=== PATIENT | female | born 1965 | race Caucasian/White ===

== ENCOUNTER 2024-06-29 14:49 | Outpatient (AMB) | payer BC, SELFPAY ==
--- NOTE | 2024-06-29 14:51 | HO.NEPHOV ---
Vital Signs 06/29/24 14:52 Height 5 ft 4 in Weight 230 lb BMI 39.5 BP 122/68 Blood Pressure Location Rt brachial Position Sitting Pulse 100 Pulse Source Pulse Oximeter Pulse Oximetry (%) 99 Oxygen Delivery Method Room Air Intake Visit Reasons: Abn results of kidney function studies/ Conf Door To Door Lead Generation Required: No Accompanied by: Self / Same As Patient Allergies morphine Allergy (Unknown, Verified 06/29/24 14:57) Unknown pantoprazole [From Protonix] Allergy (Unknown, Verified 06/29/24 14:57) Unknown Quinolones Allergy (Unknown, Verified 06/29/24 14:57) Unknown acifex Allergy (Unknown, Uncoded 06/29/24 14:57) Unknown sulfa drugs Allergy (Unknown, Uncoded 06/29/24 14:57) Unknown Medication List - Last Reconciled 06/29/24 by Gerardo Gonzalez MD albuterol sulfate 90 mcg/actuation inhalation cholecalciferol (vitamin D3) 250 mcg PO QWEEK famotidine 20 mg PO DAILY fexofenadine (Isabella Allergy) 180 mg PO BID hydroxychloroquine (Plaquenil) 200 mg PO BID ipratropium bromide intranasal mecobalamin (vitamin B12) 1,000 mcg PO DAILY mometasone 50 mcg/actuation intranasal DAILY HPI Comments Details: Mary is a pleasant 58-year-old woman with connective tissue disease. She has seronegative rheumatoid arthritis. She is on Plaquenil. Does not take any NSAIDs. She has had multiple episodes of eczema has and has undergone skin biopsies. She takes tacrolimus p.r.n.. She has been referred for evaluation of CKD. January 2024 serum creatinine was 1.26. May 2024 serum creatinine was 1.19. He has had no renal issues in the past. No gross hematuria. No polyuria polydipsia. No petechiae. She has generalized joint pains. She is not on any systemic steroids. She has undergone extensive serological workup in and C ANCA p-ANCA MPO PR3 were negative. No monoclonal proteins were seen. No history of smoking or alcohol abuse. She takes medical marijuana. 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 No children no family history of any currently tissue disease. [facility] Family History Father Hypertension Hypercholesterolemia Kidney disease Mother Hypertension Hypercholesterolemia Brother Kidney disease Hypercholesterolemia Hypertension Sister Hypercholesterolemia Review of Systems Const Denies fever(s) and Denies weight loss Card Denies chest pain Resp Denies cough and Denies hemoptysis GI Denies abdominal pain, Denies diarrhea and Denies nausea Musc Denies back pain Skin/Breast Reports rash (On and off. No petechiae) Neuro Denies focal weakness Physical Exam Vital Signs: Last Vital Signs Pulse 100 06/29/24 14:52 BP 122/68 06/29/24 14:52 Pulse Ox 99 06/29/24 14:52 Oxygen Delivery Method Room Air 06/29/24 14:52 BMI result Body Mass Index 39.5 Comfortable obese Neck supple no JVD. Lungs entry equal no rales. Heart S1-S2 heard no gallop or rub. Abdomen soft nontender. Neuro alert awake oriented. No asterixis. Extremities trace edema. Results Reviewed Results Reviewed: In 01/26/2024 serum creatinine 1.26 EGFR 40 mL/minute. Serum electrolytes were normal Nephrology Results: No Data to Display Assessment & Plan Assessment & Plan (1) CKD (chronic kidney disease): Code(s): N18.9 - Chronic kidney disease, unspecified Category: Medical Plan 58-year-old man with obesity and currently tissue disease with CKD. She did have acute kidney injury back in January. Serum creatinine is improved. Recent creatinine was 1.19. In the past the workup did not reveal any evidence of glomerular nephritis. Serological workup was negative. She had no significant proteinuria in the urine protein creatinine ratio was 0.053. I have initiated a basic workup including a 24 urine collection to calculate creatinine clearance and to quantify the urinary protein excretion. Repeat urinalysis along with microscopy. Renal ultrasonogram to assess echogenicity and to rule out any obstruction. I have encouraged her to stay on low-sodium diet Increase p.o. fluid intake She will benefit from weight loss. Further workup will be based on the outcome of these above investigations. Orders: Orders Creatinine Clearance Urine 24U Today N18.9 - Chronic kidney disease, unspecified Comprehensive Met. Panel Today N18.9 - Chronic kidney disease, unspecified Protein, 24 Hr Urine Group Today N18.9 - Chronic kidney disease, unspecified UA and rflx microscopic Today N18.9 - Chronic kidney disease, unspecified US renal BI Today I10 - Essential (primary) hypertension, N18.9 - Chronic kidney disease, unspecified Coding Level of Care Code New Pt Level 4 (36480) Diagnoses CKD (chronic kidney disease) N18.9
[2024-06-29 14:52] VITALS: BP 122/68; PULSE 100; O2SAT 99; BMI 39.5
--- OUTSIDE RECORDS SUMMARY | 2024-06-29 17:21 | XMS_ITS | Encounter Summary ---
Author Organization [facility] Address [address] [place] [address] Care Team Providers Care It Administrator Name Role Phone Julien Mckeon APRN Unavailable [phone] Shari Maier MD Unavailable [phone] Wm Cantu MD Unavailable [phone] Elina Sanchez JANITOR HELPER Primary Care Provider Lexus Chen MD Unavailable [phone] Encounter Details Date Type Department Care Team (Late st Contact Info) Description 09/01/2023 Scanned Document [facility] Department of Internal Medicine [address] [phone] Elina Sanchez, MARGOT [address] [place] [address] Social History Tobacco Use Types Packs/Day Years Used Date Smoking Tobacco: Never Smokeless Tobacco: Never Alcohol Use Standard Drinks/Week Comments Yes 1 (1 standard drink = 0.6 oz pur e alcohol) PHQ-2 Answer Date Recorded PHQ-2 Total Score 2 05/12/2023 Sex and Gender Information Value Date Recorded Sex Assigned at Female 05/06/2023 1:41 PM EST Gender Identity Female 01/07/2022 3:23 PM EDT Sexual Orientation Heterosexual (straight) 01/07 3:23 PM EDT documented as of this encounter Plan of Treatment Upcoming Encounters Date Type Department Care Team (Late st Contact Info) Description 10/25/2024 9:30 AM EDT Office Visit [facility] Department of Internal Medicine [address] [place] [phone] Elina Sanchez APRN [address] [place] [address] documented as of this encounter Visit Diagnoses Not on filedocumented in this encounter Care Teams It Administrator Relationship Specialty Start Date End Date Elina Sanchez APRN [address] [place], [place] [address] PCP - General Internal Medicine 07/06/23 Julien Mckeon APRN [address] [place] [address] Nurse Practitioner Neurology 05/12/23 Shari Maier MD [address] [place] [address] Consulting Provider Dermatology 05/12/23 Wm Cantu MD 9 [facility] [address]nd [place] [address] Obstetrics and Gynecology 05/12/23 Lexus Chen MD [address] [place] [address] Rheumatology 05/24/24 documented as of this encounter
--- OUTSIDE RECORDS SUMMARY | 2024-06-29 17:21 | XMS_ITS | Encounter Summary ---
Author Organization [facility] Address [address] [place] [address] Care Team Providers Care Truss Assembler Name Role Phone Julien Mckeon APRN Unavailable [phone] Shari Miaer MD Unavailable [phone] Wm Cantu MD Unavailable [phone] Elina Sanchez SURGERY SCHEDULER Primary Care Provider Lexus Chen MD Unavailable [phone] Encounter Details Date Type Department Care Team (Late st Contact Info) Description 06/29/2024 Scanned Document [facility] Department of Internal Medicine [address] [phone] Elina Sanchez, MARGOT [address] [place] [address] Social History Tobacco Use Types Packs/Day Years Used Date Smoking Tobacco: Never Smokeless Tobacco: Never Alcohol Use Standard Drinks/Week Comments Yes 1 (1 standard drink = 0.6 oz pur e alcohol) Occasonal/Social PHQ-2 Answer Date Recorded PHQ-2 Total Score 1 05/24/2024 Sex and Gender Information Value Date Recorded Sex Assigned at Female 05/06/2023 1:41 PM EST Gender Identity Female 01/07/2022 3:23 PM EDT Sexual Orientation Heterosexual (straight) 01/07 3:23 PM EDT documented as of this encounter Plan of Treatment Upcoming Encounters Date Type Department Care Team (Late st Contact Info) Description 10/25/2024 9:30 AM EDT Office Visit [facility] Department of Internal Medicine [address] [place] [phone] Elina Sanchez APRN [address] [place] [address] documented as of this encounter Visit Diagnoses Not on filedocumented in this encounter Care Teams Truss Assembler Relationship Specialty Start Date End Date Elina Sanchez, MARGOT [address] [place] [address] PCP - General Internal Medicine 07/06/23 Julien Mckeon APRN [address] [place] [address] Nurse Practitioner Neurology 05/12/23 Shari Maier MD [address] [place] [address] Consulting Provider Dermatology 05/12/23 Wm Cantu MD [address] [place] [address] 2[address] [place] [address] Obstetrics and Gynecology 05/12/23 Lexus Chen MD [address] [place] [address] Rheumatology 05/24/24 documented as of this encounter
--- OUTSIDE RECORDS SUMMARY | 2024-06-29 17:21 | XMS_ITS | Clinical Summary ---
Author Organization [facility] Address [address] [place] [address] Care Team Providers Care Quarter Seamer Name Role Phone Vik Brar MD Primary Care Provider Unavail able Allergies Active Allergy Reactions Criticality Noted Date Comments Rabeprazole 2017 Amoxicillin-Pot Clavulanate 2017 Skin harden Fluticasone 2017 Morphine Other (See Comments) 2017 Rash, low BP Pantoprazole 2017 Quinolones 2017 Sulfa Antibiotics 2017 Tetracyclines & Related 2017 Medications Medication Sig Dispensed Refills Start Date End Date Status FLORANEX GRANULES (LACTOBACILLUS) PACK packet Take 1 packet by mouth daily. 0 Active cholecalciferol (VITAMIN D3) 1000 units tablet Take 1,000 Units by mouth daily. 0 Active desoximetasone (TOPICORT) 0.25 % ointment Apply topically 2 (two) times a day. 0 Active Clobetasol Prop Emollient Base 0.05 % emollient cream Apply topically 2 (two) times a day. 0 Active metroNIDAZOLE (METROGEL) 1 % gel Apply topically daily. 0 Active Fexofenadine HCl (ED ALLERGY PO) Take 180 mg by mouth 2 (two) times a day. 0 Active estradiol (ESTRACE) 2 MG tablet Take 2 mg by mouth daily. 0 08/07/2016 Active famotidine (PEPCID) 20 MG tablet Take 20 mg by mouth 2 (two) times a day. 0 Active hydroxychloroquine (PLAQUENIL) 200 MG tablet Take 200 mg by mouth 2 (two) times a day. 0 Active Active Problems Problem Noted Date Diagnosed Date Atypical endometrial cells on Pap smear 12/06/19 21 Family History Medical History Relation Name Comments Hyperlipidemia Father Hypertension Father Cancer Mother Oropharangeal Diabetes Mother Heart disease Mother Relation Name Status Comments Father Mother Social History Tobacco Use Types Packs/Day Years Used Date Smoking Tobacco: Never Smokeless Tobacco: Never Alcohol Use Standard Drinks/Week Comments Yes 0 (1 standard drink = 0.6 oz pur e alcohol) rarely Sex and Gender Information Value Date Recorded Sex Assigned at Female 11/30/2020 9:55 AM EDT Gender Identity Not on file Sexual Orientation Not on file Job Start Date Occupation Industry Not on file Not on file Not on file Last Filed Vital Signs Vital Sign Reading Time Taken Comments Blood Pressure 136/69 12/07/2020 10:24 AM EDT Pulse 61 12/07/2020 10:24 AM EDT Temperature 36 ??C (96.8 ??F) 12/07/2020 9:24 AM EDT Respiratory Rate 18 12/07/2020 10:24 AM EDT Oxygen Saturation 100% 12/07/2020 10:24 AM EDT Inhaled Oxygen Concentration - - Weight 101.6 kg (224 lb) 12/07/2020 7:43 AM EDT Height 162.6 cm (5' 4 ) 12/07/2020 7:43 AM EDT Body Mass Index 38.45 12/07/2020 7:43 AM EDT Plan of Treatment Health Maintenance Due Date Last Done Comments Hepatitis B Vaccines (1 of 3 - 3-dose series) 1966 Hepatitis C Screening 1966 COVID-19 Vaccine (#1) 02/19/1967 Depression Screening 1978 BMI Counseling 1984 Preventative Health Evaluation 1984 Cervical Cancer Screening (P ap Smear) 08/20/1987 Colon Cancer Screening (Colonoscopy) 08/20/2011 Breast Cancer Screening (Mammogram) 2016 Shingrix-Zoster Vaccine (1 of 2) 2016 DTap / Tdap / Td (2 - Td or Tdap) 03/21/2019 009 Influenza Vaccine (#1) 2024 Pneumococcal Vaccine Aged Out No long er eligible based on patient's age to complete this topic RSV Ped < 20 months Aged Out No longe r eligible based on patient's age to complete this topic Advance Directives For more information, please contact: [phone] Documents on File Type Date Recorded Patient Sustainable Products Marketing Manager Expl anation Advance Directive and Living Will 03/10/2016 No advanced Directiv es Latest Code Status on File Code Status Date Activated Date Inactivated Comments Full Code 12/07/2020 7:46 AM 12/07/2020 4:49 PM This co de status was ascertained in the following way: discussion with patient . Care Teams Quarter Seamer Relationship Specialty Start Date End Date Vik Brar MD PCP - General Internal Medicine 03/08/16
--- OUTSIDE RECORDS SUMMARY | 2024-06-29 17:21 | XMS_ITS | Encounter Summary ---
Author Organization [facility] Address [address] [place] [address] Care Team Providers Care Fiberglass Insulation Installer Name Role Phone Vik Brar MD Primary Care Provider [phone] Julien Mckeon HEALTH ACTUARY Unavailable [phone] Shari Maier MD Unavailable [phone] Wm Cantu MD Unavailable [phone] Elina Sanchez HEALTH ACTUARY Unavailable [phone] Elina Sanchez HEALTH ACTUARY Primary Care Provider [phone] Lexus Chen MD Unavailable [phone] Reason for Visit * Reason Onset Date Comments Medication Refill 11/19/2021 Encounter Details Date Type Department Care Team (Late st Contact Info) Description 11/19/2021 Refill [facility] [address] [facility] [address] [place] [address] Nneka Sultana ProviderMD [address] [place] [address] Gastroesophageal reflux disease Social History Tobacco Use Types Packs/Day Years Used Date Smoking Tobacco: Never Smokeless Tobacco: Never Alcohol Use Standard Drinks/Week Comments Yes 1 (1 standard drink = 0.6 oz pur e alcohol) Sex and Gender Information Value Date Recorded Sex Assigned at Female 05/06/2023 1:41 PM EST Gender Identity Female 01/07/2022 3:23 PM EDT Sexual Orientation Heterosexual (straight) 01/07 3:23 PM EDT documented as of this encounter Plan of Treatment Upcoming Encounters Date Type Department Care Team (Late st Contact Info) Description 10/25/2024 9:30 AM EDT Office Visit [facility] Department of Internal Medicine [address] [place] [address] Elina Sanchez, MARGOT [address] [place], [place] [id number] documented as of this encounter Visit Diagnoses Diagnosis Gastroesophageal reflux disease Esophageal reflux documented in this encounter Care Teams Fiberglass Insulation Installer Relationship Specialty Start Date End Date Vik Brar MD PCP - General Internal Medicine 08/11/16 07/04/23 Elina Sanchez, HEALTH ACTUARY [address] [place], [place] [id number] PCP - General Internal Medicine 07/06/23 Julien Mckeon APRN [address] [place] [address] Nurse Practitioner Neurology 05/12/23 Shari Maier MD [address] [place] [address] Consulting Provider Dermatology 05/12/23 Wm Cantu MD 9 [facility] 2nd [place] [address] Obstetrics and Gynecology 05/12/23 Elina Sanchez, HEALTH ACTUARY [address] [place] [address] Nurse Practitioner Internal Medicine 07/05/23 07/05/23 Lexus Chen MD [address] [place] [address] Rheumatology 05/24/24 documented as of this encounter
--- OUTSIDE RECORDS SUMMARY | 2024-06-29 17:21 | XMS_ITS | Encounter Summary ---
Author Organization [facility] Address [address] [place] [address] Care Team Providers Care Brickmason Apprentice Name Role Phone Vik Brar MD Primary Care Provider Julien Mckeon BLOCK CAPTAIN Unavailable [phone] Shari Maier MD Unavailable [phone] Wm Cantu MD Unavailable Elina Sanchez BLOCK CAPTAIN Unavailable Elina Sanchez BLOCK CAPTAIN Primary Care Provider Lexus Chen MD Unavailable [phone] Encounter Details Date Type Department Care Team (Late st Contact Info) Description 05/26/2023 Scanned Document [facility] Department of Internal Medicine [place] [address] [facility] [address] [place] [phone] Vik Brar MD [address] [place] [address] Social History Tobacco Use Types Packs/Day Years [...] Description 10/25/2024 9:30 AM EDT Office Visit [facility] Department of Internal Medicine [address] [place] [address] Elina Sanchez, BLOCK CAPTAIN [address] [place] [address] documented as of this encounter Visit Diagnoses Not on filedocumented in this encounter Care Teams Brickmason Apprentice Relationship Specialty Start Date End Date Vik Brar MD PCP - General Internal Medicine 08/11/16 07/04/23 Elina Sanchez, BLOCK CAPTAIN [address] [place] [address] PCP - General Internal Medicine 07/06/23 Julien Mckeon BLOCK CAPTAIN [address] [place] [address] Nurse Practitioner Neurology 05/12/23 Shari Maier MD [address] [place] [address] Consulting Provider Dermatology 05/12/23 Wm Cantu MD 9 [facility] [address] [place] [address] Obstetrics and Gynecology 05/12/23 Elina Sanchez, BLOCK CAPTAIN [address] [place] [address] Nurse Practitioner Internal Medicine 07/05/23 07/05/23 Lexus Chen MD [address] [place] [address] Rheumatology 05/24/24 documented as of this encounter
--- OUTSIDE RECORDS SUMMARY | 2024-06-29 17:21 | XMS_ITS | Encounter Summary ---
Author Organization [facility] Address [address] [place] [address] Care Team Providers Care Bus Mechanic Name Role Phone Julien Mckeon APRN Unavailable [phone] Shari Maier MD Unavailable [phone] Wm Cantu MD Unavailable [phone] Elina Sanchez OCEAN FREIGHT MANAGER Primary Care Provider Lexus Chen MD Unavailable [phone] Encounter Details Date Type Department Care Team (Late st Contact Info) Description 01/25/2024 Scanned Document [facility] Department of Internal Medicine [address] [phone] Elina Sanchez, MARGOT [address] [place] [address] Social History Tobacco Use Types Packs/Day [...] Visit [facility] Department of Internal Medicine [address] [place] [phone] Elina Sanchez APRN [address] [place] [address] documented as of this encounter Visit Diagnoses Not on filedocumented in this encounter Care Teams Bus Mechanic Relationship Specialty Start Date End Date Elina Sanchez APRN [address] [place], [place] [phone] PCP - General Internal Medicine 07/06/23 Julien Mckeon APRN [address] [place] [address] Nurse Practitioner Neurology 05/12/23 Shari Maier MD [address] [place] [address] Consulting Provider Dermatology 05/12/23 Wm Cantu MD [address] [facility] 2nd [place] [address] Obstetrics and Gynecology 05/12/23 Lexus Chen MD [address] [place] [address] Rheumatology 05/24/24 documented as of this encounter
--- OUTSIDE RECORDS SUMMARY | 2024-06-29 17:21 | XMS_ITS | Encounter Summary ---
Author Organization [facility] Address [address] [place] [address] Care Team Providers Care Dock Builder Name Role Phone Julien Mckeon APRN Unavailable [phone] Shari Maier MD Unavailable [phone] Wm Cantu MD Unavailable Elina Sanchez APRN Primary Care Provider Lexus Chen MD Unavailable [phone] Encounter Details Date Type Department Care Team (Late st Contact Info) Description 06/14/2024 Orders Only [facility] Department of Internal Medicine [place] [address] [facility] [address] [place] [phone] Provider, Chloé, [address] [place], [place] [phone] Social History Tobacco Use Types Packs/Day Years [...] Description 10/25/2024 9:30 AM EDT Office Visit [facility] Department of Internal Medicine [address] [place] [phone] Elina Sanchez, MARGOT [address] [place] [address] documented as of this encounter Procedures Procedure Name Priority Date/Time Associated Diagnosis Comments DEXA BONE DENSITY AXIAL SKELETON, 1 OR MORE SITES Routine 06/14/2024 12:38 PM EST documented in this encounter Results * DEXA Bone Density axial skeleton, 1 or more sites (06/14/2024 12:38 PM EST) Anatomical Region Laterality Modality Digital Radiogra phy External Provider MD COY DXA ORDERABLES documented in this encounter Visit Diagnoses Not on filedocumented in this encounter Care Teams Dock Builder Relationship Specialty Start Date End Date Elina Sanchez, FILM TECHNICIAN [address] [place] [address] PCP - General Internal Medicine 07/06/23 Julien Mckeon APRN [address] [place] [address] Nurse Practitioner Neurology 05/12/23 Shari Maier MD [address] [place] [address] Consulting Provider Dermatology 05/12/23 Wm Cantu MD [address] [facility] 2nd [place] [address] Obstetrics and Gynecology 05/12/23 Lexus Chen MD [address] [place] [address] Rheumatology 05/24/24 documented as of this encounter
--- OUTSIDE RECORDS SUMMARY | 2024-06-29 17:21 | XMS_ITS | Continuity of Care Document ---
Author Organization [facility] Address [address] [place] [phone] Care Team Providers Care Bilingual Customer Service Specialist Name Role Phone ELINA SANCHEZ Primary Care Provider Assessment Encounter Date Assessment Date Assessment LastModified by Organization Details LastModified Time 06/28/2024 06/28/2024 Class II Obesity : --Reviewed basic physiology of weight regulation --Low GI diet, protein breakfast, food order --Exercise as tolerated ? CV and resistance training --Utilize [employer] --RD referral --Support groups --Track weight weekly online --Shift calories to earlier in the day The patient presents for follow up today. It has been 14 weeks since their last visit for weight loss management. Since that time they have stopped taking Topiramate due to side effects: difficulty getting out of bed, fatigue, etc. Sensitive to medications, notes ready to try an alternative. 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 Told she now has Stage 3 CKD and will be seeing nephrology for the first time tomorrow. They were unsure if this is related to her autoimmune issues. Change in weight since last appointment: Highest/Baseline wt: 238 Wt @ LISA: 215 Current wt: 221 Wt change: +6.0lbs / 2.79 % --Reviewed medications associated with weight gain, counseled on alternatives to be discussed with prescribing provider --AOM selection ? discussed dosing and common side effects of available options: Contrave, GLP-1s. Pt discontinued Topiramate due to side effects. Very sensitive to medications in general and PCP even prescribed an epi pen for her just in case. We discussed options: would not be a candidate for Phentermine with HTN. Previously failed Topiramate. Just diagnosed with Stage 3 CKD and seeing nephrology tomorrow. Would avoid Metformin. Consider Contrave. Reviewed prescribing policy for GLP-1 as well. Pt wanted to review options and then discuss with her ratoprinter as well. PCP and refinery operator polymerization plant supported use of GLP-1. Pt to message me with an update after she sees the ratoprinter for next steps. Also discussed bariatric surgery as an option. Pt aware she has the option for a consult if she wanted to explore her options as well. Notes she had labs done recently. Will attempt to obtain for update/review. Pt to continue working on increased water, protein, exercise. Will keep RD consult as well. Agrees to connect with any concerns prior to our 3 month follow up. Pt is comfortable with this plan. Total time spent on the date of the encounter = 70 minutes, which includes visit preparation time, time reviewing and independently interpreting results, mbot-cm-[id number] time with the patient, counseling/educat ing patient/family members/caregiver s, ordering medications/tests /procedures, care coordination, documenting clinical information in the electronic medical record, following up on referrals/results and communicating with related healthcare professionals as needed. Follow up: Lab Order Set: UTD Appt w/ AUTOMOTIVE CONSULTANT: 3 months Appt w/ RD: pending [email or web address] Not available 06/28/2024 12:59:39 Plan of Treatment Reminders Order Date Submit Date Provider Last Modified By Organization Details Last Modified Time Details Appointments RD FOLLOW -UP (RDF)- 65 025 05:00PM SUDHIR AMBROSIO RD Not available Not available Not available Lab None record ed. Referral None record ed. Procedures None record ed. Surgeries None record ed. Imaging None record ed. Medication Orders None record ed. Patient TargetsNo targets recorded. Patient Instructions Encounter Date Encounter Id Patient Instructions Last Modified By Organization Details Last Modified Time 06/28/2024 [id number] Maxime Hernandez , It was great seeing you today. Here are some reminders from our visit - --> Remember to eat small portions, eat slowly, stop eating before you feel full -->Consider starting each day with a high protein breakfast, drinking 64oz of water throughout your day, and eating the protein and veggies first in your meals and saving carbs/starches for last --> We recommend gradually increasing your activity as tolerated to 150mins/wk and focusing on strength based activity 2 days/wk. -->Please check your weight once weekly -->Please use [facility] Patient Portal for any questions that arise between visits -->For follow up scheduling please call [phone] PATRICIO Unger [email or web address] Not available 06/28/2024 11:49:25 Reason for Referral None Reported. Problems Name Problem SNOMED Code Status Onset Date Resolution Date Notes Provider Name and Address Organization Details Recorded Time Obesity 754402296 Active 2023 Brenda joseph, [facility] [employer] [facility]. - [facility] 4 11:31:07 Hyperlipidemia 98465613 Active 2023 EARLINE RIZVIOR, [address], [place], [address], [facility] [employer] - [facility] 4 12:54:36 Anxiety 90797964 Active 2023 EARLINE PATTERSON, [address], [place], [address], [facility] [employer] - [facility] 4 12:54:39 Migraine 70415169 Active 2023 EARLINE PATTERSON, [address], [place], [address], [facility] [employer] - [facility] 4 12:54:42 Gastroesophage al reflux disease without esophagitis 289416002 Active 2023 EARLINE PATTERSON, [address], [place], [address], [facility] [employer] [facility]. - [facility] 4 12:55:00 Essential hypertension 79556785 Active 2023 EARLINE PATTERSON, [address], [place], [address], [facility] [employer] - [facility] 4 12:55:02 Snoring 67034347 Active 2023 EARLINE PATTERSON, [address], [place], [address], [facility] [employer] - [facility] 4 12:57:37 Rheumatoid arthritis 30685409 Active 2023 EARLINE YESENIA, [employer] [address], [place], [address], [facility] [employer]. - [facility] 4 13:02:51 Obese class III 565348563 Active 2023 WAQAS BARNETT, RDN [address], [place], [address], [facility] [employer]. - [facility] 4 10:57:34 Chronic kidney disease stage 3A 669586364 Active 2024 EARLINE YESENIA, [employer] [address], [place], [address], [facility] [employer] [facility]. - [facility] 5 12:50:15 Problem Notes None recorded. Medical Equipment None Reported. Allergies Allergen ID Allergen Name Allergen Category Reaction Reaction Severity Criticality Documentation Date Start Date Code Code System Note Provider Name and Address Organization Details Recorded Time 3554 morphine medicatio n Not available Not available Not available 08/31/2023 7052 RxNorm [facility]. - [facility] 4 10:36:34 3555 Substance with sulfonami de structure and antibacte rial mechanism of action (substanc e) medicatio n Not available Not available Not available 08/31/2023 736[address] 8003 SNOMED [facility]. - [facility] 4 10:36:46 Medications Name Sig Start Date Stop Date Status Note LastModified by Organization Details LastModified Time desoximetas one 0.05 % topical cream APPLY SPARINGLY TO AFFECTED AREA TWICE A DAY NEEDED active Not Available Not Available No t Available prednisone 5 mg tablet TAKE 2 TABS ONCE DAILY FOR 1-2 WEEKS, THEN 1 TAB ONCE DAILY FOR 2 WEEKS 08/31 completed Not Available Not Available Not Available clobetasol 0.05 % topical cream APPLY SPARINGLY ONCE OR TWICE A DAY NEEDED active Not Available Not Available No t Available topiramate 25 mg tablet TAKE 1 TABLET DAILY 06/28 completed Not Available Not Available Not Available famotidine 20 mg tablet TAKE 1 TABLET BY MOUTH NIGHTLY NEEDED FOR HEARTBURN . active Not Available Not Available No t Available mometasone 50 mcg/actuati on nasal spray SPRAY 2 SPRAYS BY NASAL ROUTE DAILY active Not Available Not Available No t Available hydroxychlo roquine 200 mg tablet TAKE 1 TABLET BY MOUTH TWICE A DAY FOR 90 DAYS active Not Available Not Available No t Available epinephrine 0.3 mg/0.3 mL injection, auto-inject or INJECT 0.3 ML (0.3 MG TOTAL) INTO THE THIGH ONCE NEEDED FOR ALLERGIC REACTION. active Not Available Not Available No t Available albuterol sulfate HFA 90 mcg/actuati on aerosol inhaler 2 PUFFS NEEDED INHALATIO N EVERY 6-8 HRS 30 DAYS active Not Available Not Available No t Available ipratropium bromide 21 mcg (0.03 %) nasal spray 2 SPRAYS BY NASAL ROUTE EVERY 12 (TWELVE) HOURS. 2 SPRAYS PER NOSTRIL EVERY 12 HOURS. active Not Available Not Available No t Available erythromyci n with ethanol 2 % topical solution APPLY TO FACIAL RASH UNDER NOSE TWICE A DAY FOR 6 WEEKS 02/21 completed Not Available Not Available Not Available metronidazo le 1 % topical gel APPLY TO ROSACEA ONCE DAILY. active Not Available Not Available No t Available sodium,pota ssium,mag sulfates 17.5 gram-3.13 gram-1.6 gram oral soln FOLLOW DIRECTION S PROVIDED BY PHYSICIAN 'S OFFICE. 02/21 completed Not Available Not Available Not Available Vitals Date Recorded Body height Body mass index (BMI) Body weight Provider Name and Address Organization Details Last Updated DateTime 06/28/2024 162.56 cm 37.9 kg/m2 641128.91 g EARLINE RIZVIOR, AC[employer] PL[employer] OPERATOR[address], [place], [address], [facility]. - [facility] 06/28/2024 12:31:25 Date Recorded Body weight Body height Body mass index (BMI) Provider Name and Address Organization Details Last Updated DateTime 06/28/2024 141386.5850 7 g 162.56 cm 37.9 kg/m2 Not Available [employer] 06/28/2024 12:33:23 Social History None recorded. Functional Status None recorded. Mental Status None recorded. Family History Nothing Reported. Medical History No medical history recorded. Gynecological HistoryNo gynecological history recorded. Obstetrics History GPAL:G 0 P 0 0 0 0 Past Encounters Encounter ID Performer Location Encounter Start Date Encounter Closed Date Diagnosis/Indication Diagnosis SNOMED-CT Code Diagnosis ICD10 Code Diagnosis Note [id number] EARLINE RIZVIORMARGOT [address] [phone] 06/28/2024 12:28:33 06/28/2024 13:00:25 Obesity 033195091 E66.9 --as above Hyperlipidemia 12393667 E78.5 --Monitor lipids with weight loss and dietary/li festyle modificati on Anxiety 06299781 F41.9 --pt continues to work with her therapist as she is still grieving the loss of her (plus multiple other losses in a short time frame)--llamas sn't tolerated meds well in the past Migraine 50645035 G43.90 9 --stopped Topiramate due to side effects--R eview medication s associated with weight gain, counseled on alternativ es to be discussed with mari ortiz provider. Gastroesop hageal reflux disease without esophagitis 435753799 K21.9 --Reviewed common food triggers, keeping a symptom journal, elevation of the head of the bed, stop eating a few hours before bedtime--M onitor symptoms with weight losssonogr am and referral to GI/Hepatol ogy--Reduc e/disconti nue alcohol intake Snoring 70781587 R06.83 Snoring- @STOP-BANG score 4/7--Revie wed physiology of HUGO and health risks associated with untreated sleep apnea--Dis cuss with PCP regarding: Refer to sleep medicine specialist Rheumatoid arthritis 698 [address] M06.9 --follows with her rheumatolo gist regularly in [place]--co ntinue current regimen Chronic ki dney disease stage 3A 448353396 N18.31 --was told she has Stage 3 CKD.--seeandrae man nephrology tomorrow for consult--w ill hold on starting new meds until she is seen by them. Health Concerns Section Related Observation LastModified by Organization Detai ls LastModified Time None Recorded Concern Status LastModified by Organization Details LastModified Time None Recorded Payers None recorded. Notes Date Note Type Note Provider Name and Address Organization Details Recorded Time 5 text/html History of Present Illness:58 yr old Female with class 3 Obesity, Acid Reflux, Anxiety, Asthma, Migraines, Arthritis presents for evaluation.I have confirmed that the patient is physically located in the state of {{[place] [facility] A [facility]* [facility] [place] [facility] Mary [facility] }} Visit{{DATE 06/28/2024}}Th e patient presents for follow up today. It has been 14 weeks since their last visit for weight loss management. Since that time they have stopped taking Topiramate due to side effects: difficulty getting out of bed, fatigue, etc. Sensitive to medications, notes ready to try an alternative. 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 Told she now has Stage 3 CKD and will be seeing nephrology for the first time tomorrow. They were unsure if this is related to her autoimmune issues.Change in weight since last appointment:Highest/Baseli ne wt: 238Wt @ LISA: 215Current wt: 221Wt change: +6.0lbs / 2.79 % Appetite (0= no hunger, 10= intense hunger)?{{0 1 2 3 4 5* 6 7 8 9 10}} Cravings (0= no cravings, 10= strong cravings)?{{0 1 2 3 4 5 6 7 8* 9 10}} sweets Binging?{{Yes* No}} Hardest time(s) of day appetite/cravings-ramirez:{{M orning Midday Afternoon Di nnertime After dinner* N/A (appetite is controlled)}} Triggers for Overeating:{{Stress Boredo m Depression/Anxiety Socia l Events Lack of fullness*}} Food recall (past 24 hours vs. a few go-to options):Breakfast: eggs or non-dairy yogurt, machaLunch: tuna or chicken in lettuce leaf or gf wrapDinner: non-dairy frozen pizzaSnacks: popcorn, nutsDrinks: below Sugar Amount/Frequency:Beverages : water, teaSoda: noneJuice: once in a while, rareAlcohol: slightly increasedDrinks with Sugar: noneDrinks with Artificial sweeteners: noneOther calorie-containing drinks: none Exercise:Duration/Frequenc y: inconsistentCardio: planning to resume weight lifting and workout videos and walkingResistance:Other: planning to get a walking pad Sleep: was overtired on Topiramate, notes poor sleep at baseline Depression/Anxiety/Mood: stable, still seeing therapist Energy(0= no energy, 10= intense energy):{{0 1 2 3 4* 5 6 7 8 9 10}} ROS: 10+ performed, negative except pertinent positives noted above _Last visit History of Present Illness:58 yr old Female with class 3 Obesity, Acid Reflux, Anxiety, Asthma, Migraines, Arthritis presents for evaluation.I have confirmed that the patient is physically located in the state of [facility] Visit{{DATE 02/22/2024}}Th e patient presents for follow up today. It has been 5 months since their last visit for weight loss management. They have been taking Topiramate (only started last week after speaking with her neurologist) and report no side effects at this time. Wishes she could have faster weight loss. Notes that since starting the meds, her headaches have significantly improved! Was resistant to start meds as she notes she is very medication sensitive.Change in weight since last appointment:Highest/Baseli ne wt: 238lbsWt @ LISA: 215lbsCurrent wt: 215lbsWt change: 0lbs Appetite (0= no hunger, 10= intense hunger)?{{0 1 2 3 4* 5 6 7 8 9 10}} Cravings (0= no cravings, 10= strong cravings)?{{0 1 2 3 4* 5 6 7 8 9 10}} Binging?{{Yes No*}} Hardest time(s) of day appetite/cravings-ramirez:{{M orning Midday Afternoon Di nnertime After dinner N/A (appetite is controlled)*}} Triggers for Overeating:{{Stress Boredo m Depression/Anxiety Socia l Events Lack of fullness n/a#}} Food recall (past 24 hours vs. a few go-to options): avoids gluten and dairyBreakfast: non dairy yogurt, hard boiled eggsLunch: chicken, fruits or veggies, saladDinner: chicken breast, veggieSnacks: chicken for a snack, apple with pbDrinks: below Sugar Amount/Frequency:Beverages : water, teaSoda: noneJuice: once in a while, rareAlcohol: rareDrinks with Sugar: noneDrinks with Artificial sweeteners: noneOther calorie-containing drinks: none Exercise:Duration/Frequenc y: inconsistentCardio: planning to resume weight lifting and workout videos and walkingResistance:Other: Sleep: stable Depression/Anxiety/Mood: works with her therapist who supports the addition of meds Energy(0= no energy, 10= intense energy):{{0 1 2 3 4 5 6* 7 8 9 10}} ROS: 10+ performed, negative except pertinent positives noted above _Last visit 58 yr old Female with class 3 Obesity, Acid Reflux, Anxiety, Asthma, Migraines, Arthritis presents for evaluation.I have confirmed that the patient is physically located in the state of {{[place]* [place] [facility] [place] [facility] h [facility] }} Referred ByPCP: Elina Sanchez AprnSUBSPECIALIST(S): specialists out of [place] (refinery operator polymerization plant and computer peripheral equipment operator), also sees a dermatologistVITALSHeight: 5'4 Weight: 215lbsHighest weight/BMI: 238.0 lbs, BMI 40.9, 2022Baseline weight/BMI: 215.0 lbs, BMI 36.9Lowest adult weight/BMI: 180.0 lbs, BMI 30.9, 1999Last weight/BMI: 215.0 lbs, BMI 36.9Total weight loss (Highest - Last): -23.0 lbs / -9.7%Total weight loss (Baseline - Last): 0.0 lbs / 0.0%Last Blood Pressure: Insufficient Number of ReadingsAverage Blood pressure: Insufficient Number of ReadingsLast Pulse: Insufficient Number of ReadingsAverage Pulse: Insufficient Number of ReadingsWEIGHT HISTORYWeight gain coincided with: of a loved oneCurrent lifestyle factors: Sedentary, Long hours, Stressful, Free/junk food availableMotivation for weight loss: Improve healthChallenges: Feeling too restricted by a diet or exercise programPrevious diets: many diets: BERNARDA, Nusrat Dalton, calorie counting, cabbage dietPrevious anti-obesity medications: nonePrevious bariatric surgeries/procedures/devic es: none Has lost about 30lbs in 1.5 years following her 's passingDIETARY RECALL (Last 3 logs)--Food Logged on --Breakfast: protein shakeLunch: leftovers or yogurtDinner: salad or skipsSnacks: popcornBeverages: water, teaSoda: noneJuice: once in a while, rareAlcohol: rareDrinks with Sugar: noneDrinks with Artificial sweeteners: noneOther calorie-containing drinks: noneEATING BEHAVIORNotes she has been told she has disordered eating History of Eating Disorder: NoBinge Eating: SometimesExcessive appetite: SometimesGrazing: SometimesCravings: SometimesTrigger for Overeating: Yes - Stress, Boredom, HappinessPercentage of Daily Calories consumed after dinnertime: 0-25%Eating window: breakfast 7am- last meal around 8pmBiggest Meal of the day: DinnerWeekly Restaurant/Take out Meals:Dietary Strategies that are appealing: Food logging, Mediterranean, Calorie countingFood sensitivities/restrictions : tries to stay plant based and gluten free, now eating some seafood and chicken on occasionFoods/Drinks consumed regularly: Fruit juice, Sugar in coffee, tea or other drinks, Candy, Sweets, Processed/packaged foodMiddle of the night eating: on occasionPHYSICAL ACTIVITYAverage daily steps: 2-5,000Activity Level: Lightly active (e.g., some light activity in daily life)Type of Activity: Beach Body on DemandDuration and frequency/week: 5 days/weekSLEEPHours of sleep per night: 5 to 7OSA Dx: NoSnoring: Yes - MildWitnessed Apnea: NoTreating sleep apnea adequately: n/aDaytime Sleepiness: YesMedications to help with sleep: medical marijuana prnSTOP-BANG score: 4/7Insomnia: YesPSYCHDepression: NoAnxiety: Yes and panic attacks in the pastOther psych diagnoses: processing grief due to multiple deaths over the past few years: dogs, parents, husbandCurrent treatment: therapyProvider(s): therapist--pt continues to work with her therapist as she is still grieving the loss of her (plus multiple other losses in a short time frame)--hasn't tolerated meds well in the pastPAST MEDICAL/SURGICAL HISTORYWeight Classification: class 3 obesityConfirmed insulin resistance diagnosis: NoCancer types: none, cancer screenings UTDOther diagnoses: Acid Reflux, Anxiety, Asthma, Migraines, Seronegative RA (also told other undiagnosed autoimmune diseases)Surgeries: endometriosis surgery (1980s), deviated septum repair, cholecystectomyDenies PMH: Seizure, Pancreatitis, Kidney stones, and/or GlaucomaSOCIAL 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 Plaquenil-? Pepcid-? Isabella Allergy-? Nasonex-? Albuterol Sulfate-? METROGEL-? Clobetasol Propionate (emollient)-? TopicortSupplements:magnes ium infusion monthly, Vit D3 daily, medical marijuana prn pain, CBD dailyALLERGIESSulpha, Morphine SulfateLABS/IMAGINGLabs from were reviewed in detail today with the patient. EARLINE YESENIA, MARGOT [address] [place] [address],[address], [place], [address], [facility]. - [facility] 06/28/2024 13:00:22 OBGyn Episode No OBEpisode recorded.
--- OUTSIDE RECORDS SUMMARY | 2024-06-29 17:21 | XMS_ITS | Encounter Summary ---
Author Organization [facility] Address [address] [place] [address] Care Team Providers Care Crochet Beader Name Role Phone Julien Mckeon APRN Unavailable [phone] Shari Maier MD Unavailable [phone] Wm Cantu MD Unavailable [phone] Elina Sanchez DISPATCH CLERK Primary Care Provider Lexus Chen MD Unavailable [phone] Encounter Details Date Type Department Care Team (Late st Contact Info) Description 06/10/2024 Scanned Document [facility] Department of Internal Medicine [address] [id number] Elina Sanchez, MARGOT [address] [place] [address] Social History Tobacco Use Types Packs/Day [...] Description 10/25/2024 9:30 AM EDT Office Visit [facility] Department of Internal Medicine [address] [place] [address] Elina Sanchez APRN [address] [place] [address] documented as of this encounter Visit Diagnoses Not on filedocumented in this encounter Care Teams Crochet Beader Relationship Specialty Start Date End Date Elina Sanchez, MARGOT [address] [place] [address] PCP - General Internal Medicine 07/06/23 Julien Mckeon APRN [address] [place] [address] Nurse Practitioner Neurology 05/12/23 Shari Maier MD [address] [place] [address] Consulting Provider Dermatology 05/12/23 Wm Cantu MD [address] [place] [address] 2nd [place] [address] Obstetrics and Gynecology 05/12/23 Lexus Chen MD [address] [place] [address] Rheumatology 05/24/24 documented as of this encounter
--- OUTSIDE RECORDS SUMMARY | 2024-06-29 17:21 | XMS_ITS | Encounter Summary ---
Author Organization [facility] Address [address] [place] [address] Care Team Providers Care Concrete Finisher Apprentice Name Role Phone Julien Mckeon APRN Unavailable [phone] Shari Maier MD Unavailable [phone] Wm Cantu MD Unavailable [phone] Elina Sanchez APRN Primary Care Provider Lexus Chen MD Unavailable [phone] Encounter Details Date Type Department Care Team (Late st Contact Info) Description 10/06/[address] [facility] [address] [phone] Yashira Leroy MD [address] [address] Social History Tobacco Use Types Packs/Day Years [...] Visit [facility] Department of Internal Medicine [place] [address] [facility] [address] [place] [address] Elina Sanchez, FURNACE REPAIRER [address] [place] [address] documented as of this encounter Procedures Procedure Name Priority Date/Time Associated Diagnosis Comments PATHOLOGY REPORT 10/06/2023 12:0 0 AM EDT documented in this encounter Results * PATHOLOGY REPORT (10/06/2023 12:00 AM EDT) Yashira Izquierdo MD PATHOLOGY/CYTOLOG Y ORDERABLES documented in this encounter Visit Diagnoses Not on filedocumented in this encounter Care Teams Concrete Finisher Apprentice Relationship Specialty Start Date End Date Elina Sanchez, FURNACE REPAIRER [address] [place] [address] PCP - General Internal Medicine 07/06/23 Julien Mckeon, FURNACE REPAIRER [address] [place] [address] Nurse Practitioner Neurology 05/12/23 Shari Maier MD [address] [place] [address] Consulting Provider Dermatology 05/12/23 Wm Cantu MD 9 [facility] 2nd Floor [place], [place] [id number] Obstetrics and Gynecology 05/12/23 Lexus Chen MD [address] [place] [address] Rheumatology 05/24/24 documented as of this encounter
--- OUTSIDE RECORDS SUMMARY | 2024-06-29 17:21 | XMS_ITS | Clinical Summary ---
Author Organization [facility] it Address [address] [place] [address] Care Team Providers Care Plaster Pattern Caster Name Role Phone Vik Brar MD Primary Care Provider [phone] Surgical History Surgery Date Site/Laterality Comments CHOLECYSTECTOMY PROCEDURE:CHOLECYSTECTOMY ENDOMETRIAL FULGURATION PROCEDURE:LAPAROSCOPIC ENDOMETRIOSIS FULGURATION NASAL SEPTUM SURGERY PROCEDURE:NASAL SEPTUM SURGERY Medical History Medical History Date Comments Hypertension DX:Hypertension GERD (gastroesophageal reflux disease) DX:GERD (gastroesophageal reflux disease) Allergies DX:Allergies Rheumatoid arthritis (CMS/HCC) D X:Rheumatoid arthritis (HCC) Autoimmune disorder (CMS/HCC) DX :Autoimmune disorder (HCC) Family History Medical History Relation Name Comments [...] Information Value Date Recorded Sex Assigned at Not on file Gender Identity Not on file Sexual Orientation Not on file Obstetrics History Plan of Treatment Health Maintenance Due Date Last Done Comments Breast Cancer Screening 1966 DTaP,Tdap,and Td Vaccines (1 - Tdap) 1985 Hepatitis B Vaccines (1 of 3 - 19+ 3-dose series) 1985 Cervical Cancer Screening: P ap Smear 08/20/1987 Zoster Vaccines (1 of 2) 2016 COVID-19 Vaccine (2023-2 5 season) 2024 Influenza Vaccine (#1) 2024 HIB Vaccines Aged Out No longer eligi ble based on patient's age to complete this topic HPV Vaccines Aged Out No longer eligi ble based on patient's age to complete this topic Hepatitis A Vaccines Aged Out No long er eligible based on patient's age to complete this topic IPV Vaccines Aged Out No longer eligi ble based on patient's age to complete this topic MMR Vaccines Aged Out No longer eligi ble based on patient's age to complete this topic Meningococcal ACWY Vaccine Aged Out N o longer eligible based on patient's age to complete this topic Pneumococcal Vaccine: Pediat rics (0 to 5 Years) and At-Risk Patients (6 to 64 Years) Aged Out No longer eligible b ased on patient's age to complete this topic RSV Immunization Patients Un justin 20 months Aged Out No longer eligible b ased on patient's age to complete this topic Varicella Vaccines Aged Out No longer eligible based on patient's age to complete this topic Care Teams Plaster Pattern Caster Relationship Specialty Start Date End Date Vik Brar MD [address] [address] PCP - General Internal Medicine 03/08/16
--- OUTSIDE RECORDS SUMMARY | 2024-06-29 17:21 | XMS_ITS | Encounter Summary ---
Author Organization [facility] Address [address] [place] [phone] Care Team Providers Care Scientific Helper Name Role Phone Unavailable Primary Care Provider Unavailabl e Encounter Details Date Type Department Care Team (Late st Contact Info) Description 02/16/2018 Scanned Document [facility] [address] [place] [address] Bhavani Muir MD [address] [place] [phone] Social History Tobacco Use Types Packs/Day Years Used Date Smoking Tobacco: Never Assessed Comments Unknown Sex and Gender Information Value Date Recorded Sex Assigned at Not on file Legal Sex Female 9:08 AM EST Gender Identity Not on file Sexual Orientation Not on file documented as of this encounter Plan of Treatment Not on file documented as of this encounter Visit Diagnoses Not on filedocumented in this encounter
--- OUTSIDE RECORDS SUMMARY | 2024-06-29 17:21 | XMS_ITS | Clinical Summary ---
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 Name Role Phone Julien Mckeon APRN Unavailable [phone] Shari Maier MD Unavailable [phone] Wm Cantu MD Unavailable [phone] Elina Sanchez APRN Primary Care Provider [phone] Lexus Chen MD Unavailable [phone] Allergies Active Allergy Reactions Criticality Noted Date Comments Adhesives/Tape Rash/Dermatitis,Itc fili Low 05/27/2013 Can tolerate bandaids for short periods of time but says that in the past when they used tape after phlebotomy would have swelling and itching under where the tape was Amoxicillin-Pot Clavulanate Itching Low 08/11/2022 Bacitracin Rash/Dermatitis Low 10/28/2014 Applied after ear piercing and 24 hours later developed itchy rash with small blisters. Codeine Rash/Dermatitis,Swe lling,Anaphylaxis High 08/11/2022 Misc. Sulfonamide Containing Compounds Rash/Dermatitis Low 02/15/2024 Morphine Unknown/Patient and Family Unable to Define,Anaphylaxis, Other (See Comments),Nausea And Vomiting,GI Intolerance/Nausea/ Vomiting,Rash/Martinez titis,Shortness Of Breath High 08/11/2016 Rash, low BP 1) first exposure had vomiting 2) second exposure had itchy rash, thinks she had low blood pressure, shortness of breath (called anaphylactic) *Per patient oral opiates have been tolerated in the past just with nausea but not this same severe reaction. Nitrofurantoin Monohyd Macro Unknown/Patient and Family Unable to Define Medium 08/11/2016 Pantoprazole Itching Low 08/11/2016 Penicillins Hives Medium 08/11/2016 Quinine Derivatives Unknown/Patient and Family Unable to Define Medium 08/11/2016 Quinolones Itching,Swelling Medium 08/11/2022 Rabeprazole Unknown/Patient and Family Unable to Define Medium 08/11/2016 Sulfa Antibiotics Swelling,Itching Medium 08/11/2016 Tetracycline Swelling,Rash/Martinez titis Medium 08/11/2016 Medications Medication Sig Dispensed Refills Start Date End Date Status metroNIDAZOLE (METROGEL) 1 % gel apply to affected area once daily 0 07/15/2016 Active clobetasol (TEMOVATE) 0.05 % cream Apply topically 2 (two) times a day. Apply to affected area 0 08/02/2016 Active saccharomyces boulardii (FLORASTOR) 250 MG capsule Take 250 mg by mouth daily. Active hydroxychloroquine (PLAQUENIL) 200 MG tablet Take 200 mg by mouth. 08/24/2019 Active desoximetasone (TOPICORT) 0.25 % cream Apply topically. Active vitamin B-12 (CYANOCOBALAMIN) 100 MCG tablet Take 1 tablet by mouth daily. Active albuterol (PROVENTIL HFA; VENTOLIN HFA) 108 (90 Base) MCG/ACT inhaler Inhale 2 puffs 4 times daily (every 6 hours) as needed. 10/21/2021 Active cholecalciferol (VITAMIN D3) 1000 units capsule Take 1 capsule by mouth daily. Active famotidine (PEPCID) 20 MG tablet Take by mouth. 10/03/2019 Active fexofenadine (ED) 180 MG tablet Take by mouth. 02/05/2012 Active ipratropium (ATROVENT) 0.03 % nasal spray into each nostril. 11/18/2021 Activ e CANNABIDIOL PO Take 0.75 mL by mouth. Active mometasone (NASONEX) 50 MCG/ACT nasal spray 2 sprays into each nostril daily. Active erythromycin with ethanol (THERAMYCIN) 2 % external solution APPLY TO FACIAL RASH UNDER NOSE TWICE A DAY FOR 6 WEEKS 03/17/2023 Active predniSONE (DELTASONE) 5 MG tablet 1 tablet Oral as needed for 30 days Active EPINEPHrine 0.3 mg/0.3 mL IJ auto-injectionIndicat ions:History of anaphylaxis Inject 0.3 mL (0.3 mg total) into the thigh once as needed for allergic reaction. 2 each 1 05/24/2024 Active Active Problems Problem Noted Date Diagnosed Date Celiac disease 02/15/2024 Rheumatoid arthritis 02/15/2024 Stage 3a chronic kidney disease 02/15/2024 Assessment & Plan (05/24/2024 9:22 AM EST): Family history of ckd. Renal ultrasound ordered. Will see nehrologist in one monht Recommend drinking 64 oz water daily Assessment & Plan (02/15/2024 8:34 AM EDT): GFR trending down over past few visite. Discussion regarding improgtance of adequate hydration , increase daily activity, recommend weight loss . Will monitor, recheck renal studies, mag, phos, vit d and consider addition of SGLT 2 without improvement Elevated LDL cholesterol level 02/15/2024 Assessment & Plan (06/06/2024 11:33 AM EST): Newly ekevated lipids in setting of recently poor diet. Lifestyle modification recommendations reviewed. Gastroesophageal reflux dise ase with esophagitis without hemorrhage 01/28/2024 Morbid obesity 10/13/2023 Assessment & Plan (06/06/2024 11:34 AM EST): Currently attneding nutrition counseling. Expressing interest in GLP-1 treatment. Insurance will cover if she attends [employer] through work for weight management. Recommendations reviewed. Assessment & Plan (10/16/2023 8:47 PM EDT): Working out 7 days weekly. Joined weight loss program through work that is interested in starting her on medication for weight loss. Expressing reluctance as she has extensive medication allergies. Recommend avoidance of processed food, fast foods and excessive carbs. Avoid concentrated sugars and sugary beverages . Maintain adequate hydration with water Intermittent fasting techniques reviewed . AHA recommends at least 150 min of aerobic activity weekly (30 min daily) Primary insomnia 05/19/2023 Dysphagia 05/07/2023 Assessment & Plan (05/07/2023 9:06 AM EST): Continue pepcid EGD to evaluate The risks, benefits and alternatives to the procedure were carefully explained to the patient. The risks include but are not limited to perforation, bleeding, infection, respiratory compromise and . All questions were answered. 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 Neurologist, Dr. Kelechi Mckeon, treating with routine electrolyte therapy , trigger point injections and magnesium infusions for migraine management . Assessment & Plan (10/15/2022 8:26 AM EDT): Migraine headaches - currently pain free. Referral placed to Batsheva Beck APRN for evaluation and treatment in light of extensive allergy history.Recommend avoidance of triggers. Will follow Assessment & Plan (08/11/2022 9:48 PM EST): 08/11/2022 stared recently with headaches again 1 month ago, unknown reason, had recent RA flare when they started. 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 Chen, stopped going to [place]. Will remain on hydroxychloroquine 200,mg daily Assessment & Plan (10/16/2023 8:42 PM EDT): Stable. Managed by [facility] on hydroxychloroquine.. No recent flares. Will continue to monitor Assessment & Plan (08/11/2022 9:49 PM EST): 08/11/2022 stable, recent flare, continue current medications, continue with rheumatology Snoring 08/11/2022 Tachycardia 08/11/2022 Vitamin D deficiency 08/11/2022 Weight gain 08/11/2022 Nonintractable headache 08/11/2022 Annual physical exam 01/10/2022 Assessment & Plan (05/04/2023 8:48 PM EST): A colonoscopy is indicated given the patient's age. The indications, prep, alternatives and the procedure were thoroughly explained. There is no contraindication to colonoscopy. All questions were answered. The potential risks including but not limited to bleeding, infection, and perforation were also explained. Assessment & Plan (01/10/2022 8:35 AM EDT): A colonoscopy is indicated given the patient's age. The indications, prep, alternatives and the procedure were thoroughly explained. There is no contraindication to colonoscopy. All questions were answered. The potential risks including but not limited to bleeding, infection, and perforation were also explained. Irritable bowel syndrome wit h both constipation and diarrhea 01/10/2022 Assessment & Plan (05/07/2023 9:06 AM EST): IBS flare Has constipation and diarrhea Currently on bland diet, avoids eggs/gluten High fiber diet, increase po fluids Call if needs antispasmodic if sx do not continue to improve Colonoscopy Assessment & Plan (01/10/2022 8:37 AM EDT): Flare in IBS after unexpected of Starting to improve Call if needs antispasmodic if sx do not continue to improve Atypical endometrial cells on Pap smear 12/06/19 21 Bilateral plantar fasciitis 04/16/2020 Gastroesophageal reflux disease without esophagi tis 03/16/2020 Overview (03/16/2020): GERD Now controlled on pepcid 20mg bid She is due for baseline colonoscopy and surveillance EGD She isnt ready to schedule at this time. She wants clearance from her line leader. Pt told to call us when ready to schedule Cc DR kitchen Assessment & Plan (02/15/2024 8:48 AM EDT): Recent increase to pepcid 20 from . Stable symptoms. Assessment & Plan (05/07/2023 9:05 AM EST): GERD improved since weight loss Continues on pepcid 20mg at bedtime New dysphagia, also notes hx barretts Plan for EGD. The risks, benefits and alternatives to the procedure were carefully explained to the patient. The risks include but are not limited to perforation, bleeding, infection, respiratory compromise and . All questions were answered. Assessment & Plan (01/10/2022 8:36 AM EDT): GERD improved since weight loss Continues on pepcid 20mg BID Ask rheum if ok to decrease to once daily EGD at time of colon for longstanding reflux, FH stomach cancer The risks, benefits and alternatives to the procedure were carefully explained to the patient. The risks include but are not limited to perforation, bleeding, infection, respiratory compromise and . All questions were answered. 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 Endometriosis 02/18/2010 Hematuria 11/27/2005 Resolved Problems Problem Noted Date Diagnosed Date Resolved Date Colon cancer screening 01/28/202402/28 Decreased glomerular filtration rate (GFR) 08/11/2022 05/24/2024 Hypertension 10/28/2017 10/16/2023 Encounters Date Type Department Care Team Description 06/29/2024 Scanned Document [facility] [address] [place] [address] Elina Sanchez, VEGETABLE VENDOR 06/14/2024 Orders Only [facility] [address] [place] [address] ProviderChloé MD 06/10/2024 Scanned Document [facility] [address] [place] [address] Elina Sanchez, VEGETABLE VENDOR 05/24/2024 8:30 AM EST Office Visit [facility] [address] [place] [address] Elina Sanchez, VEGETABLE VENDOR Stage 3a chronic kidney disease (HCC) (Primary Dx); Annual physical exam; Elevated LDL cholesterol level; Unresolved grief; Morbid obesity (HCC); History of anaphylaxis; Essential familial hypercholesterolemia 05/24/2024 Travel 05/18/2024 Orders Only [facility] [address] [place] [address] Elina Sanchez, VEGETABLE VENDOR 03/29/2024 8:30 AM EDT Clinical Support [facility] [address] [place] [address] Elina Sanchez, VEGETABLE VENDOR Need for vaccination (Primary Dx) from Last 3 Months Immunizations Name Administration Dates Next Due Covid-19 mRNA Primary Series Vaccine - Moderna 0.5 mL Full Dose 10/22/2021 H1N1 All Forms 10/21/2021 Influenza (AFLURIA/FLUZONE) Inactivated/Split Quadrivalent with Preservative IM 04/23/2016 Influenza Inactivated/Split Preservative Free IM 05/11/2013 Influenza, Quadrivalent (FLU ARIX, AFLURIA, FLULAVAL, FLUZONE) Preservative Free IM 05/12/2023,03/27/2022 Influenza, Trivalent (FLUARI X, AFLURIA, FLULAVAL, FLUZONE) Preservative Free IM 03/29/2024 Influenza, Unspecified 03/14/2020,04/21/2018 Tdap 04/11/2020,03/21/2009 Family History Medical History Relation Name Comments Hyperlipidemia Brother Kelechi Hypertension Brother Kelechi Cancer Father Edaletha Dementia Father Edaletha Heart attack Father Edaletha Hyperlipidemia Father Edaletha Hypertension Father Edaletha Anxiety disorder Mother Sherry Cancer Mother Sherry Cancer, other Mother Sherry Mouth and Thro at cancer Depression Mother Sherry Diabetes Mother Sherry Hyperlipidemia Mother Sherry Hypertension Mother Sherry Stomach cancer Paternal Grandfather Pedro Autoimmune disease Sister Alyssa Relation Name Status Comments Brother Kelechi Father Pedro Mother Sherry Paternal Grandfather Pedro Sister Alyssa Social History Tobacco Use Types Packs/Day Years Used Date Smoking Tobacco: Never Smokeless Tobacco: Never Tobacco Cessation:Counseling Given: No Alcohol Use Standard Drinks/Week Comments Yes 1 (1 standard drink = 0.6 oz pur e alcohol) Occasonal/Social PHQ-2 Answer Date Recorded PHQ-2 Total Score 1 05/24/2024 Sex and Gender Information Value Date Recorded Sex Assigned at Female 05/06/2023 1:41 PM EST Gender Identity Female 01/07/2022 3:23 PM EDT Sexual Orientation Heterosexual (straight) 01/07 3:23 PM EDT Last Filed Vital Signs Vital Sign Reading Time Taken Comments Blood Pressure 112/70 05/24/2024 8:19 AM EST Pulse 88 05/24/2024 8:19 AM EST Temperature 36.7 ??C (98 ??F) 11/09/2023 11:01 AM EDT Respiratory Rate 16 10/06/2023 9:32 AM EDT Oxygen Saturation 97% 05/24/2024 8:19 AM EST Inhaled Oxygen Concentration - - Weight 103 kg (226 lb 3.2 oz) 05/24/2024 8:19 AM EST Height 160 cm (5' 3 ) 02/15/2024 8:27 AM EDT Body Mass Index 40.07 02/15/2024 8:27 AM EDT Plan of Treatment Upcoming Encounters Date Type Department Care Team (Late st Contact Info) Description 10/25/2024 9:30 AM EDT Office Visit [facility] Department of Internal Medicine [place] [address] [facility] [address] [place] [address] Elina Sanchez, VEGETABLE VENDOR [address] [place] [address] Health Maintenance Due Date Last Done Comments Pneumococcal Vaccines 50+ (1 of 2 - PCV) 1985 Zoster (Shingles) Vaccine (1 of 2) 1985 COVID-19 Vaccine (5 - 2023-2 5 season) 2024 10/22/2021, 06/06/2021, 09/21/2020, Additional history exists Mammogram 11/13/2024 11/13/2022, 03/09, 03/14/2021, Additional history exists Pap Smear (Ages 21-65) 11/08/2026 11/09/2023, 2020 DTaP/Tdap/Td Vaccines (3 - T d or Tdap) 04/11/2030 04/11/2020, 03/21/2009 Colonoscopy 10/05/2033 10/06/2023 Influenza Vaccine Completed 03/29/2024, , 03/27/2022, Additional history exists HIV Screening Discontinued Hepatitis B Vaccines Discontinued Hepatitis C Virus Screening Discontinued Procedures Procedure Name Priority Date/Time Associated Diagnosis Comments DEXA BONE DENSITY AXIAL SKELETON, 1 OR MORE SITES Routine 06/14/2024 12:38 PM EST POCT URINALYSIS DIPSTICK, AUTOMATED Routine 05/24/2024 8:30 AM EST Stage 3a chronic kidney disease (HCC) Annual physical exam ECG 12-LEAD Routine 05/24/2024 8:24 AM EST Stage 3a chronic kidney disease (HCC) Annual physical exam VITAMIN D, 25-HYDROXY Routine 05/18/2024 10:49 AM EST COMPLETE BLOOD COUNT, WITH DIFFERENTIAL Routine 05/18/2024 10:49 AM EST COMPREHENSIVE METABOLIC PANEL Routine 05/18/2024 10:49 AM EST MAGNESIUM Routine 05/18/2024 10:49 AM EST LIPID PANEL WITH NONHDL Routine 05/18/2024 10:49 AM EST THINPREP PAP TEST (HEALTH SCREENER) Routine 11/09/2023 11:03 AM EDT Papanicolaou smear MG SCREENING DIGITAL BREAST NATHALIA- BILATERAL Routine 11/13/2022 9:25 AM EDT from Last 3 Months or Most Recently Relevant to Health Maintenance Results * DEXA Bone Density axial skeleton, 1 or more sites (06/14/2024 12:38 PM EST) Anatomical Region Laterality Modality Digital Radiogra phy External Provider MD COY DXA ORDERABLES * (ABNORMAL) POCT Urinalysis Dipstick, Automated (05/24/2024 8:30 AM EST) Source, UA Clean Catch Color, UA Yellow & Clear Yellow & Clear, Yellow Clarity, UA Clear Clear Glucose, UA Negative Negative Bilirubin, UA Negative Negative Ketones, UA Negative Negative Spec Grav, UA 1.025 1.005, 1.010, 1.015, 1.020, 1.025 Blood, UA Negative Negative pH, UA 5.5 5.0, 5.5, 6.0, 6.5, 7.0, 7.5, 8.0 Protein, UA Negative Negative Urobilinogen, UA 0.2 0.2, 1.0 Nitrite, UA Negative Negative Leukocyte Esterase, UA Trace(A) Negative Lot Number p Wool Mixer Pass Pass Urine 05/24/2024 8:30 AM EST Elina Sanchez APRN POINT OF CARE TEST O RDERABLES * ECG 12 lead (05/24/2024 8:24 AM EST) 05/24/2024 8:24 AM EST Elina Sanchez APRN ECG ORDERABLES * (ABNORMAL) Lipid panel with nonHDL (05/18/2024 10:49 AM EST) Cholesterol, Total 239(H) <200 mg/dL [facility] Cholesterol, HDL 75 > OR = 50 mg/dL [facility] Triglycerides 83 <150 mg/dL [facility] LDL Cholesterol 145(H) mg/dL (calc) [facility] Comment: Reference range: <100 Desirable range <100 mg/dL for primary prevention; ?? <70 mg/dL for patients with CHD or diabetic patients with > or = 2 CHD risk factors. LDL-C is now calculated using the Matheus-Mike calculation, which is a validated novel method providing better accuracy than the Friedewald equation in the estimation of LDL-C. Matheus SS et al. ANNETTE. 2013;310(19): 6515-7294 (http://education.Modti/faq/FHA137) Cholesterol/HDL Ratio 3.2 <5.0 (calc) [facility] Non HDL Chol. (LDL+VLDL) 164(H) <130 mg/dL (calc) [facility] Comment: For patients with diabetes plus 1 major ASCVD risk factor, treating to a non-HDL-C goal of <100 mg/dL (LDL-C of <70 mg/dL) is considered a therapeutic option. 05/18/2024 10:4 9 AM EST 05/18/2024 10:50 AM EST Elina Sanchez APRN LAB BLOOD ORDERABLES [facility] [address] [place] [id number] * (ABNORMAL) Complete Blood Count, with Differential (05/18/2024 10:49 AM EST) [facility] White Blood Cell Count 4.9 3.8 - 10.8 Thousand/ uL [facility] Red Blood Cell Count 5.47(H) 3.80 - 5.10 Million/u L [facility] Hemoglobin 15.2 11.7 - 15.5 g/dL [facility] Hematocrit 46.3(H) 35.0 - 45.0 % [facility] MCV 84.6 80.0 - 100.0 fL [facility] MCH 27.8 27.0 - 33.0 pg [facility] MCHC 32.8 32.0 - 36.0 g/dL [facility] Comment: For adults, a slight decrease in the calculated MCHC value (in the range of 30 to 32 g/dL) is most likely not clinically significant; however, it should be interpreted with caution in correlation with other red cell parameters and the patient's clinical condition. RDW 12.8 11.0 - 15.0 % [facility] Platelet Count 235 140 - 400 Thousand/ uL [facility] MPV 12.1 7.5 - 12.5 fL [facility] Abs Neutrophils Auto 2,925 1,500 - 7,800 cells/uL [facility] Abs Lymphocytes Auto 1,446 850 - 3,900 cells/uL [facility] Abs Monocytes Auto 392 200 - 950 cells/uL [facility] Abs Eosinophils Auto 88 15 - 500 cells/uL [facility] Abs Basophils Auto 49 0 - 200 cells/uL [facility] Neutrophils Auto 59.7 % [facility] Lymphocytes Auto 29.5 % [facility] Monocytes Auto 8.0 % [facility] Eosinophils Auto 1.8 % [facility] Basophils Auto 1.0 % [facility] 05/18/2024 10:4 9 AM EST 05/18/2024 10:50 AM EST Elina Sanchez VEGETABLE VENDOR LAB BLOOD ORDERABLES [facility] [address] [place] [address] * VITAMIN D, 25-HYDROXY (05/18/2024 10:49 AM EST) Vitamin D,25-Oh,Total, IA 77 30 - 100 ng/mL [facility] Comment: Vitamin D Status ? 25-OH Vitamin D: Deficiency: ?<20 ng/mL Insufficiency: ? 20 - 29 ng/mL Optimal: ? > or = 30 ng/mL For 25-OH Vitamin D testing on patients on D2-supplementation and patients for whom quantitation of D2 and D3 fractions is required, the QuestAssureD(TM) 25-OH VIT D, (D2,D3), LC/MS/MS is recommended: order code 75734 (patients >2yrs). See Note 1 Note 1 For additional information, please refer to http://education.Modti/faq/WVK566 (This link is being provided for informational/ educational purposes only.) 05/18/2024 10:4 9 AM EST 05/18/2024 10:50 AM EST Elina Sanchez APRN LAB BLOOD ORDERABLES Performing Organization Address [facility] de Phone Number [facility] [address] [place] [address] * MAGNESIUM (05/18/2024 10:49 AM EST) Magnesium 2.2 1.5 - 2.5 mg/dL [facility] 05/18/2024 10:4 9 AM EST 05/18/2024 10:50 AM EST Elina Sanchez APRN LAB BLOOD ORDERABLES Performing Organization Address [facility] de Phone Number [facility] [address] [place] [address] * (ABNORMAL) Comprehensive Metabolic Panel (05/18/2024 10:49 AM EST) Glucose 79 65 - 99 mg/dL [facility] Comment: ? Fasting reference interval Blood Urea Nitrogen (BUN) 22 7 - 25 mg/dL [facility] Creatinine 1.19(H) 0.50 - 1.03 mg/dL [facility] Creatinine w/ eGFR 53(L) > OR = 60 mL/min/1. 73m2 [facility] BUN/Creatinine Ratio 18 6 - 22 (calc) [facility] Sodium 141 135 - 146 mmol/L [facility] Potassium 4.4 3.5 - 5.3 mmol/L [facility] Chloride 104 98 - 110 mmol/L [facility] CO2 27 20 - 32 mmol/L [facility] Calcium 9.5 8.6 - 10.4 mg/dL [facility] Protein, Total 6.8 6.1 - 8.1 g/dL [facility] Albumin 4.1 3.6 - 5.1 g/dL [facility] Globulin 2.7 1.9 - 3.7 g/dL (calc) [facility] Albumin/Globulin Ratio 1.5 1.0 - 2.5 (calc) [facility] Bilirubin, Total 0.7 0.2 - 1.2 mg/dL [facility] Alkaline Phosphatase 92 37 - 153 U/L [facility] Aspartate Aminotrans (AST) 19 10 - 35 U/L [facility] Alanine Aminotrans (ALT) 15 6 - 29 U/L [facility] 05/18/2024 10:4 9 AM EST 05/18/2024 10:50 AM EST Elina Sanchez VEGETABLE VENDOR LAB BLOOD ORDERABLES [facility] [address] [place] [id number] * ThinPrep Pap Test (Program Medical Director) (11/09/2023 11:03 AM EDT) 11/09/2023 11:0 3 AM EDT Narrative [facility] - 11/12/2023 3:04 PM EDT To view the final report click the scan hyperlink below. Wm Cantu MD PATHOLOGY/CYTOLOGY ORDERABLES [facility] [address] [place] [address], [place] * MG SCREENING DIGITAL BREAST NATHALIA- BILATERAL (11/13/2022 9:25 AM EDT) Anatomical Region Laterality Modality Other 11/04/2022 4:00 PM EDT 11/04/2022 4:00 PM EDT Impressions 11/13/2022 9:25 AM EDT There is no mammographic evidence of malignancy. Routine follow-up mammogram in 1 year is recommended. The patient will receive a lay summary of the results of this breast imaging exam. Lay summaries for mammography examinations will also identify the patients personal breast tissue composition as required by state law. BIRADS Category 1: Negative Thank you for referring your patient to us, India Rivera MD [phone] (Electronically Signed - 11/13/2022 09:25) Narrative 11/13/2022 9:25 AM EDT HISTORY: Patient is 57 years old and is seen for screening. The patient has no personal history of breast or ovarian cancer. The patient has no family history of breast cancer. FILMS COMPARED: The present examination has been compared to prior imaging studies dated 03/14/2021, 02/15/2019 and 02/11/2017. NATHAILA STATEMENT: Computer-aided detection was utilized by the radiologist in the interpretation of this examination. 3D tomosynthesis digital mammographic images were obtained using standard projections. MAMMOGRAM FINDINGS: The breasts are almost entirely fatty. (ACR BIRADS density Category a) * No suspicious masses, calcifications or other abnormalities are seen in either breast. ??There are no significant changes from the prior study. Procedure Note India Rivera MD - 11/13/2022 HISTORY: Patient is 57 years old and is seen for screening. The patient has no personal history of breast or ovarian cancer. The patient has no family history of breast cancer. FILMS COMPARED: The present examination has been compared to prior imaging studies dated1, 02/15/2019 and 02/11/2017. NATHALIA STATEMENT: Computer-aided detection was utilized by the radiologist in theinterpretation of this examination. 3D tomosynthesis digital mammographic images were obtained using standardprojections. MAMMOGRAM FINDINGS: The breasts are almost entirely fatty. (ACR BIRADS density Category a) * No suspicious masses, calcifications or other abnormalities are seen ineither breast. There are no significant changes from the prior study. IMPRESSION: There is no mammographic evidence of malignancy. Routine follow-up mammogram in 1 year is recommended. The patient will receive a lay summary of the results of this breastimaging exam. Lay summaries for mammography examinations will alsoidentify the patients personal breast tissue composition as required [facility] law. BIRADS Category 1: Negative Thank you for referring your patient to us, India Rivera MD [id number] (Electronically Signed - 11/13/2022 09:25) Wm Cantu MD IMG LEGACY PROCEDUR ES from Last 3 Months or Most Recently Relevant to Health Maintenance Care Teams Edge Trimmer Mechanic Relationship Specialty Start Date End Date Elina Sanchez APRN [address] [place] [address] PCP - General Internal Medicine 07/06/23 Julien Mckeon APRN [address] [address] Nurse Practitioner Neurology 05/12/23 Shari Maier MD [address] [place] [address] Consulting Provider Dermatology 05/12/23 Wm Cantu MD [address] [place] [address] [address] [place] [address] Obstetrics and Gynecology 05/12/23 Lexus Chen MD [address] [place] [address] Rheumatology 05/24/24
--- OUTSIDE RECORDS SUMMARY | 2024-06-29 17:21 | XMS_ITS | Encounter Summary ---
Author Organization [facility] Address [address] [place] [address] Care Team Providers Care Senior Games Technician Name Role Phone Julien Mckeon APRN Unavailable [phone] Shari Maier MD Unavailable [phone] Wm Cantu MD Unavailable [phone] Elina Sanchez APRN Primary Care Provider [phone] Lexus Chen MD Unavailable [phone] Encounter Details Date Type Department Care Team (Late st Contact Info) Description 01/13/2024 Scanned Document [facility] Department of Internal Medicine [place] [address] [phone] Provider, Generic Social History Tobacco Use Types Packs/Day Years [...] Description 10/25/2024 9:30 AM EDT Office Visit [facility] of Internal Medicine [place] [address] [place] [phone] Elina Sanchez, DIRECTOR OF INDUSTRIAL RELATIONS 160 [place], [place] [address] documented as of this encounter Visit Diagnoses Not on filedocumented in this encounter Care Teams Senior Games Technician Relationship Specialty Start Date End Date Elina Sanchez, DIRECTOR OF INDUSTRIAL RELATIONS 160 [place] [address] PCP - General Internal Medicine 07/06/23 Julien Mckeon APRN [address] [place] [address] Nurse Practitioner Neurology 05/12/23 Shari Maier MD [address] [place] [address] Consulting Provider Dermatology 05/12/23 Wm Cantu MD 9 [facility] 2nd [place] [address] Obstetrics and Gynecology 05/12/23 Lexus Chen MD [address] [place] [address] Rheumatology 05/24/24 documented as of this encounter
--- OUTSIDE RECORDS SUMMARY | 2024-06-29 17:21 | XMS_ITS | Encounter Summary ---
Author Organization [facility] Address [address] [place] [address] Care Team Providers Care Four Horse Hitch Driver Name Role Phone Vik Brar MD Primary Care Provider [phone] Julien Mckeon SENIOR PROJECT MANAGER ENGINEERING Unavailable [phone] Shari Maier MD Unavailable [phone] Wm Cantu MD Unavailable [phone] Elina Sanchez SENIOR PROJECT MANAGER ENGINEERING Unavailable [phone] Elina Sanchez SENIOR PROJECT MANAGER ENGINEERING Primary Care Provider [phone] Lexus Chen MD Unavailable [phone] Reason for Visit * Reason Comments Medication Refill Encounter Details Date Type Department Care Team (Late st Contact Info) Description 11/28/2021 Refill [facility] [address] [place] [address] Griselda Lea PA Needs valid address Gastroesophageal reflux disease Social History Tobacco Use [...] PM EDT documented as of this encounter Miscellaneous Notes * Telephone Encounter - Lani Peterson MA - 11/29/2021 8:07 AM EDT LISA 03/16/2020 NOV 01/10/22 documented in this encounter Plan of Treatment Upcoming Encounters Date Type Department Care Team (Late st Contact Info) Description 10/25/2024 9:30 AM EDT Office Visit [facility] Department of Internal Medicine [address] [place] [address] Elina Sanchez, SENIOR PROJECT MANAGER ENGINEERING 160 [place] [address] documented as of this encounter Visit Diagnoses Diagnosis Gastroesophageal reflux disease Esophageal reflux documented in this encounter Care Teams Four Horse Hitch Driver Relationship Specialty Start Date End Date Vik Brar MD PCP - General Internal Medicine 08/11/16 07/04/23 Elina Sanchez, SENIOR PROJECT MANAGER ENGINEERING 160 [place], [place] [phone] PCP - General Internal Medicine 07/06/23 Julien Mckeon APRN [address] [place] [address] Nurse Practitioner Neurology 05/12/23 Shari Maier MD [address] [place] [address] Consulting Provider Dermatology 05/12/23 Wm Cantu MD 9 [facility] 2nd [place] [address] Obstetrics and Gynecology 05/12/23 Elina Sanchez, SENIOR PROJECT MANAGER ENGINEERING NPI: [id number] [place] [address] Nurse Practitioner Internal Medicine 07/05/23 07/05/23 Lexus Chen MD [address] [place] [address] Rheumatology 05/24/24 documented as of this encounter
--- OUTSIDE RECORDS SUMMARY | 2024-06-29 17:21 | XMS_ITS | Encounter Summary ---
Author Organization [facility] Address [address] [place] [address] Care Team Providers Care Wealth Management Advisor Name Role Phone Vik Brar MD Primary Care Provider Julien Mckeon NETTING WEAVER Unavailable [phone] Shari Maier MD Unavailable [phone] Wm Cantu MD Unavailable [phone] Elina Sanchez NETTING WEAVER Unavailable [phone] Elina Sanchez NETTING WEAVER Primary Care Provider [phone] Lexus Chen MD Unavailable [phone] Encounter Details Date Type Department Care Team (Late st Contact Info) Description 10/15/2022 Scanned Document [facility] Department of Internal Medicine [place] 160 [facility] [address] [place] [phone] Vik Brar MD [address] [place] [address] Social History Tobacco Use Types Packs/Day Years Used Date Smoking Tobacco: Never Smokeless Tobacco: Never Alcohol Use Standard Drinks/Week Comments Yes 1 (1 standard drink = 0.6 oz pur e alcohol) Sex and Gender Information Value Date Recorded Sex Assigned at Female 05/06/2023 1:41 PM EST Gender Identity Female 01/07/2022 3:23 PM EDT Sexual Orientation Heterosexual (straight) 01/07 3:23 PM EDT COVID-19 Exposure Response Date Recorded In the last 10 days, have yo u been in contact with someone who was confirmed or suspected to have Coronavirus/COVID-19? No / Unsure 10/07/2022 11:22 AM EDT documented as of this encounter Plan of Treatment Upcoming Encounters Date Type Department Care Team (Late st Contact Info) Description 10/25/2024 9:30 AM EDT Office Visit [facility] Department of Internal Medicine [address] [place] [address] Elina Sanchez, NETTING WEAVER 160 [place] [address] documented as of this encounter Visit Diagnoses Not on filedocumented in this encounter Care Teams Wealth Management Advisor Relationship Specialty Start Date End Date Vik Brar MD PCP - General Internal Medicine 08/11/16 07/04/23 Elina Sanchez, NETTING WEAVER 160 [place], [place] [phone] PCP - General Internal Medicine 07/06/23 Julien Mckeon APRN [address] [place] [address] Nurse Practitioner Neurology 05/12/23 Shari Maier MD [address] [place] [address] Consulting Provider Dermatology 05/12/23 Wm Cantu MD 9 [facility] 2nd [place] [address] Obstetrics and Gynecology 05/12/23 Elina Sanchez, NETTING WEAVER 160 [place] [address] Nurse Practitioner Internal Medicine 07/05/23 07/05/23 Lexus Chen MD [address] [place] [address] Rheumatology 05/24/24 documented as of this encounter
--- OUTSIDE RECORDS SUMMARY | 2024-06-29 17:21 | XMS_ITS | Clinical Summary ---
Author Organization [address] Address [address] [place] [address] Care Team Providers Care Metal Tank Builder Name Role Phone Unavailable Primary Care Provider Unavailabl e Social History Tobacco Use Types Packs/Day Years Used Date Smoking Tobacco: Never Assessed Comments Unknown Sex and Gender Information Value Date Recorded Sex Assigned at Not on file Legal Sex Female 9:08 AM EST Gender Identity Not on file Sexual Orientation Not on file Plan of Treatment Health Maintenance Due Date Last Done Comments HIV screening 08/20/1979 Hepatitis C screening 1984 Tetanus adult (Td q 10,TDAP once) 1986 Cervical cancer screening 08/20/1987 Breast cancer screening 2006 Lipid disorder screening 2006 Colon cancer screening, Colonoscopy 08/20/2011 Diabetes screening 08/20/2011 Shingles vaccine (Shingrix) (1 of 2 - Shingrix (RZV) 2 Dose Standard Series) 2016 Influenza vaccine 01/07/2024 Covid-19 vaccine series ( season) 2024 RSV Discussion (1 - 1-dose 7 5+ series) 2041 Meningococcal Vaccine Aged Out No jazmin janes eligible based on patient's age to complete this topic Pneumococcal Vaccine Aged Out No long er eligible based on patient's age to complete this topic Insurance CIGNA CIG CIG CIGNA
--- OUTSIDE RECORDS SUMMARY | 2024-06-29 17:21 | XMS_ITS | Encounter Summary ---
Author Organization [facility] Address [address] [place] [address] Care Team Providers Care Firesetter Name Role Phone Julien Mckeon APRN Unavailable [phone] Shari Maier MD Unavailable [phone] Wm Cantu MD Unavailable [phone] Elina Sanchez COPYING MACHINE MECHANIC Primary Care Provider Lexus Chen MD Unavailable [phone] Encounter Details Date Type Department Care Team (Late st Contact Info) Description 09/24/2023 Scanned Document [facility] Department of Internal Medicine [address] [phone] Elina Sanchez, MARGOT [address] [place] [address] Social History Tobacco Use Types Packs/Day [...] Visit [facility] Department of Internal Medicine [address] [place] [phone] Elina Sanchez APRN [address] [place] [address] documented as of this encounter Visit Diagnoses Not on filedocumented in this encounter Care Teams Firesetter Relationship Specialty Start Date End Date Elina Sanchez APRN 160 [place], [place] [address] PCP - General Internal Medicine 07/06/23 Julien Mckeon APRN [address] [place] [address] Nurse Practitioner Neurology 05/12/23 Shari Maier MD [address] [place] [address] Consulting Provider Dermatology 05/12/23 Wm Cantu MD 9 [facility] 2nd [place] [address] Obstetrics and Gynecology 05/12/23 Lexus Chen MD [address] [place] [address] Rheumatology 05/24/24 documented as of this encounter
--- OUTSIDE RECORDS SUMMARY | 2024-06-29 17:21 | XMS_ITS | Data Portability ---
Author Organization [email or web address] - [facility], [facility] Address [address] [place] [id number] Care Team Providers Care Digital Marketer Name Role Phone FELIZ MEDEROS Primary Care Provider Assessment Encounter Date Assessment Date Assessment LastModified by Organization Details LastModified Time 09/24/2023 09/24/2023 Assessment: Patient with with abnormal weight gain presents for nutritional counseling and weight management. ??? Nutrition Intervention: Patient was recommended a heart healthy, low glycemic eating style focusing on minimally processed foods with adequate protein, fiber, and nutrient intake. Education: Glycemic response to foods as it pertains to appetite and cravings management, food order, plate method. Discussed meal prepping ideas simple one item for easier meals. Enc more protein/veggies at lunch. Fluids: Discussed the importance of staying hydrated and getting in 8-10 cups of water per day. Cardio: Discussed the importance of aerobic exercise as a means to burn energy in addition to general benefits of cardio exercise. Recommendations per guidelines are 150-300 mins per week of moderate intensity exercise; examples include brisk walking, swimming, biking, hiking, dancing, tennis, etc. Meal Timing: Discussed the importance of calorie distribution in the day as it relates to the circadian rhythm and sleep wake cycle: distribute calories more evenly in the day/earlier in the day and try to finish eating 2-4 hours before bedtime. Plant-based Proteins: Discussed including adequate protein throughout the day using plant based protein sources: tofu, tempeh, seitan, beans, hemp seeds and hearts, spirulina, soy yogurts, protein powders and some plant based products like beyond meat, impossible burger, just eggs. Resources provided: Evolve Course 200: Getting Started, Evolve Course 201: Healthy Eating for Weight Loss ??? Discussed and strategized implementation, as well as assessed importance, and confidence of implementation of: - Focus on protein and fiber rich foods- think produce- mostly vegetables, fruit and complex carbohydrates; whole foods; limit processed foods and added sugars - Aim for 3 meals and snacks IF hungry in between. - The Plate Method - Water - aim for 64 oz/day for hydration, appetite regulation, health - Meal planning and prep - including back up quick & easy/take out meals - Increase or maintain daily steps - Purposeful exercise: cardio and resistance 2+ times/week - Food Environment - Effective Self Talk - Mindful eating - Other: - SMART goals or intentions progress & monitoring Follow up: within 3 months Plan/Goals: 1. Increasing water intake 2. Increasing steps 3. ??? Total Time Spent on the date of the encounter: 60 minutes which includes visit preparation time, time reviewing and independently interpreting results, [id number] time with the patient, counseling/educati ng the patient/family members/caregivers ,, care coordination, documenting clinical information in the electronic medical record, following up on referrals/results and communicating with related healthcare professionals as needed. [email or web address] Not available 09/24/2023 12:58:33 01/13/2024 01/13/2024 Assessment: Patient with abnormal weight gain presents for nutritional counseling and weight management ??? Nutrition Intervention: Patient was recommended a heart healthy, low glycemic eating style focusing on minimally processed foods with adequate protein, fiber, and nutrient intake. Education and Counseling: ??? Food Order : Discussed eating carbs last, or at least, vegetables/fiber first within the meal to help control the rise in blood sugars after the meal. Ideally include 4g of fiber. Adding on roasted vegetables, salad, or vegetable soup before the carb would be good examples. Meal Timing: Discussed the importance of calorie distribution in the day as it relates to the circadian rhythm and sleep wake cycle: distribute calories more evenly in the day/earlier in the day and try to finish eating 2-4 hours before bedtime. Mindfulness: Discussed paying attention to food & food routines: having a pattern of eating that serves your body (satiating, energizing, tasty, doable) and can go with you wherever life takes you. Slowing down and savoring meals and snacks. Paying attention to hunger signals- rumbling stomach, foggy/lack of focus, shakiness, headache or other signs. How physically hungry am I? Starving? Neutral? Full? Fluids: Discussed the importance of staying hydrated and getting in 8-10 cups of water per day. Plan/Goals: 1. Continue to embrace fueling yourself and nourishing yourself through the day. 2. Order of eating -- prioritize eating protein and vegetables first, carbohydrates last. ??? Total Time Spent on the date of the encounter: 30 minutes which includes visit preparation time, time reviewing and independently interpreting results, [id number] time with the patient, counseling/educati ng the patient/family members/caregivers ,, care coordination, documenting clinical information in the electronic medical record, following up on referrals/results and communicating with related healthcare professionals as needed. ??? [email or web address] Not available 01/13/2024 14:38:17 02/22/2024 02/22/2024 Class II Obesity : --Reviewed basic physiology [...] week after speaking with her neurologist) and reports no side effects at this time. Wishes she could have faster weight loss. Notes that since starting the meds, her headaches have significantly improved! Was resistant to start meds as she notes she is very medication sensitive. Change in weight since last appointment: Highest/Baseline wt: 238lbs Wt @ [facility]: 215lbs Current wt: 215lbs Wt change: 0lbs --Reviewed medications associated with weight gain, counseled on alternatives to be discussed with prescribing provider --AOM selection ? discussed dosing and common side effects of Topiramate. Pt just started Topiramate last week but already has noted benefit in appetite and craving reduction. Notes she is very sensitive to medication and it took a while for the neurologist to talk her into trying the meds. Has has reduction of migraines already as well. Will continue the course. Aware of option to increase dose to 50mg qhs if needed. Pt to continue working on increased water, protein, exercise. Will keep RD consult as well. Agrees to connect with any concerns prior to our 3 month follow up. Pt is comfortable with this plan. Total time spent on the date of the encounter = 70 minutes, which includes visit preparation time, time reviewing and independently interpreting results, [id number] time with the patient, counseling/educati ng patient/family members/caregivers , ordering medications/tests/ procedures, care coordination, documenting clinical information in the electronic medical record, following up on referrals/results and communicating with related healthcare professionals as needed. Follow up: Lab Order Set: UTD Appt w/ CHILDREN LIBRARIAN: 3 months Appt w/ RD: pending Not available 02/22/2024 11:48:08 04/20/2024 04/20/2024 Assessment: Patient with abnormal weight gain presents for nutritional counseling and weight management ??? Nutrition Intervention: Patient was recommended a heart healthy, low glycemic eating style focusing on minimally processed foods with adequate protein, fiber, and nutrient intake. Education and Counseling: ? Food Order : Discussed eating carbs last, or at least, vegetables/fiber first within the meal to help control the rise in blood sugars after the meal. Ideally include 4g of fiber. Adding on roasted vegetables, salad, or vegetable soup before the carb would be good examples. Meal Timing: Discussed the importance of calorie distribution in the day as it relates to the circadian rhythm and sleep wake cycle: distribute calories more evenly in the day/earlier in the day and try to finish eating 2-4 hours before bedtime. Mindfulness: Discussed paying attention to food & food routines: having a pattern of eating that serves your body (satiating, energizing, tasty, doable) and can go with you wherever life takes you. Slowing down and savoring meals and snacks. Paying attention to hunger signals- rumbling stomach, foggy/lack of focus, shakiness, headache or other signs. How physically hungry am I? Starving? Neutral? Full? Fluids: Discussed the importance of staying hydrated and getting in 8-10 cups of water per day. Protein: Discussed including adequate protein throughout the day to support general needs and muscle mass preservation/build ing. A general rule of thumb can be 20-25g, 3x/day. Protein sources include: meat, fish, poultry, eggs, fijian yogurt, cottage cheese, tofu, tempeh, seitan, and protein supplements. Strength training: Discussed the importance of strength training as a means to preserve muscle mass during weight loss as well as provide strength and balance, in addition to general benefits of exercise. Recommendations per guidelines are 2x per week. Activities include: lifting weights, resistance training, isometrics, yoga, pilates, boxing, martial arts. Plan/Goals: 1. Continue to embrace fueling yourself and nourishing yourself through the day. 2. Increase fiber intake -- vegetables, fruits, whole grains. If having fruit, try to pair with fat/protein to reduce blood sugar impact (i.e apple w/ peanut butter, yogurt with berries, toast with avocado) ??? Total Time Spent on the date of the encounter: 30 minutes which includes visit preparation time, time reviewing and independently interpreting results, [id number] time with the patient, counseling/educati ng the patient/family members/caregivers ,, care coordination, documenting clinical information in the electronic medical record, following up on referrals/results and communicating with related healthcare professionals as needed. ??? [email or web address] Not available 04/20/2024 19:58:44 06/28/2024 06/28/2024 Class II Obesity : --Reviewed [...] ready to try an alternative. Notes her oil field tester recently found renal function issues. Told she [...] review options and then discuss with her knitter operator as well. PCP and oil field tester supported use of GLP-1. Pt to message me with an update after she sees the knitter operator for next steps. Also discussed bariatric surgery [...] time, time reviewing and independently interpreting results, [id number] time with the patient, counseling/educati ng patient/family members/caregivers , ordering medications/tests/ procedures, care coordination, documenting clinical information in the electronic medical record, following up on referrals/results and communicating with related healthcare professionals as needed. Follow up: Lab Order Set: UTD Appt w/ CHILDREN LIBRARIAN: 3 months Appt w/ RD: pending [email or web address] Not available 06/28/2024 12:59:39 Plan of Treatment [...] Modified By Organization Details Last Modified Time 09/24/2023 [id number] It was a pleasur e meeting you today Mary. I look forward to helping you along your health journey. ??? You chose goals for the next 1-2 weeks to: ???1. Increasing water intake 2. Increasing steps ??? Some considerations and tips: ??? - Pay attention to non-scale victories. These are the benefits you notice from your choices beyond the scale, such as improved energy or stamina, clothes fitting better , more confidence and the many other benefits you enjoy. ??? - Cues: cues can be used to set up new routines as well as disrupted to change a routine you want to break. When you are adding a new routine/behavior, consider attaching the new behavior to something that is already a daily routine. For example drinking half a glass of water before coffee or before a meal or when you walk into the kitchen. Prep vegetables/fruits and other foods before putting them away from the store or after dinner for tomorrow. Do 10 counter push ups each time you go to the bathroom or take a lap around the inside of the store before shopping. What will your cues be? - Focus on protein and fiber rich foods- think produce- mostly vegetables, & also fruit and complex carbohydrates; whole foods; limit processed foods and added sugars. This aids appetite and craving regulation and meal satisfaction. ??? - Meal order - eat vegetables and protein first ??? - Aim for 3 meals and snacks IF hungry in between. ??? - The Plate Method- 8 - 9 ? plate with 1/4 protein, 1/2 vegetables, 1/4 choice of more of these or fiber rich choices such as fruit or whole grains or starchy vegetables. We eat with our eyes (sense of sight) and a smaller plate looks more appealing and full. This is the size of dinner plates prior to the early s. ??? - Choose adequate Protein - ~ 60 grams day= ~3 oz/ 20 gm per meal focused protein (chicken, turkey, seafood, fish, beef, pork, tofu, edamame, dairy, other options) plus what is found in vegetables and grains. Make sure you are starting the day with some protein in your first meal. ??? - Include dietary fiber by choosing vegetables, fruit, beans/legumes/lenti ls, cracked gila or flax seeds, and whole grains such as rolled or steel cut oats/farro/bran/pepe d rice/bulgar/farro/q uinoa when choosing grains at meals/snacks. Aim for 20 - 30 grams daily from food and supplement if needed with Metamucil or Benefiber. ??? - Water aim for 64 oz/day for hydration, gut health and regular bowel movements, appetite regulation, health. Try infused agee for a flavor pop without added sugar or sweeteners. ??? - Meal planning and prep - including back up quick & easy/take out meals - think a foundational pattern/routine that has variations for quick and easy, eating outside of the home, holidays, etc. Use down time- commute, waiting for kids activities, ... - Mini-meals - apple with nut butter; yogurt (aim for 12+ grams of protein) with berries; hummus or Tzatziki with carrot sticks/celery sticks/mini peppers/ cucumber slices; - Food environment - make your eating inviting and comfortable; keep temptations out of the house and minimize exposure at places such as work that you frequent; cue elimination (check the [employer] nithin for ideas); choose designated eating places ??? - Increase or maintain daily steps - ultimately aiming for 7,500+ steps each day. Where are opportunities to move in your day? What might be options to add steps into your routine: climb one flight of stairs, or choose the farthest bathroom, or take a lap before shopping, or park further, or move 1-2 minutes every hour, or (the list is endless)? - Purposeful exercise: cardio (walk, swim, bike, jog, hike ..) - ultimately 150 - 300 minutes each week, and resistance 2-3 times/week working all major muscle groups. You may need to fit exercise in on some days. Where will you fit 10 minutes of exercise throughout your day? Or perform a body weight exercise with another activity you do regularly. Do counter push ups waiting for coffee to brew or lunges walking from the bedroom to the kitchen or squats before you fully sit down to watch Thursday and night TV or work a different muscle group on [employer] during one show 2 nights each week or the list is endless! ??? - Body Image- Consider actively stating daily positive affirmations and/or daily gratitude. Ideas to consider: What does your body do for you? What are your strengths? How would your best friend describe you? What are you grateful for-either in general or about your body? - Effective Self Talk - What positive progress have you made? How will you do more of that? What solutions exist to your current challenges? What might be a solution you haven? t thought of yet? Fully answer the questions you ask yourself in your head, in that moment. Evaluate your progress vs sales and marketing analyst yourself. Consider living in the coe vs. black & white or all or nothing. Consider progress, not perfection. ??? - Emotions & Eating - What is your plan to delay eating when you are tempted? How will you break the cues to eat when tempted? Is your environment set up for your success? If not, what will you adjust? Consider asking & answering ? is ? it? worth it in this moment? Is this what I would choose in another moment?? You may need a variation of your plan to meet varying emotional needs such as happiness, sadness, stress, frustration, boredom, etc. Some people benefit from having a written plan either on a index card or notes in their phone. Delays might be drink water and go to another room or deep breath for 10 - 20 breaths or meditate or journal or do 1or more of your ? to do? list or call someone special or take 10 minutes to engage in something that brings them crista (be specific) - what comes to mind for you? - Manage stress with a plan: practice deep breathing 3- 10 breaths throughout the day; practice meditation regularly; do an activity that brings you crista; address the stressor; ask for support/ help; say no ; what works for you to manage stress? - Sleep Hygiene Recommendations are 7-9 hours of restful sleep/night. What will your routine of preparing for bed look like? Some people perform their bedtime routine an hour before to not stimulate wakefulness! Considerations: choose the same bed and wake time 7 days/week if possible; avoid or minimize stimulating activities such as news, action packed TV or video, or social media for at least an hour before bed. Get rid of or cover lights - think clock, alarm system, TV, chargers, etc. Make sure the bedroom is quiet or consistent white noise, cool, and comfortable. Avoid caffeine later in the day. Minimize or avoid alcohol. ??? - Mindful eating - paying attention to food & food routines: having a pattern of eating that serves your body (satiating, energizing, tasty, doable) and can go with you wherever life takes you. Slowing down and savoring meals and snacks. Paying attention to hunger signals- rumbling stomach, foggy/lack of focus, shakiness, headache or other signs. How physically hungry am I? Starving? Neutral? Full? If hunger is low consider and temptation to eat exists then ask yourself is it worth it in this moment compared to progressing toward your vision of well-being - yes or no. ??? Many people progress, and develop self accountability, by evaluating and adjusting goals/intentions regularly, at minimum every 2 weeks initially until you feel well on your way to your desired routine. - SMART goals or intentions progress & monitoring - actions/small steps toward longer term vision of well-being. What 1-3 goals/intentions will you focus on over the next week? - Many people find setting SMART goals or intentions to be peters to consistent progress to the routines associated with their vision of wellbeing. What strengths or skills can you use from another aspect of your life that will serve you well on this journey? Evaluate vs sales and marketing analyst. Consider progress, not perfection. ??? - How will you keep up with your goals? How often will you check in with them - weekly, biweekly, monthly? When will you adjust them? What reminders do/will you have to keep them front of mind? Be sure to check out the [employer] patient nithin for more details on these and many helpful topics - healthy eating for weight loss, a colorful plate, creating your wellness vision, goal setting, activity and exercise, sleep, Relaxation and managing stress, and much more! Let me know if you need anything. [email or web address] Not available 09/24/2023 12:58:44 01/13/2024 [id number] Maxime Hernandez - It was so nice to connect today, thanks for taking the time!! Here area a few goals to focus on: Plan/Goals: 1. Continue to embrace fueling yourself and nourishing yourself through the day. 2. Order of eating -- prioritize eating protein and vegetables first, carbohydrates last. Additionally, we discussed: Food Order : Discussed eating carbs last, or at least, vegetables/fiber first within the meal to help control the rise in blood sugars after the meal. Ideally include 4g of fiber. Adding on roasted vegetables, salad, or vegetable soup before the carb would be good examples. Meal Timing: Discussed the importance of calorie distribution in the day as it relates to the circadian rhythm and sleep wake cycle: distribute calories more evenly in the day/earlier in the day and try to finish eating 2-4 hours before bedtime. Mindfulness: Discussed paying attention to food & food routines: having a pattern of eating that serves your body (satiating, energizing, tasty, doable) and can go with you wherever life takes you. Slowing down and savoring meals and snacks. Paying attention to hunger signals- rumbling stomach, foggy/lack of focus, shakiness, headache or other signs. How physically hungry am I? Starving? Neutral? Full? Consider adding in ABHILASH 750 mg nightly for sleep support. Fluids: Discussed the importance of staying hydrated and getting in 8-10 cups of water per day. Please reach out with any questions or concerns. Keep taking care of YOU!! [email or web address] Not available 01/13/2024 14:38:53 02/22/2024 [id number] Maxiem Hernandez, It w as great seeing you today. Here are some [...] check your weight once weekly -->Please use [facility] Patient Portal for any questions that arise between visits -->For follow up scheduling please call [phone] PATRICIO [email or web address] Not available 02/22/2024 10:54:31 04/20/2024 [id number] Maxime Hernandez - I'm so glad we could reconnect tonight. Here are the goals moving forward: Plan/Goals: 1. Continue to embrace fueling yourself and nourishing yourself through the day. 2. Increase fiber intake -- vegetables, fruits, whole grains. If having fruit, try to pair with fat/protein to reduce blood sugar impact (i.e apple w/ peanut butter, yogurt with berries, toas Additionally, we discussed/a few things to keep in mind: ??? Food Order : Discussed eating carbs last, or at least, vegetables/fiber first within the meal to help control the rise in blood sugars after the meal. Ideally include 4g of fiber. Adding on roasted vegetables, salad, or vegetable soup before the carb would be good examples. Meal Timing: Discussed the importance of calorie distribution in the day as it relates to the circadian rhythm and sleep wake cycle: distribute calories more evenly in the day/earlier in the day and try to finish eating 2-4 hours before bedtime. Mindfulness: Discussed paying attention to food & food routines: having a pattern of eating that serves your body (satiating, energizing, tasty, doable) and can go with you wherever life takes you. Slowing down and savoring meals and snacks. Paying attention to hunger signals- rumbling stomach, foggy/lack of focus, shakiness, headache or other signs. How physically hungry am I? Starving? Neutral? Full? Fluids: Discussed the importance of staying hydrated and getting in 8-10 cups of water per day. Protein: Discussed including adequate protein throughout the day to support general needs and muscle mass preservation/buildi ng. A general rule of thumb can be 20-25g, 3x/day. Protein sources include: meat, fish, poultry, eggs, fijian yogurt, cottage cheese, tofu, tempeh, seitan, and protein supplements. Strength training: Discussed the importance of strength training as a means to preserve muscle mass during weight loss as well as provide strength and balance, in addition to general benefits of exercise. Recommendations per guidelines are 2x per week. Activities include: lifting weights, resistance training, isometrics, yoga, pilates, boxing, martial arts. We are here if you need anything! [email or web address] Not available 04/20/2024 19:58:55 06/28/2024 [id number] Maxime Hernandez , It was great seeing [...] check your weight once weekly -->Please use [facility] Patient Portal for any questions that arise between visits -->For follow up scheduling please call [phone] PATRICIO [email or web address] Not available 06/28/2024 11:49:25 Reason for Referral None Reported. Results Created Date Observation Date Name Description Value Unit Range Abnormal Flag Note LastModifiedBy Organization Detail LastModifiedTime 02/04/20 24 02/04/2024 COMPR EHENS CHRISTINE METAB OLIC PANEL glucose 80 mg/dL 65-99 normal Fasti ng refer ence inter eloy Not Available [facility] [address] [place] [address], [address], 06/28/2024 13:15:54 02/04/20 24 02/04/2024 COMPR EHENS CHRISTINE METAB OLIC PANEL urea nitrogen (BUN) 14 mg/dL 7-25 normal Not Available [facility] [address] [place] [address], [address], 06/28/2024 13:15:54 02/04/20 24 02/04/2024 COMPR EHENS CHRISTINE METAB OLIC PANEL creatinine 1.24 mg/dL 0.50-1 .03 high Not Available [employer] [facility] [address] [place] [address], [address], 06/28/2024 13:15:54 02/04/20 24 02/04/2024 COMPR EHENS CHRISTINE METAB OLIC PANEL eGFR 51 mL/mi n/1.7 3m2 > or = 60 low Not Available [facility] [address], [address], 06/28/2024 13:15:54 02/04/20 24 02/04/2024 COMPR EHENS CHRISTINE METAB OLIC PANEL BUN/creatini ne ratio 11 (calc ) 6-22 normal Not Available [address], [address], 06/28/2024 13:15:54 02/04/20 24 02/04/2024 COMPR EHENS CHRISTINE METAB OLIC PANEL sodium 138 mmol/ L 135-14 6 normal Not Available [address], [address], 06/28/2024 13:15:54 02/04/20 24 02/04/2024 COMPR EHENS CHRISTINE METAB OLIC PANEL potassium 4.2 mmol/ L 3.5-5. 3 normal Not Available [address], [address], 06/28/2024 13:15:54 02/04/20 24 02/04/2024 COMPR EHENS CHRISTINE METAB OLIC PANEL chloride 103 mmol/ L 98-110 normal Not Available [address], [address], 06/28/2024 13:15:54 02/04/20 24 02/04/2024 COMPR EHENS CHRISTINE METAB OLIC PANEL carbon dioxide 27 mmol/ L 20-32 normal Not Available [address], [address], 06/28/2024 13:15:54 02/04/20 24 02/04/2024 COMPR EHENS CHRISTINE METAB OLIC PANEL calcium 9.6 mg/dL 8.6-10 .4 normal Not Available [address], [address], 06/28/2024 13:15:54 02/04/20 24 02/04/2024 COMPR EHENS CHRISTINE METAB OLIC PANEL protein, total 6.6 g/dL 6.1-8. 1 normal Not Available [address], [address], 06/28/2024 13:15:54 02/04/20 24 02/04/2024 COMPR EHENS CHRISTINE METAB OLIC PANEL albumin 4.1 g/dL 3.6-5. 1 normal Not Available [facility] [address] [place] [address], [place], [address], 06/28/2024 13:15:54 02/04/20 24 02/04/2024 COMPR EHENS CHRISTINE METAB OLIC PANEL globulin 2.5 g/dL_ (calc ) 1.9-3. 7 normal Not Available [facility] [address] [place] [address] [place], [address], 06/28/2024 13:15:54 02/04/20 24 02/04/2024 COMPR EHENS CHRISTINE METAB OLIC PANEL albumin/glob ulin ratio 1.6 (calc ) 1.0-2. 5 normal Not Available [facility] [address] [place] [address], [place], [address], 06/28/2024 13:15:54 02/04/20 24 02/04/2024 COMPR EHENS CHRISTINE METAB OLIC PANEL bilirubin, total 0.7 mg/dL 0.2-1. 2 normal Not Available [facility] [address] [place], [place] [address], [address], 06/28/2024 13:15:54 02/04/20 24 02/04/2024 COMPR EHENS CHRISTINE METAB OLIC PANEL alkaline phosphatase 83 U/L 37-153 normal Not Available [facility] [address] [place], [place] [address] [place], [address], 06/28/2024 13:15:54 02/04/20 24 02/04/2024 COMPR EHENS CHRISTINE METAB OLIC PANEL AST 17 U/L 10-35 normal Not Available [facility] [address] [place], [place] [address] [place], [address], 06/28/2024 13:15:54 02/04/20 24 02/04/2024 COMPR EHENS CHRISTINE METAB OLIC PANEL ALT 12 U/L 6-29 normal Not Available [address], [address], 06/28/2024 13:15:54 02/04/20 24 02/04/2024 CBC (INCL UDES DIFF/ PLT) white blood cell count 4.5 thous and/u L 3.8-10 .8 normal Not Available [address], [address], 06/28/2024 13:15:55 02/04/20 24 02/04/2024 CBC (INCL UDES DIFF/ PLT) red blood cell count 5.39 adelina on/uL 3.80-5 .10 high Not Available [address], [address], 06/28/2024 13:15:55 02/04/20 24 02/04/2024 CBC (INCL UDES DIFF/ PLT) hemoglobin 15.1 g/dL 11.7-1 5.5 normal Not Available [address], [address], 06/28/2024 13:15:55 02/04/20 24 02/04/2024 CBC (INCL UDES DIFF/ PLT) hematocrit 46.0 % 35.0-4 5.0 high Not Available [address], [address], 06/28/2024 13:15:55 02/04/20 24 02/04/2024 CBC (INCL UDES DIFF/ PLT) MCV 85.3 fL 80.0-1 00.0 normal Not Available [address], [address], 06/28/2024 13:15:55 02/04/20 24 02/04/2024 CBC (INCL UDES DIFF/ PLT) MCH 28.0 pg 27.0-3 3.0 normal Not Available [facility] [address], [address], 06/28/2024 13:15:55 02/04/20 24 02/04/2024 CBC (INCL UDES DIFF/ PLT) MCHC 32.8 g/dL 32.0-3 6.0 normal Not Available [facility] [address], [address], 06/28/2024 13:15:55 02/04/20 24 02/04/2024 CBC (INCL UDES DIFF/ PLT) RDW 12.5 % 11.0-1 5.0 normal Not Available [address], [address], 06/28/2024 13:15:55 02/04/20 24 02/04/2024 CBC (INCL UDES DIFF/ PLT) platelet count 228 thous and/u L 140-40 0 normal Not Available [facility] [address], [address], 06/28/2024 13:15:55 02/04/20 24 02/04/2024 CBC (INCL UDES DIFF/ PLT) MPV 11.3 fL 7.5-12 .5 normal Not Available [facility] [address], [address], 06/28/2024 13:15:55 02/04/20 24 02/04/2024 CBC (INCL UDES DIFF/ PLT) absolute neutrophils 2709 cells /uL 1500-7 800 normal Not Available [facility] [address], [address], 06/28/2024 13:15:55 02/04/20 24 02/04/2024 CBC (INCL UDES DIFF/ PLT) absolute lymphocytes 1211 cells /uL 850-39 00 normal Not Available [facility] [address], [address], 06/28/2024 13:15:55 02/04/20 24 02/04/2024 CBC (INCL UDES DIFF/ PLT) absolute monocytes 401 cells /uL 200-95 0 normal Not Available [facility] - [address], [address], 06/28/2024 13:15:55 02/04/20 24 02/04/2024 CBC (INCL UDES DIFF/ PLT) absolute eosinophils 131 cells /uL 15-500 normal Not Available [facility] - [address], [address], 06/28/2024 13:15:55 02/04/20 24 02/04/2024 CBC (INCL UDES DIFF/ PLT) absolute basophils 50 cells /uL 0-200 normal Not Available [facility] [address], [address], 06/28/2024 13:15:55 02/04/20 24 02/04/2024 CBC (INCL UDES DIFF/ PLT) neutrophils 60.2 % normal Not Available [facility] [address], [address], 06/28/2024 13:15:55 02/04/20 24 02/04/2024 CBC (INCL UDES DIFF/ PLT) lymphocytes 26.9 % normal Not Available [facility] - [address], [address], 06/28/2024 13:15:55 02/04/20 24 02/04/2024 CBC (INCL UDES DIFF/ PLT) monocytes 8.9 % normal Not Available [facility] [address], [address], 06/28/2024 13:15:55 02/04/20 24 02/04/2024 CBC (INCL UDES DIFF/ PLT) eosinophils 2.9 % normal Not Available [facility] [address], [address], 06/28/2024 13:15:55 02/04/20 24 02/04/2024 CBC (INCL UDES DIFF/ PLT) basophils 1.1 % normal Not Available [facility] [address] [facility], [place], [address], 06/28/2024 13:15:55 02/04/20 24 02/04/2024 TSH W/REF JHONATHAN TO FT4 TSH w/reflex to FT4 1.24 mIU/L 0.40-4 .50 normal Not Available [facility] [address] [facility], [place], [address], 06/28/2024 13:15:55 02/04/20 24 02/04/2024 HEMOG LOBIN A1C hemoglobin A1C 5.3 %_of_ total _HGB <5.7 normal For the purpo se of sultana brock for the prese nce of diabe piero: <5.7% Consi stent with the absen ce of diabe piero 5.7-6 .4% Consi stent with incre ased risk for diabe piero (pred iabet es) > or =6.5% Consi stent with diabe piero This assay resul t is consi stent with a decre ased risk of diabe piero. Curre ntly, no conse nsus exist s cesar francis use of hemog lobin A1c for diagn osis of diabe piero in child brianna. Accor ding to Ameri can Diabe piero Assoc iatio n (ADA) guide lines , hemog lobin A1c <7.0% repre sents optim al contr ol in non-p regna nt diabe tic patie nts. Diffe rent metri cs may apply to speci fic patie nt popul ation s. Stand ards of Medic al Care in Diabe piero(A DA). Not Available [facility] [address] [facility], [place], [address], 06/28/2024 13:15:56 02/04/20 24 02/04/2024 HEMOG LOBIN A1C comment This test was perfo rmed on the Madi lucia c503 platf orm. Effec tive 08/09/ 4, a khan e in test platf orms from the [facility] [employer] t[employer] to the Madi lucia c503 may have shift ed HbA1c resul ts jaskaran red to histo rical resul ts. Based on labor atory valid ation testi ng condu cted at [facility] [employer] , the Madi platf orm relat christine to the [employer] platf orm had an avera ge incre ase in HbA1c value of < or = 0.3%. This diffe rence is withi n accep radha varia bilit y estab lishe d by the Nattaylor [employer] hemog lobin Stand juhi fairchild Progr am. Note that not all indiv idual s will have had a shift in their resul ts and direc t jaskaran rison s betwe en histo rical and curre nt resul ts for testi ng condu cted on diffe rent platf orms is not recom vernon d. Not Available [facility] [address] [place] [address], [address], 06/28/2024 13:15:56 02/04/20 24 02/17/2024 IMMUN OFIXA TION IGA,I GG,IG M QT.IM MUNOF IXATI ON SERUM IMMUN OGLOB ULIN janna interpretati on Normal patter n. No monocl onal protei ns detect ed. Not Available [facility] [address] [place] [address], [address], 06/28/2024 13:15:57 02/04/20 24 02/17/2024 IMMUN OFIXA TION IGA,I GG,IG M QT.IM MUNOF IXATI ON SERUM IMMUN OGLOB ULIN immunoglobul in A 186 mg/dL 47-310 normal Not Available [facility] [address] [place], [address], 06/28/2024 13:15:57 02/04/20 24 02/17/2024 IMMUN OFIXA TION IGA,I GG,IG M QT.IM MUNOF IXATI ON SERUM IMMUN OGLOB ULIN immunoglobul in g 895 mg/dL 600-16 40 normal Not Available [facility] - [address], [address], 06/28/2024 13:15:57 02/04/20 24 02/17/2024 IMMUN OFIXA TION IGA,I GG,IG M QT.IM MUNOF IXATI ON SERUM IMMUN OGLOB ULIN immunoglobul in M 195 mg/dL 50-300 normal Not Available [facility] - [address], [address], 06/28/2024 13:15:57 02/04/20 24 02/17/2024 ANCA SCREE N WITH MPO AND PR3 WITH REFLE X TO ANCA TITER anca screen NEGATI VE negati ve normal ANCA scree n uses indir ect immun ofluo resce nce to detec t antib odies to neutr ophil cytop lasmi c antig ens. A posit christine scree n refle xes to titer and patte rn. Patte rns inclu de cytop lasmi c (c-AN CA) and perin uclea r (p-AN CA) both of which are assoc iated with vascu litis , and atypi navjot p-ANC A which is assoc iated with infla mmato ry bowel disea se and other disor ders. Not Available [facility] [address], [address], 06/28/2024 13:15:58 02/04/20 24 02/17/2024 ANCA SCREE N WITH MPO AND PR3 WITH REFLE X TO ANCA TITER myeloperoxid ase antibody <1.0 ai normal Value Inter preta tion ----- ----- ----- ---- <1.0 No Antib kristi Detec radha > or = 1.0 Antib kristi Detec radha Autoa ntibo dies to myelo perox idase (MPO) are commo nly assoc iated with the follo wing small -vess el vascu litid es: micro scopi c polya ngiit is, polya rteri tis nodos a, [place] -[place] uss syndr ome, necro tizin g and cresc entic glome rulon ephri tis and occas ional ly granu lomat osis with polya ngiit is (GPA, Wegen er's) . The perin uclea r ROBYN ambriz rn, (p-AN CA) is based large ly on autoa ntibo dy to myelo perox idase which serve s as the prima ry antig en. These autoa ntibo dies are prese nt in activ e disea se. Not Available [facility] - [address], [address], 06/28/2024 13:15:58 02/04/2002/17/2024 ANCA SCREE N WITH MPO AND PR3 WITH REFLE X TO ANCA TITER proteinase-3 antibody <1.0 ai normal Value Inter preta tion ----- ----- ----- ---- <1.0 No Antib kristi Detec radha > or = 1.0 Antib kristi Detec radha Autoa ntibo dies to prote inase -3 ([place]-3 ) are accep radha as sharron cteri stic for granu lomat osis with polya ngiit is (GPA, Wegen er's) , and are detec table in 95% of the histo logic ally prove n cases . The cytop lasmi c ROBYN ambriz rn, (c-AN DE), is based large ly on autoa ntibo dy to [place]-3 which serve s as the prima ry antig en. These autoa ntibo dies are prese nt in activ e disea se. Not Available [facility] [address] [place], [address], 06/28/2024 13:15:58 02/04/2002/17/2024 PROTE IN, TOTAL AND PROTE IN ELECT ROPHO RESIS protein, total 6.4 g/dL 6.1-8. 1 normal Not Available [facility] [address] [place], [address], 06/28/2024 13:15:58 02/04/20 24 02/17/2024 PROTE IN, TOTAL AND PROTE IN ELECT ROPHO RESIS albumin 4.0 g/dL 3.8-4. 8 normal Not Available [facility] [address] [place], [address], 06/28/2024 13:15:58 02/04/20 24 02/17/2024 PROTE IN, TOTAL AND PROTE IN ELECT ROPHO RESIS alpha 1 globulin 0.2 g/dL 0.2-0. 3 normal Not Available [facility] [address] [place], [address], 06/28/2024 13:15:58 02/04/20 24 02/17/2024 PROTE IN, TOTAL AND PROTE IN ELECT ROPHO RESIS alpha 2 globulin 0.6 g/dL 0.5-0. 9 normal Not Available [facility] [address], [place], [address], 06/28/2024 13:15:58 02/04/20 24 02/17/2024 PROTE IN, TOTAL AND PROTE IN ELECT ROPHO RESIS beta 1 globulin 0.4 g/dL 0.4-0. 6 normal Not Available [facility] [address] [place], [address], 06/28/2024 13:15:58 02/04/20 24 02/17/2024 PROTE IN, TOTAL AND PROTE IN ELECT ROPHO RESIS beta 2 globulin 0.3 g/dL 0.2-0. 5 normal Not Available [facility] - [address] [place], [address], 06/28/2024 13:15:58 02/04/20 24 02/17/2024 PROTE IN, TOTAL AND PROTE IN ELECT ROPHO RESIS gamma globulin 0.9 g/dL 0.8-1. 7 normal Not Available [facility] - [address], [address], 06/28/2024 13:15:58 02/04/20 24 02/17/2024 PROTE IN, TOTAL AND PROTE IN ELECT ROPHO RESIS interpretati on Mariia l Serum Prote in Elect rop resis Ly rn. No abnor mal prote in bands (M-pr otein ) detec radha. Not Available [facility] [address] [facility], [place], [address], 06/28/2024 13:15:58 02/04/20 24 02/17/2024 YAYA ZER(T M)RICHARD , IFA WITH REFLE X TITER /DARBY RAVI, SYSTE CHRISTA AUTOI MMUNE PANEL 1 RICHARD screen, ifa NEGATI VE negati ve RICHARD IFA is a first line scree n for detec ting the prese nce of up to appro ximat christina 150 autoa ntibo dies in vario us autoi mmune disea ses. A negat christine RICHARD IFA resul t sugge sts an RICHARD-a ssoci ated autoi mmune disea se is not prese nt at this time, but is not defin itive . If there is high clini navjot suspi cion for Sjogr en's syndr ome, testi ng for anti- SS-A/ Ro antib kristi shoul d be consi dered . Anti- Sandra-1 antib kristi shoul d be consi dered for clini magdalena suspe cted infla mmato ry myopa kade . AC-0: Negat christine Inter natio nal Conse nsus on RICHARD Patte rns https ://do i.org /10.1 515/c clm-2 018-0 052 For addit ional infor cynthia nhilda e refer to http: //daija velasquez.Dandre stDia gnost ics.c om/fa q/FAQ 177 (This link is being provi ded for infor matio nal/e ducat ional purpo ses only. ) Not Available [facility] [address] [facility], [place], [address], 06/28/2024 13:15:59 02/04/20 02/17/2024 YAYA ZER(T M)RICHARD , IFA WITH REFLE X TITER /DARBY RAVI, SYSTE CHRISTA AUTOI MMUNE PANEL 1 DNA Ab (ds) crithidia,if a NEGATI VE negati ve Not Available [facility] [address], [address], 06/28/2024 13:15:59 02/04/20 24 02/17/2024 YAYA ZER(T M)RICHARD , IFA WITH REFLE X TITER /DARBY RAVI, SYSTE CHRISTA AUTOI MMUNE PANEL 1 chromatin (nucleosomal ) antibody <1.0 NEG ai <1.0 negati ve Not Available [facility] [address], [address], 06/28/2024 13:15:59 02/04/20 24 02/17/2024 YAYA ZER(T M)RICHARD , IFA WITH REFLE X TITER /DARBY RAVI, SYSTE CHRISTA AUTOI MMUNE PANEL 1 sm antibody <1.0 NEG ai <1.0 negati ve Not Available [facility] [address], [address], 06/28/2024 13:15:59 02/04/20 24 02/17/2024 YAYA ZER(T M)RICHARD , IFA WITH REFLE X TITER /DARBY RAVI, SYSTE CHRISTA AUTOI MMUNE PANEL 1 sm/deaf and hard of hearing teacher antibody <1.0 NEG ai <1.0 negati ve Not Available [facility] [address], [address], 06/28/2024 13:15:59 02/04/20 24 02/17/2024 YAYA ZER(T M)RICHARD , IFA WITH REFLE X TITER /DARBY RAVI, SYSTE CHRISTA AUTOI MMUNE PANEL 1 deaf and hard of hearing teacher antibody <1.0 NEG ai <1.0 negati ve Not Available [facility] [address], [address], 06/28/2024 13:15:59 02/04/20 24 02/17/2024 YAYA ZER(T M)RICHARD , IFA WITH REFLE X TITER /DARBY RAVI, SYSTE CHRISTA AUTOI MMUNE PANEL 1 sjogren's antibody (ss-A) <1.0 NEG ai <1.0 negati ve Not Available [facility] [address], [address], 06/28/2024 13:15:59 02/04/20 24 02/17/2024 YAYA ZER(T M)RICHARD , IFA WITH REFLE X TITER /DARBY RAVI, SYSTE CHRISTA AUTOI MMUNE PANEL 1 sjogren's antibody (ss-B) <1.0 NEG ai <1.0 negati ve Not Available [facility] [address], [address], 06/28/2024 13:15:59 02/04/20 24 02/17/2024 YAYA ZER(T M)RICHARD , IFA WITH REFLE X TITER /DARBY RAVI, SYSTE CHRISTA AUTOI MMUNE PANEL 1 scl-70 antibody <1.0 NEG ai <1.0 negati ve Not Available [facility] [address], [address], 06/28/2024 13:15:59 02/04/20 24 02/17/2024 YAYA ZER(T M)RICHARD , IFA WITH REFLE X TITER /DARBY RAVI, SYSTE CHRISTA AUTOI MMUNE PANEL 1 sandra-1 antibody <1.0 NEG ai <1.0 negati ve Not Available [facility] [address], [address], 06/28/2024 13:15:59 02/04/20 24 02/17/2024 YAYA ZER(T M)RICHARD , IFA WITH REFLE X TITER /DARBY RAVI, SYSTE CHRISTA AUTOI MMUNE PANEL 1 centromere B antibody <1.0 NEG ai <1.0 negati ve Not Available [facility] [address], [address], 06/28/2024 13:15:59 02/04/20 24 02/17/2024 YAYA ZER(T M)RICHARD , IFA WITH REFLE X TITER /DARBY RAVI, SYSTE CHRISTA AUTOI MMUNE PANEL 1 complement component C3C 133 mg/dL 83-193 Not Available [address], [address], 06/28/2024 13:15:59 02/04/20 24 02/17/2024 YAYA ZER(T M)RICHARD , IFA WITH REFLE X TITER /DARBY RAVI, SYSTE CHRISTA AUTOI MMUNE PANEL 1 complement component C4C 27 mg/dL 15-57 Not Available [address], [address], 06/28/2024 13:15:59 02/04/20 24 02/17/2024 YAYA ZER(T M)RICHARD , IFA WITH REFLE X TITER /DARBY RAVI, SYSTE CHRISTA AUTOI MMUNE PANEL 1 cardiolipin Ab (IgA) <2.0 apl-U /mL Value Inter preta tion ----- ----- ----- ---- <20.0 Antib kristi not detec radha > or = 20.0 Antib kristi detec radha Not Available [address], [address], 06/28/2024 13:15:59 02/04/20 24 02/17/2024 YAYA ZER(T M)RICHARD , IFA WITH REFLE X TITER /DARBY RAVI, SYSTE CHRISTA AUTOI MMUNE PANEL 1 cardiolipin Ab (IgG) <2.0 gpl-U /mL Value Inter preta tion ----- ----- ----- ---- <20.0 Antib kristi not detec radha > or = 20.0 Antib kristi detec radha Not Available [address], [address], 06/28/2024 13:15:59 02/04/20 24 02/17/2024 YAYA ZER(T M)RICHARD , IFA WITH REFLE X TITER /DARBY RAVI, SYSTE CHRISTA AUTOI MMUNE PANEL 1 cardiolipin Ab (IgM) 2.0 mpl-U /mL Value Inter preta tion ----- ----- ----- ---- <20.0 Antib kristi not detec radha > or = 20.0 Antib kristi detec radha Not Available [address], [address], 06/28/2024 13:15:59 02/04/20 24 02/17/2024 YAYA ZER(T M)RICHARD , IFA WITH REFLE X TITER /DARBY RAVI, SYSTE CHRISTA AUTOI MMUNE PANEL 1 B2 glycoprotein I (IgA)Ab <2.0 U/mL Value Inter preta tion ----- ----- ----- ---- <20.0 Antib kristi not detec radha > or = 20.0 Antib kristi detec radha Not Available [address], [address], 06/28/2024 13:15:59 02/04/20 24 02/17/2024 YAYA ZER(T M)RICHARD , IFA WITH REFLE X TITER /DARBY RAVI, SYSTE CHRISTA AUTOI MMUNE PANEL 1 B2 glycoprotein I (IgG)Ab <2.0 U/mL Value Inter preta tion ----- ----- ----- ---- <20.0 Antib kristi not detec radha > or = 20.0 Antib kristi detec radha Not Available [address], [address], 06/28/2024 13:15:59 02/04/20 24 02/17/2024 YAYA ZER(T M)RICHARD , IFA WITH REFLE X TITER /DARBY RAVI, SYSTE CHRISTA AUTOI MMUNE PANEL 1 B2 glycoprotein I (IgM)Ab <2.0 U/mL The antip hosph olipi d antib kristi syndr ome (APS) is a clini navjot-p athol ogic corre latio n that inclu marcel a clini navjot event (e.g. arter ial or venou s throm bosis , pregn justino morbi dity) and persi stent posit christine antip hosph olipi d antib odies (IgM, IgG Cardi olipi n or b2GPI antib odies great er than the 99th perce ntile ; or a lupus antic oagul ant). Inter natio nal conse nsus guide lines for APS sugge st waiti ng at least 12 weeks befor e retes ting to confi rm antib kristi persi stenc e. The Syste christa Lupus Inter natio nal Colla borat ing Clini cs immun ologi navjot class ifica tion crite nilam for syste christa lupus eryth emato anna (SLE) inclu de testi ng for isoty pe IgA, which has yet to be incor porat ed into APS crite nilam. Low level antip hosph olipi d antib odies may somet imes be detec radha in the setti ng of infec tion, drug thera py or aging . For addit ional infor hilda bunn e refer to http: //[facility] srinath somersque stdia gnost ics.c om/fa q/FAQ 109 (This link is being provi ded for infor cynthia nal/e ducat ional purpo ses only. ) Value Inter preta tion ----- ----- ----- ---- <20.0 Antib kristi not detec radha > or = 20.0 Antib kristi detec radha Not Available [facility] [address] [place], [address], 06/28/2024 13:15:59 02/04/20 24 02/17/2024 YAYA ZER(T M)RICHARD , IFA WITH REFLE X TITER /DARBY RAVI, SYSTE CHRISTA AUTOI MMUNE PANEL 1 rheumatoid factor (IgA) <5 U Refer ence Range : <=6 NEGAT CHRISTINE >6 POSIT CHRISTINE Not Available [facility] [address] [place], [address], 06/28/2024 13:15:59 02/04/20 24 02/17/2024 YAYA ZER(T M)RICHARD , IFA WITH REFLE X TITER /DARBY RAVI, SYSTE CHRISTA AUTOI MMUNE PANEL 1 rheumatoid factor (IgG) <5 U Refer ence Range : <=6 NEGAT CHRISTINE >6 POSIT CHRISTINE Not Available [facility] [address], [address], 06/28/2024 13:15:59 02/04/20 24 02/17/2024 YAYA ZER(T M)RICHARD , IFA WITH REFLE X TITER /DARBY RAVI, SYSTE CHRISTA AUTOI MMUNE PANEL 1 rheumatoid factor (IgM) 7 U high Refer ence Range : <=6 NEGAT CHRISTINE >6 POSIT CHRISTINE Not Available [facility] [address], [address], 06/28/2024 13:15:59 02/04/20 24 02/17/2024 YAYA ZER(T M)RICHARD , IFA WITH REFLE X TITER /DARBY RAVI, SYSTE CHRISTA AUTOI MMUNE PANEL 1 cyclic citrullinate d peptide (ccp) Ab (IgG) <16 units Refer ence Range : NEGAT CHRISTINE: <20 WEAK POSIT CHRISTINE: 20-39 MODER ATE POSIT CHRISTINE: 40-59 STRON G POSIT CHRISTINE >59 Not Available [address], [address], 06/28/2024 13:15:59 02/04/20 24 02/17/2024 YAYA ZER(T M)RICHARD , IFA WITH REFLE X TITER /DARBY RAVI, SYSTE CHRISTA AUTOI MMUNE PANEL 1 mutated citrullinate d vimentin (MCV) Ab <20 U/mL <20 Anti- mutat ed citru llina radha vimen tin antib kristi may be used as a secon d-hugo e marke r of rheum atoid arthr itis, in addit ion to rheum atoid facto r and anti- cycli c citru llina radha pepti de (CCP) . Not Available [facility] [place] [address], [place], [address], 06/28/2024 13:15:59 02/04/20 24 02/17/2024 YAYA ZER(T M)RICHARD , IFA WITH REFLE X TITER /DARBY RAVI, SYSTE CHRISTA AUTOI MMUNE PANEL 1 thyroid peroxidase antibodies 3 IU/mL <9 Not Available [address], [address], 06/28/2024 13:15:59 02/04/20 24 02/17/2024 CREAT ININE creatinine 1.26 mg/dL 0.50-1 .03 high Not Available [address], [address], 06/28/2024 13:16:00 02/04/20 24 02/17/2024 CREAT ININE eGFR 50 mL/mi n/1.7 3m2 > or = 60 low Not Available [address], [address], 06/28/2024 13:16:00 02/04/20 24 02/17/2024 URIC ACID uric acid 5.4 mg/dL 2.5-7. 0 normal Thera peuti c targe t for gout patie nts: <6.0 mg/dL Not Available [address], [address], 06/28/2024 13:16:00 02/04/20 24 02/17/2024 IRON AND TOTAL IRON RIA NG CAPAC ITY iron, total 84 mcg/d L 45-160 normal Not Available [address], [address], 06/28/2024 13:16:00 02/04/20 24 02/17/2024 IRON AND TOTAL IRON RIA NG CAPAC ITY iron binding capacity 307 mcg/d L_(ca lc) 250-45 0 normal Not Available [address] [place], [address], 06/28/2024 13:16:00 02/04/20 24 02/17/2024 IRON AND TOTAL IRON RIA NG CAPAC ITY % saturation 27 %_(ca lc) 16-45 normal Not Available [address] [place], [address], 06/28/2024 13:16:00 02/04/20 24 02/17/2024 HEPAT IC FUNCT ION PANEL protein, total 6.4 g/dL 6.1-8. 1 normal Not Available [address] [place], [address], 06/28/2024 13:16:01 02/04/20 24 02/17/2024 HEPAT IC FUNCT ION PANEL albumin 3.9 g/dL 3.6-5. 1 normal Not Available [address] [place], [address], 06/28/2024 13:16:01 02/04/20 24 02/17/2024 HEPAT IC FUNCT ION PANEL globulin 2.5 g/dL_ (calc ) 1.9-3. 7 normal Not Available [address] [place], [address], 06/28/2024 13:16:01 02/04/20 24 02/17/2024 HEPAT IC FUNCT ION PANEL albumin/glob ulin ratio 1.6 (calc ) 1.0-2. 5 normal Not Available [address] [place], [address], 06/28/2024 13:16:01 02/04/20 24 02/17/2024 HEPAT IC FUNCT ION PANEL bilirubin, total 0.7 mg/dL 0.2-1. 2 normal Not Available [address] [place], [address], 06/28/2024 13:16:01 02/04/20 24 02/17/2024 HEPAT IC FUNCT ION PANEL bilirubin, direct 0.1 mg/dL < or = 0.2 normal Not Available [facility] [address] [place] [address] [place], [address], 06/28/2024 13:16:01 02/04/20 24 02/17/2024 HEPAT IC FUNCT ION PANEL bilirubin, indirect 0.6 mg/dL _(navjot c) 0.2-1. 2 normal Not Available [facility] [address] [place] [address] [place], [address], 06/28/2024 13:16:01 02/04/20 24 02/17/2024 HEPAT IC FUNCT ION PANEL alkaline phosphatase 85 U/L 37-153 normal Not Available [facility] [address] [place] [address] [place], [address], 06/28/2024 13:16:01 02/04/20 24 02/17/2024 HEPAT IC FUNCT ION PANEL AST 17 U/L 10-35 normal Not Available [facility] [address] [place] [address] [place], [address], 06/28/2024 13:16:01 02/04/20 24 02/17/2024 HEPAT IC FUNCT ION PANEL ALT 12 U/L 6-29 normal Not Available [facility] [address] [place], [place] [address], [place], [address], 06/28/2024 13:16:01 02/04/20 24 02/17/2024 CREAT INE KINAS E, TOTAL creatine kinase, total 76 U/L 29-143 normal Not Available [facility] [address] [place], [place] [address], [place], [address], 06/28/2024 13:16:01 02/04/20 24 02/17/2024 HLA-B 27 ANTIG EN hla-B27 antigen Negati ve negati ve Not Available [facility] [address] [place], [place] [address], [address], 06/28/2024 13:16:02 02/04/20 24 02/17/2024 ANGIO TENSI N-1-C ONVER TING ENZYM E angiotensin- 1-converting enzyme 35.4 U/L Not Available [facility] [address] [facility] [place], [address], 06/28/2024 13:16:02 02/04/20 24 02/17/2024 LUPUS ANTIC OAGUL ANT EVALU ATION WITH REFLE X lupus anticoagulan t see note A Lupus Antic oagul ant is not detec radha. Refer ence Range : Not Detec radha For addit ional infor hilda bunn e refer to http: //[facility] srinath velasquez.que stdia gnost ics.c om/fa q/FAQ 01v2 (This link is being provi ded for infor cynthia noguera/ educa josé miguel l purpo ses only. ) This inter preta tion is based on the follo wing test resul ts. Not Available [facility] [place] [id number] [place], [address], 06/28/2024 13:16:03 02/04/20 24 02/17/2024 LUPUS ANTIC OAGUL ANT EVALU ATION WITH REFLE X PTT-la screen 34 sec <=40 Not Available [facility] - [address], [address], 06/28/2024 13:16:03 02/04/20 24 02/17/2024 LUPUS ANTIC OAGUL ANT EVALU ATION WITH REFLE X drvvt screen 35 sec <=45 Not Available [facility] - [address], [address], 06/28/2024 13:16:03 02/04/20 24 02/17/2024 SED RATE BY MODIF IED WESTE RGREN sed rate by modified westergren 6 mm/h < or = 30 normal Not Available [facility] - [address], [address], 06/28/2024 13:16:03 02/04/20 24 02/17/2024 URINA LYSIS , COMPL ETE W/REF JHONATHAN TO CULTU RE color YELLOW yellow normal Not Available [facility] - [address], [place], [address], 06/28/2024 13:16:03 02/04/20 24 02/17/2024 URINA LYSIS , COMPL ETE W/REF JHONATHAN TO CULTU RE appearance CLEAR clear normal Not Available [facility] - [address], [address], 06/28/2024 13:16:03 02/04/20 24 02/17/2024 URINA LYSIS , COMPL ETE W/REF JHONATHAN TO CULTU RE specific gravity 1.020 1.001- 1.035 normal Not Available [facility] - [address], [address], 06/28/2024 13:16:03 02/04/20 24 02/17/2024 URINA LYSIS , COMPL ETE W/REF JHONATHAN TO CULTU RE pH 5.5 5.0-8. 0 normal Not Available [facility] - [address], [address], 06/28/2024 13:16:03 02/04/20 24 02/17/2024 URINA LYSIS , COMPL ETE W/REF JHONATHAN TO CULTU RE glucose NEGATI VE negati ve normal Not Available [facility] - [address], [address], 06/28/2024 13:16:03 02/04/20 24 02/17/2024 URINA LYSIS , COMPL ETE W/REF JHONATHAN TO CULTU RE bilirubin NEGATI VE negati ve normal Not Available [facility] - [address], [address], 06/28/2024 13:16:03 02/04/20 24 02/17/2024 URINA LYSIS , COMPL ETE W/REF JHONATHAN TO CULTU RE ketones NEGATI VE negati ve normal Not Available [facility] [address] [place], [place] [address], [place], [address], 06/28/2024 13:16:03 02/04/20 24 02/17/2024 URINA LYSIS , COMPL ETE W/REF JHONATHAN TO CULTU RE occult blood NEGATI VE negati ve normal Not Available [facility] [address] [place], [place] [address], [place], [address], 06/28/2024 13:16:03 02/04/20 24 02/17/2024 URINA LYSIS , COMPL ETE W/REF JHONATHAN TO CULTU RE protein TRACE negati ve abnormal Not Available [facility] - [address], [address], 06/28/2024 13:16:03 02/04/20 24 02/17/2024 URINA LYSIS , COMPL ETE W/REF JHONATHAN TO CULTU RE nitrite NEGATI VE negati ve normal Not Available [facility] [address] [place] [address], [address], 06/28/2024 13:16:03 02/04/20 24 02/17/2024 URINA LYSIS , COMPL ETE W/REF JHONATHAN TO CULTU RE leukocyte esterase 1+ negati ve abnormal Not Available [facility] - [address], [address], 06/28/2024 13:16:03 02/04/20 24 02/17/2024 URINA LYSIS , COMPL ETE W/REF JHONATHAN TO CULTU RE WBC 6-10 /hpf < or = 5 abnormal Not Available [facility] - [address], [address], 06/28/2024 13:16:03 02/04/20 24 02/17/2024 URINA LYSIS , COMPL ETE W/REF JHONATHAN TO CULTU RE RBC NONE SEEN /hpf < or = 2 normal Not Available [facility] [address], [address], 06/28/2024 13:16:03 02/04/20 24 02/17/2024 URINA LYSIS , COMPL ETE W/REF JHONATHAN TO CULTU RE squamous epithelial cells 0-5 /hpf < or = 5 Not Available [facility] [address], [address], 06/28/2024 13:16:03 02/04/20 24 02/17/2024 URINA LYSIS , COMPL ETE W/REF JHONATHAN TO CULTU RE bacteria NONE SEEN /hpf none seen normal Not Available [facility] - [address], [place], [address], 06/28/2024 13:16:03 02/04/20 24 02/17/2024 URINA LYSIS , COMPL ETE W/REF JHONATHAN TO CULTU RE hyaline cast NONE SEEN /lpf none seen normal Not Available [facility] - [address], [address], 06/28/2024 13:16:03 02/04/20 24 02/17/2024 URINA LYSIS , COMPL ETE W/REF JHONATHAN TO CULTU RE note This urine was yaya zed for the prese nce of WBC, RBC, bacte nilam, casts , and other forme d eleme nts. Only those eleme nts seen were repor radha. Not Available [facility] - [address], [address], 06/28/2024 13:16:03 02/04/20 24 02/17/2024 URINA LYSIS , COMPL ETE W/REF JHONATHAN TO CULTU RE reflexive urine culture CULTU RE INDIC ATED - RESUL TS TO FOLLO W Not Available [facility] [address], [address], 06/28/2024 13:16:03 02/04/20 24 02/17/2024 URINA LYSIS , COMPL ETE W/REF JHONATHAN TO CULTU RE culture, urine, routine SEE NOTE CULTU RE, URINE , ROUTI NE Micro Numbe r: [id number] Test Statu s: Final Speci men Sourc e: Urine Speci men Quali ty: Adequ ate Resul t: No Growt h Not Available [facility] [address] [place] [address], [address], 06/28/2024 13:16:03 02/04/20 24 02/17/2024 CBC (INCL UDES DIFF/ PLT) white blood cell count 4.5 thous and/u L 3.8-10 .8 normal Not Available [facility] [address] [place] [address], [address], 06/28/2024 13:16:04 02/04/20 24 02/17/2024 CBC (INCL UDES DIFF/ PLT) red blood cell count 5.32 adelina on/uL 3.80-5 .10 high Not Available [facility] [address] [place] [address], [address], 06/28/2024 13:16:04 02/04/20 24 02/17/2024 CBC (INCL UDES DIFF/ PLT) hemoglobin 15.0 g/dL 11.7-1 5.5 normal Not Available [facility] [address] [place] [address], [address], 06/28/2024 13:16:04 02/04/20 24 02/17/2024 CBC (INCL UDES DIFF/ PLT) hematocrit 46.3 % 35.0-4 5.0 high Not Available [facility] [address], [address], 06/28/2024 13:16:04 02/04/20 24 02/17/2024 CBC (INCL UDES DIFF/ PLT) MCV 87.0 fL 80.0-1 00.0 normal Not Available [facility] - [address], [address], 06/28/2024 13:16:04 02/04/20 24 02/17/2024 CBC (INCL UDES DIFF/ PLT) MCH 28.2 pg 27.0-3 3.0 normal Not Available [facility] [address] [place], [address], 06/28/2024 13:16:04 02/04/20 24 02/17/2024 CBC (INCL UDES DIFF/ PLT) MCHC 32.4 g/dL 32.0-3 6.0 normal Not Available [facility] [address] [place], [address], 06/28/2024 13:16:04 02/04/20 24 02/17/2024 CBC (INCL UDES DIFF/ PLT) RDW 12.7 % 11.0-1 5.0 normal Not Available [facility] [address], [address], 06/28/2024 13:16:04 02/04/20 24 02/17/2024 CBC (INCL UDES DIFF/ PLT) platelet count 229 thous and/u L 140-40 0 normal Not Available [facility] [address] [place], [address], 06/28/2024 13:16:04 02/04/20 24 02/17/2024 CBC (INCL UDES DIFF/ PLT) MPV 11.4 fL 7.5-12 .5 normal Not Available [facility] [address], [address], 06/28/2024 13:16:04 02/04/20 24 02/17/2024 CBC (INCL UDES DIFF/ PLT) absolute neutrophils 2691 cells /uL 1500-7 800 normal Not Available [facility] [address], [address], 06/28/2024 13:16:04 02/04/20 24 02/17/2024 CBC (INCL UDES DIFF/ PLT) absolute lymphocytes 1260 cells /uL 850-39 00 normal Not Available [facility] - [address] [place], [address], 06/28/2024 13:16:04 02/04/20 24 02/17/2024 CBC (INCL UDES DIFF/ PLT) absolute monocytes 378 cells /uL 200-95 0 normal Not Available [facility] - [address] [place], [address], 06/28/2024 13:16:04 02/04/20 24 02/17/2024 CBC (INCL UDES DIFF/ PLT) absolute eosinophils 140 cells /uL 15-500 normal Not Available [facility] - [address] [place], [address], 06/28/2024 13:16:04 02/04/20 24 02/17/2024 CBC (INCL UDES DIFF/ PLT) absolute basophils 32 cells /uL 0-200 normal Not Available [facility] - [address] [place], [address], 06/28/2024 13:16:04 02/04/20 24 02/17/2024 CBC (INCL UDES DIFF/ PLT) neutrophils 59.8 % normal Not Available [facility] - [address] [place], [address], 06/28/2024 13:16:04 02/04/20 24 02/17/2024 CBC (INCL UDES DIFF/ PLT) lymphocytes 28.0 % normal Not Available [facility] - [address] [place], [address], 06/28/2024 13:16:04 02/04/20 24 02/17/2024 CBC (INCL UDES DIFF/ PLT) monocytes 8.4 % normal Not Available [facility] - [address] [place], [address], 06/28/2024 13:16:04 02/04/20 24 02/17/2024 CBC (INCL UDES DIFF/ PLT) eosinophils 3.1 % normal Not Available [address], [address], 06/28/2024 13:16:04 02/04/20 24 02/17/2024 CBC (INCL UDES DIFF/ PLT) basophils 0.7 % normal Not Available [address], [address], 06/28/2024 13:16:04 02/04/20 24 02/17/2024 FABIAN TIN ferritin 99 NG/mL 16-232 normal Not Available [address], [address], 06/28/2024 13:16:04 02/04/20 24 02/17/2024 TSH TSH 1.31 mIU/L 0.40-4 .50 normal Not Available [address], [address], 06/28/2024 13:16:05 02/04/20 24 02/17/2024 PROTE IN, TOTAL W/CRE AT, RANDO M URINE creatinine, random urine 187 mg/dL 20-275 normal Not Available [address], [address], 06/28/2024 13:16:05 02/04/20 24 02/17/2024 PROTE IN, TOTAL W/CRE AT, RANDO M URINE protein/crea tinine ratio 53 mg/g_ creat 24-184 normal Not Available [address], [address], 06/28/2024 13:16:05 02/04/20 24 02/17/2024 PROTE IN, TOTAL W/CRE AT, RANDO M URINE protein/crea tinine ratio 0.053 mg/mg _crea t 0.024- 0.184 normal Not Available [address], [place], [address], 06/28/2024 13:16:05 02/04/20 24 02/17/2024 PROTE IN, TOTAL W/CRE AT, RANDO M URINE protein, total, random ur 10 mg/dL 5-24 normal Not Available [facility] [address], [place], [address], 06/28/2024 13:16:05 05/18/20 24 05/19/2024 LIPID PANEL , STAND APOLONIA cholesterol, total 239 mg/dL <200 high Not Available [facility] [address], [address], 06/28/2024 13:15:57 05/18/20 24 05/19/2024 LIPID PANEL , STAND APOLONIA HDL cholesterol 75 mg/dL > or = 50 normal Not Available [facility] [address], [address], 06/28/2024 13:15:57 05/18/20 24 05/19/2024 LIPID PANEL , STAND APOLONIA triglyceride s 83 mg/dL <150 normal Not Available [facility] [address], [place], [address], 06/28/2024 13:15:57 05/18/20 24 05/19/2024 LIPID PANEL , STAND APOLONIA LDL-choleste rol 145 mg/dL _(navjot c) high Refer ence range : <100 Paulo able range <100 mg/dL for prima ry preve ntion ; <70 mg/dL for patie nts with CHD or diabe tic patie nts with > or = 2 CHD risk facto rs. LDL-C is now calcu lated using the Stephanie n-Hop kins calcu gabriel n, which is a valid ated novel metho d provi tito naranjo r accur acy than the Fried layla equat ion in the estim ation of LDL-C . Stephanie velasquez SS et al. ANNETTE. 2013; 310(1 7): 2061- 2068 (http ://ed ucati on.Marina bautista HiFiK[employer]. com/f aq/FA Q164) Not Available [facility] [address] [place], [place] [address], [address], 06/28/2024 13:15:57 05/18/20 24 05/19/2024 LIPID PANEL , STAND APOLONIA chol/HDLC ratio 3.2 (calc ) <5.0 normal Not Available [facility] [address] [place], [place] [address], [place], [address], 06/28/2024 13:15:57 05/18/20 24 05/19/2024 LIPID PANEL , STAND APOLONIA non HDL cholesterol 164 mg/dL _(navjot c) <130 high For patie nts with diabe piero plus 1 major ASCVD risk facto r, treat ing to a non-H DL-C goal of <100 mg/dL (LDL- C of <70 mg/dL ) is consi dered a thera peuti c optio n. Not Available [facility] [address] [place] [address], [place], [address], 06/28/2024 13:15:57 05/18/20 24 05/19/2024 MAGNE SIUM magnesium 2.2 mg/dL 1.5-2. 5 normal Not Available [facility] [address] [place] [address], [address], 06/28/2024 13:15:58 05/18/20 24 05/19/2024 COMPR EHENS CHRISTINE METAB OLIC PANEL glucose 79 mg/dL 65-99 normal Fasti ng refer ence inter eloy Not Available [facility] [address] [place] [address], [address], 06/28/2024 13:15:59 05/18/20 24 05/19/2024 COMPR EHENS CHRISTINE METAB OLIC PANEL urea nitrogen (BUN) 22 mg/dL 7-25 normal Not Available [facility] [address] [place] [address], [address], 06/28/2024 13:15:59 05/18/20 24 05/19/2024 COMPR EHENS CHRISTINE METAB OLIC PANEL creatinine 1.19 mg/dL 0.50-1 .03 high Not Available [facility] [address] [place] [address], [address], 06/28/2024 13:15:59 05/18/20 24 05/19/2024 COMPR EHENS CHRISTINE METAB OLIC PANEL eGFR 53 mL/mi n/1.7 3m2 > or = 60 low Not Available [facility] [address] [place] [address], [address], 06/28/2024 13:15:59 05/18/20 24 05/19/2024 COMPR EHENS CHRISTINE METAB OLIC PANEL BUN/creatini ne ratio 18 (calc ) 6-22 normal Not Available [address], [address], 06/28/2024 13:15:59 05/18/20 24 05/19/2024 COMPR EHENS CHRISTINE METAB OLIC PANEL sodium 141 mmol/ L 135-14 6 normal Not Available [facility] [address] [place] [address], [address], 06/28/2024 13:15:59 05/18/20 24 05/19/2024 COMPR EHENS CHRISTINE METAB OLIC PANEL potassium 4.4 mmol/ L 3.5-5. 3 normal Not Available [address], [address], 06/28/2024 13:15:59 05/18/20 24 05/19/2024 COMPR EHENS CHRISTINE METAB OLIC PANEL chloride 104 mmol/ L 98-110 normal Not Available [address], [address], 06/28/2024 13:15:59 05/18/20 24 05/19/2024 COMPR EHENS CHRISTINE METAB OLIC PANEL carbon dioxide 27 mmol/ L 20-32 normal Not Available [facility] [address] [place] [address], [address], 06/28/2024 13:15:59 05/18/20 24 05/19/2024 COMPR EHENS CHRISTINE METAB OLIC PANEL calcium 9.5 mg/dL 8.6-10 .4 normal Not Available [address], [address], 06/28/2024 13:15:59 05/18/20 24 05/19/2024 COMPR EHENS CHRISTINE METAB OLIC PANEL protein, total 6.8 g/dL 6.1-8. 1 normal Not Available [address], [place], [address], 06/28/2024 13:15:59 05/18/20 24 05/19/2024 COMPR EHENS CHRISTINE METAB OLIC PANEL albumin 4.1 g/dL 3.6-5. 1 normal Not Available [address], [address], 06/28/2024 13:15:59 05/18/20 24 05/19/2024 COMPR EHENS CHRISTINE METAB OLIC PANEL globulin 2.7 g/dL_ (calc ) 1.9-3. 7 normal Not Available [address], [address], 06/28/2024 13:15:59 05/18/20 24 05/19/2024 COMPR EHENS CHRISTINE METAB OLIC PANEL albumin/glob ulin ratio 1.5 (calc ) 1.0-2. 5 normal Not Available [address], [address], 06/28/2024 13:15:59 05/18/20 24 05/19/2024 COMPR EHENS CHRISTINE METAB OLIC PANEL bilirubin, total 0.7 mg/dL 0.2-1. 2 normal Not Available [place] [address], [place], [address], 06/28/2024 13:15:59 05/18/20 24 05/19/2024 COMPR EHENS CHRISTINE METAB OLIC PANEL alkaline phosphatase 92 U/L 37-153 normal Not Available [facility] [address] [place] [address] [place], [address], 06/28/2024 13:15:59 05/18/20 24 05/19/2024 COMPR EHENS CHRISTINE METAB OLIC PANEL AST 19 U/L 10-35 normal Not Available [facility] [address] [place], [place] [address], [address], 06/28/2024 13:15:59 05/18/20 24 05/19/2024 COMPR EHENS CHRISTINE METAB OLIC PANEL ALT 15 U/L 6-29 normal Not Available [facility] [address] [place], [place] [address], [place], [address], 06/28/2024 13:15:59 05/18/20 24 05/19/2024 CBC (INCL UDES DIFF/ PLT) white blood cell count 4.9 thous and/u L 3.8-10 .8 normal Not Available [facility] [address] [place], [place] [address], [place], [address], 06/28/2024 13:15:59 05/18/20 24 05/19/2024 CBC (INCL UDES DIFF/ PLT) red blood cell count 5.47 adelina on/uL 3.80-5 .10 high Not Available [employer] [facility] [address] [place] [address], [address], 06/28/2024 13:15:59 05/18/20 24 05/19/2024 CBC (INCL UDES DIFF/ PLT) hemoglobin 15.2 g/dL 11.7-1 5.5 normal Not Available [employer] [address], [address], 06/28/2024 13:15:59 05/18/20 24 05/19/2024 CBC (INCL UDES DIFF/ PLT) hematocrit 46.3 % 35.0-4 5.0 high Not Available [facility] [address] [facility], [place], [address], 06/28/2024 13:15:59 05/18/20 24 05/19/2024 CBC (INCL UDES DIFF/ PLT) MCV 84.6 fL 80.0-1 00.0 normal Not Available [facility] [address] [facility], [place], [address], 06/28/2024 13:15:59 05/18/20 24 05/19/2024 CBC (INCL UDES DIFF/ PLT) MCH 27.8 pg 27.0-3 3.0 normal Not Available [address] [place], [address], 06/28/2024 13:15:59 05/18/20 24 05/19/2024 CBC (INCL UDES DIFF/ PLT) MCHC 32.8 g/dL 32.0-3 6.0 normal For adult s, a sligh t decre ase in the calcu lated MCHC value (in the range of 30 to 32 g/dL) is most likel y not clini magdalena signi fican t; brigitte er, it shoul d be inter prete d with cauti on in corre latio n with other red cell sonia eters and the patie nt's clini navjot condi tion. Not Available [facility] [address] [facility], [place], [address], 06/28/2024 13:15:59 05/18/20 24 05/19/2024 CBC (INCL UDES DIFF/ PLT) RDW 12.8 % 11.0-1 5.0 normal Not Available [facility] [address] [facility] [place], [address], 06/28/2024 13:15:59 05/18/20 24 05/19/2024 CBC (INCL UDES DIFF/ PLT) platelet count 235 thous and/u L 140-40 0 normal Not Available [facility] [address], [address], 06/28/2024 13:15:59 05/18/20 24 05/19/2024 CBC (INCL UDES DIFF/ PLT) MPV 12.1 fL 7.5-12 .5 normal Not Available [facility] [address], [address], 06/28/2024 13:15:59 05/18/20 24 05/19/2024 CBC (INCL UDES DIFF/ PLT) absolute neutrophils 2925 cells /uL 1500-7 800 normal Not Available [facility] [address], [address], 06/28/2024 13:15:59 05/18/20 24 05/19/2024 CBC (INCL UDES DIFF/ PLT) absolute lymphocytes 1446 cells /uL 850-39 00 normal Not Available [facility] [address], [address], 06/28/2024 13:15:59 05/18/20 24 05/19/2024 CBC (INCL UDES DIFF/ PLT) absolute monocytes 392 cells /uL 200-95 0 normal Not Available [facility] [address], [address], 06/28/2024 13:15:59 05/18/20 24 05/19/2024 CBC (INCL UDES DIFF/ PLT) absolute eosinophils 88 cells /uL 15-500 normal Not Available [facility] [address], [address], 06/28/2024 13:15:59 05/18/20 24 05/19/2024 CBC (INCL UDES DIFF/ PLT) absolute basophils 49 cells /uL 0-200 normal Not Available [facility] [address], [address], 06/28/2024 13:15:59 05/18/20 24 05/19/2024 CBC (INCL UDES DIFF/ PLT) neutrophils 59.7 % normal Not Available [facility] - [address], [address], 06/28/2024 13:15:59 05/18/20 24 05/19/2024 CBC (INCL UDES DIFF/ PLT) lymphocytes 29.5 % normal Not Available [facility] - [address], [address], 06/28/2024 13:15:59 05/18/20 24 05/19/2024 CBC (INCL UDES DIFF/ PLT) monocytes 8.0 % normal Not Available [facility] - [address], [address], 06/28/2024 13:15:59 05/18/20 24 05/19/2024 CBC (INCL UDES DIFF/ PLT) eosinophils 1.8 % normal Not Available [facility] [address] [place] [address], [address], 06/28/2024 13:15:59 05/18/20 24 05/19/2024 CBC (INCL UDES DIFF/ PLT) basophils 1.0 % normal Not Available [facility] - [address], [address], 06/28/2024 13:15:59 05/18/20 24 05/19/2024 VITAM IN D,25- OH,TO XIAO,I A vitamin D,25-oh,tota l,ia 77 NG/mL 30-100 normal Vitam in D Statu s 25-OH Vitam in D: Defic iency : <20 ng/mL Insuf ficie ncy: 20 - 29 ng/mL Optim al: > or = 30 ng/mL For 25-OH Vitam in D testi ng on patie nts on D2-rich pplem entat ion and patie nts for whom quant itati on of D2 and D3 fract ions is requi red, the [facility](TM ) 25-OH VIT D, (D2,D 3), LC/MS /MS is recom vernon d: order code 78751 (patrick ents >2yrs ). Not Available [address] [place], [address], 06/28/2024 13:16:00 05/18/20 24 05/19/2024 VITAM IN D,25- OH,TO XIAO,I A comment See Note 1 Note 1 For addit ional infor hilda bunn refer to http: //daija Tolbert [employer].c om/fa q/FAQ 199 (This link is being provi ded for infor cynthia noguera/ educstanley valenzuela purpo ses only. ) Not Available [address] [place], [address], 06/28/2024 13:16:00 05/18/20 24 05/20/2024 CREAT ININE creatinine 1.17 mg/dL 0.50-1 .03 high Not Available [address] [place], [address], 06/28/2024 13:16:02 05/18/20 24 05/20/2024 CREAT ININE eGFR 54 mL/mi n/1.7 3m2 > or = 60 low Not Available [address], [address], 06/28/2024 13:16:02 05/18/20 24 05/20/2024 HEPAT IC FUNCT ION PANEL protein, total 6.8 g/dL 6.1-8. 1 normal Not Available [address], [address], 06/28/2024 13:16:03 05/18/20 24 05/20/2024 HEPAT IC FUNCT ION PANEL albumin 4.1 g/dL 3.6-5. 1 normal Not Available [facility] [address] [place] [address] [place], [address], 06/28/2024 13:16:03 05/18/20 24 05/20/2024 HEPAT IC FUNCT ION PANEL globulin 2.7 g/dL_ (calc ) 1.9-3. 7 normal Not Available [facility] [address] [place] [address] [place]ja, [address], 06/28/2024 13:16:03 05/18/20 24 05/20/2024 HEPAT IC FUNCT ION PANEL albumin/glob ulin ratio 1.5 (calc ) 1.0-2. 5 normal Not Available [facility] [address] [place] [address] [place], [address], 06/28/2024 13:16:03 05/18/20 24 05/20/2024 HEPAT IC FUNCT ION PANEL bilirubin, total 0.7 mg/dL 0.2-1. 2 normal Not Available [facility] [address] [place] [address] [place], [address], 06/28/2024 13:16:03 05/18/20 24 05/20/2024 HEPAT IC FUNCT ION PANEL bilirubin, direct 0.1 mg/dL < or = 0.2 normal Not Available [facility] [address] [place] [address] [place], [address], 06/28/2024 13:16:03 05/18/20 24 05/20/2024 HEPAT IC FUNCT ION PANEL bilirubin, indirect 0.6 mg/dL _(navjot c) 0.2-1. 2 normal Not Available [facility] [address] [place] [address] [place], [address], 06/28/2024 13:16:03 05/18/20 24 05/20/2024 HEPAT IC FUNCT ION PANEL alkaline phosphatase 92 U/L 37-153 normal Not Available [facility] [address] [place] [address] [place], [address], 06/28/2024 13:16:03 05/18/20 24 05/20/2024 HEPAT IC FUNCT ION PANEL AST 19 U/L 10-35 normal Not Available [address] [place], [address], 06/28/2024 13:16:03 05/18/20 24 05/20/2024 HEPAT IC FUNCT ION PANEL ALT 14 U/L 6-29 normal Not Available [address], [address], 06/28/2024 13:16:03 05/18/20 24 05/20/2024 SED RATE BY MODIF IED KACEY LANCEREN sed rate by modified westbryannaren 6 mm/h < or = 30 normal Not Available [address], [address], 06/28/2024 13:16:04 05/18/20 24 05/20/2024 CBC (INCL UDES DIFF/ PLT) white blood cell count 4.8 thous and/u L 3.8-10 .8 normal Not Available [address], [address], 06/28/2024 13:16:04 05/18/20 24 05/20/2024 CBC (INCL UDES DIFF/ PLT) red blood cell count 5.45 adelina on/uL 3.80-5 .10 high Not Available [address], [address], 06/28/2024 13:16:04 05/18/20 24 05/20/2024 CBC (INCL UDES DIFF/ PLT) hemoglobin 15.1 g/dL 11.7-1 5.5 normal Not Available [address], [address], 06/28/2024 13:16:04 05/18/20 24 05/20/2024 CBC (INCL UDES DIFF/ PLT) hematocrit 46.3 % 35.0-4 5.0 high Not Available [facility] [address], [address], 06/28/2024 13:16:04 05/18/20 24 05/20/2024 CBC (INCL UDES DIFF/ PLT) MCV 85.0 fL 80.0-1 00.0 normal Not Available [facility] [address], [address], 06/28/2024 13:16:04 05/18/20 24 05/20/2024 CBC (INCL UDES DIFF/ PLT) MCH 27.7 pg 27.0-3 3.0 normal Not Available [facility] [address], [address], 06/28/2024 13:16:04 05/18/20 24 05/20/2024 CBC (INCL UDES DIFF/ PLT) MCHC 32.6 g/dL 32.0-3 6.0 normal For adult s, a sligh t decre ase in the calcu lated MCHC value (in the range of 30 to 32 g/dL) is most likel y not clini magdalena signi ficdarcy t; brigitte er, it shoul d be inter prete d with cauti on in corre latio n with other red cell sonia eters and the patie nt's clini navjot condi tion. Not Available [facility] [address], [address], 06/28/2024 13:16:04 05/18/20 24 05/20/2024 CBC (INCL UDES DIFF/ PLT) RDW 13.1 % 11.0-1 5.0 normal Not Available [facility] [address], [address], 06/28/2024 13:16:04 05/18/20 24 05/20/2024 CBC (INCL UDES DIFF/ PLT) platelet count 230 thous and/u L 140-40 0 normal Not Available [facility] [address] [place], [address], 06/28/2024 13:16:04 05/18/20 24 05/20/2024 CBC (INCL UDES DIFF/ PLT) MPV 12.0 fL 7.5-12 .5 normal Not Available [facility] [address] [place], [address], 06/28/2024 13:16:04 05/18/20 24 05/20/2024 CBC (INCL UDES DIFF/ PLT) absolute neutrophils 2870 cells /uL 1500-7 800 normal Not Available [facility] [address] [place], [address], 06/28/2024 13:16:04 05/18/20 24 05/20/2024 CBC (INCL UDES DIFF/ PLT) absolute lymphocytes 1368 cells /uL 850-39 00 normal Not Available [facility] [address] [place], [address], 06/28/2024 13:16:04 05/18/20 24 05/20/2024 CBC (INCL UDES DIFF/ PLT) absolute monocytes 413 cells /uL 200-95 0 normal Not Available [facility] [address] [place], [address], 06/28/2024 13:16:04 05/18/20 24 05/20/2024 CBC (INCL UDES DIFF/ PLT) absolute eosinophils 101 cells /uL 15-500 normal Not Available [facility] [address], [address], 06/28/2024 13:16:04 05/18/20 24 05/20/2024 CBC (INCL UDES DIFF/ PLT) absolute basophils 48 cells /uL 0-200 normal Not Available [facility] [address], [address], 06/28/2024 13:16:04 05/18/20 24 05/20/2024 CBC (INCL UDES DIFF/ PLT) neutrophils 59.8 % normal Not Available [facility] [address] [place] [address], [address], 06/28/2024 13:16:04 05/18/20 24 05/20/2024 CBC (INCL UDES DIFF/ PLT) lymphocytes 28.5 % normal Not Available [facility] - [address], [address], 06/28/2024 13:16:04 05/18/20 24 05/20/2024 CBC (INCL UDES DIFF/ PLT) monocytes 8.6 % normal Not Available [facility] - [address], [address], 06/28/2024 13:16:04 05/18/20 24 05/20/2024 CBC (INCL UDES DIFF/ PLT) eosinophils 2.1 % normal Not Available [facility] - [address], [address], 06/28/2024 13:16:04 05/18/20 24 05/20/2024 CBC (INCL UDES DIFF/ PLT) basophils 1.0 % normal Not Available [facility] - [address], [address], 06/28/2024 13:16:04 05/18/20 24 05/20/2024 HS CRP hs CRP 1.2 mg/L normal Refer ence Range Optim al <1.0 Ramirez LOVELACE et al. Endoc r Pract .2017 ;23(S uppl 2):1- 87. For ages >17 Years : hs-CR P mg/L Risk Accor ding to AHA/C DC Guide lines <1.0 Lower relat christine cardi ovasc ular risk. 1.0-3 .0 [place] ge relat christine cardi ovasc ular risk. 3.1-1 0.0 Highe r relat christine cardi ovasc ular risk. Consi justin retes ting in 1 to 2 weeks to exclu de a benig n trans ient eleva tion in the basel ine CRP value secon micki to infec tion or infla mmati on. >10.0 Persi stent eleva tion, upon retes ting, may be assoc iated with infec tion and infla mmati on. Pears on TA, Mensa h [place], Cate nder RW, et al. Marke rs of infla mmati on and cardi ovasc ular disea se: appli catio n to clini najvot and publi c healt h pract ice: A state ment for healt hcare profe ssion als from the [facility] rs for Disea se Contr ol and Preve ntion and the Ameri can Heart Assoc iatio n. Circu latio n 2002; 107(3 ): 499-5 11. Not Available [facility] - [address], [address], 06/28/2024 13:16:05 05/18/20 24 05/20/2024 QUANT IFERO N(R)- TB GOLD PLUS, 1 TUBE quantiferon( R)-TB gold plus, 1 tube NEGATI VE negati ve normal Negat christine test resul t. M. tuber culos is compl ex infec tion unlik christina. Not Available [facility] - [address], [address], 06/28/2024 13:16:06 05/18/20 24 05/20/2024 QUANT IFERO N(R)- TB GOLD PLUS, 1 TUBE nil 0.31 IU/mL normal Not Available [facility] - [address], [address], 06/28/2024 13:16:06 05/18/20 24 05/20/2024 QUANT IFERO N(R)- TB GOLD PLUS, 1 TUBE mitogen-nil 7.84 IU/mL normal Not Available [facility] [address] [place] [address], [address], 06/28/2024 13:16:06 05/18/20 24 05/20/2024 QUANT IFERO N(R)- TB GOLD PLUS, 1 TUBE TB1-nil 0.21 IU/mL normal Not Available [facility] [address] [facility], [place], [address], 06/28/2024 13:16:06 05/18/20 24 05/20/2024 QUANT IFERO N(R)- TB GOLD PLUS, 1 TUBE TB2-nil 0.19 IU/mL normal The Nil tube value refle cts the backg round inter feron gamma immun e respo nse of the patie nt's blood sampl e. This value has been subtr acted from the patie nt's displ ayed TB and Mitog en resul ts. Lower than expec radha resul ts with the Mitog en tube preve nt false -nega tive Quant ifero n readi ngs by detec ting a patie nt with a poten tial immun e suppr essiv e condi tion and/o r subop timal pre-a nalyt ical speci men handl ing. The TB1 Antig en tube is coate d with the M. tuber culos is-sp ecifi c antig ens desig alma to elici t respo nses from TB antig en prime d CD4+ helpe r T-lym phocy piero. The TB2 Antig en tube is coate d with the M. tuber culos is-sp ecifi c antig ens desig alma to elici t respo nses from TB antig en prime d CD4+ helpe r and CD8+ cytot oxic T-lym phocy piero. For addit ional infor ihlda bunn e refer to https ://ed chapoati on.qu carisa Retroficiency. [employer]/f aq/FA Q204 (This link is being provi ded for infor cynthia noguera/ educa josé miguel l purpo ses only. ) Not Available [facility] [address] [facility], [place], [address], 06/28/2024 13:16:06 Result Notes None recorded. Problems Name Problem SNOMED Code Status Onset Date Resolution Date Notes Provider Name and Address Organization Details Recorded Time Obesity 002365046 Active 2023 Brenda joseph, [email or web address] 4 11:31:07 Hyperlipidemia 31463671 Active 2023 EARLINE PATTERSON, [facility] [address], [place], [address], [facility] [employer] [facility]. - [facility] 4 12:54:36 Anxiety 57729774 Active 2023 EARLINE PATTERSON, [facility] [address] [facility],[address], [place], [address], [facility] [employer] [facility]. - [facility] 4 12:54:39 Migraine 14020288 Active 2023 EARLINE PATTERSON, [address], [place], [address], [facility] [employer] [facility]. - [facility] 4 12:54:42 Gastroesophage al reflux disease without esophagitis 504981138 Active 2023 EARLINE PATTERSON, [address], [place], [address], [facility] [employer] [facility]. - [facility] 4 12:55:00 Essential hypertension 80928087 Active 2023 EARLINE PATTERSON, [address], [place], [address], [facility] [employer] [facility]. - [facility] 4 12:55:02 Snoring 11172174 Active 2023 EARLINE PATTERSON, [facility] [address] [facility],[address], [place], [address], [facility] [employer] [facility]. - [facility] 4 12:57:37 Rheumatoid arthritis 01136129 Active 2023 EARLINE PATTERSON, [facility] [address] [facility],[address], [place], [address], [facility] [employer] [facility]. - [facility] 4 13:02:51 Obese class III 298572573 Active 2023 WAQAS BARNETT, RDN [address] [facility],[address], [place], [address], [email or web address] - [facility] 4 10:57:34 Chronic kidney disease stage 3A 898225701 Active 2024 EARLINE RIZVIOR, [employer] [address] [facility],[address], [place], [address], [facility] [employer] [facility]. - [facility] 5 12:50:15 Problem Notes None recorded. Medical Equipment None Reported. Allergies Allergen ID Allergen Name Allergen Category Reaction Reaction Severity Criticality Documentation Date Start Date Code Code System Note Provider Name and Address Organization Details Recorded Time 3554 morphine medicatio n Not available Not available Not available 08/31/2023 7052 RxNorm [facility]. - [facility] 4 10:36:34 3555 Substance with sulfonami de structure and antibacte rial mechanism of action (substanc e) medicatio n Not available Not available Not available 08/31/2023 61110 8003 SNOMED [email or web address] - [facility] 4 10:36:46 Medications Name Sig Start Date [...] Available Not Available Vitals Date Recorded Body weight Body height Provider Name and Address Organization Details Last Updated DateTime 11/29/2023 97403.944147 9 g 162.56 cm Not Available [facility] 11/29/2023 09:53:12 Date Recorded Body height Body mass index (BMI) Body weight Provider Name and Address Organization Details Last Updated DateTime 01/13/2024 162.56 cm 36.9 kg/m2 96388.36 g SUDHIR AMBROSIO, TODD [address] [place] [address],[address] [place] [address], [place], [address], [facility] [employer] [facility]. - [facility] 01/13/2024 14:39:14 Date Recorded Body weight Body height Provider Name and Address Organization Details Last Updated DateTime 01/17/2024 34620.956051 7 g 162.56 cm Not Available [facility] 01/17/2024 08:58:16 Date Recorded Body height Body mass index (BMI) Body weight Provider Name and Address Organization Details Last Updated DateTime 02/22/2024 162.56 cm 36.9 kg/m2 45389.36 g EARLINE PATTERSON, MARGOT [address] [place] [address],[address] [place] [address], [place], [address], [email or web address] - [facility] 02/22/2024 10:54:54 Date Recorded Body height Body mass index (BMI) Body weight Provider Name and Address Organization Details Last Updated DateTime 04/20/2024 162.56 cm 36.9 kg/m2 51531.36 g SUDHIR AMBROSIO, [address] [place] [address], [place], [address], [facility]. - [facility] 04/20/2024 19:59:47 Date Recorded Body height Body mass index (BMI) Body weight Provider Name and Address Organization Details Last Updated DateTime 06/28/2024 162.56 cm 37.9 kg/m2 122104.91 g EARLINE PATTERSON, [employer] [address] [place] [address],[address] [place] [address], [place], [address], [facility]. - [facility] 06/28/2024 12:31:25 Date Recorded Body weight Body height Body mass index (BMI) Provider Name and Address Organization Details Last Updated DateTime 06/28/2024 096786.5567 7 g 162.56 cm 37.9 kg/m2 Not Available [facility] 06/28/2024 12:33:23 Date Recorded Body height Body mass index (BMI) Body weight Provider Name and Address Organization Details Last Updated DateTime 09/24/2023 162.56 cm 37.1 kg/m2 33938.95 g WAQAS BARNETT, N [address] [place] [address],[address] [place] [address], [place], [address], [email or web address] - [facility] 09/24/2023 12:33:32 Date Recorded Body weight Body height Provider Name and Address Organization Details Last Updated DateTime 09/26/2023 52334.249755 5 g 162.56 cm Not Available [facility] 09/26/2023 08:48:08 Date Recorded Body weight Body height Provider Name and Address Organization Details Last Updated DateTime 09/27/2023 31538.965116 2 g 162.56 cm Not Available [facility] 09/27/2023 09:03:11 Date Recorded Body weight Body height Provider Name and Address Organization Details Last Updated DateTime 10/07/2023 11164.403638 1 g 162.56 cm Not Available [facility] 10/07/2023 06:08:19 Date Recorded Body weight Body height Provider Name and Address Organization Details Last Updated DateTime 10/10/2023 66910.086318 g 162.56 cm Not Available [facility] 10/10/2023 08:28:09 Date Recorded Body weight Body height Provider Name and Address Organization Details Last Updated DateTime 10/18/2023 71920.762595 6 g 162.56 cm Not Available [facility] 10/18/2023 08:03:15 Date Recorded Body weight Body height Provider Name and Address Organization Details Last Updated DateTime 10/24/2023 73052.861547 8 g 162.56 cm Not Available [facility] 10/24/2023 08:43:15 Date Recorded Body weight Body height Provider Name and Address Organization Details Last Updated DateTime 11/01/2023 83530.873121 9 g 162.56 cm Not Available [facility] 11/01/2023 08:58:13 Date Recorded Body weight Body height Provider Name and Address Organization Details Last Updated DateTime 11/02/2023 57734.349687 2 g 162.56 cm Not Available [facility] 11/02/2023 09:03:13 Date Recorded Body weight Body height Provider Name and Address Organization Details Last Updated DateTime 11/08/2023 24031.203123 4 g 162.56 cm Not Available [facility] 11/08/2023 08:38:13 Date Recorded Body weight Body height Body weight Body height Provider Name and Address Organization Details Last Updated DateTime 11/15/2023 20997.774 5278 g 162.56 cm 45763.774 5278 g 162.56 cm Not Available [facility] 11/15/2023 07:03:28 Social History None recorded. Functional Status None recorded. Mental Status None recorded. Family History Nothing Reported. Medical History No medical history recorded. Gynecological HistoryNo gynecological history recorded. Obstetrics History GPAL:G 0 P 0 0 0 0 Past Encounters Encounter ID Performer Location Encounter Start Date Encounter Closed Date Diagnosis/Indication Diagnosis SNOMED-CT Code Diagnosis ICD10 Code Diagnosis Note [id number] EARLINE PATTERSON APRN [address] [address] 09/01/2023 12:52:20 09/04/2023 03:56:22 Obesity 623390857 E66.9 --Reviewed basic physiology of weight regulation --Low GI diet, protein breakfast, food order--Exe rcise as tolerated ? CV and resistance training-- Utilize [facility]--RD referral-- Support groups--Tr ack weight weekly online--Sh ift calories to earlier in the day--Revie wed medication s associated with weight gain, counseled on alternativ es to be discussed with prescribin g provider-- AOM selection ? discussed dosing and common side effects--P t unsure if she wants to pursue medication s for weight loss at the moment as she has had some success on her own. Reviewed options including Topiramate and she is seeing her neurologis t tomorrow and will discuss. Will update me after the visit. Hyperlipidemia 70906228 E78.5 --Monitor lipids with weight loss and dietary/li festyle modificati on Anxiety 54554831 F41.9 --pt continues to work with her therapist as she is still grieving the loss of her (plus multiple other losses in a short time frame)--llamas sn't tolerated meds well in the past Migraine 74847806 G43.90 9 --Review medication s associated with weight gain, counseled on alternativ es to be discussed with mari g provider.- -Consider topiramate or Qsymia (phentermi ne-topiram ate ER)--Pt unsure if she wants to pursue medication s for weight loss at the moment as she has had some success on her own. Reviewed options including Topiramate and she is seeing her neurologis t tomorrow and will discuss. Will update me after the visit. Gastroesop hageal reflux disease without esophagitis 334632903 K21.9 --Reviewed common food triggers, keeping a symptom journal, elevation of the head of the bed, stop eating a few hours before bedtime--M onitor symptoms with weight losssonogr am and referral to GI/Hepatol ogy--Reduc e/disconti nue alcohol intake Snoring 91542347 R06.83 Snoring- @STOP-BANG score 4/7 --Reviewed physiology of HUGO and health risks associated with untreated sleep apnea --Discuss with PCP regarding: Refer to sleep medicine specialist --Reviewed current treatment modality (CPAP, BIPAP, hypoglossa l nerve stimulator , mandibular advancemen t device, positional therapy) --May require adjustment /optimizat ion if apnea symptoms persistent or with significan t weight loss Rheumatoid arthritis 698 [address] M06.9 --follows with her rheumatolo gist regularly in [place]--co ntinue current regimen [id number] WAQAS BARNETT, Nick [address] [address] 09/24/2023 11:57:54 09/27/2023 03:58:50 Essential hypertension 56582214 I10 Gastroesop hageal reflux disease without esophagitis 882249487 K21.9 Hyperlipidemia 55623816 E78.5 Rheumatoid arthritis 698 [address] M06.9 Obese class III 56860982 5 E66.[id number] [address] 01/13/2024 13:30:25 01/16/2024 04:02:08 Obesity 939709362 E66.9 Hyperlipidemia 57063301 E78.5 Rheumatoid arthritis 698 [address]2234 M06.9 [id number] EARLINE YESENIA, MARGOT [address] [address] 02/22/2024 11:28:49 02/26/2024 04:05:03 Obesity 669496571 E66.9 --as above The patient presents for follow up today. It has been 5 months since their last visit for weight loss management . They have been taking Topiramate (only started last week after speaking with her neurologis t) and reports no side effects at this time. Wishes she could have faster weight loss. Notes that since starting the meds, her headaches have significan tly improved! Was resistant to start meds as she notes she is very medication sensitive. Change in weight since last appointmen t:Highest/ Baseline wt: 238lbsWt @ LISA: 215lbsCurr ent wt: 215lbsWt change: 0lbs --Reviewed medication s associated with weight gain, counseled on alternativ es to be discussed with prescribin g provider-- AOM selection ? discussed dosing and common side effects ofTopirama te. Pt just started Topiramate last week but already has noted benefit in appetite and craving reduction. Notes she is very sensitive to medication and it took a while for the neurologis t to talk her into trying the meds. Has has reduction of migraines already as well. Will continue the course. Aware of option to increase dose to 50mg qhs if needed.Pt to continue working on increased water, protein, exercise.W ill keep RD consult as well.Agree s to connect with any concerns prior to our 3 month follow up.Pt is comfortabl e with this plan. Hyperlipidemia 69663060 E78.5 --Monitor lipids with weight loss and dietary/li festyle modificati on Anxiety 85992252 F41.9 --pt continues to work with her therapist as she is still grieving the loss of her (plus multiple other losses in a short time frame)--llamas sn't tolerated meds well in the past Migraine 29256191 G43.90 9 --success on Topiramate at this time!--Rev iew medication s associated with weight gain, counseled on alternativ es to be discussed with prescribin g provider. Gastroesop hageal reflux disease without esophagitis 921907051 K21.9 --Reviewed common food triggers, keeping a symptom journal, elevation of the head of the bed, stop eating a few hours before bedtime--M onitor symptoms with weight losssonogr am and referral to GI/Hepatol ogy--Reduc e/disconti nue alcohol intake Snoring 99532344 R06.83 Snoring- @STOP-BANG score 4/7 --Reviewed physiology of HUGO and health risks associated with untreated sleep apnea --Discuss with PCP regarding: Refer to sleep medicine specialist --Reviewed current treatment modality (CPAP, BIPAP, hypoglossa l nerve stimulator , mandibular advancemen t device, positional therapy) --May require adjustment /optimizat ion if apnea symptoms persistent or with significan t weight loss Rheumatoid arthritis 698 [address] M06.9 --follows with her rheumatolo gist regularly in [place]--co ntinue current regimen [id number] SUDHIR AMBROSIO RD [address] [address] 04/20/2024 19:24:56 04/23/2024 03:58:09 Obesity 710610672 E66.9 Hyperlipidemia 75079963 E78.5 Essential hypertension 57109190 I10 [id number] EARLINE YESENIA, MARGOT [address] [address] 06/28/2024 12:28:33 06/28/2024 13:00:25 Obesity 629041731 E66.9 --as above Hyperlipidemia 06478371 E78.5 --Monitor lipids with weight loss and dietary/li festyle modificati on Anxiety 31346781 F41.9 --pt continues to work with her therapist as she is still grieving the loss of her (plus multiple other losses in a short time frame)--llamas sn't tolerated meds well in the past Migraine 31915938 G43.90 9 --stopped Topiramate due to side effects--R eview medication s associated with weight gain, counseled on alternativ es to be discussed with mari ortiz provider. Gastroesop hageal reflux disease without esophagitis 835016835 K21.9 --Reviewed common food triggers, keeping a symptom journal, elevation of the head of the bed, stop eating a few hours before bedtime--M onitor symptoms with weight losssonogr am and referral to GI/Hepatol ogy--Reduc e/disconti nue alcohol intake Snoring 17919952 R06.83 Snoring- @STOP-BANG score 09/12--Revie wed physiology of HUGO and health risks associated with untreated sleep apnea--Dis cuss with PCP regarding: Refer to sleep medicine specialist Rheumatoid arthritis [phone] [id number] M06.9 --follows with her rheumatolo gist regularly in [place]--co ntinue current regimen Chronic ki dney disease stage 3A [id number] N18.31 --was told she has Stage 3 CKD.--seei [facility] nephrology tomorrow for consult--w ill hold on starting new meds until she is seen by them. Health Concerns Section Related Observation LastModified by Organization Detai ls LastModified Time None Recorded Concern Status LastModified by Organization Details LastModified Time None Recorded Advance Directives Directive None Recorded Payers None recorded. Notes Date Note Type Note Provider Name and Address Organization Details Recorded Time 4 text/html Patient presents for weight management nutritional counseling as part of state of [place]. 58 yr old Female with class 3 Obesity, Acid Reflux, Anxiety, Asthma, High blood pressure, Migraines, Arthritis presents for evaluation. I have confirmed that the patient is physically located in the state of {{[place] [facility] [facility] o [place]* [facility] }}CHILDREN LIBRARIAN visit notes: --Pt unsure if she wants to pursue medications for weight loss at the moment as she has had some success on her own. Reviewed options including Topiramate and she is seeing her neurologist tomorrow and will discuss. Will update me after the visit.???Vitals:Height: 5'4 Weight:216#Highest weight/BMI: 238.0 lbs, BMI 40.9, 2022Baseline weight/BMI: 215.0 lbs, BMI 36.9Lowest adult weight/BMI: 180.0 lbs, BMI 30.9, 1998Last weight/BMI: 216.6 lbs, BMI 37.2Total weight loss (Highest - Last): -21.4 lbs / -9%Total weight loss (Baseline - Last): +1.6 lbs / +0.7%Last Blood Pressure: 124/71; Recorded on 09/12; DeviceAverage Blood pressure: 124/71; Range: 124-124/71-71; Dates: 09/12 - 09/12Last Pulse: 89; Recorded on 09/12; DeviceAverage Pulse: 89; Range: 89-89; Dates: 09/12 - 09/12 goal: below 200 short term, senior care 150-160 thinks that might be sustainable -???Weight History:Weight gain coincided with: of a loved oneCurrent lifestyle factors: Sedentary, Long hours, Stressful, Free/junk food availableMotivation for weight loss: Improve healthChallenges: Feeling too restricted by a diet or exercise programLowest weight as an adult and date: 165# Lbs: 07/02/23: LDL 109Successful Diets: Done them all she feels like, put on first diet at 11 yo, it has been a struggle her whole life, done WW numerous times, Nusrat dalton - success to a degree ???AOM hx or current: - feels since she has so many sensitivies to drugs they are nervous about her trying ozmepic-Symptoms: N/A???GI: not right but hx of IBS- when vegan a lot went away -Why/Motivation: Just wants to feel healthy - Since everything that has happened grief/depression finds sometimes she eats, wants more control- be able to enjoy life.Healthy definied for her: healthier weight, workout without SOB, get out be active, sleep better Related Medical History: : Acid Reflux, Anxiety, Asthma, High blood pressure, Migraines, Arthritis, Fibromyalgia - Some other sort of Autoimmune condition as well but unble to dx -Other Medications: plaquenil, pepcid, isabella, nasonex, albuterol, metrogel, clobetasol, topicort???Social History:Occupation: works every day- busy- 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 day -Lives with:Who does cooking: selfWho does grocery shopping: selfFree text: Struggled with weight whole life, been able to lose weight on and off and it always seems to come back, In December 2020 passed, been difficult couple of years, Lost mom/dad/ and dogs in these last couple years.on Wellness journey-They were vegan for 10 years- it did help some health issues but 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 Staying asleep is the problem. Gets to bed fairly early 9:30 pm. No sleep apnea. She gets up and goes to bathroom a lot she feels.Gets Mg infusion once a month- Has migraines, it has helped with migraines/fibromyalgia. ON the day she gets the infusion sleeps better. Opportunities:Dietary Strategies that are appealing: Food logging, Mediterranean, Calorie countingFoods/Drinks consumed regularly: Fruit juice, Sugar in coffee, tea or other drinks, Candy, Sweets, Processed/packaged food???Nutrition IntakeDietary Restrictions/Allergies: Gluten sensitive- stays away from gluten for the most part, Dairy - does a number on her stomach- not lactose intolerant Supplements: B12, D3 , Probiotic , electrolytes powder (for migraines)Food Recall: (times, location, etc.)- not good about meal prep, if she could might be better- B: not a big morning, after workout protein shake- banana, protein powder, plant milk almond milk, add some frozen fruit- hemp seeds/:30- a piece of fruit or protein barL: sometimes has time to eat sometimes not- never large, non dairy yogurt- 2 hard boiled eggsD: veggies, brown rice/quinoa tofu Joann: not very good with water intake- Does 1 bottle with electrolytes, tries to do one other bottle. 2- 16 oz a day. Drinks water with dinner. Not a soda drinker. Likes tea, not big on coffee.Cut off at 7 pm to not keep up. Alcohol: just sociallyTakeout/restaurant meals per week: maybe 1-2 x every 2 weeks - Night eating: popcorn after dinner some , doesn't eat a lot of junk, does have a thing for chocolate-Maybe doing 1 piece of chocolate every day- bite sized something ???Physical Activity: 2-5K - been working out 7 days weeks was doing 5,Weight lifting 4 x a week- other 3 days doing cardio or yogaFeeling good with the change in activity -Discussed Activity - her niece is marine animal trainer- WAQAS BARNETT, CORINA [address] [place] [address],[address], [place], [address], [facility] - [facility] 09/24/2023 12:59:16 4 text/html Patient presents for weight management nutritional counseling -- 58 yr old Female with class 3 Obesity, Asthma, Acid Reflux, Anxiety, Arthritis, High blood pressure, Migraines HIPAA compliant synchronous video visitI have confirmed that the patient is physically located in the state of {{[place] [facility] o [place]* [facility] }} VitalsHeight: 5'4 Weight:Highest weight/BMI: 238.0 lbs, BMI 40.9, aseline weight/BMI: 215.0 lbs, BMI 36.9Lowest adult weight/BMI: 180.0 lbs, BMI 30.9, 1998Last weight/BMI: 212.3 lbs, BMI 36.4Total weight loss (Highest - Last): -25.7 lbs / -10.8%Total weight loss (Baseline - Last): -2.7 lbs / -1.3%Last Blood Pressure: 124/71; Recorded on 09/12; DeviceAverage Blood pressure: 124/71; Range: 124-124/71-71; Dates: 09/12 - 09/12Last Pulse: 89; Recorded on 09/12; DeviceAverage Pulse: 89; Range: 89-89; Dates: 09/12 - 09/12 Weight @ LISA: 216 lbsCurrent Weight: 215 lbs (patient reported)Weight Changes since LISA: -1 lb Weight has been a life long challenge for her -- a fair amount of yoyo dieting throughout her life. Reports some instances of disordered eating throughout. Confirm AOM and dose:No AOM at this timeConfirm Frequency/Consistency: n/aS/e:n/a Just getting back from a week long vacation in [place]. Appetite:pt is focusing on fueling herself consistently throughout the dayCravings:sugar cravings -- challenging while on vacation to avoid Behavior ChangeSuccesses: fueling herself consistently each day- about 2 years ago which has been hard for pt. Lost a significant chunk of weight after his passing due to grief and not eating. Has been focusing on getting back into eating consistently and normalizing food again. Nutrition IntakeDietary Restrictions/Allergies: primarily plant-based, also gluten sensitiveFood Recall:B: sourdough bread w/ peanut butter, matchaL: non-dairy yogurt w/ fruit (peach, blackberries, watermelon)D: soy curls on a roll w/ vegan braden, lettuce, tomatoS: protein bar, popcorn (single serving bag)Joann: tea, water, matchaAlcohol: socially Does sometimes utilize medical marijuana to support sleep -- between 2.5 -5 mg THC. Physical Activity:-Beachbody workouts -- trying for most mornings but doesn't always happen-she really enjoys yoga, does this a few times per week SUDHIR AMBROSIO, RD [address] [facility],[address], [place], [address], [facility] - [facility]. - [facility] 01/13/2024 14:41:09 4 text/html History of Present Illness:58 yr old Female with class 3 Obesity, Acid Reflux, Anxiety, Asthma, Migraines, Arthritis presents for evaluation.I have confirmed that the patient is physically located in the state of {{[place] [facility] [facility] [place] [facility] }} Visit{{DATE 02/22/2024}}Th e patient presents [...] the state of {{[place] A [facility] o [place]* [facility] [place] }} Referred ByPCP: Feliz Mederos AprnSUBSPECIALIST(S): 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), also sees a dermatologistVITALSHeight: 5'4 Weight: 215lbsHighest [...] diet or exercise programPrevious diets: many diets: Nusrat MENCHACA, calorie counting, cabbage dietPrevious anti-obesity medications: nonePrevious [...] told other undiagnosed autoimmune diseases)Surgeries: endometriosis surgery (), deviated septum repair, cholecystectomyDenies PMH: Seizure, Pancreatitis, Kidney stones, and/or GlaucomaSOCIAL HISTORYOccupation: player development executive to First SelectmanMarital Status: (esophageal and stomach cancer)Children: noneAlcohol: Yes -socialInterested in drinking less: NoNicotine/Tobacco: NoRecreational drugs: medical marijuana, CBD dailyHistory of drug abuse/addiction: noneFAMILY HISTORYOverweight/Obesity: [id number], prediabetes, insulin resistance, PCOS: YesMEN2 or MTC: none knownMom: throat and mouth cancer (from smoking), diabetic, obesityDad: CVA following brain surgery (after trauma/fall), [place] age 93MEDICATIONSMedications:- ? Plaquenil-? Pepcid-? Isabella Allergy-? Nasonex-? Albuterol Sulfate-? METROGEL-? Clobetasol Propionate (emollient)-? TopicortSupplements:magnes ium infusion monthly, Vit D3 daily, medical marijuana prn pain, CBD dailyALLERGIESSulpha, Morphine SulfateLABS/IMAGINGLabs from were reviewed in detail today with the patient. EARLINE YESENIA, MARGOT [address] [place] [address],[address], [place], [address], [facility] 02/22/2024 11:48:50 4 text/html Patient presents for weight management nutritional counseling -- 58 yr old Female with class 3 Obesity, Asthma, Acid Reflux, Anxiety, Arthritis, High blood pressure, Migraines HIPAA compliant synchronous video visitI have confirmed that the patient is physically located in the state of {{[place] [facility] A [facility] [place]* [facility] Orego n [facility] }}Last RD VisitPlan/Goals:1. Continue to embrace fueling yourself and nourishing yourself through the day.2. Order of eating -- prioritize eating protein and vegetables first, carbohydrates last. VitalsHeight: 5'4 Weight:Highest weight/BMI: 238.0 lbs, BMI 40.9, aseline weight/BMI: 215.0 lbs, BMI 36.9Lowest adult weight/BMI: 180.0 lbs, BMI 30.9, 1999Last weight/BMI: 215.5 lbs, BMI 37.0Total weight loss (Highest - Last): -22.5 lbs / -9.4%Total weight loss (Baseline - Last): +0.5 lbs / +0.2%Last Blood Pressure: Insufficient Number of ReadingsAverage Blood pressure: Insufficient Number of ReadingsLast Pulse: Insufficient Number of ReadingsAverage Pulse: Insufficient Number of Readings Weight @ LISA 02/22/2024: 215 lbsCurrent Weight: 215 lbsWeight Changes since LISA: 0 Confirm AOM and dose:was prescribed Topiramate 25 mg for migraines by her neurologist but stopped due to side effectsConfirm Frequency/Consistency:n/aS /e:almost missed work for 2 days due to drowsiness -- also noted a metallic taste her mouth Appetite:reports she doesn't really have an appetite throughout the dayfeels she's been struggling with some disordered eating -- more prevalent when she is depressed and she has had a few rough days recently Behavior ChangeSuccesses: consistency with exerciseAreas needing improvement: nourishing her body each day, pt would also like to work on increased fruit consumption -- notes she tends to go to the bathroom more regularly when she incorporates more fruitBarriers: minimal appetite most days Nutrition IntakeDietary Restrictions/Allergies: primarily plant-based, also gluten sensitiveFood Recall:B: yogurtL: skipped lunch due to being very busyD: tortelliniS: popcornBev: water, teaAlcohol: socially Physical Activity:Beachbody workouts-she really enjoys yoga, does this a few times per week-has also been incorporating walking since the weather has been nice -- finds her workouts helpful in stress management, trying to approach exercise as a form of medicine SUDHIR AMBROSIO RD [address] [facility],[address], [place], [address], [facility] 04/20/2024 20:03:05 5 text/html History of Present Illness:58 yr old Female with class 3 Obesity, Acid Reflux, Anxiety, Asthma, Migraines, Arthritis presents for evaluation.I have confirmed that the patient is physically located in the state of {{[facility] [place] [facility] [place]* [facility] }} Visit{{DATE 06/28/2024}}Th e patient presents for follow up today. It has been 14 weeks since their last visit for weight loss management. Since that time they have stopped taking Topiramate due to side effects: difficulty getting out of bed, fatigue, etc. Sensitive to medications, notes ready to try an alternative. Notes her oil field tester recently found renal function issues. 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), also sees a dermatologistVITALSHeight: 5'4 Weight: 215lbsHighest [...] told other undiagnosed autoimmune diseases)Surgeries: endometriosis surgery (), deviated septum repair, cholecystectomyDenies PMH: Seizure, Pancreatitis, Kidney stones, and/or GlaucomaSOCIAL 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 Plaquenil-? Pepcid-? Isabella Allergy-? Nasonex-? Albuterol Sulfate-? METROGEL-? Clobetasol Propionate (emollient)-? TopicortSupplements:magnes ium infusion monthly, Vit D3 daily, medical marijuana prn pain, CBD dailyALLERGIESSulpha, Morphine SulfateLABS/IMAGINGLabs from were reviewed in detail today with the patient. EARLINE PATTERSON APRN [address] [place] [address],[address], [place], [address], [facility]. - [facility] 06/28/2024 13:00:22 OBGyn Episode No OBEpisode recorded.
--- OUTSIDE RECORDS SUMMARY | 2024-06-29 17:21 | XMS_ITS | Encounter Summary ---
Author Organization [facility] Address [address] [place] [address] Care Team Providers Care Interactive Marketing Strategist Name Role Phone Vik Brar MD Primary Care Provider Julien Mckeon MAINTENANCE SCHEDULER Unavailable [phone] Shari Maier MD Unavailable [phone] Wm Cantu MD Unavailable [phone] Elina Sanchez MAINTENANCE SCHEDULER Unavailable [phone] Elina Sanchez MAINTENANCE SCHEDULER Primary Care Provider [phone] Lexus Chen MD Unavailable [phone] Reason for Visit * Reason Comments Medication Refill Encounter Details Date Type Department Care Team (Late st Contact Info) Description 05/27/2022 [facility]ill [facility] [address] [place] [address] Mercedes Birch PA [address] [facility] [address] [place] [address] Gastroesophageal reflux disease Social History Tobacco Use [...] Telephone Encounter - Lani Peterson MA - 05/27/2022 10:24 AM EST LISA 01/10/22 documented in this encounter Plan of Treatment Upcoming Encounters Date Type Department Care Team (Late st Contact Info) Description 10/25/2024 9:30 AM EDT Office Visit [facility] Department of Internal Medicine [address] [address] Elina Sanchez, MAINTENANCE SCHEDULER [address] [place] [address] documented as of this encounter Visit Diagnoses Diagnosis Gastroesophageal reflux disease Esophageal reflux documented in this encounter Care Teams Interactive Marketing Strategist Relationship Specialty Start Date End Date Vik Brar MD PCP - General Internal Medicine 08/11/16 07/04/23 Elina Sanchez, MAINTENANCE SCHEDULER [address] [place], [place] [address] PCP - General Internal Medicine 07/06/23 Julien Mckeon, MAINTENANCE SCHEDULER [address] [place] [address] Nurse Practitioner Neurology 05/12/23 Shari Maier MD [address] [place] [address] Consulting Provider Dermatology 05/12/23 Wm Cantu MD [address] [facility] 2nd [place] [address] Obstetrics and Gynecology 05/12/23 Elina Sanchez APRN [address] [place] [address] Nurse Practitioner Internal Medicine 07/05/23 07/05/23 Lexus Chen MD [address] [place] [phone] Rheumatology 05/24/24 documented as of this encounter
--- OUTSIDE RECORDS SUMMARY | 2024-06-29 17:21 | XMS_ITS | Encounter Summary ---
Author Organization [facility] Address [address] [place] [address] Care Team Providers Care Block Out Machine Operator Name Role Phone Unavailable Primary Care Provider Unavailabl e Encounter Details Date Type Department Care Team (Late st Contact Info) Description 09/02/2017 Scanned Document [facility] [address] [place] [address] Bhavani Muir MD [address] [place] [phone] Social History Tobacco Use Types Packs/Day [...]
--- OUTSIDE RECORDS SUMMARY | 2024-06-29 17:21 | XMS_ITS | Encounter Summary ---
Author Organization [facility] Address [address] [place] [address] Care Team Providers Care Cyber Systems Engineer Name Role Phone Julien Mckeon APRN Unavailable Shari Maier MD Unavailable [phone] Wm Cantu MD Unavailable [phone] Elina Sanchez APRN Primary Care Provider [phone] Lexus Chen MD Unavailable [phone] Encounter Details Date Type Department Care Team (Late st Contact Info) Description 07/13/[address] [address] Johnson Mosley MD [address] [place] [address] Social History Tobacco Use Types Packs/Day [...] PM EDT documented as of this encounter Progress Notes * Johnson Mosley MD - 07/13/2023 6:22 AM EST Patient called relying direct COVID exposure. The person she was exposed to was also her transportation. I advised she reschedule her exam. documented in this encounter Plan of Treatment Upcoming Encounters Date Type Department Care Team (Late st Contact Info) Description 10/25/2024 9:30 AM EDT Office Visit [facility] Department of Internal Medicine [address] [place] [address] Elina Sanchez, PEDIATRICIAN [address] [place] [address] documented as of this encounter Visit Diagnoses Not on filedocumented in this encounter Care Teams Cyber Systems Engineer Relationship Specialty Start Date End Date Elina Sanchez, PEDIATRICIAN [address] [place] [address] PCP - General Internal Medicine 07/06/23 Julien Mckeon, PEDIATRICIAN [address] [place] [address] Nurse Practitioner Neurology 05/12/23 Shari Maier MD [address] [place] [address] Consulting Provider Dermatology 05/12/23 Wm Cantu MD [address] [facility] 2nd [place] [address] Obstetrics and Gynecology 05/12/23 Lexus Chen MD [address] [place] [address] Rheumatology 05/24/24 documented as of this encounter
== END 2024-06-29 15:16 | disposition home or self-care (01) ==
PROVIDERS: PCP Internal Medicine; Visit Provider Internal Medicine Hypertension Specialist
DX: N18.9 Chronic kidney disease, unspecified (principal)
CPT/HCPCS: 99204

== ENCOUNTER → 2024-06-29 14:49 | Outpatient (BNVA) | payer BC, SELFPAY | PROVIDERS: PCP Internal Medicine; Visit Provider Internal Medicine Hypertension Specialist ==

== ENCOUNTER 2024-08-31 14:55 | Outpatient (AMB) | payer BC, SELFPAY ==
[2024-08-31 14:54] VITALS: BP 118/72; PULSE 80; O2SAT 97; BMI 38.8
--- NOTE | 2024-08-31 14:54 | HO.NEPHOV_ITS ---
Vital Signs 08/31/24 14:54 Height 5 ft 4 in Weight 226 lb BMI 38.8 BP 118/72 Blood Pressure Location Rt brachial Position Sitting Pulse 80 Pulse Source Pulse Oximeter Pulse Oximetry (%) 97 Oxygen Delivery Method Room Air Intake Visit Reasons: Jul follow-up w/labs/ Conf Travelers' Aid Worker Required: No Accompanied by: Self / Same As Patient Allergies morphine Allergy (Unknown, Verified 08/31/24 14:58) Unknown pantoprazole [From Protonix] Allergy (Unknown, Verified 08/31/24 14:58) Unknown Quinolones Allergy (Unknown, Verified 08/31/24 14:58) Unknown acifex Allergy (Unknown, Uncoded 06/29/24 14:57) Unknown sulfa drugs Allergy (Unknown, Uncoded 06/29/24 14:57) Unknown Medication List - Last Reconciled 08/31/24 by Gerardo Gonzalez MD albuterol sulfate 90 mcg/actuation inhalation cholecalciferol (vitamin D3) 250 mcg PO QWEEK clobetasol 0.05% topical famotidine 20 mg PO DAILY fexofenadine (Isabella Allergy) 180 mg PO BID hydroxychloroquine (Plaquenil) 200 mg PO BID ipratropium bromide intranasal mecobalamin (vitamin B12) 1,000 mcg PO DAILY mometasone 50 mcg/actuation intranasal DAILY HPI Comments Details: Mary is a pleasant 59-year-old woman with connective tissue disease. She has seronegative rheumatoid arthritis. She is on Plaquenil. Does not take any NSAIDs. She has had multiple episodes of eczema has and has undergone skin biopsies. She takes tacrolimus p.r.n.. She has been referred for evaluation of CKD. January 2024 serum creatinine was 1.26. May 2024 serum creatinine was 1.19. He has had no renal issues in the past. No gross hematuria. No polyuria polydipsia. No petechiae. She has generalized joint pains. She is not on any systemic steroids. She has undergone extensive serological workup in and C ANCA p-ANCA MPO PR3 were negative. No monoclonal proteins were seen. No history of smoking or alcohol abuse. She takes medical marijuana. 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 No children no family history of any currently tissue disease. [facility] Family History Father Hypertension Hypercholesterolemia Kidney disease Mother Hypertension Hypercholesterolemia Brother Kidney disease Hypercholesterolemia Hypertension Sister Hypercholesterolemia Physical Exam Vital Signs: Last Vital Signs Pulse 80 08/31/24 14:54 BP 118/72 08/31/24 14:54 Pulse Ox 97 08/31/24 14:54 Oxygen Delivery Method Room Air 08/31/24 14:54 BMI result Body Mass Index 38.8 Results Reviewed Nephrology Results: No Data to Display Assessment & Plan Assessment & Plan (1) CKD (chronic kidney disease): Code(s): N18.9 - Chronic kidney disease, unspecified Category: Medical Plan 58-year-old man with obesity and currently tissue disease with CKD. She did have acute kidney injury back in January. Serum creatinine is improved. Recent creatinine was 1.19. In the past the workup did not reveal any evidence of glomerular nephritis. Serological workup was negative. She had no significant proteinuria in the urine protein creatinine ratio was 0.053. I have initiated a basic workup including a 24 urine collection to calculate creatinine clearance and to quantify the urinary protein excretion. Repeat urinalysis along with microscopy. Renal ultrasonogram to assess echogenicity and to rule out any obstruction. I have encouraged her to stay on low-sodium diet Increase p.o. fluid intake She will benefit from weight loss. Further workup will be based on the outcome of these above investigations. Orders: Orders Basic Metabolic Panel 6 Months N18.9 - Chronic kidney disease, unspecified Total Protein Urine Random 6 Months N18.9 - Chronic kidney disease, unspecified UA and rflx microscopic 6 Months N18.9 - Chronic kidney disease, unspecified Creatinine Urine 6 Months N18.9 - Chronic kidney disease, unspecified Coding Level of Care Code Est Pt Level 4 (22771) Diagnoses CKD (chronic kidney disease) N18.9
--- OUTSIDE RECORDS SUMMARY | 2024-08-31 17:54 | XMS_ITS | Clinical Summary ---
Author Organization [facility] Address [address] [place] [address] Care Team Providers Care Mobile Application Tester Name Role Phone Julien Mckeon APRN Unavailable [phone] Shari Maier MD Unavailable [phone] Wm Cantu MD Unavailable [phone] Elina Sanchez APRN Primary Care Provider [phone] Lexus Chen MD Unavailable [phone] Allergies Active Allergy Reactions Criticality Noted [...] Define,Anaphylaxis, Other (See Comments),Nausea And Vomiting,GI Intolerance/Nausea/ Vomiting,Rash/[place] titis,Shortness Of Breath High 08/11/2016 Rash, low [...] 08/11/2016 Sulfa Antibiotics Swelling,Itching Medium 08/11/2016 Tetracycline Swelling,Rash/[place] titis Medium 08/11/2016 Medications Medication Sig Dispensed [...] 1:10 PM EDT): Established care with local drug room operator, Dr. Chen, stopped going to [place]. Will remain on hydroxychloroquine 200,mg daily Assessment & Plan (10/16/2023 8:42 PM EDT): Stable. Man[facility] on hydroxychloroquine.. No recent flares. [...] this time. 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 Pt told to call us when ready [...] Encounters Date Type Department Care Team Description 08/16/2024 Orders Only [facility] [address] [place] [address] Gerardo Gonzalez MD 07/25/2024 Scanned Document [facility] Department of Internal Medicine [place] [address] [place] [phone] Elina Sanchez, ASSESSMENT COORDINATOR 06/29/2024 Scanned Document [facility] Department of Internal Medicine [place] [address] [place] [address] Elina Sanchez, ASSESSMENT COORDINATOR 06/14/2024 Orders Only [facility] Department of Internal Medicine [place] [address] [place] [address] Chloé Mariano MD 06/10/2024 Scanned Document [facility] Department of Internal Medicine [place] [address] [place] [address] Elina Sanchez, ASSESSMENT COORDINATOR from Last 3 Months Immunizations Name Administration [...] Brother Kelechi Hypertension Brother Kelechi Cancer Father Edward Dementia Father Edward Heart attack Father Edward Hyperlipidemia Father Edward Hypertension Father Edward Anxiety disorder Mother Sherry Cancer Mother Sherry Cancer, other Mother Sherry Mouth and Thro at cancer Depression Mother Sherry Diabetes Mother Sherry Hyperlipidemia Mother Sherry Hypertension Mother Sherry Stomach cancer Paternal Grandfather Edward Autoimmune disease Sister Alyssa Relation Name Status Comments Brother eKlechi Father Pedro Mother Sherry Paternal Grandfather Edward Sister Alyssa Social History Tobacco Use Types [...] [facility] Department of Internal Medicine [address] [place] [phone] Elina Sanchez, MARGOT [address] [place] [address] Health Maintenance Due Date Last Done Comments [...] Procedure Name Priority Date/Time Associated Diagnosis Comments US KIDNEY AND BLADDER Routine 08/16/2024 1:14 PM EDT DEXA BONE DENSITY AXIAL SKELETON, 1 OR MORE SITES Routine 06/14/2024 12:38 PM EST THINPREP PAP TEST (HOME ECONOMIST) Routine 11/09/2023 11:03 AM EDT Papanicolaou smear MG SCREENING DIGITAL BREAST NATHALIA- BILATERAL Routine 11/13/2022 9:25 AM EDT from Last 3 Months or Most Recently Relevant to Health Maintenance Results * US KIDNEY AND BLADDER (08/16/2024 1:14 PM EDT) Anatomical Region Laterality Modality Other 08/16/2024 1:15 PM EDT 08/16/2024 1:15 PM EDT Narrative 08/16/2024 1:27 PM EDT EXAMINATION: US RETROPERITONEAL LIMITED (RENAL) CLINICAL INFORMATION: Chronic kidney disease. COMPARISON: None available. TECHNIQUE: Real-time imaging of the kidneys. FINDINGS: RIGHT KIDNEY: 9.1 x 3.6 x 4.2 cm (SAG x AP x TRV). The kidney is normal in size, contour, and echogenicity. Renal cortical thickness is normal. No calculi or focal parenchymal lesions. No hydronephrosis. LEFT KIDNEY: 9.7 x 4.8 x 4.4 cm (SAG x AP x TRV). The kidney is normal in size, contour, and echogenicity. Renal cortical thickness is normal. No calculi or focal parenchymal lesions. No hydronephrosis. IMPRESSION: Normal renal ultrasound. Electronically signed by: ??Darvin Cabrera MD ??08/16/2024 01:27 PM EDT RP Thank you for referring your patient to us, Darvin Cabrera MD [id number] (Electronically Signed - 08/16/2024 13:27) Copy: PATIENT , ?? Procedure Note Darvin Cabrera MD - 08/16/2024 EXAMINATION: US RETROPERITONEAL LIMITED (RENAL) CLINICAL INFORMATION: Chronic kidney disease. COMPARISON: None available. TECHNIQUE: Real-time imaging of the kidneys. FINDINGS: RIGHT KIDNEY: 9.1 x 3.6 x 4.2 cm (SAG x AP x TRV). The kidney is normal insize, contour, and echogenicity. Renal cortical thickness is normal. Nocalculi or focal parenchymal lesions. No hydronephrosis. LEFT KIDNEY: 9.7 x 4.8 x 4.4 cm (SAG x AP x TRV). The kidney is normal insize, contour, and echogenicity. Renal cortical thickness is normal. Nocalculi or focal parenchymal lesions. No hydronephrosis. IMPRESSION: Normal renal ultrasound. Electronically signed by: Darvin Cabrera MD 08/16/2024 01:27 PM EDT RPWorkstation: [id number] Thank you for referring your patient to us, Darvin Cabrera MD [id number] (Electronically Signed - 08/16/2024 13:27) Copy: PATIENT , Gerardo COY LEGACY PROCEDURE S * DEXA Bone Density axial skeleton, 1 or more sites (06/14/2024 12:38 PM EST) Anatomical Region Laterality Modality Digital Radiogra phy External Provider MD COY DXA ORDERABLES * ThinPrep Pap Test (Investigative Assistant) (11/09/2023 11:03 AM EDT) 11/09/2023 11:0 3 AM EDT Narrative [facility] - 11/12/2023 3:04 PM EDT To view the final report click the scan hyperlink below. Wm Cantu MD LAB AMB PATH/CYTO O RDERABLES EC [address] [place] [address], [place] * MG SCREENING DIGITAL BREAST NATHALIA- [...] your patient to us, India Rivera MD [id number] (Electronically Signed - 11/13/2022 09:25) Narrative 11/13/2022 9:25 AM EDT HISTORY: Patient is 57 years old and is seen for screening. The patient has no personal history of breast or ovarian cancer. The patient has no family history of breast cancer. FILMS COMPARED: The present examination has been compared to prior imaging studies dated 03/14/2021, 02/15/2019 and 02/11/2017. NATHALIA STATEMENT: Computer-aided detection [...] patients personal breast tissue composition as [facility]. BIRADS Category 1: Negative Thank you for referring your patient to us, India Rivera MD [id number] (Electronically Signed - 11/13/2022 09:25) Wm Cantu MD IMG LEGACY PROCEDUR ES from Last 3 Months or Most Recently Relevant to Health Maintenance Care Teams Mobile Application Tester Relationship Specialty Start Date End Date Elina Sanchez APRN [address] [place] [address] PCP - General Internal Medicine 07/06/23 Julien Mckeon APRN [address] [place] [address] Nurse Practitioner Neurology 05/12/23 Shari Maier MD [address] [place] [address] Consulting Provider Dermatology 05/12/23 Wm Cantu MD [address] [place] [address] Obstetrics and Gynecology 05/12/23 Lexus Chen MD [address] [place] [address] Rheumatology 05/24/24
--- OUTSIDE RECORDS SUMMARY | 2024-08-31 17:54 | XMS_ITS | Encounter Summary ---
Author Organization [facility] Address [address] [place] [address] Care Team Providers Care Day Care Provider Name Role Phone Unavailable Primary Care Provider Unavailabl e Encounter Details Date Type Department Care Team (Late st Contact Info) Description 09/02/2017 Scanned Document [facility] [address] [place] [address] Bhavani Muir MD [address] [place] [phone] Social History Tobacco Use Types Packs/Day [...]
--- OUTSIDE RECORDS SUMMARY | 2024-08-31 17:54 | XMS_ITS | Encounter Summary ---
Author Organization [facility] Address [address] [place] [address] Care Team Providers Care Sourcing Intern Name Role Phone Julien Mckeon APRN Unavailable Shari Maier MD Unavailable [phone] Wm Cantu MD Unavailable [phone] Elina Sanchez HOME HEALTH PROVIDER Primary Care Provider [phone] Lexus Chen MD Unavailable [phone] Encounter Details Date Type Department Care Team (Late st Contact Info) Description 06/29/2024 Scanned Document [facility] Department of Internal Medicine [address] [phone] Elina Sanchez, MARGOT [address] [place] [address] Social History Tobacco Use Types Packs/Day [...] Description 10/25/2024 9:30 AM EDT Office Visit [facility] Department of Internal Medicine [address] [place] [address] Elina Sanchez APRN [address] [place] [address] documented as of this encounter Visit Diagnoses Not on filedocumented in this encounter Care Teams Sourcing Intern Relationship Specialty Start Date End Date Elina Sanchez, MARGOT [address] [place] [address] PCP - General Internal Medicine 07/06/23 Julien Mckeon APRN [address] [place] [address] Nurse Practitioner Neurology 05/12/23 Shari Maier MD [address] [place] [address] Consulting Provider Dermatology 05/12/23 Wm Cantu MD [address] [place] [address] 2[address] [place] [address] Obstetrics and Gynecology 05/12/23 Lexus Chen MD [address] [place] [address] Rheumatology 05/24/24 documented as of this encounter
--- OUTSIDE RECORDS SUMMARY | 2024-08-31 17:54 | XMS_ITS | Clinical Summary ---
Author Organization [facility] it Address [address] [place] [address] Care Team Providers Care Retail Pharmacist Name Role Phone iVk Brar MD Primary Care Provider [phone] Surgical History Surgery Date Site/Laterality Comments CHOLECYSTECTOMY [...] drink = 0.6 oz pur e alcohol) Comments Unknown Sex and Gender Information Value Date Recorded Sex Assigned at Not on file Legal Sex Female 9:48 PM EST Gender Identity Not on file Sexual Orientation Not on file Obstetrics History Plan of Treatment Health Maintenance Due Date Last Done Comments Breast Cancer Screening 1966 DTaP,Tdap,and Td Vaccines (1 - Tdap) 1985 Hepatitis B Vaccines (1 of 3 - 19+ 3-dose series) 1985 Cervical Cancer Screening: P ap Smear 08/20/1987 Pneumococcal Vaccine: 50+ Ye ars (1 of 1 - PCV) 2016 Zoster Vaccines (1 of 2) 2016 COVID-19 [...] patient's age to complete this topic Meningococcal B Vacine Aged Out No lo nger eligible based on patient's age to complete [...] age to complete this topic Care Teams Retail Pharmacist Relationship Specialty Start Date End Date Vik Brar MD 9 [facility] 2 [place] [address] PCP - General Internal Medicine 03/08/16
--- OUTSIDE RECORDS SUMMARY | 2024-08-31 17:54 | XMS_ITS | Encounter Summary ---
Author Organization [facility] Address [address] [place] [address] Care Team Providers Care Adolescent Coordinator Name Role Phone Julien Mckeon APRN Unavailable [phone] Shari Maier MD Unavailable [phone] Wm Cantu MD Unavailable [phone] Elina Sanchez CIRCULATION WORKER Primary Care Provider Lexus Chen MD Unavailable [phone] Encounter Details Date Type Department Care Team (Late st Contact Info) Description 09/01/2023 Scanned Document [facility] Department of Internal Medicine [address] [phone] Elina Sanchez, MARGOT [address] [place] [address] Social History Tobacco Use Types Packs/Day [...] Visit [facility] Department of Internal Medicine [address] [place] [phone] Elina Sanchez APRN [address] [place] [address] documented as of this encounter Visit Diagnoses Not on filedocumented in this encounter Care Teams Adolescent Coordinator Relationship Specialty Start Date End Date Elina Sanchez APRN [address] [place], [place] [address] PCP - General Internal Medicine 07/06/23 Julien Mckeon APRN [address] [place] [address] Nurse Practitioner Neurology 05/12/23 Shari Maier MD [address] [place] [address] Consulting Provider Dermatology 05/12/23 Wm Cantu MD 9 [facility] 2nd [place] [address] Obstetrics and Gynecology 05/12/23 Lexus Chen MD [address] [place] [address] Rheumatology 05/24/24 documented as of this encounter
--- OUTSIDE RECORDS SUMMARY | 2024-08-31 17:54 | XMS_ITS | Clinical Summary ---
Author Organization [address] [address] Care Team Providers Care Beef Ribber Name Role Phone Unavailable Primary Care Provider [...] Influenza vaccine 01/07/2024 Covid-19 vaccine series ( - 2023- season) 2024 Pneumococcal Vaccine (50+ ye ars) (1 of 1 - PCV) 08/20/2031 RSV Immunization (1 - 1-dose 75+ series) 2041 Meningococcal Vaccine Aged Out No jazmin janes eligible based on patient's age to complete this topic Pneumococcal Vaccine (2 - 49 years) Aged Out No longer eligible based on patient's age to complete this topic Insurance CIGNA CIGNA CIGNA CIGNA
--- OUTSIDE RECORDS SUMMARY | 2024-08-31 17:54 | XMS_ITS | Encounter Summary ---
Author Organization [facility] Address [address] [place] [address] Care Team Providers Care Sample Mounter Name Role Phone Julien Mckeon APRN Unavailable Shari Maier MD Unavailable [phone] Wm Cantu MD Unavailable [phone] Elina Sanchez APRN Primary Care Provider [phone] Lexus Chen MD Unavailable [phone] Encounter Details Date Type Department Care Team (Late st Contact Info) Description 07/13/[address] [address] Johnson Mosley MD [address] [place] [address] Social History Tobacco Use Types Packs/Day [...] Description 10/25/2024 9:30 AM EDT Office Visit [facility] Department of Internal Medicine [address] [place] [address] Elina Sanchez, AUGER SUPERVISOR [address] [place] [address] documented as of this encounter Visit Diagnoses Not on filedocumented in this encounter Care Teams Sample Mounter Relationship Specialty Start Date End Date Elina Sanchez, AUGER SUPERVISOR [address] [place] [address] PCP - General Internal Medicine 07/06/23 Julien Mckeon, AUGER SUPERVISOR [address] [place] [address] Nurse Practitioner Neurology 05/12/23 Shari Maier MD [address] [place] [address] Consulting Provider Dermatology 05/12/23 Wm Catnu MD 9 [facility] 2nd [place] [address] Obstetrics and Gynecology 05/12/23 Lexus Chen MD [address] [place] [address] Rheumatology 05/24/24 documented as of this encounter
--- OUTSIDE RECORDS SUMMARY | 2024-08-31 17:54 | XMS_ITS | Encounter Summary ---
Author Organization [facility] Address [address] [place] [address] Care Team Providers Care Artificial Flowers Dyer Name Role Phone Unavailable Primary Care Provider Unavailabl e Encounter Details Date Type Department Care Team (Late st Contact Info) Description 02/16/2018 Scanned Document [facility] [address] [place] [address] Bhavani Muir MD [address] [place] [phone] Social History Tobacco Use Types Packs/Day [...]
--- OUTSIDE RECORDS SUMMARY | 2024-08-31 17:54 | XMS_ITS | Encounter Summary ---
Author Organization [facility] Address [address] [place] [address] Care Team Providers Care Hand Bulldozer Name Role Phone Vik Brar MD Primary Care Provider [phone] Julien Mckeon WASHROOM ATTENDANT Unavailable [phone] Shari Maier MD Unavailable Wm Cantu MD Unavailable Elina Sanchez WASHROOM ATTENDANT Unavailable Elina Sanchez WASHROOM ATTENDANT Primary Care Provider Lexus Chen MD Unavailable [phone] Encounter Details Date Type Department Care Team (Late st Contact Info) Description 05/26/2023 Scanned Document [facility] Department of Internal Medicine [place] [address] [place] [phone] Vik Brar MD Needs valid address Social History Tobacco Use Types Packs/Day Years [...] Visit [facility] Department of Internal Medicine [address] [place] [address] Elina Sanchez, MARGOT [address] [place] [phone] documented as of this encounter Visit Diagnoses Not on filedocumented in this encounter Care Teams Hand Bulldozer Relationship Specialty Start Date End Date Vik Brar MD PCP - General Internal Medicine 08/11/16 07/04/23 Elina Sanchez, MARGOT [address] [place] [address] PCP - General Internal Medicine 07/06/23 Julien Mckeon APRN [address] [place] [address] Nurse Practitioner Neurology 05/12/23 Shari Maier MD [address] [place] [address] Consulting Provider Dermatology 05/12/23 Wm Cantu MD 9 [facility] 2nd Floor [place] [phone] Obstetrics and Gynecology 05/12/23 Elina Sanchez, WASHROOM ATTENDANT [address] [place] [address] Nurse Practitioner Internal Medicine 07/05/23 07/05/23 Lexus Chen MD [address] [place] [address] Rheumatology 05/24/24 documented as of this encounter
--- OUTSIDE RECORDS SUMMARY | 2024-08-31 17:54 | XMS_ITS | Data Portability ---
Author Organization [employer] - [facility], [facility] Address [address] [place] [id number] Care Team Providers Care Ell Teacher Name Role Phone FELIZ MEDEROS Primary Care [...] time, time reviewing and independently interpreting results, iifp-fl-plbl time with the patient, counseling/educati ng the patient/family members/caregivers ,, care coordination, documenting clinical information in the electronic medical record, following up on referrals/results and communicating with related healthcare professionals as needed. [email or web address] Not available 09/24/2023 12:58:33 01/13/2024 01/13/2024 Assessment: [...] time, time reviewing and independently interpreting results, nnmy-ej-yjqi time with the patient, counseling/educati ng the patient/family members/caregivers ,, care coordination, documenting clinical information in the electronic medical record, following up on referrals/results and communicating with related healthcare professionals as needed. ??? Not available 01/13/2024 14:38:17 02/22/2024 02/22/2024 Class [...] time, time reviewing and independently interpreting results, hqmt-gb-fygm time with the patient, counseling/educati ng patient/family members/caregivers , ordering medications/tests/ procedures, care coordination, documenting clinical information in the electronic medical record, following up on referrals/results and communicating with related healthcare professionals as needed. Follow up: Lab Order Set: UTD Appt w/ MANAGER ACTION: 3 months Appt w/ RD: pending [email or web address] Not available 02/22/2024 11:48:08 04/20/2024 04/20/2024 Assessment: [...] Protein sources include: meat, fish, poultry, eggs, kinyarwanda yogurt, cottage cheese, tofu, tempeh, seitan, and [...] time, time reviewing and independently interpreting results, kxxo-lj-xguw time with the patient, counseling/educati ng the patient/family members/caregivers ,, care coordination, documenting clinical information in the electronic medical record, following up on referrals/results and communicating with related healthcare professionals as needed. ??? [email or web address] Not available 04/20/2024 19:58:44 06/28/2024 06/28/2024 Class [...] ready to try an alternative. Notes her pin setter recently found renal function issues. Told she [...] review options and then discuss with her hospital cleaning specialist as well. PCP and pin setter supported use of GLP-1. Pt to message me with an update after she sees the hospital cleaning specialist for next steps. Also discussed bariatric surgery [...] time, time reviewing and independently interpreting results, yydt-mw-ymep time with the patient, counseling/educati ng patient/family members/caregivers , ordering medications/tests/ procedures, care coordination, documenting clinical information in the electronic medical record, following up on referrals/results and communicating with related healthcare professionals as needed. Follow up: Lab Order Set: UTD Appt w/ MANAGER ACTION: 3 months Appt w/ RD: pending [email or web address] Not available 06/28/2024 12:59:39 Plan of Treatment Reminders Order Date Submit Date Provider Last Modified By Organization Details Last Modified Time Details Appointments FOLLOW -UP (FV)-6 5 025 02:30PM EARLINE PATTERSON APRN Not available Not available Not available RD FOLLOW -UP (RDF)- 65 025 05:00PM SUDHIR AMBROSIO RD Not available Not available Not available Lab None record ed. Referral None record ed. Procedures None record ed. Surgeries None record ed. Imaging None record ed. Medication Orders None record ed. Patient TargetsNo targets recorded. 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 Evaluate your progress vs manager of recruiting yourself. Consider living in the coe vs. [...] you well on this journey? Evaluate vs manager of recruiting. Consider progress, not perfection. ??? - How will you keep up with your goals? How often will you check in with them - weekly, biweekly, monthly? When will you adjust them? What reminders do/will you have to keep them front of mind? Be sure to check out the [employer] patient nithin for more details on these and many helpful topics - healthy eating for weight loss, a colorful plate, creating your wellness vision, goal setting, activity and exercise, sleep, Relaxation and managing stress, and much more! Let me know if you need anything. [email or web address] Not available 09/24/2023 12:58:44 01/13/2024 [id number] Maxime Hernandez - It was so nice [...] or concerns. Keep taking care of YOU!! [email or web address] Not available 01/13/2024 14:38:53 02/22/2024 [id number] Maxime Hernandez, It w as great seeing you [...] check your weight once weekly -->Please use [employer] Patient Portal for any questions that arise between visits -->For follow up scheduling please call [phone] PATRICIO [email or web address] Not available 02/22/2024 10:54:31 04/20/2024 [id number] Maxime Hernandez - I'm so glad we [...] Protein sources include: meat, fish, poultry, eggs, kinyarwanda yogurt, cottage cheese, tofu, tempeh, seitan, and [...] We are here if you need anything! Not available 04/20/2024 19:58:55 06/28/2024 [id number] Az Mary , It was great seeing you today. [...] check your weight once weekly -->Please use [employer] Patient Portal for any questions that arise between visits -->For follow up scheduling please call [phone] PATRICIO [email or web address] Not available 06/28/2024 11:49:25 Reason for Referral None Reported. Results Created Date Observation Date Name Description Value Unit Range Abnormal Flag Note LastModifiedBy Organization Detail LastModifiedTime 02/04/20 24 02/04/2024 COMPR EHENS CHRISTINE METAB OLIC PANEL glucose 80 mg/dL 65-99 normal Fasti ng refer ence inter eloy Not Available [facility] [address] [place], [address], 06/28/2024 13:15:54 02/04/20 24 02/04/2024 COMPR EHENS CHRISTINE METAB OLIC PANEL urea nitrogen (BUN) 14 mg/dL 7-25 normal Not Available [facility] [address] [place], [address], 06/28/2024 13:15:54 02/04/20 24 02/04/2024 COMPR EHENS CHRISTINE METAB OLIC PANEL creatinine 1.24 mg/dL 0.50-1 .03 high Not Available [facility] [address] [place], [address], 06/28/2024 13:15:54 02/04/20 24 02/04/2024 COMPR EHENS CHRISTINE METAB OLIC PANEL eGFR 51 mL/mi n/1.7 3m2 > or = 60 low Not Available [facility] [address] [place], [address], 06/28/2024 13:15:54 02/04/20 24 02/04/2024 COMPR EHENS CHRISTNIE METAB OLIC PANEL BUN/creatini ne ratio 11 (calc ) 6-22 normal Not Available [facility] [address] [place] [address], [address], 06/28/2024 13:15:54 02/04/20 24 02/04/2024 COMPR EHENS CHRISTINE METAB OLIC PANEL sodium 138 mmol/ L 135-14 6 normal Not Available [facility] [address] [place] [address], [address], 06/28/2024 13:15:54 02/04/20 24 02/04/2024 COMPR EHENS CHRISTINE METAB OLIC PANEL potassium 4.2 mmol/ L 3.5-5. 3 normal Not Available [facility] [address] [place] [address], [address], 06/28/2024 13:15:54 02/04/20 24 02/04/2024 COMPR EHENS CHRISTINE METAB OLIC PANEL chloride 103 mmol/ L 98-110 normal Not Available [facility] [address] [place] [address], [address], 06/28/2024 13:15:54 02/04/20 24 02/04/2024 COMPR EHENS CHRISTINE METAB OLIC PANEL carbon dioxide 27 mmol/ L 20-32 normal Not Available [facility] [address] [place] [address], [address], 06/28/2024 13:15:54 02/04/20 24 02/04/2024 COMPR EHENS CHRISTINE METAB OLIC PANEL calcium 9.6 mg/dL 8.6-10 .4 normal Not Available [address], [address], 06/28/2024 13:15:54 02/04/20 24 02/04/2024 COMPR EHENS CHRISTINE METAB OLIC PANEL protein, total 6.6 g/dL 6.1-8. 1 normal Not Available [facility] [address] [place] [address], [address], 06/28/2024 13:15:54 02/04/20 24 02/04/2024 COMPR EHENS CHRISTINE METAB OLIC PANEL albumin 4.1 g/dL 3.6-5. 1 normal Not Available [facility] [address] [place] [address], [address], 06/28/2024 13:15:54 02/04/20 24 02/04/2024 COMPR EHENS CHRISTINE METAB OLIC PANEL globulin 2.5 g/dL_ (calc ) 1.9-3. 7 normal Not Available [facility] [address] [place] [address], [address], 06/28/2024 13:15:54 02/04/20 24 02/04/2024 COMPR EHENS CHRISTINE METAB OLIC PANEL albumin/glob ulin ratio 1.6 (calc ) 1.0-2. 5 normal Not Available [facility] [address] [place] [address], [address], 06/28/2024 13:15:54 02/04/20 24 02/04/2024 COMPR EHENS CHRISTINE METAB OLIC PANEL bilirubin, total 0.7 mg/dL 0.2-1. 2 normal Not Available [facility] [address] [place] [address], [address], 06/28/2024 13:15:54 02/04/20 24 02/04/2024 COMPR EHENS CHRISTINE METAB OLIC PANEL alkaline phosphatase 83 U/L 37-153 normal Not Available [facility] [address] [place] [address], [address], 06/28/2024 13:15:54 02/04/20 24 02/04/2024 COMPR EHENS CHRISTINE METAB OLIC PANEL AST 17 U/L 10-35 normal Not Available [facility] [address], [address], 06/28/2024 13:15:54 02/04/20 24 02/04/2024 COMPR EHENS CHRISTINE METAB OLIC PANEL ALT 12 U/L 6- normal Not Available [facility] [address], [address], 06/28/2024 13:15:54 02/04/20 24 02/04/2024 CBC (INCL UDES DIFF/ PLT) white blood cell count 4.5 thous and/u L 3.8-10 .8 normal Not Available [address], [address], 06/28/2024 13:15:55 02/04/20 24 02/04/2024 CBC (INCL UDES DIFF/ PLT) red blood cell count 5.39 adelina on/uL 3.80-5 .10 high Not Available [address], [address], 06/28/2024 13:15:55 02/04/20 24 02/04/2024 CBC (INCL UDES DIFF/ PLT) hemoglobin 15.1 g/dL 11.7-1 5.5 normal Not Available [facility] [address], [address], 06/28/2024 13:15:55 02/04/20 24 02/04/2024 CBC (INCL UDES DIFF/ PLT) hematocrit 46.0 % 35.0-4 5.0 high Not Available [facility] [address], [address], 06/28/2024 13:15:55 02/04/20 24 02/04/2024 CBC (INCL UDES DIFF/ PLT) MCV 85.3 fL 80.0-1 00.0 normal Not Available [facility] [address], [address], 06/28/2024 13:15:55 02/04/20 24 02/04/2024 CBC (INCL UDES DIFF/ PLT) MCH 28.0 pg 27.0-3 3.0 normal Not Available [facility] [address], [address], 06/28/2024 13:15:55 02/04/20 24 02/04/2024 CBC (INCL UDES DIFF/ PLT) MCHC 32.8 g/dL 32.0-3 6.0 normal Not Available [facility] [address], [address], 06/28/2024 13:15:55 02/04/20 24 02/04/2024 CBC (INCL UDES DIFF/ PLT) RDW 12.5 % 11.0-1 5.0 normal Not Available [facility] [address], [address], 06/28/2024 13:15:55 02/04/20 24 02/04/2024 CBC (INCL UDES DIFF/ PLT) platelet count 228 thous and/u L 140-40 0 normal Not Available [address], [address], 06/28/2024 13:15:55 02/04/20 24 02/04/2024 CBC (INCL UDES DIFF/ PLT) MPV 11.3 fL 7.5-12 .5 normal Not Available [facility] [address], [address], 06/28/2024 13:15:55 02/04/20 24 02/04/2024 CBC (INCL UDES DIFF/ PLT) absolute neutrophils 2709 cells /uL 1500-7 800 normal Not Available [facility] [address], [address], 06/28/2024 13:15:55 02/04/20 24 02/04/2024 CBC (INCL UDES DIFF/ PLT) absolute lymphocytes 1211 cells /uL 850-39 00 normal Not Available [facility] - [address] [place], [address], 06/28/2024 13:15:55 02/04/20 24 02/04/2024 CBC (INCL UDES DIFF/ PLT) absolute monocytes 401 cells /uL 200-95 0 normal Not Available [facility] - [address], [address], 06/28/2024 13:15:55 02/04/20 24 02/04/2024 CBC (INCL UDES DIFF/ PLT) absolute eosinophils 131 cells /uL 15-500 normal Not Available [facility] - [address] [place], [address], 06/28/2024 13:15:55 02/04/20 24 02/04/2024 CBC (INCL UDES DIFF/ PLT) absolute basophils 50 cells /uL 0-200 normal Not Available [facility] - [address], [address], 06/28/2024 13:15:55 02/04/20 24 02/04/2024 CBC (INCL UDES DIFF/ PLT) neutrophils 60.2 % normal Not Available [facility] - [address], [address], 06/28/2024 13:15:55 02/04/20 24 02/04/2024 CBC (INCL UDES DIFF/ PLT) lymphocytes 26.9 % normal Not Available [facility] - [address], [address], 06/28/2024 13:15:55 02/04/20 24 02/04/2024 CBC (INCL UDES DIFF/ PLT) monocytes 8.9 % normal Not Available [facility] [address], [address], 06/28/2024 13:15:55 02/04/20 24 02/04/2024 CBC (INCL UDES DIFF/ PLT) eosinophils 2.9 % normal Not Available [facility] [address] [facility] [address], [place], [address], 06/28/2024 13:15:55 02/04/20 24 02/04/2024 CBC (INCL UDES DIFF/ PLT) basophils 1.1 % normal Not Available [facility] [address] [facility] [facility] [address], [place], [address], 06/28/2024 13:15:55 02/04/20 24 02/04/2024 TSH W/REF JHONATHAN TO FT4 TSH w/reflex to FT4 1.24 mIU/L 0.40-4 .50 normal Not Available [facility] [address] [facility] [facility] [address], [place], [address], 06/28/2024 13:15:55 02/04/20 24 02/04/2024 HEMOG LOBIN A1C hemoglobin A1C 5.3 %_of_ total _HGB <5.7 normal For the purpo se of scree delmy for the prese nce of diabe piero: [...] piero(A DA). Not Available [facility] [address] [facility] [address], [place], [address], 06/28/2024 13:15:56 02/04/20 24 02/04/2024 HEMOG LOBIN A1C comment This test was perfo rmed on the Madi lucia c503 platf orm. Effec tive 08/09/ 4, a erin mendez in test platf orms from the [facility] to the Madi lucia c503 may have shift ed HbA1c resul ts jaskaran red to histo rical resul ts. Based on labor atory valid ation testi ng condu cted at [facility] , the Madi platf orm relat christine to the [facility] t platf orm had an avera ge incre ase in HbA1c value of < or = 0.3%. This diffe rence is withi n accep radha varia bilit y estab lishe d by the Nat[facility] hemog lobin Stand ardiz ation Progr am. Note that not all indiv idual s will have had a shift in their resul ts and direc t jaskaran rison s betwe en histo rical and curre nt resul ts for testi ng condu cted on diffe rent platf orms is not recom vernon d. Not Available [facility] [address] [place], [address], 06/28/2024 13:15:56 02/04/20 24 02/17/2024 IMMUN OFIXA TION IGA,I GG,IG M QT.IM MUNOF IXATI ON SERUM IMMUN OGLOB ULIN janna interpretati on Normal patter n. No monocl onal protei ns detect ed. Not Available [facility] [address] [place], [address], 06/28/2024 13:15:57 02/04/20 24 02/17/2024 IMMUN OFIXA TION IGA,I GG,IG M QT.IM MUNOF IXATI ON SERUM IMMUN OGLOB ULIN immunoglobul in A 186 mg/dL 47-310 normal Not Available [facility] [address] [place], [address], 06/28/2024 13:15:57 02/04/20 24 02/17/2024 IMMUN OFIXA TION IGA,I GG,IG M QT.IM MUNOF IXATI ON SERUM IMMUN OGLOB ULIN immunoglobul in g 895 mg/dL 600-16 40 normal Not Available [facility] [address], [address], 06/28/2024 13:15:57 02/04/20 24 02/17/2024 IMMUN OFIXA TION IGA,I GG,IG M QT.IM MUNOF IXATI ON SERUM IMMUN OGLOB ULIN immunoglobul in M 195 mg/dL 50-300 normal Not Available [facility] - [address], [address], 06/28/2024 13:15:57 02/04/20 24 02/17/2024 ANCA SCREE N WITH MPO AND PR3 WITH REFLE X TO ANCA TITER anca screen NEGATI VE negati ve normal ANCA scree n uses indir ect immun ofluo resce nce to detec t antib odies to neutr ophil cytop lasmi c antig ens. A posit christine scree n refle xes to titer and katina rn. Patte rns inclu de cytop lasmi c (c-AN CA) and perin uclea r (p-AN CA) both of which are assoc iated with vascu litis , and atypi navjot p-ANC A which is assoc iated with infla mmato ry bowel disea se and other disor ders. Not Available [facility] [address], [address], 06/28/2024 13:15:58 02/04/20 24 02/17/2024 ANCA SCREE [...] granu lomat osis with polya ngiit is (GPA Wegen er's) . The perin uclea r ROBYN ambriz rn, (p-AN CA) is based large ly on autoa ntibo dy to myelo perox idase which serve s as the prima ry antig en. These autoa ntibo dies are prese nt in activ e disea se. Not Available [facility] [address] [place] [address], [address], 06/28/2024 13:15:58 02/04/20 24 02/17/2024 ANCA SCREE N WITH MPO AND PR3 WITH REFLE X TO ANCA TITER proteinase-3 antibody <1.0 ai normal Value Inter preta tion ----- ----- ----- ---- <1.0 No Antib kristi Detec radha > or = 1.0 Antib kristi Detec radha Autoa ntibo dies to prote inase -3 (TX-3 ) are accep radha as sharron cteri stic for granu lomat osis with polya ngiit is (DARRELL Wegen er's) , and are detec table in 95% of the histo logic ally prove n cases . The cytop lasmi c ROBYN ambriz rn, (c-AN CA), is based large ly on autoa ntibo dy to TX-3 which serve s as the prima ry antig en. These autoa ntibo dies are prese nt in activ e disea se. Not Available [facility] [address] [place], [address], 06/28/2024 13:15:58 02/04/20 24 02/17/2024 PROTE IN, TOTAL AND PROTE IN ELECT ROPHO RESIS protein, total 6.4 g/dL 6.1-8. 1 normal Not Available [facility] [address] [place], [place] [address] [place], [address], 06/28/2024 13:15:58 02/04/20 24 02/17/2024 PROTE IN, TOTAL AND PROTE IN ELECT ROPHO RESIS albumin 4.0 g/dL 3.8-4. 8 normal Not Available [facility] [address] [place], [address], 06/28/2024 13:15:58 02/04/20 24 02/17/2024 PROTE IN, TOTAL AND PROTE IN ELECT ROPHO RESIS alpha 1 globulin 0.2 g/dL 0.2-0. 3 normal Not Available [facility] [address] [place] [address] [place], [address], 06/28/2024 13:15:58 02/04/20 24 02/17/2024 PROTE IN, TOTAL AND PROTE IN ELECT ROPHO RESIS alpha 2 globulin 0.6 g/dL 0.5-0. 9 normal Not Available [facility] [address] [place], [place] [address], [address], 06/28/2024 13:15:58 02/04/20 24 02/17/2024 PROTE IN, TOTAL AND PROTE IN ELECT ROPHO RESIS beta 1 globulin 0.4 g/dL 0.4-0. 6 normal Not Available [facility] [address] [place] [address], [address], 06/28/2024 13:15:58 02/04/20 24 02/17/2024 PROTE IN, TOTAL AND PROTE IN ELECT ROPHO RESIS beta 2 globulin 0.3 g/dL 0.2-0. 5 normal Not Available [facility] [address] [place] [address], [address], 06/28/2024 13:15:58 02/04/20 24 02/17/2024 PROTE IN, TOTAL AND PROTE IN ELECT ROPHO RESIS gamma globulin 0.9 g/dL 0.8-1. 7 normal Not Available [facility] [address] [facility], [place], [address], 06/28/2024 13:15:58 02/04/20 24 02/17/2024 PROTE IN, TOTAL AND PROTE IN ELECT ROP RESIS interpretati on Mariia l Serum Prote in Elect formerly [facility] resis Patte rn. No abnor mal prote in bands (M-pr otein ) detec radha. Not Available [facility] [address] [facility] [facility] [address], [place], [address], 06/28/2024 13:15:58 02/04/20 24 02/17/2024 YAYA ZER(T [...] clm-2 [id number] For addit ional infor hilda bunn e refer to http: //[facility] srinath velasquez.Que stDia gnost ics.c om/fa q/FAQ 177 (This link is being provi ded for infor cynthia nal/e ducat ional purpo ses only. ) Not Available [facility] - [address], [address], 06/28/2024 13:15:59 02/04/20 24 02/17/2024 YAYA ZER(T M)RICHARD , IFA WITH REFLE X TITER /DARBY RAVI, SYSTE CHRISTA AUTOI MMUNE PANEL 1 DNA Ab (ds) crithidia,if a NEGATI VE negati ve Not Available [facility] - [address], [address], 06/28/2024 13:15:59 02/04/20 24 02/17/2024 YAYA ZER(T M)RICHARD , IFA WITH REFLE X TITER /DARBY RAVI, SYSTE CHRISTA AUTOI MMUNE PANEL 1 chromatin (nucleosomal ) antibody <1.0 NEG ai <1.0 negati ve Not Available [facility] - [address], [address], 06/28/2024 13:15:59 02/04/20 24 02/17/2024 YAYA ZER(T M)RICHARD , IFA WITH REFLE X TITER /DARBY RAVI, SYSTE CHRISTA AUTOI MMUNE PANEL 1 sm antibody <1.0 NEG ai <1.0 negati ve Not Available [facility] - [address], [address], 06/28/2024 13:15:59 02/04/20 24 02/17/2024 YAYA ZER(T M)RICHARD , IFA WITH REFLE X TITER /DARBY RAVI, SYSTE CHRISTA AUTOI MMUNE PANEL 1 sm/drawbench operator helper antibody <1.0 NEG ai <1.0 negati ve Not Available [facility] - [address], [address], 06/28/2024 13:15:59 02/04/20 24 02/17/2024 YAYA ZER(T M)RICHARD , IFA WITH REFLE X TITER /DARBY RAVI, SYSTE CHRISTA AUTOI MMUNE PANEL 1 drawbench operator helper antibody <1.0 NEG ai <1.0 negati ve Not Available [facility] - [address] [place], [address], 06/28/2024 13:15:59 02/04/20 24 02/17/2024 YAYA ZER(T M)RICHARD , IFA WITH REFLE X TITER /DARBY RAVI, SYSTE CHRISTA AUTOI MMUNE PANEL 1 sjogren's antibody (ss-A) <1.0 NEG ai <1.0 negati ve Not Available [facility] [address] [place] [address], [address], 06/28/2024 13:15:59 02/04/20 24 02/17/2024 YAYA ZER(T M)RICHARD , IFA WITH REFLE X TITER /DARBY RAVI, SYSTE CHRISTA AUTOI MMUNE PANEL 1 sjogren's antibody (ss-B) <1.0 NEG ai <1.0 negati ve Not Available [facility] [address] [place] [address], [address], 06/28/2024 13:15:59 02/04/20 24 02/17/2024 YAYA ZER(T M)RICHARD , IFA WITH REFLE X TITER /DARBY RAVI, SYSTE CHRISTA AUTOI MMUNE PANEL 1 scl-70 antibody <1.0 NEG ai <1.0 negati ve Not Available [address], [address], 06/28/2024 13:15:59 02/04/20 24 02/17/2024 YAYA ZER(T M)RICHARD , IFA WITH REFLE X TITER /DARBY RAVI, SYSTE CHRISTA AUTOI MMUNE PANEL 1 sandra-1 antibody <1.0 NEG ai <1.0 negati ve Not Available [address], [address], 06/28/2024 13:15:59 02/04/20 24 02/17/2024 YAYA ZER(T M)RICHARD , IFA WITH REFLE X TITER /DARBY RAVI, SYSTE CHRISTA AUTOI MMUNE PANEL 1 centromere B antibody <1.0 NEG ai <1.0 negati ve Not Available [facility] [address], [place], [address], 06/28/2024 13:15:59 02/04/20 24 02/17/2024 YAYA ZER(T M)RICHARD , IFA WITH REFLE X TITER /DARBY RAVI, SYSTE CHRISTA AUTOI MMUNE PANEL 1 complement component C3C 133 mg/dL 83-193 Not Available [address], [address], 06/28/2024 13:15:59 02/04/20 24 02/17/2024 YAYA ZER(T M)RICHARD , IFA WITH REFLE X TITER /DARBY RAVI, SYSTE CHRISTA AUTOI MMUNE PANEL 1 complement component C4C 27 mg/dL 15-57 Not Available [address], [address], 06/28/2024 13:15:59 02/04/20 24 02/17/2024 YAYA ZER(T M)RICHARD , IFA WITH REFLE X TITER /DARBY RAVI, SYSTE CHRISTA AUTOI MMUNE PANEL 1 cardiolipin Ab (IgA) <2.0 apl-U /mL Value Inter preta tion ----- ----- ----- ---- <20.0 Antib kristi not detec radha > or = 20.0 Antib kristi detec radha Not Available [address], [address], 06/28/2024 13:15:59 02/04/20 24 02/17/2024 YAYA ZER(T M)RICHARD , IFA WITH REFLE X TITER /DARBY RAVI, SYSTE CHRISTA AUTOI MMUNE PANEL 1 cardiolipin Ab (IgG) <2.0 gpl-U /mL Value Inter preta tion ----- ----- ----- ---- <20.0 Antib kristi not detec radha > or = 20.0 Antib kristi detec radha Not Available [address], [address], 06/28/2024 13:15:59 02/04/20 24 02/17/2024 YAYA ZER(T M)RICHARD , IFA WITH REFLE X TITER /DARBY RAVI, SYSTE CHRISTA AUTOI MMUNE PANEL 1 cardiolipin Ab (IgM) 2.0 mpl-U /mL Value Inter preta tion ----- ----- ----- ---- <20.0 Antib kristi not detec radha > or = 20.0 Antib kristi detec radha Not Available [facility] [address], [address], 06/28/2024 13:15:59 02/04/20 24 02/17/2024 YAYA ZER(T M)RICHARD , IFA WITH REFLE X TITER /DARBY RAVI, SYSTE CHRISTA AUTOI MMUNE PANEL 1 B2 glycoprotein I (IgA)Ab <2.0 U/mL Value Inter preta tion ----- ----- ----- ---- <20.0 Antib kristi not detec radha > or = 20.0 Antib kristi detec radha Not Available [address], [address], 06/28/2024 13:15:59 02/04/20 24 02/17/2024 YAYA ZER(T M)RICHARD , IFA WITH REFLE X TITER /DARBY RAVI, SYSTE CHRISTA AUTOI MMUNE PANEL 1 B2 glycoprotein I (IgG)Ab <2.0 U/mL Value Inter preta tion ----- ----- ----- ---- <20.0 Antib kristi not detec radha > or = 20.0 Antib kristi detec radha Not Available [address], [address], 06/28/2024 13:15:59 02/04/20 24 02/17/2024 YAYA ZER(T [...] infor hilda bunn e refer to http: //[facility] srinath velasquez.que stdia gnost ics.c om/fa q/FAQ 109 (This link is being provi ded for infor cynthia nal/e ducat ional purpo ses only. ) Value Inter preta tion ----- ----- ----- ---- <20.0 Antib kristi not detec radha > or = 20.0 Antib kristi detec radha Not Available [facility] [address], [place], [address], 06/28/2024 13:15:59 02/04/20 24 02/17/2024 YAYA ZER(T M)RCIHARD , IFA WITH REFLE X TITER /DARBY RAVI, SYSTE CHRISTA AUTOI MMUNE PANEL 1 rheumatoid factor (IgA) <5 U Refer ence Range : <=6 NEGAT CHRISTINE >6 POSIT CHRISTINE Not Available [address], [address], 06/28/2024 13:15:59 02/04/20 24 02/17/2024 YAYA ZER(T M)RICHARD , IFA WITH REFLE X TITER /DARBY RAVI, SYSTE CHRISTA AUTOI MMUNE PANEL 1 rheumatoid factor (IgG) <5 U Refer ence Range : <=6 NEGAT CHRISTINE >6 POSIT CHRISTINE Not Available [address], [address], 06/28/2024 13:15:59 02/04/20 24 02/17/2024 YAYA ZER(T M)RICHARD , IFA WITH REFLE X TITER /DARBY RAVI, SYSTE CHRISTA AUTOI MMUNE PANEL 1 rheumatoid factor (IgM) 7 U high Refer ence Range : <=6 NEGAT CHRISTINE >6 POSIT CHRISTINE Not Available [address], [address], 06/28/2024 13:15:59 02/04/20 24 02/17/2024 YAYA ZER(T M)RICHARD , IFA WITH REFLE X TITER /DARBY RAVI, SYSTE CHRISTA AUTOI MMUNE PANEL 1 cyclic citrullinate d peptide (ccp) Ab (IgG) <16 units Refer ence Range : NEGAT CHRISTINE: <20 WEAK POSIT CHRISTINE: 20-39 MODER ATE POSIT CHRISTINE: 40-59 STRON G POSIT CHRISTINE >59 Not Available [address], [address], 06/28/2024 13:15:59 02/04/20 24 02/17/2024 YAYA ZER(T M)RICHARD , IFA WITH REFLE X TITER /DARBY RAVI, SYSTE CHRISTA AUTOI MMUNE PANEL 1 mutated citrullinate d vimentin (MCV) Ab <20 U/mL <20 Anti- mutat ed citru llina radha vimen tin antib kristi may be used as a secon zeferino lerma of rheum atoid arthr itis, in addit ion to rheum atoid facto r and anti- cycli c citru llina radha pepti de (CCP) . Not Available [facility] [address] [place], [address], 06/28/2024 13:15:59 02/04/20 24 02/17/2024 YAYA ZER(T M)RICHARD , IFA WITH REFLE X TITER /DARBY RAVI, SYSTE CHRISTA AUTOI MMUNE PANEL 1 thyroid peroxidase antibodies 3 IU/mL <9 Not Available [facility] - [address], [address], 06/28/2024 13:15:59 02/04/20 24 02/17/2024 CREAT ININE creatinine 1.26 mg/dL 0.50-1 .03 high Not Available [facility] [address], [address], 06/28/2024 13:16:00 02/04/20 24 02/17/2024 CREAT ININE eGFR 50 mL/mi n/1.7 3m2 > or = 60 low Not Available [facility] [address], [address], 06/28/2024 13:16:00 02/04/20 24 02/17/2024 URIC ACID uric acid 5.4 mg/dL 2.5-7. 0 normal Thera peuti c targe t for gout patie nts: <6.0 mg/dL Not Available [facility] [address], [address], 06/28/2024 13:16:00 02/04/20 24 02/17/2024 IRON AND TOTAL IRON RIA NG CAPAC ITY iron, total 84 mcg/d L 45-160 normal Not Available [facility] [address], [address], 06/28/2024 13:16:00 02/04/20 24 02/17/2024 IRON AND TOTAL IRON RIA NG CAPAC ITY iron binding capacity 307 mcg/d L_(ca lc) 250-45 0 normal Not Available [address] [place], [address], 06/28/2024 13:16:00 02/04/20 24 02/17/2024 IRON AND TOTAL IRON RIA NG CAPAC ITY % saturation 27 %_(ca lc) 16-45 normal Not Available [address] [place], [address], 06/28/2024 13:16:00 02/04/20 24 02/17/2024 HEPAT IC FUNCT ION PANEL protein, total 6.4 g/dL 6.1-8. 1 normal Not Available [address] [place], [address], 06/28/2024 13:16:01 02/04/20 24 02/17/2024 HEPAT IC FUNCT ION PANEL albumin 3.9 g/dL 3.6-5. 1 normal Not Available [address] [place], [address], 06/28/2024 13:16:01 02/04/20 24 02/17/2024 HEPAT IC FUNCT ION PANEL globulin 2.5 g/dL_ (calc ) 1.9-3. 7 normal Not Available [address] [place], [address], 06/28/2024 13:16:01 02/04/20 24 02/17/2024 HEPAT IC FUNCT ION PANEL albumin/glob ulin ratio 1.6 (calc ) 1.0-2. 5 normal Not Available [address] [place], [address], 06/28/2024 13:16:01 02/04/20 24 02/17/2024 HEPAT IC FUNCT ION PANEL bilirubin, total 0.7 mg/dL 0.2-1. 2 normal Not Available [address] [place], [address], 06/28/2024 13:16:01 02/04/20 24 02/17/2024 HEPAT IC FUNCT ION PANEL bilirubin, direct 0.1 mg/dL < or = 0.2 normal Not Available [address] [place], [address], 06/28/2024 13:16:01 02/04/20 24 02/17/2024 HEPAT IC FUNCT ION PANEL bilirubin, indirect 0.6 mg/dL _(navjot c) 0.2-1. 2 normal Not Available [address] [place], [address], 06/28/2024 13:16:01 02/04/20 24 02/17/2024 HEPAT IC FUNCT ION PANEL alkaline phosphatase 85 U/L 37-153 normal Not Available [facility] [address] [place] [address], [address], 06/28/2024 13:16:01 02/04/20 24 02/17/2024 HEPAT IC FUNCT ION PANEL AST 17 U/L 10-35 normal Not Available [address], [address], 06/28/2024 13:16:01 02/04/20 24 02/17/2024 HEPAT IC FUNCT ION PANEL ALT 12 U/L 6-29 normal Not Available [facility] [address] [place] [address], [address], 06/28/2024 13:16:01 02/04/20 24 02/17/2024 CREAT INE KINAS E, TOTAL creatine kinase, total 76 U/L 29-143 normal Not Available [address], [address], 06/28/2024 13:16:01 02/04/20 24 02/17/2024 HLA-B 27 ANTIG EN hla-B27 antigen Negati ve negati ve Not Available [address] [place], [address], 06/28/2024 13:16:02 02/04/20 24 02/17/2024 ANGIO TENSI N-1-C ONVER TING ENZYM E angiotensin- 1-converting enzyme 35.4 U/L Not Available [address] [place], [address], 06/28/2024 13:16:02 02/04/20 24 02/17/2024 LUPUS ANTIC OAGUL ANT EVALU ATION WITH REFLE X lupus anticoagulan t see note A Lupus Antic oagul ant is not detec radha. Refer ence Range : Not Detec radha For addit ional infor hilda bunn e refer to http: //[facility] srinath velasquez.[place] stdia gnost ics.c om/fa q/FAQ 01v2 (This link is being provi ded for infor cynthia noguera/ educa josé miguel l purpo ses only. ) This inter preta tion is based on the follo wing test resul ts. Not Available [address] [place], [address], 06/28/2024 13:16:03 02/04/20 24 02/17/2024 LUPUS ANTIC OAGUL ANT EVALU ATION WITH REFLE X PTT-la screen 34 sec <=40 Not Available [address], [address], 06/28/2024 13:16:03 02/04/20 24 02/17/2024 LUPUS ANTIC OAGUL ANT EVALU ATION WITH REFLE X drvvt screen 35 sec <=45 Not Available [address], [address], 06/28/2024 13:16:03 02/04/20 24 02/17/2024 SED RATE BY MODIF IED WESTE RGREN sed rate by modified westergren 6 mm/h < or = 30 normal Not Available [facility] - [address], [address], 06/28/2024 13:16:03 02/04/20 24 02/17/2024 URINA LYSIS , COMPL ETE W/REF JHONATHAN TO CULTU RE color YELLOW yellow normal Not Available [facility] - [address], [address], 06/28/2024 13:16:03 02/04/20 24 02/17/2024 URINA LYSIS , COMPL ETE W/REF JHONATHAN TO CULTU RE appearance CLEAR clear normal Not Available [facility] - [address], [address], 06/28/2024 13:16:03 02/04/20 24 02/17/2024 URINA LYSIS , COMPL ETE W/REF JHONATHAN TO CULTU RE specific gravity 1.020 1.001- 1.035 normal Not Available [facility] - [address], [address], 06/28/2024 13:16:03 02/04/20 24 02/17/2024 URINA LYSIS , COMPL ETE W/REF JHONATHAN TO CULTU RE pH 5.5 5.0-8. 0 normal Not Available [facility] - [address], [address], 06/28/2024 13:16:03 02/04/20 24 02/17/2024 URINA LYSIS , COMPL ETE W/REF JHONATHAN TO CULTU RE glucose NEGATI VE negati ve normal Not Available [facility] - [address], [address], 06/28/2024 13:16:03 02/04/20 24 02/17/2024 URINA LYSIS , COMPL ETE W/REF JHONATHAN TO CULTU RE bilirubin NEGATI VE negati ve normal Not Available [facility] - [address], [address], 06/28/2024 13:16:03 02/04/20 24 02/17/2024 URINA LYSIS , COMPL ETE W/REF JHONATHAN TO CULTU RE ketones NEGATI VE negati ve normal Not Available [facility] [place] [address] [place], [address], 06/28/2024 13:16:03 02/04/20 24 02/17/2024 URINA LYSIS , COMPL ETE W/REF JHONATHAN TO CULTU RE occult blood NEGATI VE negati ve normal Not Available [facility] [place] [address] [place], [address], 06/28/2024 13:16:03 02/04/20 24 02/17/2024 URINA LYSIS , COMPL ETE W/REF JHONATHAN TO CULTU RE protein TRACE negati ve abnormal Not Available [facility] [place] [address] [place], [address], 06/28/2024 13:16:03 02/04/20 24 02/17/2024 URINA LYSIS , COMPL ETE W/REF JHONATHAN TO CULTU RE nitrite NEGATI VE negati ve normal Not Available [facility] [address] [place], [place] [address], [address], 06/28/2024 13:16:03 02/04/20 24 02/17/2024 URINA LYSIS , COMPL ETE W/REF JHONATHAN TO CULTU RE leukocyte esterase 1+ negati ve abnormal Not Available [facility] [address] [place], [place] [address], [address], 06/28/2024 13:16:03 02/04/20 24 02/17/2024 URINA LYSIS , COMPL ETE W/REF JHONATHAN TO CULTU RE WBC 6-10 /hpf < or = 5 abnormal Not Available [facility] [place] [address] [place], [address], 06/28/2024 13:16:03 02/04/20 24 02/17/2024 URINA LYSIS , COMPL ETE W/REF JHONATHAN TO CULTU RE RBC NONE SEEN /hpf < or = 2 normal Not Available [facility] - [address], [address], 06/28/2024 13:16:03 02/04/20 24 02/17/2024 URINA LYSIS , COMPL ETE W/REF JHONATHAN TO CULTU RE squamous epithelial cells 0-5 /hpf < or = 5 Not Available [facility] - [address], [address], 06/28/2024 13:16:03 02/04/20 24 02/17/2024 URINA LYSIS , COMPL ETE W/REF JHONATHAN TO CULTU RE bacteria NONE SEEN /hpf none seen normal Not Available [facility] - [address], [address], 06/28/2024 13:16:03 02/04/20 24 02/17/2024 URINA LYSIS , COMPL ETE W/REF JHONATHAN TO CULTU RE hyaline cast NONE SEEN /lpf none seen normal Not Available [facility] - [address], [address], 06/28/2024 13:16:03 02/04/20 24 02/17/2024 URINA LYSIS , COMPL ETE W/REF JHONATHAN TO CULTU RE note This urine was yaya zed for the prese nce of WBC, RBC, bacte nilam, casts , and other forme d eleme nts. Only those eleme nts seen were repor radha. Not Available [facility] - [address], [address], 06/28/2024 13:16:03 02/04/20 24 02/17/2024 URINA LYSIS , COMPL ETE W/REF JHONATHAN TO CULTU RE reflexive urine culture CULTU RE INDIC ATED - RESUL TS TO FOLLO W Not Available [facility] - [address], [address], 06/28/2024 13:16:03 02/04/20 24 02/17/2024 URINA LYSIS , COMPL ETE W/REF JHONATHAN TO CULTU RE culture, urine, routine SEE NOTE CULTU RE, URINE , ROUTI NE Micro Numbe r: [id number] Test Statu s: Final Speci men Sourc e: Urine Speci men Quali ty: Adequ ate Resul t: No Growt h Not Available [facility] [address] [place] [address], [address], 06/28/2024 13:16:03 02/04/20 24 02/17/2024 CBC (INCL UDES DIFF/ PLT) white blood cell count 4.5 thous and/u L 3.8-10 .8 normal Not Available [facility] [address], [address], 06/28/2024 13:16:04 02/04/20 24 02/17/2024 CBC (INCL UDES DIFF/ PLT) red blood cell count 5.32 adelina on/uL 3.80-5 .10 high Not Available [facility] [address], [address], 06/28/2024 13:16:04 02/04/20 24 02/17/2024 CBC (INCL UDES DIFF/ PLT) hemoglobin 15.0 g/dL 11.7-1 5.5 normal Not Available [facility] [address], [address], 06/28/2024 13:16:04 02/04/20 24 02/17/2024 CBC (INCL UDES DIFF/ PLT) hematocrit 46.3 % 35.0-4 5.0 high Not Available [facility] [address], [address], 06/28/2024 13:16:04 02/04/20 24 02/17/2024 CBC (INCL UDES DIFF/ PLT) MCV 87.0 fL 80.0-1 00.0 normal Not Available [facility] [address] [place], [address], 06/28/2024 13:16:04 02/04/20 24 02/17/2024 CBC (INCL UDES DIFF/ PLT) MCH 28.2 pg 27.0-3 3.0 normal Not Available [facility] [address] [place], [address], 06/28/2024 13:16:04 02/04/20 24 02/17/2024 CBC (INCL UDES DIFF/ PLT) MCHC 32.4 g/dL 32.0-3 6.0 normal Not Available [facility] [address] [place], [address], 06/28/2024 13:16:04 02/04/20 24 02/17/2024 CBC (INCL UDES DIFF/ PLT) RDW 12.7 % 11.0-1 5.0 normal Not Available [facility] [address] [place], [address], 06/28/2024 13:16:04 02/04/20 24 02/17/2024 CBC (INCL UDES DIFF/ PLT) platelet count 229 thous and/u L 140-40 0 normal Not Available [facility] [address] [place], [address], 06/28/2024 13:16:04 02/04/20 24 02/17/2024 CBC (INCL UDES DIFF/ PLT) MPV 11.4 fL 7.5-12 .5 normal Not Available [facility] [address] [place], [address], 06/28/2024 13:16:04 02/04/20 24 02/17/2024 CBC (INCL UDES DIFF/ PLT) absolute neutrophils 2691 cells /uL 1500-7 800 normal Not Available [facility] [address] [place], [address], 06/28/2024 13:16:04 02/04/20 24 02/17/2024 CBC (INCL UDES DIFF/ PLT) absolute lymphocytes 1260 cells /uL 850-39 00 normal Not Available [facility] - [address], [address], 06/28/2024 13:16:04 02/04/20 24 02/17/2024 CBC (INCL UDES DIFF/ PLT) absolute monocytes 378 cells /uL 200-95 0 normal Not Available [facility] [address], [address], 06/28/2024 13:16:04 02/04/20 24 02/17/2024 CBC (INCL UDES DIFF/ PLT) absolute eosinophils 140 cells /uL 15-500 normal Not Available [facility] [address], [address], 06/28/2024 13:16:04 02/04/20 24 02/17/2024 CBC (INCL UDES DIFF/ PLT) absolute basophils 32 cells /uL 0-200 normal Not Available [facility] [address], [address], 06/28/2024 13:16:04 02/04/20 24 02/17/2024 CBC (INCL UDES DIFF/ PLT) neutrophils 59.8 % normal Not Available [facility] [address], [address], 06/28/2024 13:16:04 02/04/20 24 02/17/2024 CBC (INCL UDES DIFF/ PLT) lymphocytes 28.0 % normal Not Available [facility] [address], [address], 06/28/2024 13:16:04 02/04/20 24 02/17/2024 CBC (INCL UDES DIFF/ PLT) monocytes 8.4 % normal Not Available [facility] [address], [address], 06/28/2024 13:16:04 02/04/20 24 02/17/2024 CBC (INCL UDES DIFF/ PLT) eosinophils 3.1 % normal Not Available [address], [address], 06/28/2024 13:16:04 02/04/20 24 02/17/2024 CBC (INCL UDES DIFF/ PLT) basophils 0.7 % normal Not Available [address], [address], 06/28/2024 13:16:04 02/04/20 24 02/17/2024 FABIAN TIN ferritin 99 NG/mL 16-232 normal Not Available [address], [address], 06/28/2024 13:16:04 02/04/20 24 02/17/2024 TSH TSH 1.31 mIU/L 0.40-4 .50 normal Not Available [address], [address], 06/28/2024 13:16:05 02/04/20 24 02/17/2024 PROTE IN, TOTAL W/CRE AT, RANDO M URINE creatinine, random urine 187 mg/dL 20-275 normal Not Available [facility] [address] [place] [address], [address], 06/28/2024 13:16:05 02/04/20 24 02/17/2024 PROTE IN, TOTAL W/CRE AT, RANDO M URINE protein/crea tinine ratio 53 mg/g_ creat 24-184 normal Not Available [address], [address], 06/28/2024 13:16:05 02/04/20 24 02/17/2024 PROTE IN, TOTAL W/CRE AT, RANDO M URINE protein/crea tinine ratio 0.053 mg/mg _crea t 0.024- 0.184 normal Not Available [facility] [address] [place] [address], [address], 06/28/2024 13:16:05 02/04/20 24 02/17/2024 PROTE IN, TOTAL W/CRE AT, RANDO M URINE protein, total, random ur 10 mg/dL 5-24 normal Not Available [facility] - [address], [place], [address], 06/28/2024 13:16:05 05/18/20 24 05/19/2024 LIPID PANEL , STAND APOLONIA cholesterol, total 239 mg/dL <200 high Not Available [facility] - [address], [place], [address], 06/28/2024 13:15:57 05/18/20 24 05/19/2024 LIPID PANEL , STAND APOLONIA HDL cholesterol 75 mg/dL > or = 50 normal Not Available [facility] - [address], [place], [address], 06/28/2024 13:15:57 05/18/20 24 05/19/2024 LIPID PANEL , STAND APOLONIA triglyceride s 83 mg/dL <150 normal Not Available [facility] [address], [address], 06/28/2024 13:15:57 05/18/20 24 05/19/2024 LIPID PANEL [...] lated using the Stephanie n-Hop kins calcu lattaylor n, which is a valid ated novel metho d provi tito araujote r accur acy than the Fried layla equat ion in the estim ation of LDL-C . Stephanie n SS et al. ANNETTE. 2013; 310(5 6): 2061- 2068 (http ://ed chapoati on.Cinexio Carisa nap- Naturally Attached Parents. immoture.be/f aq/FA Q164) Not Available [facility] [address], [place], [address], 06/28/2024 13:15:57 05/18/20 24 05/19/2024 LIPID PANEL , STAND APOLONIA chol/HDLC ratio 3.2 (calc ) <5.0 normal Not Available [facility] [address] [place] [address], [place], [address], 06/28/2024 13:15:57 05/18/20 24 05/19/2024 LIPID PANEL , STAND APOLONIA non HDL cholesterol 164 mg/dL _(navjot c) <130 high For patie nts with diabe piero plus 1 major ASCVD risk facto r, treat ing to a non-H DL-C goal of <100 mg/dL (LDL- C of <70 mg/dL ) is consi dered a thera pemichael c optio n. Not Available [facility] [address], [place], [address], 06/28/2024 13:15:57 05/18/20 24 05/19/2024 MAGNE SIUM magnesium 2.2 mg/dL 1.5-2. 5 normal Not Available [facility] [address] [place] [address], [place], [address], 06/28/2024 13:15:58 05/18/20 24 05/19/2024 COMPR EHENS CHRISTINE METAB OLIC PANEL glucose 79 mg/dL 65-99 normal Fasti ng refer ence inter eloy Not Available [facility] [address] [place] [address], [place], [address], 06/28/2024 13:15:59 05/18/20 24 05/19/2024 COMPR EHENS CHRISTINE METAB OLIC PANEL urea nitrogen (BUN) 22 mg/dL 7-25 normal Not Available [facility] [address] [place] [address], [address], 06/28/2024 13:15:59 05/18/20 24 05/19/2024 COMPR EHENS CHRISTINE METAB OLIC PANEL creatinine 1.19 mg/dL 0.50-1 .03 high Not Available [address] [place], [address], 06/28/2024 13:15:59 05/18/20 24 05/19/2024 COMPR EHENS CHRISTINE METAB OLIC PANEL eGFR 53 mL/mi n/1.7 3m2 > or = 60 low Not Available [address], [address], 06/28/2024 13:15:59 05/18/20 24 05/19/2024 COMPR EHENS CHRISTINE METAB OLIC PANEL BUN/creatini ne ratio 18 (calc ) 6-22 normal Not Available [facility] [address] [place] [address], [address], 06/28/2024 13:15:59 05/18/20 24 05/19/2024 COMPR EHENS CHRISTINE METAB OLIC PANEL sodium 141 mmol/ L 135-14 6 normal Not Available [facility] [address] [place] [address], [address], 06/28/2024 13:15:59 05/18/20 24 05/19/2024 COMPR EHENS CHRISTINE METAB OLIC PANEL potassium 4.4 mmol/ L 3.5-5. 3 normal Not Available [facility] [address] [place] [address], [address], 06/28/2024 13:15:59 05/18/20 24 05/19/2024 COMPR EHENS CHRISTINE METAB OLIC PANEL chloride 104 mmol/ L 98-110 normal Not Available [facility] [address] [place] [address], [address], 06/28/2024 13:15:59 05/18/20 24 05/19/2024 COMPR EHENS CHRISTINE METAB OLIC PANEL carbon dioxide 27 mmol/ L 20-32 normal Not Available [facility] [address] [place] [address], [address], 06/28/2024 13:15:59 05/18/20 24 05/19/2024 COMPR EHENS CHRISTINE METAB OLIC PANEL calcium 9.5 mg/dL 8.6-10 .4 normal Not Available [facility] [address] [place] [address], [address], 06/28/2024 13:15:59 05/18/20 24 05/19/2024 COMPR EHENS CHRISTINE METAB OLIC PANEL protein, total 6.8 g/dL 6.1-8. 1 normal Not Available [facility] [address] [place] [address], [address], 06/28/2024 13:15:59 05/18/20 24 05/19/2024 COMPR EHENS CHRISTINE METAB OLIC PANEL albumin 4.1 g/dL 3.6-5. 1 normal Not Available [facility] [address] [place] [address], [address], 06/28/2024 13:15:59 05/18/20 24 05/19/2024 COMPR EHENS CHRISTINE METAB OLIC PANEL globulin 2.7 g/dL_ (calc ) 1.9-3. 7 normal Not Available [facility] [address] [place] [address], [address], 06/28/2024 13:15:59 05/18/20 24 05/19/2024 COMPR EHENS CHRISTINE METAB OLIC PANEL albumin/glob ulin ratio 1.5 (calc ) 1.0-2. 5 normal Not Available [facility] [address] [place] [address], [address], 06/28/2024 13:15:59 05/18/20 24 05/19/2024 COMPR EHENS CHRISTINE METAB OLIC PANEL bilirubin, total 0.7 mg/dL 0.2-1. 2 normal Not Available [facility] [address] [place] [address], [address], 06/28/2024 13:15:59 05/18/20 24 05/19/2024 COMPR EHENS CHRISTINE METAB OLIC PANEL alkaline phosphatase 92 U/L 37-153 normal Not Available [facility] [address] [place] [address], [address], 06/28/2024 13:15:59 05/18/20 24 05/19/2024 COMPR EHENS CHRISTINE METAB OLIC PANEL AST 19 U/L 10-35 normal Not Available [facility] [address] [place] [address], [address], 06/28/2024 13:15:59 05/18/20 24 05/19/2024 COMPR EHENS CHRISTINE METAB OLIC PANEL ALT 15 U/L 6-29 normal Not Available [facility] [address] [place] [address], [address], 06/28/2024 13:15:59 05/18/20 24 05/19/2024 CBC (INCL UDES DIFF/ PLT) white blood cell count 4.9 thous and/u L 3.8-10 .8 normal Not Available [facility] [address] [place] [address], [address], 06/28/2024 13:15:59 05/18/20 24 05/19/2024 CBC (INCL UDES DIFF/ PLT) red blood cell count 5.47 adelina on/uL 3.80-5 .10 high Not Available [facility] [address] [place] [address], [id number], 06/28/2024 13:15:59 05/18/20 24 05/19/2024 CBC (INCL UDES DIFF/ PLT) hemoglobin 15.2 g/dL 11.7-1 5.5 normal Not Available [facility] [address], [id number], 06/28/2024 13:15:59 05/18/20 24 05/19/2024 CBC (INCL UDES DIFF/ PLT) hematocrit 46.3 % 35.0-4 5.0 high Not Available [facility] [address], [id number], 06/28/2024 13:15:59 05/18/20 24 05/19/2024 CBC (INCL UDES DIFF/ PLT) MCV 84.6 fL 80.0-1 00.0 normal Not Available [facility] [address], [id number], 06/28/2024 13:15:59 05/18/20 24 05/19/2024 CBC (INCL UDES DIFF/ PLT) MCH 27.8 pg 27.0-3 3.0 normal Not Available [facility] [address], [id number], 06/28/2024 13:15:59 05/18/20 24 05/19/2024 CBC (INCL UDES DIFF/ PLT) MCHC 32.8 g/dL 32.0-3 6.0 normal For adult s, a sligh t decre ase in the calcu lated MCHC value (in the range of 30 to 32 g/dL) is most likel y not clini magdalena signi zachary t; brigitte er, it shoul d be inter prete d with cauti on in [facility] [place] n with other red cell sonia eters and the patie nt's clini navjot condi tion. Not Available [facility] [address], [id number], 06/28/2024 13:15:59 05/18/20 24 05/19/2024 CBC (INCL UDES DIFF/ PLT) RDW 12.8 % 11.0-1 5.0 normal Not Available [facility] [address], [id number], 06/28/2024 13:15:59 05/18/20 24 05/19/2024 CBC (INCL UDES DIFF/ PLT) platelet count 235 thous and/u L 140-40 0 normal Not Available [facility] [address] [place], [address], 06/28/2024 13:15:59 05/18/20 24 05/19/2024 CBC (INCL UDES DIFF/ PLT) MPV 12.1 fL 7.5-12 .5 normal Not Available [facility] [address] [place], [address], 06/28/2024 13:15:59 05/18/20 24 05/19/2024 CBC (INCL UDES DIFF/ PLT) absolute neutrophils 2925 cells /uL 1500-7 800 normal Not Available [facility] [address], [address], 06/28/2024 13:15:59 05/18/20 24 05/19/2024 CBC (INCL UDES DIFF/ PLT) absolute lymphocytes 1446 cells /uL 850-39 00 normal Not Available [facility] [address], [address], 06/28/2024 13:15:59 05/18/20 24 05/19/2024 CBC (INCL UDES DIFF/ PLT) absolute monocytes 392 cells /uL 200-95 0 normal Not Available [facility] [address], [address], 06/28/2024 13:15:59 05/18/20 24 05/19/2024 CBC (INCL UDES DIFF/ PLT) absolute eosinophils 88 cells /uL 15-500 normal Not Available [facility] [address], [address], 06/28/2024 13:15:59 05/18/20 24 05/19/2024 CBC (INCL UDES DIFF/ PLT) absolute basophils 49 cells /uL 0-200 normal Not Available [facility] - [address], [address], 06/28/2024 13:15:59 05/18/20 24 05/19/2024 CBC (INCL UDES DIFF/ PLT) neutrophils 59.7 % normal Not Available [facility] - [address], [address], 06/28/2024 13:15:59 05/18/20 24 05/19/2024 CBC (INCL UDES DIFF/ PLT) lymphocytes 29.5 % normal Not Available [facility] - [address], [address], 06/28/2024 13:15:59 05/18/20 24 05/19/2024 CBC (INCL UDES DIFF/ PLT) monocytes 8.0 % normal Not Available [facility] - [address], [address], 06/28/2024 13:15:59 05/18/20 24 05/19/2024 CBC (INCL UDES DIFF/ PLT) eosinophils 1.8 % normal Not Available [facility] - [address], [address], 06/28/2024 13:15:59 05/18/20 24 05/19/2024 CBC (INCL UDES DIFF/ PLT) basophils 1.0 % normal Not Available [facility] - [address], [address], 06/28/2024 13:15:59 05/18/20 24 05/19/2024 VITAM IN [...] /MS is recom vernon d: order code 12500 (patrick ents >2yrs ). Not Available [address] [place], [address], 06/28/2024 13:16:00 05/18/20 24 05/19/2024 VITAM IN D,25- OH,TO XIAO,I A comment See Note 1 Note 1 For addit ional infor hilda bunn refer to http: //daija Copelandia gnost ics.c om/fa q/FAQ 199 (This link is being provi ded for infor cynthia nogurea/ educstanley valenzuela purpo ses only. ) Not Available [facility] [address] [place] [address], [address], 06/28/2024 13:16:00 05/18/20 24 05/20/2024 CREAT ININE creatinine 1.17 mg/dL 0.50-1 .03 high Not Available [address], [address], 06/28/2024 13:16:02 05/18/20 24 05/20/2024 CREAT ININE eGFR 54 mL/mi n/1.7 3m2 > or = 60 low Not Available [address], [address], 06/28/2024 13:16:02 05/18/20 24 05/20/2024 HEPAT IC FUNCT ION PANEL protein, total 6.8 g/dL 6.1-8. 1 normal Not Available [address], [address], 06/28/2024 13:16:03 05/18/20 24 05/20/2024 HEPAT IC FUNCT ION PANEL albumin 4.1 g/dL 3.6-5. 1 normal Not Available [facility] [address] [place] [address] [place], [address], 06/28/2024 13:16:03 05/18/20 24 05/20/2024 HEPAT IC FUNCT ION PANEL globulin 2.7 g/dL_ (calc ) 1.9-3. 7 normal Not Available [address] [place], [address], 06/28/2024 13:16:03 05/18/20 24 05/20/2024 HEPAT IC FUNCT ION PANEL albumin/glob ulin ratio 1.5 (calc ) 1.0-2. 5 normal Not Available [address] [place], [address], 06/28/2024 13:16:03 05/18/20 24 05/20/2024 HEPAT IC FUNCT ION PANEL bilirubin, total 0.7 mg/dL 0.2-1. 2 normal Not Available [facility] [address] [place] [address] [place], [address], 06/28/2024 13:16:03 05/18/20 24 05/20/2024 HEPAT IC FUNCT ION PANEL bilirubin, direct 0.1 mg/dL < or = 0.2 normal Not Available [address] [place], [address], 06/28/2024 13:16:03 05/18/20 24 05/20/2024 HEPAT IC FUNCT ION PANEL bilirubin, indirect 0.6 mg/dL _(navjot c) 0.2-1. 2 normal Not Available [address] [place], [address], 06/28/2024 13:16:03 05/18/20 24 05/20/2024 HEPAT IC FUNCT ION PANEL alkaline phosphatase 92 U/L 37-153 normal Not Available [facility] [address] [place] [address], [address], 06/28/2024 13:16:03 05/18/20 24 05/20/2024 HEPAT IC FUNCT ION PANEL AST 19 U/L 10-35 normal Not Available [address], [address], 06/28/2024 13:16:03 05/18/20 24 05/20/2024 HEPAT IC FUNCT ION PANEL ALT 14 U/L 6-29 normal Not Available [address], [address], 06/28/2024 13:16:03 05/18/20 24 05/20/2024 SED RATE BY MODIF IED WESTE NATALIOREN sed rate by modified jaimeren 6 mm/h < or = 30 normal Not Available [address], [address], 06/28/2024 13:16:04 05/18/20 24 05/20/2024 CBC (INCL UDES DIFF/ PLT) white blood cell count 4.8 thous and/u L 3.8-10 .8 normal Not Available [address], [address], 06/28/2024 13:16:04 05/18/20 24 05/20/2024 CBC (INCL UDES DIFF/ PLT) red blood cell count 5.45 adelina on/uL 3.80-5 .10 high Not Available [facility] [address], [address], 06/28/2024 13:16:04 05/18/20 24 05/20/2024 CBC (INCL UDES DIFF/ PLT) hemoglobin 15.1 g/dL 11.7-1 5.5 normal Not Available [facility] [address], [address], 06/28/2024 13:16:04 05/18/20 24 05/20/2024 CBC (INCL UDES DIFF/ PLT) hematocrit 46.3 % 35.0-4 5.0 high Not Available [facility] [address] [facility], [place], [address], 06/28/2024 13:16:04 05/18/20 24 05/20/2024 CBC (INCL UDES DIFF/ PLT) MCV 85.0 fL 80.0-1 00.0 normal Not Available [facility] - [address] [place], [address], 06/28/2024 13:16:04 05/18/20 24 05/20/2024 CBC (INCL UDES DIFF/ PLT) MCH 27.7 pg 27.0-3 3.0 normal Not Available [facility] [address] [place], [address], 06/28/2024 13:16:04 05/18/20 24 05/20/2024 CBC (INCL [...] navjot condi tion. Not Available [facility] [address] [facility], [place], [address], 06/28/2024 13:16:04 05/18/20 24 05/20/2024 CBC (INCL UDES DIFF/ PLT) RDW 13.1 % 11.0-1 5.0 normal Not Available [facility] [place] [id number] [place], [address], 06/28/2024 13:16:04 05/18/20 24 05/20/2024 CBC (INCL UDES DIFF/ PLT) platelet count 230 thous and/u L 140-40 0 normal Not Available [facility] [address] [place], [address], 06/28/2024 13:16:04 05/18/20 24 05/20/2024 CBC (INCL UDES DIFF/ PLT) MPV 12.0 fL 7.5-12 .5 normal Not Available [facility] [address] [place], [address], 06/28/2024 13:16:04 05/18/2005/20/2024 CBC (INCL UDES DIFF/ PLT) absolute neutrophils 2870 cells /uL 1500-7 800 normal Not Available [facility] [address], [address], 06/28/2024 13:16:04 05/18/20 24 05/20/2024 CBC (INCL UDES DIFF/ PLT) absolute lymphocytes 1368 cells /uL 850-39 00 normal Not Available [address] [place], [address], 06/28/2024 13:16:04 05/18/20 24 05/20/2024 CBC (INCL UDES DIFF/ PLT) absolute monocytes 413 cells /uL 200-95 0 normal Not Available [address], [address], 06/28/2024 13:16:04 05/18/20 24 05/20/2024 CBC (INCL UDES DIFF/ PLT) absolute eosinophils 101 cells /uL 15-500 normal Not Available [facility] [address], [address], 06/28/2024 13:16:04 05/18/20 24 05/20/2024 CBC (INCL UDES DIFF/ PLT) absolute basophils 48 cells /uL 0-200 normal Not Available [facility] [address] [place] [address], [address], 06/28/2024 13:16:04 05/18/20 24 05/20/2024 CBC (INCL UDES DIFF/ PLT) neutrophils 59.8 % normal Not Available [facility] - [address], [address], 06/28/2024 13:16:04 05/18/20 24 05/20/2024 CBC (INCL UDES DIFF/ PLT) lymphocytes 28.5 % normal Not Available [facility] - [address], [address], 06/28/2024 13:16:04 05/18/20 24 05/20/2024 CBC (INCL UDES DIFF/ PLT) monocytes 8.6 % normal Not Available [facility] - [address], [address], 06/28/2024 13:16:04 05/18/20 24 05/20/2024 CBC (INCL UDES DIFF/ PLT) eosinophils 2.1 % normal Not Available [facility] [address] [place] [address], [address], 06/28/2024 13:16:04 05/18/20 24 05/20/2024 CBC (INCL UDES DIFF/ PLT) basophils 1.0 % normal Not Available [facility] - [address], [address], 06/28/2024 13:16:04 05/18/20 24 05/20/2024 HS CRP hs CRP 1.2 mg/L normal Refer ence Range Optim al <1.0 Ramirez nicholson PS et al. Endoc r Pract .2017 ;23(S uppl 2):1- 87. For ages >17 Years : hs-CR P mg/L Risk Accor ding to AHA/C DC Guide lines <1.0 Lower relat christine cardi ovasc ular risk. 1.0-3 .0 [place] ge relat christine cardi ovasc ular risk. [...] Pears on TA, Mensa h [place], Cate santacruzr RW, et al. Marke rs of infla mmati on and cardi ovasc ular disea se: appli catio n to clini navjot and publi c healt h pract ice: A state ment for healt hcare profe ssion als from the [facility] rs for Disea se Contr ol and Preve ntion and the Ameri can Heart Assoc iatio n. Circu latio n 2003; 107(3 ): 499-5 11. Not Available [facility] - [address], [address], 06/28/2024 13:16:05 05/18/20 24 05/20/2024 QUANT IFERO N(R)- TB GOLD PLUS, 1 TUBE quantiferon( R)-TB gold plus, 1 tube NEGATI VE negati ve normal Negat christine test resul t. M. tuber culos is compl ex infec tion unlik christina. Not Available [facility] - [address], [address], 06/28/2024 13:16:06 05/18/20 24 05/20/2024 QUANT IFERO N(R)- TB GOLD PLUS, 1 TUBE nil 0.31 IU/mL normal Not Available [facility] - [address], [address], 06/28/2024 13:16:06 05/18/20 24 05/20/2024 QUANT IFERO N(R)- TB GOLD PLUS, 1 TUBE mitogen-nil 7.84 IU/mL normal Not Available [facility] [address] [place], [address], 06/28/2024 13:16:06 05/18/20 24 05/20/2024 QUANT IFERO N(R)- TB GOLD PLUS, 1 TUBE TB1-nil 0.21 IU/mL normal Not Available [facility] [place] [id number] [place], [address], 06/28/2024 13:16:06 05/18/20 24 05/20/2024 QUANT IFERO [...] T-lym phocy piero. For addit ional infor hilda bunn e refer to https ://armand kate on.qu carisa nap- Naturally Attached Parents. immoture.be/f aq/FA Q204 (This link is being provi ded for infor cynthia noguera/ educa josé miguel l purpo ses only. ) Not Available [facility] - [place] [id number] [place], [address], 06/28/2024 13:16:06 Result Notes None recorded. Problems Name Problem SNOMED Code Status Onset Date Resolution Date Notes Provider Name and Address Organization Details Recorded Time Obesity 510609084 Active 2023 Brenda Banks jake, [facility]. - [facility] 4 11:31:07 Hyperlipidemia 81573500 Active 2023 EARLINE PATTERSON, [address], [place], [address], [facility]. - [facility] 4 12:54:36 Anxiety 03318392 Active 2023 EARLINE PATTERSON, [address], [place], [address], [facility]. - [facility] 4 12:54:39 Migraine 53332961 Active 2023 EARLINE PATTERSON, [address], [place], [address], [facility]. - [facility] 4 12:54:42 Gastroesophage al reflux disease without esophagitis 050933145 Active 2023 EARLINE PATTERSON, [address], [place], [address], [facility]. - [facility] 4 12:55:00 Essential hypertension 82736169 Active 2023 EARLINE PATTERSON, [address], [place], [address], [facility]. - [facility] 4 12:55:02 Snoring 09814721 Active 2023 EARLINE PATTERSON, [address], [place], [address], [facility]. - [facility] 4 12:57:37 Rheumatoid arthritis 64133720 Active 2023 EARLINE PATTERSON, [address], [place], [address], [facility]. - [facility] 4 13:02:51 Obese class III 205477969 Active 2023 WAQAS BARNETT, RDN [address] [facility],[address], [place], [address], [facility]. - [facility] 4 10:57:34 Chronic kidney disease stage 3A 079268102 Active 2024 EARLINE YESENIA, [employer]RO[employer] SOFTWARE ENGINEER [address] [facility],[address], [place], [address], [facility] [place] [facility]. - [facility] 5 12:50:15 Endocrine/meta bolic screening Active 2024 Estefania El [facility] - [facility] 5 13:54:09 Problem Notes None recorded. Medical Equipment None Reported. Allergies Allergen ID Allergen Name Allergen Category Reaction Reaction Severity Criticality Documentation Date Start Date Code Code System Note Provider Name and Address Organization Details Recorded Time 3554 morphine medicatio n Not available Not available Not available 08/31/2023 7052 RxNorm [facility] - [facility] 4 10:36:34 3555 Substance with sulfonami de structure and antibacte rial mechanism of action (substanc e) medicatio n Not available Not available Not available 08/31/2023 73776 8003 SNOMED [facility] - [facility] 4 10:36:46 Medications Name Sig Start Date [...] Address Organization Details Last Updated DateTime 11/29/2023 81533.172170 9 g 162.56 cm Not Available [facility] [place] [facility] 11/29/2023 09:53:12 Date Recorded Body height Body mass index (BMI) Body weight Provider Name and Address Organization Details Last Updated DateTime 01/13/2024 162.56 cm 36.9 kg/m2 53167.36 g SUDHIR AMBROSIO, RD [address] [place] [address],[address], [place], [address], [facility] [employer]. - [facility] 01/13/2024 14:39:14 Date Recorded Body weight Body height Provider Name and Address Organization Details Last Updated DateTime 01/17/2024 53763.245962 7 g 162.56 cm Not Available [facility] 01/17/2024 08:58:16 Date Recorded Body height Body mass index (BMI) Body weight Provider Name and Address Organization Details Last Updated DateTime 02/22/2024 162.56 cm 36.9 kg/m2 85260.36 g EARLINE PATTERSON, ANDROID SOFTWARE ENGINEER [address] [facility],[address], [place], [address], [place] [employer] [facility]. - [facility] 02/22/2024 10:54:54 Date Recorded Body height Body mass index (BMI) Body weight Provider Name and Address Organization Details Last Updated DateTime 04/20/2024 162.56 cm 36.9 kg/m2 11977.36 g SUDHIR AMBROSIO, RD [address] [facility],[address], [place], [address], [place] [employer] [facility]. - [facility] 04/20/2024 19:59:47 Date Recorded Body height Body mass index (BMI) Body weight Provider Name and Address Organization Details Last Updated DateTime 06/28/2024 162.56 cm 37.9 kg/m2 627251.91 g EARLINE PATTERSON, ANDROID SOFTWARE ENGINEER [address] [facility],[address], [place], [address], [place] [employer]. - [facility] 06/28/2024 12:31:25 Date Recorded Body weight Body height Body mass index (BMI) Provider Name and Address Organization Details Last Updated DateTime 06/28/2024 679959.4816 7 g 162.56 cm 37.9 kg/m2 Not Available [facility] 06/28/2024 12:33:23 Date Recorded Body height Body mass index (BMI) Body weight Provider Name and Address Organization Details Last Updated DateTime 09/24/2023 162.56 cm 37.1 kg/m2 56349.95 g WAQAS BARNETT, RDN [address] [facility],[address], [place], [address], [place] [employer]. - [facility] 09/24/2023 12:33:32 Date Recorded Body weight Body height Provider Name and Address Organization Details Last Updated DateTime 09/26/2023 83564.956552 5 g 162.56 cm Not Available [facility] 09/26/2023 08:48:08 Date Recorded Body weight Body height Provider Name and Address Organization Details Last Updated DateTime 09/27/2023 87555.012876 2 g 162.56 cm Not Available [facility] 09/27/2023 09:03:11 Date Recorded Body weight Body height Provider Name and Address Organization Details Last Updated DateTime 10/07/2023 95725.124328 1 g 162.56 cm Not Available [facility] 10/07/2023 06:08:19 Date Recorded Body weight Body height Provider Name and Address Organization Details Last Updated DateTime 10/10/2023 85259.063080 g 162.56 cm Not Available [facility] [place] [facility] 10/10/2023 08:28:09 Date Recorded Body weight Body height Provider Name and Address Organization Details Last Updated DateTime 10/18/2023 92276.843448 6 g 162.56 cm Not Available [facility] [place] [facility] 10/18/2023 08:03:15 Date Recorded Body weight Body height Provider Name and Address Organization Details Last Updated DateTime 10/24/2023 75828.460525 8 g 162.56 cm Not Available [employer] 10/24/2023 08:43:15 Date Recorded Body weight Body height Provider Name and Address Organization Details Last Updated DateTime 11/01/2023 52646.393151 9 g 162.56 cm Not Available [employer] 11/01/2023 08:58:13 Date Recorded Body weight Body height Provider Name and Address Organization Details Last Updated DateTime 11/02/2023 10812.088714 2 g 162.56 cm Not Available [employer] [facility] [place] [facility] 11/02/2023 09:03:13 Date Recorded Body weight Body height Provider Name and Address Organization Details Last Updated DateTime 11/08/2023 76458.256730 4 g 162.56 cm Not Available [employer] 11/08/2023 08:38:13 Date Recorded Body weight Body height Body weight Body height Provider Name and Address Organization Details Last Updated DateTime 11/15/2023 75850.774 5278 g 162.56 cm 51005.774 5278 g 162.56 cm Not Available [facility] 11/15/2023 07:03:28 Social History None recorded. Functional Status None recorded. Mental Status None recorded. Family History Nothing Reported. Medical History No medical history recorded. Gynecological HistoryNo gynecological history recorded. Obstetrics History GPAL:G 0 P 0 0 0 0 Past Encounters Encounter ID Performer Location Encounter Start Date Encounter Closed Date Diagnosis/Indication Diagnosis SNOMED-CT Code Diagnosis ICD10 Code Diagnosis Note [id number] EARLINE RIZVIORMARGOT [address] [address] 09/01/2023 12:52:20 09/04/2023 03:56:22 Obesity 723645965 E66.9 --Reviewed basic physiology of weight regulation [...] Will update me after the visit. Hyperlipidemia 41337388 E78.5 --Monitor lipids with weight loss and dietary/li festyle modificati on Anxiety 91128187 F41.9 --pt continues to work with her therapist as she is still grieving the loss of her (plus multiple other losses in a short time frame)--llamas sn't tolerated meds well in the past Migraine 33210651 G43.90 9 --Review medication s associated with weight gain, counseled on alternativ es to be discussed with prescribin g provider.- -Consider topiramate or Qsymia (phentermi ne-topiram ate ER)--Pt unsure if she wants to pursue medication s for weight loss at the moment as she has had some success on her own. Reviewed options including Topiramate and she is seeing her neurologis t tomorrow and will discuss. Will update me after the visit. Gastroesop hageal reflux disease without esophagitis 799229919 K21.9 --Reviewed common food triggers, keeping a symptom journal, elevation of the head of the bed, stop eating a few hours before bedtime--M onitor symptoms with weight losssonogr am and referral to GI/Hepatol ogy--Reduc e/disconti nue alcohol intake Snoring 91808039 R06.83 Snoring- @STOP-BANG score 09/12 --Reviewed physiology of HUGO and health risks associated with untreated sleep apnea --Discuss with PCP regarding: Refer to sleep medicine specialist --Reviewed current treatment modality (CPAP, BIPAP, hypoglossa l nerve stimulator , mandibular advancemen t device, positional therapy) --May require adjustment /optimizat ion if apnea symptoms persistent or with significan t weight loss Rheumatoid arthritis 698 [address] M06.9 --follows with her rheumatolo gist regularly in [place]--co ntinue current regimen [id number] WAQAS BARNETT RDN [address] [address] 09/24/2023 11:57:54 09/27/2023 03:58:50 Essential hypertension 04763933 I10 Gastroesop hageal reflux disease without esophagitis 103541544 K21.9 Hyperlipidemia 90797196 E78.5 Rheumatoid arthritis [facility] [address] M06.9 Obese class III 56399599 5 E66.[id number] [address] 01/13/2024 13:30:25 01/16/2024 04:02:08 Obesity 974501625 E66.9 Hyperlipidemia 15776174 E78.5 Rheumatoid arthritis 698 34263 M06.9 [id number] EARLINE RIZVIOR, MARGOT [address] [address] 02/22/2024 11:28:49 02/26/2024 04:05:03 Obesity 915193605 E66.9 --as above The patient presents for follow up today. It has been 5 months since their last visit for weight loss management . They have been taking Topiramate (only started last week after speaking with her neurologis silvano) and reports no side effects at this [...] is comfortabl e with this plan. Hyperlipidemia 55914929 E78.5 --Monitor lipids with weight loss and dietary/li festyle modificati on Anxiety 79763007 F41.9 --pt continues to work with her therapist as she is still grieving the loss of her (plus multiple other losses in a short time frame)--llamas sn't tolerated meds well in the past Migraine 38845089 G43.90 9 --success on Topiramate at this time!--Rev iew medication s associated with weight gain, counseled on alternativ es to be discussed with prescribin g provider. Gastroesop hageal reflux disease without esophagitis 104756650 K21.9 --Reviewed common food triggers, keeping a symptom journal, elevation of the head of the bed, stop eating a few hours before bedtime--M onitor symptoms with weight losssonogr am and referral to GI/Hepatol ogy--Reduc e/disconti nue alcohol intake Snoring 26742642 R06.83 Snoring- @STOP-BANG score 09/12 --Reviewed physiology of HUGO and health risks associated with untreated sleep apnea --Discuss with PCP regarding: Refer to sleep medicine specialist --Reviewed current treatment modality (CPAP, BIPAP, hypoglossa l nerve stimulator , mandibular advancemen t device, positional therapy) --May require adjustment /optimizat ion if apnea symptoms persistent or with significan t weight loss Rheumatoid arthritis 918 [address] M06.9 --follows with her rheumatolo gist regularly in [place]--co ntinue current regimen [id number] SUDHIR AMBROSIO, TODD [address] [address] 04/20/2024 19:24:56 04/23/2024 03:58:09 Obesity 782077909 E66.9 Hyperlipidemia 15480133 E78.5 Essential hypertension 42614329 I10 [id number] EARLINE YESENIAMARGOT [address] [address] 06/28/2024 12:28:33 07/01/2024 04:04:13 Obesity 346886548 E66.9 --as above Hyperlipidemia 05131198 E78.5 --Monitor lipids with weight loss and dietary/li festyle modificati on Anxiety 79592864 F41.9 --pt continues to work with her therapist as she is still grieving the loss of her (plus multiple other losses in a short time frame)--llamas sn't tolerated meds well in the past Migraine 29249639 G43.90 9 --stopped Topiramate due to side effects--R eview medication s associated with weight gain, counseled on alternativ es to be discussed with [facility] provider. Gastroesop hageal reflux disease without esophagitis 960870407 K21.9 --Reviewed common food triggers, keeping a symptom journal, elevation of the head of the bed, stop eating a few hours before bedtime--M onitor symptoms with weight losssonogr am and referral to GI/Hepatol ogy--Reduc e/disconti nue alcohol intake Snoring 35855129 R06.83 Snoring- @STOP-BANG score 09/12--Revie wed physiology of HUGO and health risks associated with untreated sleep apnea--Dis cuss with PCP regarding: Refer to sleep medicine specialist Rheumatoid arthritis 981 34536 M06.9 --follows with her rheumatolo gist regularly in [place]--co ntinue current regimen Chronic ki dney disease stage 3A 160014274 N18.31 --was told she has Stage 3 [...] management nutritional counseling as part of state [facility]. 58 yr old Female with class 3 Obesity, Acid Reflux, Anxiety, Asthma, High blood pressure, Migraines, Arthritis presents for evaluation. I have confirmed that the patient is physically located in the state of {{[place] [facility] [place]* [facility] [place] [facility] }}MANAGER ACTION visit notes: --Pt unsure if she wants to pursue medications for weight loss at the moment as she has had some success on her own. Reviewed options including Topiramate and she is seeing her neurologist tomorrow and will discuss. 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, harder for one person she feels.Gone to more vegetarian and seafood- Tries to follow plant based most of the time.Just came back from [place] with nieces in [place]- [address] for her niece, a lot of walking and sight seeing- and a lot bar hopping, did go to [facility].Before got sick they were both trying [...] almond milk, add some frozen fruit- hemp seeds/tfldryj19:30- a piece of fruit or protein barL: [...] activity -Discussed Activity - her niece is staff trainer- WAQAS BARNETT, CORINA [address] [facility],[address], [place], [address], [facility] [employer] [place] [facility] 09/24/2023 12:59:16 4 text/html Patient presents for weight management nutritional counseling -- 58 yr old Female with class 3 Obesity, Asthma, Acid Reflux, Anxiety, Arthritis, High blood pressure, Migraines HIPAA compliant synchronous video visitI have confirmed that the patient is physically located in the state of [facility] [place] }} VitalsHeight: 5'4 Weight:Highest weight/BMI: 238.0 lbs, [...] back from a week long vacation in [place]. Appetite:pt is focusing on fueling herself consistently [...] this a few times per week SUDHIR AMBRSOIO, RD [address] [facility],[address], [place], [address], [facility] - [employer] - [facility] 01/13/2024 14:41:09 4 text/html History of Present Illness:58 yr old Female with class 3 Obesity, Acid Reflux, Anxiety, Asthma, Migraines, Arthritis presents for evaluation.I have confirmed that the patient is physically located in the [place] of {{[place] [facility] [place]* [facility] [place] [facility] }} Visit{{DATE 02/22/2024}}Th e patient presents for [...] is physically located in the state of {{[place] [facility] [place]* [facility] [place] [facility] }} Referred ByPCP: Feliz Mederos AprnSUBSPECIALIST(S): specialists out of [place] (pin setter and cardiac technologist), also sees a dermatologistVITALSHeight: 5'4 Weight: 215lbsHighest [...] diet or exercise programPrevious diets: many diets: WW, Nusrat Sha, calorie counting, cabbage dietPrevious anti-obesity medications: nonePrevious [...] Pancreatitis, Kidney stones, and/or GlaucomaSOCIAL 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 Plaquenil-? Pepcid-? Isabella Allergy-? Nasonex-? Albuterol Sulfate-? METROGEL-? Clobetasol Propionate (emollient)-? TopicortSupplements:magnes ium infusion monthly, Vit D3 daily, medical marijuana prn pain, CBD dailyALLERGIESSulpha, Morphine SulfateLABS/IMAGINGLabs from were reviewed in detail today with the patient. EARLINE YESENIAMARGOT [address] [place] [address],[address]LO[address], [place], [address], [facility] - [place] [facility] 02/22/2024 11:48:50 4 text/html Patient presents for weight management nutritional counseling -- 58 yr old Female with class 3 Obesity, Asthma, Acid Reflux, Anxiety, Arthritis, High blood pressure, Migraines HIPAA compliant synchronous video visitI have confirmed that the patient is physically located in the state of {{[facility] [place] [facility] [place]* [facility] [place] [facility] aska [facility] [place] n [facility] Mary h [place] Nat[facility] }}Last RD VisitPlan/Goals:1. Continue to embrace fueling yourself and nourishing yourself through the day.2. Order of eating -- prioritize eating protein and vegetables first, carbohydrates last. VitalsHeight: Weight:Highest weight/BMI: 238.0 lbs, BMI 40.9, aseline weight/BMI: 215.0 lbs, BMI 36.9Lowest adult weight/BMI: 180.0 lbs, BMI 30.9, 1998Last weight/BMI: 215.5 lbs, BMI 37.0Total weight loss [...] skipped lunch due to being very busyD: ishiS: popcornBev: water, teaAlcohol: socially Physical Activity:Beachbody workouts-she really enjoys yoga, does this a few times per week-has also been incorporating walking since the weather has been nice -- finds her workouts helpful in stress management, trying to approach exercise as a form of medicine SUDHIR AMBROSIO, RD [address] [facility],[address], [place], [address], [facility] [employer] - [facility] 04/20/2024 20:03:05 text/html History of Present Illness:58 yr old Female with class 3 Obesity, Acid Reflux, Anxiety, Asthma, Migraines, Arthritis presents for evaluation.I have confirmed that the patient is physically located in the state of {{[facility] }} Visit{{DATE 06/28/2024}}Th e patient presents for follow up today. It has been 14 weeks since their last visit for weight loss management. Since that time they have stopped taking Topiramate due to side effects: difficulty getting out of bed, fatigue, etc. Sensitive to medications, notes ready to try an alternative. Notes her pin setter recently found renal function issues. Told she [...] the state of {{[place] [facility] [place]* [facility] [place] [facility] }} Visit{{DATE 02/22/2024}}Th e patient presents for [...] the state of {{[place] [facility] [place]* [facility] [facility] [place] [facility] }} Referred ByPCP: Feliz Mederos AprnSUBSPECIALIST(S): specialists out of [place] (pin setter and cardiac technologist), also sees a dermatologistVITALSHeight: 5'4 Weight: 215lbsHighest [...] diet or exercise programPrevious diets: many diets: WW, Nusrat Dalton, calorie counting, cabbage dietPrevious anti-obesity [...] Pancreatitis, Kidney stones, and/or GlaucomaSOCIAL HISTORYOccupation: executive chairman to First SelectmanMarital Status: (esophageal and stomach cancer)Children: noneAlcohol: Yes -socialInterested in drinking less: NoNicotine/Tobacco: NoRecreational drugs: medical marijuana, CBD dailyHistory of drug abuse/addiction: noneFAMILY HISTORYOverweight/Obesity: [id number], prediabetes, insulin resistance, PCOS: YesMEN2 or MTC: none knownMom: throat and mouth cancer (from smoking), diabetic, obesityDad: CVA following brain surgery (after trauma/fall), [place] age 93MEDICATIONSMedications:- ? Plaquenil-? Pepcid-? Isabella Allergy-? Nasonex-? Albuterol Sulfate-? METROGEL-? Clobetasol Propionate (emollient)-? TopicortSupplements:magnes ium infusion monthly, Vit D3 daily, medical marijuana prn pain, CBD dailyALLERGIESSulpha, Morphine SulfateLABS/IMAGINGLabs from were reviewed in detail today with the patient. EARLINE RIZVIOR, MARGOT [address] [place] [address],[address], [place], [address], [facility] [employer] - [facility] 06/28/2024 13:00:22 OBGyn Episode No OBEpisode recorded.
--- OUTSIDE RECORDS SUMMARY | 2024-08-31 17:55 | XMS_ITS | Encounter Summary ---
Author Organization [facility] Address [address] [place] [address] Care Team Providers Care Pony Ride Operator Name Role Phone Julien Mckeon APRN Unavailable [phone] Shari Maier MD Unavailable [phone] Wm Cantu MD Unavailable [phone] Elina Sanchez APRN Primary Care Provider [phone] Lexus Chen MD Unavailable [phone] Encounter Details Date Type Department Care Team (Late st Contact Info) Description 01/13/[address] [facility] Department of Internal Medicine [place] [address] [phone] Provider, Generic Social History Tobacco Use Types [...] Description 10/25/2024 9:30 AM EDT Office Visit [facility] of Internal Medicine [place] [address] [place] [phone] Elina Sanchez, TELEPHONE CLERK TELEGRAPH OFFICE 160 [place], [place] [address] documented as of this encounter Visit Diagnoses Not on filedocumented in this encounter Care Teams Pony Ride Operator Relationship Specialty Start Date End Date Elina Sanchez, TELEPHONE CLERK TELEGRAPH OFFICE 160 [place] [address] PCP - General Internal Medicine 07/06/23 Julien Mckeon APRN [address] [place] [address] Nurse Practitioner Neurology 05/12/23 Shari Maier MD [address] [place] [address] Consulting Provider Dermatology 05/12/23 Wm Cantu MD 9 [facility] 2nd [place] [address] Obstetrics and Gynecology 05/12/23 Lexus Chen MD [address] [place] [address] Rheumatology 05/24/24 documented as of this encounter
--- OUTSIDE RECORDS SUMMARY | 2024-08-31 17:55 | XMS_ITS | Encounter Summary ---
Author Organization [facility] Address [address] [place] [address] Care Team Providers Care Body Engineer Name Role Phone Julien Mckeon APRN Unavailable [phone] Shari Maier MD Unavailable [phone] Wm Cantu MD Unavailable [phone] Elina Sanchez BRICK CHIMNEY BUILDER Primary Care Provider [phone] Lexus Chen MD Unavailable [phone] Encounter Details Date Type Department Care Team (Late st Contact Info) Description 01/25/[address] [facility] Department of Internal Medicine [address] [phone] Elina Sanchez, MARGOT [address] [place] [address] Social History Tobacco Use Types Packs/Day [...] Visit [facility] Department of Internal Medicine [address] [place] [phone] Elina Sanchez APRN 160 [place] [address] documented as of this encounter Visit Diagnoses Not on filedocumented in this encounter Care Teams Body Engineer Relationship Specialty Start Date End Date Elina Sanchez APRN 160 [place], [place] [address] PCP - General Internal Medicine 07/06/23 Julien Mckeon APRN [address] [place] [address] Nurse Practitioner Neurology 05/12/23 Shari Maier MD [address] [place] [address] Consulting Provider Dermatology 05/12/23 Wm Cantu MD 9 [facility] 2nd [place] [address] Obstetrics and Gynecology 05/12/23 Lexus Chen MD [address] [place] [address] Rheumatology 05/24/24 documented as of this encounter
--- OUTSIDE RECORDS SUMMARY | 2024-08-31 17:55 | XMS_ITS | Encounter Summary ---
Author Organization [facility] Address [address] [place] [address] Care Team Providers Care Lining Feller Blindstitch Name Role Phone Julien Mckeon APRN Unavailable [phone] Shari Maier MD Unavailable [phone] Wm Cantu MD Unavailable [phone] Elina Sanchez APRN Primary Care Provider [phone] Lexus Chen MD Unavailable [phone] Encounter Details Date Type Department Care Team (Late st Contact Info) Description 08/16/2024 Orders Only [facility] [address] [facility] [place] [address] Gerardo Gonzalez MD 100 [facility] 200 [place] [address] Social History Tobacco Use Types Packs/Day Years [...] Description 10/25/2024 9:30 AM EDT Office Visit [facility] Department of Internal Medicine [address] [place] [phone] Elina Sanchez, UNDERWRITING CONSULTANT 160 [place] [address] documented as of this encounter Procedures Procedure Name Priority Date/Time Associated Diagnosis Comments US KIDNEY AND BLADDER Routine 08/16/2024 1:14 PM EDT documented in this encounter Results * US KIDNEY AND BLADDER (08/16/2024 [...] ??Darvin Cabrera MD ??08/16/2024 01:27 PM EDT Thank you for referring your patient to us, Darvin Cabrera MD [id number] (Electronically Signed - 08/16/2024 13:27) Copy: PATIENT [...] Cabrera MD 08/16/2024 01:27 PM EDT RPWorkstation: [id number] Thank you for referring your patient to us, Darvin Cabrera MD [id number] (Electronically Signed - 08/16/2024 13:27) Copy: PATIENT , Gerardo Gonzaelz MD IMG LEGACY PROCEDURE S documented in this encounter Visit Diagnoses Not on filedocumented in this encounter Care Teams Lining Feller Blindstitch Relationship Specialty Start Date End Date Elina Sanchez APRN [address] [place] [address] PCP - General Internal Medicine 07/06/23 Julien Mckeon APRN [address] [place] [address] Nurse Practitioner Neurology 05/12/23 Shari Maier MD [address] [place] [address] Consulting Provider Dermatology 05/12/23 Wm Cantu MD [address] [place] [address] Obstetrics and Gynecology 05/12/23 Lexus Chen MD [address] [place] [address] Rheumatology 05/24/24 documented as of this encounter
--- OUTSIDE RECORDS SUMMARY | 2024-08-31 17:55 | XMS_ITS | Encounter Summary ---
Author Organization [facility] Address 100 [place] [address] Care Team Providers Care Audio Visual Aids Director Name Role Phone Vik Brar MD Primary Care Provider [phone] Julien Mckeon CASE MANAGEMENT RN Unavailable Shari Maier MD Unavailable Wm Cantu MD Unavailable Elina Sanchez CASE MANAGEMENT RN Unavailable [phone] Elina Sanchez CASE MANAGEMENT RN Primary Care Provider Lexus Chen MD Unavailable [phone] Reason for Visit * Reason Comments Medication Refill Encounter Details Date Type Department Care Team (Late st Contact Info) Description 11/28/2021 [facility] [address] [place] [address] Griselda Lea PA Needs valid [...] 10/25/2024 9:30 AM EDT Office Visit [facility] Department of Internal Medicine [address] [place] [address] Elina Sanchez, CASE MANAGEMENT RN 160 [place], [place] [address]10[address] documented as of this encounter Visit Diagnoses Diagnosis Gastroesophageal reflux disease Esophageal reflux documented in this encounter Care Teams Audio Visual Aids Director Relationship Specialty Start Date End Date Vik Brar MD PCP - General Internal Medicine 08/11/16 07/04/23 Elina Sanchez APRN [address] [place] 932672 PCP - General Internal Medicine 07/06/23 Julien Mckeon APRN [address] [place] [address] Nurse Practitioner Neurology 05/12/23 Shari Maier MD [address] [place] [address] Consulting Provider Dermatology 05/12/23 Wm Cantu MD 9 [facility] 2nd [place] [address] Obstetrics and Gynecology 05/12/23 Elina Sanchez APRN [address] [place] [phone] Nurse Practitioner Internal Medicine 07/05/23 07/05/23 Lexus Chen MD [address] [place] [address] Rheumatology 05/24/24 documented as of this encounter
--- OUTSIDE RECORDS SUMMARY | 2024-08-31 17:55 | XMS_ITS | Encounter Summary ---
Author Organization [facility] Address [address] [place] [address] Care Team Providers Care Merchandise Team Manager Name Role Phone Julien Mckeon APRN Unavailable [phone] Shari Maier MD Unavailable [phone] Wm Cantu MD Unavailable [phone] Elina Sanchez DIRECTOR OF SEARCH ENGINE MARKETING Primary Care Provider Lexus Chen MD Unavailable [phone] Encounter Details Date Type Department Care Team (Late st Contact Info) Description 06/10/2024 Scanned Document [facility] Department of Internal Medicine [address] [phone] Elina Sanchez, MARGOT [address] [place] [address] Social History Tobacco Use Types Packs/Day [...] Description 10/25/2024 9:30 AM EDT Office Visit [facility] Department of Internal Medicine [address] [place] [address] Elina Sanchez APRN 160 [place] [address] documented as of this encounter Visit Diagnoses Not on filedocumented in this encounter Care Teams Merchandise Team Manager Relationship Specialty Start Date End Date Elina Sanchez, MARGOT 160 [place] [address] PCP - General Internal Medicine 07/06/23 Julien Mckeon APRN [address] [place] [address] Nurse Practitioner Neurology 05/12/23 Shari Maier MD [address] [place] [address] Consulting Provider Dermatology 05/12/23 Wm Cantu MD [address] [place] [address] 2nd [place] [address] Obstetrics and Gynecology 05/12/23 Lexus Chen MD [address] [place] [address] Rheumatology 05/24/24 documented as of this encounter
--- OUTSIDE RECORDS SUMMARY | 2024-08-31 17:55 | XMS_ITS ---
Author Organization [facility] Address [address] [place], [place] [address] Care Team Providers Care Real Estate Acquisition Analyst Name Role Phone Elina Sanchez APRN Primary Care Provider UnavailCHARLIE Sierra Unavailable [phone] Elina Galan Unavailable Unavailable GIULIANA NELSON Unavailable [phone] Allergies Allergen (clinical drug ingredient) Drug/Non Drug Allergy documented on EMR Reaction Allergy Type Onset Date Status Substance with sulfonamide structure and antibacterial mechanism of action (substance) sulfonamide (uncoded) rash Allergy Active penicillin (uncoded) rash Allergy Active REASON FOR VISIT allergies f/u Medications Medication SIG (Take, Route, Frequency, Duration) Notes Start Date End Date Status Famotidine 20 MG 1 tablet at bedtime Orally Once a day for 90 days Active Albuterol Sulfate HFA 108 (9 0 Base) MCG/ACT 2 puffs as needed Inhalation every 6-8 hrs for 30 days 04/19/2024 Active Ipratropium [place] 0.03 % 2 SPRAYS BY N ERICA ROUTE EVERY 12 (TWELVE) HOURS. 2 SPRAYS PER NOSTRIL EVERY 12 HOURS. Nasal for 90 Days Active metroNIDAZOLE 1 % APPLY TO ROSACEA ONC E DAILY. External for 30 Days Active Erythromycin 2 % APPLY TO FACIAL RASH UNDER NOSE TWICE A DAY FOR 6 WEEKS External for 30 Days Active predniSONE 5 MG 1 tablet Oral as needed for 30 days Active Mometasone Furoate 50 MCG/ACT SPRAY 2 SP RAYS BY NASAL ROUTE DAILY Nasal for 90 Days Active Hydroxychloroquine Sulfate 2 00 MG 1 TABLET Orally twice a day for 90 days Active Vital Signs Temperature 37.6 C 04/19/2024 Blood pressure systolic 131 mm Hg 04/19/20 24 Blood pressure diastolic 83 mm Hg 024 Heart Rate 82 /min 04/19/2024 Height 160.8 cm 04/19/2024 Encounters Encounter Location Date Provider Diagnosis [facility] [address] [phone] 04/19/2024 GIULIANA NELSON Allergic rhinitis, unspecified J30.9 ; Allergy status to other drugs, medicaments and biological substances Z88.8 ; Pruritus, unspecified L29.9 and Mild intermittent asthma, uncomplicated J45.20 Assessments Encounter Date Diagnosis (ICD Code) Assessment Notes Treat ment Notes Treatment Clinical Notes 04/19/2024 Allergic rhinitis, unspecified (ICD-10 - J30.9) 04/19/2024 Allergy status to other drugs, medicaments and biological substances (ICD-10 - Z88.8) 04/19/2024 Pruritus, unspecifie d (ICD-10 - L29.9) 04/19/2024 Mild intermittent asthma, uncomplicated (ICD-10 - J45.20) Plan Of Treatment Medication Medication Name Sig Start Date Stop Date Notes Albuterol Sulfate HFA 108 (9 0 Base) MCG/ACT 2 puffs as needed Inhalation every 6-8 hrs for 30 days 04/19/2024 Ipratropium [place] 0.03 % 2 SPRAYS BY N ERICA ROUTE EVERY 12 (TWELVE) HOURS. 2 SPRAYS PER NOSTRIL EVERY 12 HOURS. Nasal for 90 Days Mometasone Furoate 50 MCG/ACT SPRAY 2 SP RAYS BY NASAL ROUTE DAILY Nasal for 90 Days Next Appt Details Provider Name:Lakia Quintana , 09/07/2024 10:20:00 AM, [address] [place] [address], [id number], Provider Name:GIULIANA NELSON, 04/17/2025 10:30:00 AM, [address] [place] [address], [id number], Progress Notes * Examination Category Sub-Category Detail Notes allergy GENERAL APPEARANCE: in no acute distress, well developed, well nourished HEAD: normocephalic, atrau matic EYES: pupils equal EARS: normal NOSE: nares patent THROAT: clear NECK/THYROID: no cervical lymphade nopathy, no palpable thyroid HEART: no murmurs, regular rate and rhythm, S1, S2 normal LUNGS: clear to auscultatio n bilaterally NEUROLOGIC: nonfocal, alert and oriented SKIN: warm and dry EXTREMITIES: no clubbing, cyanosi s, or edema, no nail pitting ORAL CAVITY: mucosa moist, no les ions
--- OUTSIDE RECORDS SUMMARY | 2024-08-31 17:55 | XMS_ITS | Encounter Summary ---
Author Organization [facility] Address [address] [place] [address] Care Team Providers Care Ferry Engineer Name Role Phone Vik Brar MD Primary Care Provider Julien Mckeon JAVA ORACLE DEVELOPER Unavailable Shari Maier MD Unavailable [phone] Wm Cantu MD Unavailable Elina Sanchez JAVA ORACLE DEVELOPER Unavailable [phone] Elina Sanchez JAVA ORACLE DEVELOPER Primary Care Provider [phone] Lexus Chen MD Unavailable [phone] Encounter Details Date Type Department Care Team (Late st Contact Info) Description 10/15/2022 Scanned Document [facility] Department of Internal Medicine [place] [address] [place] [phone] Vik Brar MD Needs valid address Social [...] Description 10/25/2024 9:30 AM EDT Office Visit [facility] Department of Internal Medicine [address] [place] [phone] Elina Sanchez, JAVA ORACLE DEVELOPER 160 [place] [address] documented as of this encounter Visit Diagnoses Not on filedocumented in this encounter Care Teams Ferry Engineer Relationship Specialty Start Date End Date Vik Brar MD PCP - General Internal Medicine 08/11/16 07/04/23 Elina Sanchez, JAVA ORACLE DEVELOPER 160 [place] [address] PCP - General Internal Medicine 07/06/23 Julien Mckeon, JAVA ORACLE DEVELOPER [address] [place] [address] Nurse Practitioner Neurology 05/12/23 Shari Maier MD [address] [place] [address] Consulting Provider Dermatology 05/12/23 Wm Cantu MD 9 [facility] 2nd [place] [address] Obstetrics and Gynecology 05/12/23 Elina Sanchez, JAVA ORACLE DEVELOPER 160 [place] [address] Nurse Practitioner Internal Medicine 07/05/23 07/05/23 Lexus Chen MD [address] [place] [address] Rheumatology 05/24/24 documented as of this encounter
--- OUTSIDE RECORDS SUMMARY | 2024-08-31 17:55 | XMS_ITS | Encounter Summary ---
Author Organization [facility] Address [address] [place] [address] Care Team Providers Care Machinery Rigger Name Role Phone Vik Brar MD Primary Care Provider [phone] Julien Mckeon KITCHEN AND B[employer] DESIGNER Unavailable Shari Maier MD Unavailable [phone] Wm Cantu MD Unavailable Elina Sanchez KITCHEN AND BATH DESIGNER Unavailable [phone] Elina Sanchez KITCHEN AND BATH DESIGNER Primary Care Provider Lexus Chen MD Unavailable [phone] Reason for Visit * Reason Comments Medication Refill Encounter Details Date Type Department Care Team (Late st Contact Info) Description 05/27/2022 Refill [facility] [address] [place] [address] Mercedes Birch PA [address] [facility] [address] [place] [address] Gastroesophageal reflux disease Social History Tobacco Use [...] Description 10/25/2024 9:30 AM EDT Office Visit [facility] Department of Internal Medicine [address] [place] [address] Elina Sanchez, MARGOT [address] [place] [address] documented as of this encounter Visit Diagnoses Diagnosis Gastroesophageal reflux disease Esophageal reflux documented in this encounter Care Teams Machinery Rigger Relationship Specialty Start Date End Date Vik Brar MD PCP - General Internal Medicine 08/11/16 07/04/23 Elina Sanchez, [employer] DESIGNER [address] [place] [address] PCP - General Internal Medicine 07/06/23 Julien Mckeon APRN [address] [place] [id number] Nurse Practitioner Neurology 05/12/23 Shari Maier MD [address] [place] [address] [place] [id number] Consulting Provider Dermatology 05/12/23 Wm Cantu MD [facility] [address] [place] [address] Obstetrics and Gynecology 05/12/23 Elina Sanchez, K[employer]EN AND B[employer] DESIGNER [address] [place] [id number] Nurse Practitioner Internal Medicine 07/05/23 07/05/23 Lexus Chen MD [address] [place] [id number] Rheumatology 05/24/24 documented as of this encounter
--- OUTSIDE RECORDS SUMMARY | 2024-08-31 17:55 | XMS_ITS | Patient Health Record ---
Author Organization [facility] Address [address], [place] [id number] Care Team Providers Care Programmer Developer Name Role Phone Elina Sanchez APRN Primary Care Provider UnavailCHARLIE Sierra Unavailable [phone] Elina Galan Unavailable Unavailable GIULIANA NELSON Unavailable [phone] Vik Brar MD Unavailable Unavailable Shelly Velasquez Unavailable [phone] Allergies Allergen (clinical drug ingredient) Drug/Non Drug Allergy documented on EMR Reaction Allergy Type Onset Date Status Substance with sulfonamide structure and antibacterial mechanism of action (substance) sulfonamide (uncoded) rash Allergy Active penicillin (uncoded) rash Allergy Active Results Component Value Reference Range Notes LUPUS ANTICOAGULANT EVALUATI ON WITH REFLEX Reviewed date:02/24/2024 05:27:57 PM Interpretation: Performing Lab:Reynaldo YATES/[facility], [address], [place], [address] Frank Ray M.D.,PhD Notes/Report: Received Date: FASTING:YES FASTING: YES LUPUS ANTICOAGULANT see note A Lupus Anticoagulant is not detected. Reference Range: Not Detected For additional information, please refer to http://education.[employer].com/faq/LIW29o8 (This link is being provided for informational/ educational purposes only.) This interpretation is based on the following test results. PTT-LA SCREEN 34 <=40 sec DRVVT SCREEN 35 <=45 sec URINALYSIS, COMPLETE W/REFLE X TO CULTURE Reviewed date:02/24/2024 05:27:57 PM Interpretation: Performing Lab:NL1, [facility], [address] [place] [address], [phone] Niels Chen M.D. Notes/Report: Received Date: FASTING:YES FASTING: YES COLOR YELLOW YELLOW APPEARANCE CLEAR CLEAR SPECIFIC GRAVITY 1.020 1.001-1.035 PH 5.5 5.0-8.0 GLUCOSE NEGATIVE NEGATIVE BILIRUBIN NEGATIVE NEGATIVE KETONES NEGATIVE NEGATIVE OCCULT BLOOD NEGATIVE NEGATIVE PROTEIN TRACE NEGATIVE NITRITE NEGATIVE NEGATIVE LEUKOCYTE ESTERASE 1+ NEGATIVE WBC 6-10 < OR = 5 /HPF RBC NONE SEEN < OR = 2 /HPF SQUAMOUS EPITHELIAL CELLS 0-5 < OR = 5 /HPF BACTERIA NONE SEEN NONE SEEN /HPF HYALINE CAST NONE SEEN NONE SEEN /LPF CULTURE, URINE, ROUTINE SEE NOTE CULTURE, URINE, ROUTINE Micro Number: [id number] Test Status: Final Specimen Source: Urine Specimen Quality: Adequate Result: No Growth HLA-B27 ANTIGEN Reviewed date:02/24/2024 05:27:57 PM Interpretation: Performing Lab:Reynaldo YATES [employer], [address], [place], [address] Frank Ray M.D.,PhD Notes/Report: Received Date: FASTING:YES FASTING: YES HLA-B27 ANTIGEN Negative Negative PROTEIN, TOTAL W/CREAT, RAND OM URINE Reviewed date:02/24/2024 05:27:57 PM Interpretation: Performing Lab:[facility], [address] [place] [address], [phone] Niels Chen M.D. Notes/Report: Received Date: FASTING:YES FASTING: YES CREATININE, RANDOM URINE 187 20-275 mg/dL PROTEIN/CREATININE RATIO 53 24-184 mg/g crea t PROTEIN/CREATININE RATIO 0.053 0.024-0 .184 mg/mg creat PROTEIN, TOTAL, RANDOM UR 10 5-24 mg/dL HEPATITIS B CORE ANTIBODY (I GM) Reviewed date:02/24/2024 05:27:57 PM Interpretation: Performing Lab:[facility], [address] [place] [address], [phone] Niels Chen M.D. Notes/Report: Received Date: FASTING:YES FASTING: YES HEPATITIS B CORE ANTIBODY (IGM) NON-REACTIVE NON-REACTIVE For additional information, please refer to http://education.Vitrinepix/faq/UJT044 (This link is being provided for informational/ educational purposes only.) HEPATITIS B SURFACE ANTIGEN W/REFL CONFIRM Reviewed date:02/24/2024 05:27:57 PM Interpretation: Performing Lab:NL1, [facility], [address] [place] [address], [phone] Niels Chen M.D. Notes/Report: Received Date: FASTING:YES FASTING: YES HEPATITIS B SURFACE ANTIGEN NON-REACTIVE NON-REACTIVE For additional information, please refer to http://[employer].Vitrinepix/faq/VGU391 (This link is being provided for informational/ educational purposes only.) FERRITIN Reviewed date:02/24/2024 05:27:57 PM Interpretation: Performing Lab:NL1, [facility], [address] [place] [address], [phone] Niels Chen M.D. Notes/Report: Received Date: FASTING:YES FASTING: YES FERRITIN 99 16-232 ng/mL HEPATITIS C ANTIBODY Reviewed date:02/24/2024 05:27:57 PM Interpretation: Performing Lab:NL1, [facility], [address] [place] [address], [phone] Niels Chen M.D. Notes/Report: Received Date: [id number] FASTING:YES FASTING: YES HEPATITIS C ANTIBODY NON-REACTIVE NON-REACTIVE HCV antibody was non-reactive. There is no laboratory evidence of HCV infection. In most cases, no further action is required. However, if recent HCV exposure is suspected, a test for HCV RNA (test code 84127) is suggested. For additional information please refer to http://[employer].Vitrinepix/faq/EUE44r3 (This link is being provided for informational/ educational purposes only.) TSH, 3RD GENERATION Reviewed date:02/24/2024 05:27:57 PM Interpretation: Performing Lab:[facility]Hey[facility], [facility], [address] [place] [address], [phone] Niels Chen M.D. Notes/Report: Received Date: FASTING:YES FASTING: YES TSH 1.31 0.40-4.50 mIU/L IMMUNOFIXATION IGA,IGG,IGM Q T.IMMUNOFIXATION SERUM IMMUNOGLOBULIN Reviewed date:02/24/2024 05:27:57 PM Interpretation: Performing Lab:1, [facility], [address] [place] [address], [phone] Niels Chen M.D. Notes/Report: Received Date: [id number] FASTING:YES FASTING: YES VICKIE INTERPRETATION Normal pattern. No monoclonal proteins detected. IMMUNOGLOBULIN A 186 47-310 mg/dL IMMUNOGLOBULIN G 450 920-7067 mg/dL IMMUNOGLOBULIN M 195 50-300 mg/dL PROTEIN, TOTAL AND PROTEIN E LECTROPHORESIS Reviewed date:02/24/2024 05:27:57 PM Interpretation: Performing Lab:[facility], [facility], [address] [place] [address], [phone] Niels Chen M.D. Notes/Report: Received Date: [id number] FASTING:YES FASTING: YES PROTEIN, TOTAL 6.4 6.1-8.1 g/dL ALBUMIN 4.0 3.8-4.8 g/dL ALPHA 1 GLOBULIN 0.2 0.2-0.3 g/dL ALPHA 2 GLOBULIN 0.6 0.5-0.9 g/dL BETA 1 GLOBULIN 0.4 0.4-0.6 g/dL BETA 2 GLOBULIN 0.3 0.2-0.5 g/dL GAMMA GLOBULIN 0.9 0.8-1.7 g/dL ANCA SCREEN WITH MPO AND PR3 WITH REFLEX TO ANCA TITER Reviewed date:02/24/2024 05:27:57 PM Interpretation: Performing Lab:1, [facility], [address] [place] [address], [phone] Niels Chen M.D. Notes/Report: Received Date: [id number] FASTING:YES FASTING: YES ANCA SCREEN NEGATIVE NEGATIVE ANCA screen uses indirect immunofluorescence to detect antibodies to neutrophil cytoplasmic antigens. A positive screen reflexes to titer and pattern. Patterns include cytoplasmic (c-ANCA) and perinuclear (p-ANCA) both of which are associated with vasculitis, and atypical p-ANCA which is associated with inflammatory bowel disease and other disorders. MYELOPEROXIDASE ANTIBODY <1.0 Value Interpretation ----- <1.0 No Antibody Detected > or = 1.0 Antibody Detected Autoantibodies to myeloperoxidase (MPO) are commonly associated with the following small-vessel vasculitides: microscopic polyangiitis, polyarteritis nodosa, Churg-Felicita syndrome, necrotizing and crescentic glomerulonephritis and occasionally granulomatosis with polyangiitis (GPA, Zafar's). The perinuclear IFA pattern, (p-ANCA) is based largely on autoantibody to myeloperoxidase which serves as the primary antigen. These autoantibodies are present in active disease. PROTEINASE-3 ANTIBODY <1.0 Value Interpretation ----- <1.0 No Antibody Detected > or = 1.0 Antibody Detected Autoantibodies to proteinase-3 (TX-3) are accepted as characteristic for granulomatosis with polyangiitis (GPA, Zafar's), and are detectable in 95% of the histologically proven cases. The cytoplasmic IFA pattern, (c-ANCA), is based largely on autoantibody to TX-3 which serves as the primary antigen. These autoantibodies are present in active disease. ANGIOTENSIN CONVERTING ENZYM E (CRISTIANA) Reviewed date:02/24/2024 05:27:57 PM Interpretation: Performing Lab:TRUDY [facility], [address] , [place], [address] Frank Ray M.D.,PhD Notes/Report: Received Date: [id number] FASTING:YES FASTING: YES [id number] ENZYME 35.4 9-67 U/L URIC ACID Reviewed date:02/24/2024 05:27:57 PM Interpretation: Performing Lab:ESSENCE1, [facility], [address] [place] [address], [phone] Niels Chen M.D. Notes/Report: Received Date: [id number] FASTING:YES FASTING: YES URIC ACID 5.4 2.5-7.0 mg/dL Therapeutic ta rget for gout patients: <6.0 mg/dL IRON TOTAL, TIBC, SATURATION Reviewed date:02/24/2024 05:27:57 PM Interpretation: Performing Lab:[facility], [facility], [address] [place] [address], [phone] Niels Chen M.D. Notes/Report: Received Date: [id number] FASTING:YES FASTING: YES IRON, TOTAL 84 45-160 mcg/dL IRON BINDING CAPACITY 307 250-450 mc g/dL (calc) % SATURATION 27 16-45 % (calc) CREATINE KINASE, TOTAL Reviewed date:02/24/2024 05:27:57 PM Interpretation: Performing Lab:[facility], [facility], [address] [place] [address], [phone] Niels Chen M.D. Notes/Report: Received Date: [id number] FASTING:YES FASTING: YES CREATINE KINASE, TOTAL 76 29-143 U/L HEPATIC FUNCTION PANEL Reviewed date:02/24/2024 05:27:57 PM Interpretation: Performing Lab:KINDRA, [facility], [address] [place] [address], [phone] Niels Chen M.D. Notes/Report: Received Date: [id number] FASTING:YES FASTING: YES PROTEIN, TOTAL 6.4 6.1-8.1 g/dL ALBUMIN 3.9 3.6-5.1 g/dL GLOBULIN 2.5 1.9-3.7 g/dL (calc) ALBUMIN/GLOBULIN RATIO 1.6 1.0-2.5 (calc) BILIRUBIN, TOTAL 0.7 0.2-1.2 mg/dL BILIRUBIN, DIRECT 0.1 < OR = 0.2 mg/dL BILIRUBIN, INDIRECT 0.6 0.2-1.2 mg/d L (calc) ALKALINE PHOSPHATASE 85 37-153 U/L AST 17 10-35 U/L ALT 12 6-29 U/L CREATININE Reviewed date:02/24/2024 05:27:57 PM Interpretation: Performing Lab:[facility], [address] [place] [address], [phone] Niels Chen M.D. Notes/Report: Received Date: [id number] FASTING:YES FASTING: YES CREATININE 1.26 0.50-1.03 mg/dL EGFR 50 > OR = 60 mL/min/1.73m2 CBC (INCLUDES DIFF/PLT) Reviewed date:02/24/2024 05:27:57 PM Interpretation: Performing Lab:NL1, [facility], [address] [place] [address], [phone] Niels Chen M.D. Notes/Report: Received Date: FASTING:YES FASTING: YES WHITE BLOOD CELL COUNT 4.5 3.8-10.8 Thousand/uL RED BLOOD CELL COUNT 5.32 3.80-5.10 Million/uL HEMOGLOBIN 15.0 11.7-15.5 g/dL HEMATOCRIT 46.3 35.0-45.0 % MCV 87.0 80.0-100.0 fL MCH 28.2 27.0-33.0 pg MCHC 32.4 32.0-36.0 g/dL RDW 12.7 11.0-15.0 % PLATELET COUNT 229 140-400 Thousand/uL MPV 11.4 7.5-12.5 fL ABSOLUTE NEUTROPHILS 2691 7901-6022 cells/uL ABSOLUTE LYMPHOCYTES 0719 319-5209 cells/uL ABSOLUTE MONOCYTES 378 200-950 cells/uL ABSOLUTE EOSINOPHILS 140 15-500 cells/uL ABSOLUTE BASOPHILS 32 0-200 cells/uL NEUTROPHILS 59.8 LYMPHOCYTES 28.0 MONOCYTES 8.4 EOSINOPHILS 3.1 BASOPHILS 0.7 SED RATE BY MODIFIED WESTERG BEAU Reviewed date:02/24/2024 05:27:57 PM Interpretation: Performing Lab:NL1, [facility], [address] [place] [address], [phone] Niels Chen M.D. Notes/Report: Received Date: FASTING:YES FASTING: YES SED RATE BY MODIFIED WESTERGREN 6 < OR = 30 mm/h ANAlyzeR RICHARD,IFA with Reflex Titer/Pattern, Systemic Autoimmune Panel 1 Reviewed date:02/24/2024 05:27:57 PM Interpretation: Performing Lab:EZ, [facility],, [address] [place], [phone] Lauren Hernandez MD,PhD,ANNE Notes/Report: Received Date: FASTING:YES FASTING: YES RICHARD SCREEN, IFA NEGATIVE NEGATIVE RICHARD IFA is a first line screen for detecting the presence of up to approximately 150 autoantibodies in various autoimmune diseases. A negative RICHARD IFA result suggests an RICHARD-associated autoimmune disease is not present at this time, but is not definitive. If there is high clinical suspicion for Sjogren's syndrome, testing for anti-SS-A/Ro antibody should be considered. Anti-Lani-1 antibody should be considered for clinically suspected inflammatory myopathies. AC-0: Negative International Consensus on RICHARD Patterns https://doi.org/10.1515/cc ra-0816-1855 For additional information, please refer to http://education.Emotient/faq/QCI612 (This link is being provided for informational/educational purposes only.) DNA AB (DS) CRITHIDIA,IFA NEGATIVE NEGATIVE CHROMATIN (NUCLEOSOMAL) ANTIBODY <1.0 NEG <1.0 NEGATIVE AI SM ANTIBODY <1.0 NEG <1.0 NEGATIVE AI SM/WOOL HAT FORMING MACHINE TENDER ANTIBODY <1.0 NEG <1.0 NEGATIVE AI WOOL HAT FORMING MACHINE TENDER ANTIBODY <1.0 NEG <1.0 NEGATIVE AI SJOGREN'S ANTIBODY (SS-A) <1.0 NEG <1.0 NEGATIVE AI SJOGREN'S ANTIBODY (SS-B) <1.0 NEG <1.0 NEGATIVE AI SCL-70 ANTIBODY <1.0 NEG <1.0 NEGATIVE AI LANI-1 ANTIBODY <1.0 NEG <1.0 NEGATIVE AI CENTROMERE B ANTIBODY <1.0 NEG <1.0 NEGATIVE AI COMPLEMENT COMPONENT C3C 133 83-193 mg/dL COMPLEMENT COMPONENT C4C 27 15-57 mg/dL CARDIOLIPIN AB (IGA) <2.0 Value Interpretation ----- <20.0 Antibody not detected > or = 20.0 Antibody detected CARDIOLIPIN AB (IGG) <2.0 Value Interpretation ----- <20.0 Antibody not detected > or = 20.0 Antibody detected CARDIOLIPIN AB (IGM) 2.0 Value Interpretation ----- <20.0 Antibody not detected > or = 20.0 Antibody detected B2 GLYCOPROTEIN I (IGA)AB <2.0 Value Interpretation ----- <20.0 Antibody not detected > or = 20.0 Antibody detected B2 GLYCOPROTEIN I (IGG)AB <2.0 Value Interpretation ----- <20.0 Antibody not detected > or = 20.0 Antibody detected B2 GLYCOPROTEIN I (IGM)AB <2.0 The antiphospholipid antibody syndrome (APS) is a clinical-pathologic correlation that includes a clinical event (e.g. arterial or venous thrombosis, morbidity) and persistent positive antiphospholipid antibodies (IgM, IgG Cardiolipin or b2GPI antibodies greater than the 99th percentile; or a lupus anticoagulant). International consensus guidelines for APS suggest waiting at least 12 weeks before retesting to confirm antibody persistence. The Systemic Lupus International Collaborating [facility] immunological classification criteria for systemic lupus erythematosus (SLE) include testing for isotype IgA, which has yet to be incorporated into APS criteria. Low level antiphospholipid antibodies may sometimes be detected in the setting of infection, drug therapy or aging. For additional information, please refer to http://education.Vitrinepix/faq/RSD997 (This link is being provided for informational/educational purposes only.) Value Interpretation ----- <20.0 Antibody not detected > or = 20.0 Antibody detected RHEUMATOID FACTOR (IGA) <5 Reference Range: <=6 NEGATIVE >6 POSITIVE RHEUMATOID FACTOR (IGG) <5 Reference Range: <=6 NEGATIVE >6 POSITIVE RHEUMATOID FACTOR (IGM) 7 Reference Range: <=6 NEGATIVE >6 POSITIVE CYCLIC CITRULLINATED PEPTIDE (CCP) AB (IGG) <16 Reference Range: NEGATIVE: <20 WEAK POSITIVE: 20-39 MODERATE POSITIVE: 40-59 STRONG POSITIVE >59 MUTATED CITRULLINATED VIMENTIN (MCV) AB <20 <20 U/mL Anti-mutated citrullinated vimentin antibody may be used as a second-line marker of rheumatoid arthritis, in addition to rheumatoid factor and anti-cyclic citrullinated peptide (CCP). THYROID PEROXIDASE ANTIBODIES 3 <9 IU/mL QUANTIFERON(R)-TB GOLD Reviewed date:05/20/2024 01:36:56 PM Interpretation: Performing Lab:NL1, [facility], [address] [place] [address], [phone] Niels Chen M.D. Notes/Report: Received Date: NON-FASTING; NON-FASTING; NON-FASTING; NON-FASTING; NON-FAST QUANTIFERON(R)-TB GOLD PLUS, 1 TUBE NEGATIVE NEGATIVE Negative test result. M. tuberculosis complex infection unlikely. NIL 0.31 MITOGEN-NIL 7.84 TB1-NIL 0.21 TB2-NIL 0.19 The Nil tube value reflects the background interferon gamma immune response of the patient's blood sample. This value has been subtracted from the patient's displayed TB and Mitogen results. Lower than expected results with the Mitogen tube prevent false-negative Quantiferon readings by detecting a patient with a potential immune suppressive condition and/or suboptimal pre-analytical specimen handling. The TB1 Antigen tube is coated with the M. tuberculosis-specific antigens designed to elicit responses from TB antigen primed CD4+ helper T-lymphocytes. The TB2 Antigen tube is coated with the M. tuberculosis-specific antigens designed to elicit responses from TB antigen primed CD4+ helper and CD8+ cytotoxic T-lymphocytes. For additional information, please refer to https://education.X-1/faq/GNN423 (This link is being provided for informational/ educational purposes only.) HEPATIC FUNCTION PANEL Reviewed date:05/20/2024 01:36:56 PM Interpretation: Performing Lab:NL1, [facility], [address] [place] [address], [phone] Niels Chen M.D. Notes/Report: Received Date: NON-FASTING; NON-FASTING; NON-FASTING; NON-FASTING; NON-FAST PROTEIN, TOTAL 6.8 6.1-8.1 g/dL ALBUMIN 4.1 3.6-5.1 g/dL GLOBULIN 2.7 1.9-3.7 g/dL (calc) ALBUMIN/GLOBULIN RATIO 1.5 1.0-2.5 (calc) BILIRUBIN, TOTAL 0.7 0.2-1.2 mg/dL BILIRUBIN, DIRECT 0.1 < OR = 0.2 mg/dL BILIRUBIN, INDIRECT 0.6 0.2-1.2 mg/d L (calc) ALKALINE PHOSPHATASE 92 37-153 U/L AST 19 10-35 U/L ALT 14 6-29 U/L CREATININE Reviewed date:05/20/2024 01:36:56 PM Interpretation: Performing Lab:NL1, [facility], [address] [place] [address], [phone] Niels Chen M.D. Notes/Report: Received Date: NON-FASTING; NON-FASTING; NON-FASTING; NON-FASTING; NON-FAST CREATININE 1.17 0.50-1.03 mg/dL EGFR 54 > OR = 60 mL/min/1.73m2 CBC (INCLUDES DIFF/PLT) Reviewed date:05/20/2024 01:36:56 PM Interpretation: Performing Lab:NL1, [facility], [address] [place] [address], [phone] Niels Chen M.D. Notes/Report: Received Date: NON-FASTING; NON-FASTING; NON-FASTING; NON-FASTING; NON-FAST WHITE BLOOD CELL COUNT 4.8 3.8-10.8 Thousand/uL RED BLOOD CELL COUNT 5.45 3.80-5.10 Million/uL HEMOGLOBIN 15.1 11.7-15.5 g/dL HEMATOCRIT 46.3 35.0-45.0 % MCV 85.0 80.0-100.0 fL MCH 27.7 27.0-33.0 pg MCHC 32.6 32.0-36.0 g/dL For adults, a slight decrease in the calculated MCHC value (in the range of 30 to 32 g/dL) is most likely not clinically significant; however, it should be interpreted with caution in correlation with other red cell parameters and the patient's clinical condition. RDW 13.1 11.0-15.0 % PLATELET COUNT 230 140-400 Thousand/uL MPV 12.0 7.5-12.5 fL ABSOLUTE NEUTROPHILS 2870 9998-7656 cells/uL ABSOLUTE LYMPHOCYTES 9419 930-5833 cells/uL ABSOLUTE MONOCYTES 413 200-950 cells/uL ABSOLUTE EOSINOPHILS 101 15-500 cells/uL ABSOLUTE BASOPHILS 48 0-200 cells/uL NEUTROPHILS 59.8 LYMPHOCYTES 28.5 MONOCYTES 8.6 EOSINOPHILS 2.1 BASOPHILS 1.0 SED RATE BY MODIFIED WESTERG BEAU Reviewed date:05/20/2024 01:36:56 PM Interpretation: Performing Lab:NL1, [facility], [address] [place] [address], [phone] Niels Chen M.D. Notes/Report: Received Date: [id number] NON-FASTING; NON-FASTING; NON-FASTING; NON-FASTING; NON-FAST SED RATE BY MODIFIED WESTERGREN 6 < OR = 30 mm/h HS-CRP Reviewed date:05/20/2024 01:36:56 PM Interpretation: Performing Lab:NL1, [facility], [address] [place] [address], [phone] Niels Chen M.D. Notes/Report: Received Date: [id number] NON-FASTING; NON-FASTING; NON-FASTING; NON-FASTING; NON-FAST HS CRP 1.2 Reference Range Optimal <1.0 Agapito LOVELACE et al. Endocr Pract.2017;23(Suppl 2):1-87. For ages >17 Years: hs-CRP mg/L Risk According to AHA/CDC Guidelines <1.0 Lower relative cardiovascular risk. 1.0-3.0 Average relative cardiovascular risk. 3.1-10.0 Higher relative cardiovascular risk. Consider retesting in 1 to 2 weeks to exclude a benign transient elevation in the baseline CRP value secondary to infection or inflammation. >10.0 Persistent elevation, upon retesting, may be associated with infection and inflammation. Georgi TA, Tadeo GA, Steve RW, et al. Markers of inflammation and cardiovascular disease: application to clinical and public health practice: A statement for healthcare professionals from the Centers for Disease Control and Prevention and the [place] [employer]. Circulation 2003; 107(3): 499-511. C-REACTIVE PROTEIN Reviewed date:08/16/2024 03:56:17 PM Interpretation: Performing Lab:NL1, [facility], [address] [place] [address], [phone] Niels Chen M.D. Notes/Report: Received Date: [id number] FASTING:YES FASTING: YES C-REACTIVE PROTEIN 3.6 <8.0 mg/L HEPATIC FUNCTION PANEL Reviewed date:08/16/2024 03:56:17 PM Interpretation: Performing Lab:NL1, [facility], [address] [place] [address], [phone] Niels Chen M.D. Notes/Report: Received Date: FASTING:YES FASTING: YES PROTEIN, TOTAL 6.8 6.1-8.1 g/dL ALBUMIN 4.2 3.6-5.1 g/dL GLOBULIN 2.6 1.9-3.7 g/dL (calc) ALBUMIN/GLOBULIN RATIO 1.6 1.0-2.5 (calc) BILIRUBIN, TOTAL 0.8 0.2-1.2 mg/dL BILIRUBIN, DIRECT 0.2 < OR = 0.2 mg/dL BILIRUBIN, INDIRECT 0.6 0.2-1.2 mg/d L (calc) ALKALINE PHOSPHATASE 87 37-153 U/L AST 19 10-35 U/L ALT 13 6-29 U/L CREATININE Reviewed date:08/16/2024 03:56:17 PM Interpretation: Performing Lab:1, [facility], [address] [place] [address], [phone] Niels Chen M.D. Notes/Report: Received Date: FASTING:YES FASTING: YES CREATININE 1.13 0.50-1.03 mg/dL EGFR 57 > OR = 60 mL/min/1.73m2 CBC (INCLUDES DIFF/PLT) Reviewed date:08/16/2024 03:56:17 PM Interpretation: Performing Lab:[facility], [facility], [address] [place] [address], [phone] Niels Chen M.D. Notes/Report: Received Date: FASTING:YES FASTING: YES WHITE BLOOD CELL COUNT 5.8 3.8-10.8 Thousand/uL RED BLOOD CELL COUNT 5.55 3.80-5.10 Million/uL HEMOGLOBIN 15.3 11.7-15.5 g/dL HEMATOCRIT 47.5 35.0-45.0 % MCV 85.6 80.0-100.0 fL MCH 27.6 27.0-33.0 pg MCHC 32.2 32.0-36.0 g/dL For adults, a slight decrease in the calculated MCHC value (in the range of 30 to 32 g/dL) is most likely not clinically significant; however, it should be interpreted with caution in correlation with other red cell parameters and the patient's clinical condition. RDW 12.9 11.0-15.0 % PLATELET COUNT 239 140-400 Thousand/uL MPV 11.5 7.5-12.5 fL ABSOLUTE NEUTROPHILS 4141 3849-8860 cells/uL ABSOLUTE LYMPHOCYTES 0515 612-0778 cells/uL ABSOLUTE MONOCYTES 383 200-950 cells/uL ABSOLUTE EOSINOPHILS 41 15-500 cells/uL ABSOLUTE BASOPHILS 58 0-200 cells/uL NEUTROPHILS 71.4 LYMPHOCYTES 20.3 MONOCYTES 6.6 EOSINOPHILS 0.7 BASOPHILS 1.0 SED RATE BY MODIFIED RAMONA YANEZ Reviewed date:08/16/2024 03:56:17 PM Interpretation: Performing Lab:NL1, [facility], [address] [place] [address], [phone] Niels Chen M.D. Notes/Report: Received Date: FASTING:YES FASTING: YES SED RATE BY MANNY GARY 9 < OR = 30 mm/h Reason For Referral Reason Labs Se Cr 1. 23 H, nl < 1.20, low GFR 51 L ; seen in Diagnosis 1 Abnormal results of kidney function studies (R94.4) Referral Organization [facility] Referring Provider First Name CHARLIE Referring Provider Last Name LESLIE Referring Provider Speciality Rheumatandre carlson Referred Provider Specialty Nephrology Referral Priority Routine Medications Medication SIG (Take, Route, Frequency, Duration) Notes Start Date End Date Status Mometasone Furoate 50 MCG/ACT SPRAY 2 SP RAYS BY NASAL ROUTE DAILY Nasal for 90 Days Active Famotidine 20 MG 1 tablet at bedtime Orally Once a day for 90 days Active Erythromycin 2 % APPLY TO FACIAL RASH UNDER NOSE TWICE A DAY FOR 6 WEEKS External for 30 Days Active metroNIDAZOLE 1 % APPLY TO ROSACEA ONC E DAILY. External for 30 Days Active Albuterol Sulfate HFA 108 (9 0 Base) MCG/ACT 2 puffs as needed Inhalation every 6-8 hrs for 30 days Active predniSONE 5 MG 1 tablet Oral as needed for 30 days Active Hydroxychloroquine Sulfate 2 00 MG 1 TABLET Orally twice a day for 90 days Active Ipratropium [place] 0.03 % 2 SPRAYS BY N ERICA ROUTE EVERY 12 (TWELVE) HOURS. 2 SPRAYS PER NOSTRIL EVERY 12 HOURS. Nasal for 90 Days Active Problems Problem Type SNOMED Code ICD Code Onset Dates Problem Status W/U Status Risk Notes Problem Allergic rhinitis (53972995) Allergic rhinitis, unspecified (J30.9) Active confirmed Problem Mild intermittent asthma (453386404) Mild intermittent asthma, uncomplicated (J45.20) Active confirmed Problem Celiac disease (941216762) Celiac disease (K90.0) Active confirmed She did see improvement in rashes that she as since teens when evaluation back then showed celiac and she went gluten free. Glute free diet helped her low grade fevers and to a lesser degree with MSK pain. Problem Pruritus (757944032) Pruritus, unspecified (L29.9) Active confirmed Problem Rheumatoid arthritis (00525607) Rheumatoid arthritis without rheumatoid factor, multiple sites (M06.09) Active confirmed - OV 06.09.2024: Pt. on Plaquenil 400mg/day, on going pain and fatigue but pt. defers starting any DMARd at this time. OV 03.08.2024: On going arthralgia and fatigue on Plaquenil [...] fatigue. Autoimmune family history of Psoriasis (brother). Problem Disorder of connective tissue (264246256) Systemic involvement of connective tissue, unspecified (M35.9) Active confirmed per Dr. Fortune, [facility] . H/o recurrent rashes w/skin bx suggestive of CTD; H/o fevers, MSK Sx. Never Lupus nephritis. Severe endometriosis, never . Has abnl Se Cr w/low GFR since per pt. Problem Cervical spondylosis without myelopathy (132486878) Spondylosis without myelopathy or radiculopathy, cervical region (M47.812) Active confirmed Problem Menopause (801056012) Menopausal and female climacteric states (N95.1) Active confirmed Problem Eruption of skin (934742544) Rash and other nonspecific skin eruption (R21) Active confirmed Skin rash red painful itchy over arms, hand, last 1 week, heals without scar, was accompanied by high fever, recurrent - treated w/Prednisone in 2019 - helped. Overall better since on Hydroxychloroquine. She did see improvement in rashes that she as since teens when evaluation back then showed celiac and she went gluten free. 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 Vital Signs Heart Rate 81 /min 06/09/2024 Temperature 36.8 C 06/09/2024 Blood pressure diastolic 88 mm Hg 06/09/2024 Height 160.8 cm 06/09/2024 Blood pressure systolic 130 mm Hg 06/09/2024 Weight 100.7 kg 03/08/2024 BMI 38.94 kg/m2 03/08/2024 Encounters Encounter Location Date Provider Diagnosis [facility] [address] [id number] 01/21/2024 GIULIANA NELSON Allergic rhinitis, unspecified J30.9 ; Rash and other nonspecific skin eruption R21 ; Allergy status to other drugs, medicaments and biological substances Z88.8 ; Pruritus, unspecified L29.9 and Mild intermittent asthma, uncomplicated J45.20 [facility] [address] [id number] 04/19/2024 GIULIANA NELSON Allergic rhinitis, unspecified J30.9 ; Allergy status to other drugs, medicaments and biological substances Z88.8 ; Pruritus, unspecified L29.9 and Mild intermittent asthma, uncomplicated J45.20 [facility] [address] [id number] 03/08/2024 Shelly Velasquez Rheumatoid arthritis without rheumatoid factor, [...] ; Menopausal and female climacteric states N95.1 and Pain in left ankle and joints of left foot M25.572 [facility] [address] [place] [address] [id number] 06/09/2024 Bhartibenjamínmynor Eva Rheumatoid arthritis without rheumatoid factor, multiple sites [...] foot M25.572 and Fatigue, unspecified type R53.83 [facility] [address] [place] [address] [id number] 01/25/2024 CHARLIE NELSON Rheumatoid arthritis without rheumatoid factor, multiple sites M06.09 ; Cardozo's esophagus K22.70 ; Fatigue, unspecified type R53.83 ; Rash and other nonspecific skin eruption R21 ; Abnormal results of kidney function studies R94.4 ; Systemic involvement of connective tissue, unspecified M35.9 ; Celiac disease K90.0 and Lichen sclerosus of female genitalia N90.4 [facility] [address] [place] [address] [id number] 12/18/2023 CHARLIE NELSON [facility] [facility] [address] [place] [address] [id number] 01/21/2024 CHARLIE NELSON [facility] [address] [place] [address] [id number] 03/08/2024 CHARLIE NELSON [facility] [address] [id number] 04/18/2024 CHARLIE NELSON [facility] [place] [address] [id number] 01/21/2024 Elina Galan [facility] [address] [id number] 01/25/2024 Vik Maykel Assessments Encounter Date Diagnosis (ICD Code) Assessment Notes Treatment Notes Treatment Clinical Notes 01/21/2024 Allergic rhinitis, unspecified (ICD-10 - J30.9) 01/21/2024 Rash and other nonspecific skin eruption (ICD-10 - R21) 04/19/2024 Allergic rhinitis, unspecified (ICD-10 - J30.9) 03/08/2024 Rheumatoid arthritis without rheumatoid factor, multiple sites (ICD-10 - M06.09) OV 10.: On going arthralgia and fatigue [...] fatigue. Autoimmune family history of Psoriasis (brother). DXA , XRay C-spine, L ankle Diagnostic US of ankle - leftWe requested pertinent medical records on skin biopsies from Dr. Maier. RTC in [address] Mccormick . Hydroxychloroquine eye exam every 12 months per ophthalmology - . 03/08/2024 Cardozo's esophagus (ICD-10 - K22.70) 06/09/2024 Rheumatoid arthritis without rheumatoid factor, multiple sites (ICD-10 - M06.09) - OV 1.2.2024: Pt. on Plaquenil 400mg/day, on going pain and fatigue but pt. defers starting any DMARd at this time. OV 03.08.2024: On going arthralgia and fatigue on Plaquenil [...] - Pt. defers for nowFollow up with [facility] for elevated Cr - 06.27.2023Labs a week prior to OV Hydroxychloroquine eye exam every 12 months per ophthalmology - . 06/09/2024 Cardozo's esophagus (ICD-10 - K22.70) 01/25/2024 Rheumatoid arthritis without rheumatoid factor, multiple sites (ICD-10 - M06.09) 58 WF, suspected celiac sprue, asthma, Cardozo's [...] fatigue. Autoimmune family history of Psoriasis (brother). DXA , XRay C-spine, (B) hand. Labs fasting We requested pertinent medical records on skin biopsies from Dr. Maier. RTC in 6 weeks. Hydroxychloroquine eye exam every 12 months per ophthalmology - . 01/25/2024 Cardozo's esophagus (ICD-10 - K22.70) 01/21/2024 Allergy status to other drugs, medicaments and biological substances (ICD-10 - Z88.8) 04/19/2024 Allergy status to other drugs, medicaments and biological substances (ICD-10 - Z88.8) 03/08/2024 Rash and other nonspecific skin eruption (ICD-10 [...] celiac and she went gluten free. 06/09/2024 Rash and other nonspecific skin eruption [...] showed celiac and she went gluten free. 01/25/2024 Fatigue, unspecified type (ICD-10 - R53.83) 01/21/2024 Pruritus, unspecified (ICD-10 - L29.9) 04/19/2024 Pruritus, unspecified (ICD-10 - L29.9) 03/08/2024 Abnormal results of kidney function studies (ICD-10 - R94.4) 06/09/2024 Abnormal results of kidney function studies (ICD-10 - R94.4) 01/25/2024 Rash and other nonspecific skin eruption (ICD-10 - R21) Skin rash red painful itchy over arms, hand, last 1 week, heals without scar, was accompanied by high fever, recurrent - treated w/Prednisone in 2019 - helped. Overall better since on Hydroxychloroquine. She did see improvement in rashes that she as since teens when evaluation back then showed celiac and she went gluten free. 01/21/2024 Mild intermittent asthma, uncomplicated (ICD-10 - J45.20) 04/19/2024 Mild intermittent asthma, uncomplicated (ICD-10 - J45.20) 03/08/2024 Systemic involvement of connective tissue, unspecified (ICD-10 - M35.9) per Dr. Fortune, [facility] . H/o recurrent rashes w/skin bx suggestive of CTD; H/o fevers, MSK Sx. Never Lupus nephritis. Severe endometriosis, never . Has abnl Se Cr w/low GFR since per pt. 06/09/2024 Systemic involvement of connective tissue, unspecified (ICD-10 - M35.9) per Dr. Fortune, [facility] . H/o recurrent rashes w/skin bx suggestive of CTD; H/o fevers, MSK Sx. Never Lupus nephritis. Severe endometriosis, never . Has abnl Se Cr w/low GFR since per pt. 01/25/2024 Abnormal results of kidney function studies (ICD-10 - R94.4) Consult Nephrology (Dr. Santizo, Dr. Fu ph: [phone]) re: Labs Se Cr 1.23 H, nl < 1.20, low GFR 51 L ; seen in , too. Mrs. Johnson will call us back w/the name to send the referral to. 03/08/2024 Celiac disease (ICD-10 - K90.0) She did see improvement in rashes that she as since teens when evaluation back then showed celiac and she went gluten free. Glute free diet helped her low grade fevers and to a lesser degree with MSK pain. 06/09/2024 Celiac disease (ICD-10 - K90.0) She did see improvement in rashes that she as since teens when evaluation back then showed celiac and she went gluten free. Glute free diet helped her low grade fevers and to a lesser degree with MSK pain. 01/25/2024 Systemic involvement of connective tissue, unspecified (ICD-10 - M35.9) per Dr. Fortune, [facility] . H/o recurrent rashes w/skin bx suggestive of CTD; H/o fevers, MSK Sx. Never Lupus nephritis. Severe endometriosis, never . Has abnl Se Cr w/low GFR since per pt. 03/08/2024 Lichen sclerosus of female genitalia (ICD-10 - N90.4) 06/09/2024 Lichen sclerosus of female genitalia (ICD-10 - N90.4) 01/25/2024 Celiac disease (ICD-10 - K90.0) She did see improvement in rashes that she as since teens when evaluation back then showed celiac and she went gluten free. Glute free diet helped her low grade fevers and to a lesser degree with MSK pain. 03/08/2024 Spondylosis without myelopathy or radiculopathy, cervical region (ICD-10 - M47.812) 06/09/2024 Spondylosis without myelopathy or radiculopathy, cervical region (ICD-10 - M47.812) 01/25/2024 Lichen sclerosus of female genitalia (ICD-10 - N90.4) Follow up w/[facility] re: flare of Lichen sclerosus as of . 03/08/2024 Effusion, left ankle (ICD-10 - M25.472) 06/09/2024 Effusion, left ankle (ICD-10 - M25.472) 03/08/2024 Disorder of bone density and structure, unspecified (ICD-10 - M85.9) 06/09/2024 Disorder of bone density and structure, unspecified (ICD-10 - M85.9) 03/08/2024 Menopausal and female climacteric states (ICD-10 - N95.1) 06/09/2024 Menopausal and female climacteric states (ICD-10 - N95.1) 03/08/2024 Pain in left ankle and joints of left foot (ICD-10 - M25.572) 06/09/2024 Pain in left ankle and joints of left foot (ICD-10 - M25.572) 06/09/2024 Fatigue, unspecified type (ICD-10 - R53.83) 01/21/2024 Other 1. Rheumatology consult - records are needed for appointment 2. Rhinitis - continue mometasone and ipatropium 3. Continue fexofenadine 180mg twice per day 4. Gluten avoidance 5. Albuterol - 2 puffs up to 4x/day as needed 6. Follow-up in three months Plan Of Treatment Pending Test Test Name Order Date X ray : Ankle, left 03/08/2024 DEXA Hip and Spine 03/08/2024 X ray : Cervical Spine Flex/Ext 03/08/20 LUPUS ANTICOAGULANT EVALUATION WITH REFL EX 01/25/2024 URINALYSIS, COMPLETE W/REFLEX TO CULTURE 01/25/2024 HLA-B27 ANTIGEN 01/25/2024 PROTEIN, TOTAL W/CREAT, RANDOM URINE HEPATITIS B CORE ANTIBODY (IGM) 01/25/20 24 HEPATITIS B SURFACE ANTIGEN W/REFL CONFI RM 01/25/2024 FERRITIN 01/25/2024 TSH, 3RD GENERATION 01/25/2024 IMMUNOFIXATION IGA,IGG,IGM QT.IMMUNOFIXA TION SERUM IMMUNOGLOBULIN 01/25/2024 PROTEIN, TOTAL AND PROTEIN ELECTROPHORES IS 01/25/2024 ANCA SCREEN WITH MPO AND PR3 WITH REFLEX TO ANCA TITER 01/25/2024 ANGIOTENSIN CONVERTING ENZYME (CRISTIANA) 01/06 URIC ACID 01/25/2024 IRON TOTAL, TIBC, SATURATION 01/25/2024 CREATINE KINASE, TOTAL 01/25/2024 HEPATIC FUNCTION PANEL 01/25/2024 HEPATIC FUNCTION PANEL 06/09/2024 CREATININE 01/25/2024 CREATININE 06/09/2024 CBC (INCLUDES DIFF/PLT) 06/09/2024 CBC (INCLUDES DIFF/PLT) 01/25/2024 SED RATE BY MODIFIED WESTERGREN 06/09/19 25 SED RATE BY MODIFIED WESTERGREN 01/25/20 24 Hep C Ab w Rfx to HCV RNA 01/25/2024 HS-CRP 06/09/2024 ANAlyzeR RICHARD,IFA with Reflex Titer/Ly lamas, Systemic Autoimmune Panel 1 01/25/2024 Next Appt Details Provider Name:Lakia Lilian , 09/07/2024 10:20:00 AM, [address] [place] [address], [phone], Provider Name:GIULIANA LESLIE, 04/17/2025 10:30:00 AM, [address] [place] [address], [phone], Insurance Providers Payer Name Payer Address Payer Phone Subscriber Number Group Number Insured Name Patient Relationship to Insured Coverage Start Date Coverage End Date KEITH COTTO [address] [place], [place] [id number] [phone] [id number] Mary Johnson Self - patient is the insured Medical (General) History Medical History History ICD Code multiple drug sensitivity seronegative RA fibromyalgia anxiety: Yes eczema: Yes osteoporosis: No hypothyroidism: No fatty liver: No bowel disorders: Yes ulcerative colitis: No diverticulosis: No hypertension: Yes recurrent sinusitis: Yes varicose veins: No migraine headaches: Yes cancer, colon: No family history of colon cancer: from colon CA Seronegative Rheumatoid Arthritis dx 201 9, on PLQ since-helps Surgical History Surgery Date(Month/Year) D&C d/t chronic bleeding 2020 Deviated septum EGD/colonoscopy gastritis, Cardozo's eso phagus Dr Leroy .2023
--- OUTSIDE RECORDS SUMMARY | 2024-08-31 17:55 | XMS_ITS | Encounter Summary ---
Author Organization [facility] Address [address] [place] [address] Care Team Providers Care Dye House Helper Name Role Phone Julien Mckeon APRN Unavailable [phone] Shari Maier MD Unavailable [phone] Wm Cantu MD Unavailable [phone] Elina Sanchez STRATEGIC BUYER Primary Care Provider Lexus Chen MD Unavailable [phone] Encounter Details Date Type Department Care Team (Late st Contact Info) Description 09/24/2023 Scanned Document [facility] Department of Internal Medicine [address] [phone] Elina Sanchez, MARGOT [address] [place] [address] Social History Tobacco Use Types Packs/Day [...] Visit [facility] Department of Internal Medicine [address] [place] [phone] Elina Sanchez APRN [address] [place] [address] documented as of this encounter Visit Diagnoses Not on filedocumented in this encounter Care Teams Dye House Helper Relationship Specialty Start Date End Date Elina Sanchez APRN [address] [place], [place] [address] PCP - General Internal Medicine 07/06/23 Julien Mckeon APRN [address] [place] [address] Nurse Practitioner Neurology 05/12/23 Shari Maier MD [address] [place] [address] Consulting Provider Dermatology 05/12/23 Wm Cantu MD 9 [facility] 2nd [place] [address] Obstetrics and Gynecology 05/12/23 Lexus Chen MD [address] [place] [address] Rheumatology 05/24/24 documented as of this encounter
--- OUTSIDE RECORDS SUMMARY | 2024-08-31 17:55 | XMS_ITS | Encounter Summary ---
Author Organization [facility] Address [address] [place] [address] Care Team Providers Care Pipe Fitter Apprentice Name Role Phone Julien Mckeon APRN Unavailable [phone] Shari Maier MD Unavailable [phone] Wm Cantu MD Unavailable [phone] Elina Sanchez APRN Primary Care Provider Lexus Chen MD Unavailable [phone] Encounter Details Date Type Department Care Team (Late st Contact Info) Description 10/06/[address] [facility] [address] [phone] Yashira Leroy MD [address] [address] Social History Tobacco Use Types Packs/Day Years [...] Visit [facility] Department of Internal Medicine [place] [address] [facility] [address] [place] [phone] Elina Sanchez, FOREST FIRE MANAGEMENT OFFICER [address] [place] [address] documented as of this encounter Procedures Procedure Name Priority Date/Time Associated Diagnosis Comments PATHOLOGY REPORT 10/06/2023 12:0 0 AM EDT documented in this encounter Results * PATHOLOGY REPORT (10/06/2023 12:00 AM EDT) Yashira Izquierdo MD PATHOLOGY/CYTOLOG Y ORDERABLES documented in this encounter Visit Diagnoses Not on filedocumented in this encounter Care Teams Pipe Fitter Apprentice Relationship Specialty Start Date End Date Elina Sanchez, FOREST FIRE MANAGEMENT OFFICER [address] [place] [address] PCP - General Internal Medicine 07/06/23 Julien Mckeon, FOREST FIRE MANAGEMENT OFFICER [address] [place] [address] Nurse Practitioner Neurology 05/12/23 Shari Maier MD [address] [place] [address] Consulting Provider Dermatology 05/12/23 Wm Cantu MD 9 [facility] 2nd [address] [place], [place] [address] Obstetrics and Gynecology 05/12/23 Lexus Chen MD [address] [place] [address] Rheumatology 05/24/24 documented as of this encounter
--- OUTSIDE RECORDS SUMMARY | 2024-08-31 17:55 | XMS_ITS | Clinical Summary ---
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 Care Teams Webfocus Developer Relationship Specialty Start Date End Date Vik Brar MD PCP - General Internal Medicine 03/08/16
--- OUTSIDE RECORDS SUMMARY | 2024-08-31 17:55 | XMS_ITS ---
Author Name [facility] Organization Unknown History of Medication Use Medication Directions Dispensed Refills Start Date End Date Stat ipratropium bromide 21 mcg (0.03 %) nasal spray 2 SPRAYS BY NASAL ROUTE EVERY 12 (TWELVE) HOURS. 2 SPRAYS PER NOSTRIL EVERY 12 HOURS. active mometasone 50 mcg/actuation nasal spray SPRAY 2 SPRAYS BY NASAL ROUTE DAILY active erythromycin with ethanol 2 % topical solution APPLY TO FACIAL RASH UNDER NOSE TWICE A DAY FOR 6 WEEKS 4 completed prednisone 5 mg tablet TAKE 2 TABS ONCE DAILY FOR 1-2 WEEKS, THEN 1 TAB ONCE DAILY FOR 2 WEEKS 4 completed hydroxychloroquine 200 mg tablet TAKE 1 TABLET BY MOUTH TWICE A DAY FOR 90 DAYS active metronidazole 1 % topical gel APPLY TO ROSACEA ONCE DAILY. active topiramate 25 mg tablet TAKE 1 TABLET DAILY 5 completed epinephrine 0.3 mg/0.3 mL injection, auto-injector INJECT 0.3 ML (0.3 MG TOTAL) INTO THE THIGH ONCE NEEDED FOR ALLERGIC REACTION. active famotidine 20 mg tablet TAKE 1 TABLET BY MOUTH NIGHTLY NEEDED FOR HEARTBURN. active clobetasol 0.05 % topical cream APPLY SPARINGLY ONCE OR TWICE A DAY NEEDED active desoximetasone 0.05 % topical cream APPLY SPARINGLY TO AFFECTED AREA TWICE A DAY NEEDED active albuterol sulfate HFA 90 mcg/actuation aerosol inhaler 2 PUFFS NEEDED INHALATION EVERY 6-8 HRS 30 DAYS active sodium,potassium,mag sulfates 17.5 gram-3.13 gram-1.6 gram oral soln FOLLOW DIRECTIONS PROVIDED BY PHYSICIAN'S OFFICE. 4 completed desoximetasone (TOPICORT) 0.25 % cream Apply topically. active vitamin B-12 (CYANOCOBALAMIN) 100 MCG tablet Take 1 tablet by mouth daily. active erythromycin with ethanol (THERAMYCIN) 2 % external solution APPLY TO FACIAL RASH UNDER NOSE TWICE A DAY FOR 6 WEEKS 03/17/2023 active vitamin B-12 (CYANOCOBALAMIN) 100 MCG tablet Take 50 mcg by mouth daily. active diclofenac (VOLTAREN) 1 % gel APPLY 4 GRAMS TO THE LATERAL RIGHT FOOT UP TO FOUR TIMES A DAY NEEDED FOR PAIN 07/02/2016 active famotidine (PEPCID) 20 MG tablet Take 1 tablet (20 mg total) by mouth nightly as needed for heartburn. 11/26/2021 active fexofenadine (ED) 180 MG tablet Take by mouth. 02/05/2012 active saccharomyces boulardii (FLORASTOR) 250 MG capsule Take 250 mg by mouth daily. active cholecalciferol (VITAMIN D3) 1000 units capsule Take 1 capsule by mouth daily. active sodium chloride 0.9% (NS) infusion 75 mL/hr, Intravenous, Continuous, Starting on Thu10/06/23 at 0830, Pre-Procedure (GI) 10/06/2023 active hydroxychloroquine (PLAQUENIL) 200 MG tablet Take 1 tablet by mouth 2 (two) times a day. 10/22/2018 active hydroxychloroquine (PLAQUENIL) 200 MG tablet Take 200 mg by mouth. 08/24/2019 active albuterol (PROVENTIL HFA; VENTOLIN HFA) 108 (90 Base) MCG/ACT inhaler Inhale 2 puffs 4 times daily (every 6 hours) as needed. 10/21/2021 active ipratropium (ATROVENT) 0.03 % nasal spray into each nostril. 11/18/2021 active Allergies Allergen Reaction Severity Comment Documented Date Source Statu s SULFA (SULFONAMIDE ANTIBIOTICS) [facility] Problems Problem Status Onset Date Problem Type Date of Resolution Source Obese class III active 2023-09-07 6 ProblemAct [facility] Migraine active 2023-08-08 6 ProblemAct [facility] Anxiety active 2023-08-08 6 ProblemAct [facility] Obesity active 2023-08-07 1 ProblemAct [facility] Rheumatoid arthritis active 2023-08-08 6 ProblemAct [facility] Chronic kidney disease stage 3A active 2024-06-09 1 ProblemAct [facility] Essential hypertension active 2023-08-08 6 ProblemAct [facility] Snoring active 2023-08-08 6 ProblemAct [facility] Hyperlipidemia active 2023-08-08 6 ProblemAct [facility] Gastroesophageal reflux disease without esophagitis active 2023-08-08 6 ProblemAct [facility] Disorder of vocal cord active 6 [facility]Act [facility] Hematuria active 2005-11-07 2 ProblemAct [facility] Non-restorative sleep active 6 ProblemAct [facility] Pruritic rash active 6 ProblemAct [facility] Other chronic sinusitis active 2017-10-07 3 ProblemAct [facility] Gastroesophageal reflux disease without esophagitis active 9 ProblemAct [facility] Fibromyalgia active 2017-10-07 3 ProblemAct [facility] 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 EncounterDiagnosisAct [facility] Anxiety active 2010-02-06 3 ProblemAct [facility] Snoring active 6 ProblemAct [facility] Tachycardia active 6 ProblemAct [facility] Foot pain, bilateral active 2016-08-06 2 ProblemAct [facility] Grief active 6 ProblemAct [facility] Rosacea active 2017-10-07 3 ProblemAct [facility] Endometriosis active 2010-02-06 3 ProblemAct [facility] Gastroesophageal reflux disease with esophagitis without hemorrhage active EncounterDiagnosisAct [facility] Rheumatoid arteritis active 6 ProblemAct [facility] Essential familial hypercholesterolemia active 6 ProblemAct [facility] Irritable bowel syndrome with both constipation and diarrhea active EncounterDiagnosisAct [facility] Metrorrhagia active 6 ProblemAct [facility] Atypical endometrial cells on Pap smear active 2020-11-08 0 ProblemAct [facility] Immunizations Vaccine Date Source Lot Number Status Influenza, Quadrivalent (FLU ARIX, AFLURIA, FLULAVAL, FLUZONE) Preservative Free IM 03/27/2022 [facility] [id number] completed Covid-19 mRNA Primary Series Vaccine - Moderna 0.5 mL Full Dose 10/22/2021 [facility] completed Tdap 03/21/2009 [facility] [id number] completed Influenza (AFLURIA/FLUZONE) Inactivated/Split Quadrivalent with Preservative IM 04/23/2016 [facility] completed H1N1 All Forms 10/21/2021 [facility] completed Influenza Inactivated/Split Preservative Free IM 05/11/2013 [facility] completed Influenza, Unspecified 03/14/2020 [facility] co mpleted Tdap 04/11/2020 [facility] completed Influenza, Unspecified 04/21/2018 [facility] co mpleted Influenza, Quadrivalent (FLU ARIX, AFLURIA, FLULAVAL, FLUZONE) Preservative Free IM 05/12/2023 [facility] [id number] completed Encounters Encounter Type Encounter Reason Primary Diagnosis Location Date Ambulatory [facility] 06/28/2024 Ambulatory Chronic kidney disease, stage 3a Chronic kidney disease, stage 3a [facility] 05/24/2024 Ambulatory Encounter for immunization Encounter for immunization [facility] 03/29/2024 Ambulatory Chronic kidney disease, stage 3a Chronic kidney disease, stage 3a [facility] 02/15/2024 Ambulatory Follow-up Follow-up [facility] 01/28/2024 Ambulatory Encounter for gynecological examination (general) (routine) without abnormal findings Encounter for gynecological examination (general) (routine) without abnormal findings [facility] 11/09/2023 Ambulatory Follow-up Follow-up [facility] 10/13/2023 Ambulatory Encounter for screening for malignant neoplasm of colon Encounter for screening for malignant neoplasm of colon [facility] 10/06/2023 Ambulatory Encounter for genera l adult medical examination without abnormal findings Encounter for general adult medical examination without abnormal findings [facility] 05/12/2023 Ambulatory Gastro-esophageal reflux disease without esophagitis Gastro-esophageal reflux disease without esophagitis [facility] 05/07/2023 Ambulatory Migraine, unspecified, not intractable, without status migrainosus [facility] 10/09/2022 Ambulatory Migraine, unspecified, not intractable, without status migrainosus [facility] 08/11/2022 Ambulatory Gastro-esophagea l reflux disease without esophagitis [facility] 01/10/2022 Care Team Organization Name Specialty Phone Email Start Date End Da Ivon Han [phone] Primary Care 04/28/2024 07/28/2024 [facility] ([facility] 04/22/2024 Ivon Tapia Primary [facility] 11/26/2023 07/28/2024 Ivon Tapia Primary [facility] 09/02/2023 07/28/2024 [facility] FELIZ MEDEROS Primary Care 07/13/2023 [facility] 04/10/2023 024 [facility] JENNYFER MORENO [facility] 01/10/2022 01/11/20 [facility]/10/2022
--- OUTSIDE RECORDS SUMMARY | 2024-08-31 17:55 | XMS_ITS ---
Author Organization [facility] Address [address], [place] [id number] Care Team Providers Care Hamper Maker Machine Name Role Phone Elina Sanchez APRN Primary Care Provider UnavailCHARLIE Sierra Unavailable [phone] Elina Galan Unavailable Unavailable GIULIANA NELSON Unavailable [phone] Encounters Encounter Location Date Provider Diagnosis [facility] [address] [phone] 04/21/2024 GIULIANA NELSON Plan Of Treatment Next Appt Details Provider Name:Lakia Quintana , 09/07/2024 10:20:00 AM, [address] [place] [address], [phone], Provider Name:GIULIANA NELSON, 04/17/2025 10:30:00 AM, [address] [place] [address], [phone],
--- OUTSIDE RECORDS SUMMARY | 2024-08-31 17:55 | XMS_ITS | Encounter Summary ---
Author Organization [facility] Address [address] [place] [address] Care Team Providers Care Porter Luggage Name Role Phone Julien Mckeon APRN Unavailable Shari Maier MD Unavailable [phone] Wm Cantu MD Unavailable [phone] Elina Sanchez SENIOR TREASURY CONSULTANT Primary Care Provider [phone] Lexus Chen MD Unavailable [phone] Encounter Details Date Type Department Care Team (Late st Contact Info) Description 07/25/2024 Scanned Document [facility] Department of Internal Medicine [address] [phone] Elina Sanchez, MARGOT [address] [place] [address] Social History Tobacco Use Types Packs/Day [...] Description 10/25/2024 9:30 AM EDT Office Visit [facility] Department of Internal Medicine [address] [place] [phone] Elina Sanchez APRN [address] [place] [address] documented as of this encounter Visit Diagnoses Not on filedocumented in this encounter Care Teams Porter Luggage Relationship Specialty Start Date End Date Elina Sanchez, MARGOT [address] [place] [address] PCP - General Internal Medicine 07/06/23 Julien Mckeon APRN [address] [place] [address] Nurse Practitioner Neurology 05/12/23 Shari Maier MD [address] [place] [address] Consulting Provider Dermatology 05/12/23 Wm Cantu MD [address] [place] [address] [address] [place] [address] Obstetrics and Gynecology 05/12/23 Lexus Chen MD [address] [place] [address] Rheumatology 05/24/24 documented as of this encounter
--- OUTSIDE RECORDS SUMMARY | 2024-08-31 17:55 | XMS_ITS | Encounter Summary ---
Author Organization [facility] Address [address] [place] [address] Care Team Providers Care Dye Machine Tender Name Role Phone Vik Brar MD Primary Care Provider [phone] Julien Mckeon FABRIC LAY OUT WORKER Unavailable Shari Maier MD Unavailable Wm Cantu MD Unavailable Elina Sanchez FABRIC LAY OUT WORKER Unavailable Elina Sanchez FABRIC LAY OUT WORKER Primary Care Provider [phone] Lexus Chen MD Unavailable [phone] Reason for Visit * Reason Onset Date Comments Medication Refill 11/19/2021 Encounter Details Date Type Department Care Team (Late st Contact Info) Description 11/19/2021 Refill [facility] [address] [facility] [address] [place] [address] Nneka Sultana MD [address] [place] [address] Gastroesophageal reflux disease Social History Tobacco [...] Visit [facility] Department of Internal Medicine [address] [place] [address] Elina Sanchez APRN [address] [place], [place] [address] documented as of this encounter Visit Diagnoses Diagnosis Gastroesophageal reflux disease Esophageal reflux documented in this encounter Care Teams Dye Machine Tender Relationship Specialty Start Date End Date Vik Brar MD PCP - General Internal Medicine 08/11/16 07/04/23 Elina Sanchez APRN [address] [phone] PCP - General Internal Medicine 07/06/23 Julien Mckeon APRN [address] [place] [address] Nurse Practitioner Neurology 05/12/23 Shari Maier MD [address] [place] [address] Consulting Provider Dermatology 05/12/23 Wm Cantu MD [address] [facility] 2nd [place] [address] Obstetrics and Gynecology 05/12/23 Elina Sacnhez APRN [address] [place] [address] Nurse Practitioner Internal Medicine 07/05/23 07/05/23 Lexus Chen MD [address] [place] [address] Rheumatology 05/24/24 documented as of this encounter
== END 2024-08-31 15:21 | disposition home or self-care (01) ==
LOC: HO.HKAE 14:55
PROVIDERS: PCP Internal Medicine; Visit Provider Internal Medicine Hypertension Specialist
DX: N18.9 Chronic kidney disease, unspecified (principal)
CPT/HCPCS: 99214

== ENCOUNTER → 2024-08-31 14:55 | Outpatient (BNVA) | payer BC, SELFPAY | PROVIDERS: PCP Internal Medicine; Visit Provider Internal Medicine Hypertension Specialist ==

== ENCOUNTER 2025-03-01 14:06 | Outpatient (AMB) | payer BC, SELFPAY ==
--- OUTSIDE RECORDS SUMMARY | 2024-04-21 06:00 | XMS_ITS ---
Author Organization [facility] Address [address] [place] [id number] Care Team Providers Care Manager Bakery Name Role Phone Elina Galan Primary Care Provider UnavailCHARLIE Carmona Unavailable [phone] Maykel DUNN, Vik Unavailable Unavailable GIULIANA NELSON Unavailable [phone] Encounters Encounter Location Date Provider Diagnosis [facility] [address] [phone] 04/21/2024 GIULIANA NELSON Plan Of Treatment Next Appt Details Provider Name:GIULIANA NELSON, 04/17/2025 10:30:00 AM, [address] [place] [address], [phone], Provider Name:Lakia Lilian , 05/09/2025 10:20:00 AM, [address] [place] [address], [phone], Progress Notes * Mary MANZANARESDOB:[birth year] (59 yo F)Acc No.[id number]:04/21/2024 Progress Notes Patient: Mary CASAREZ Provider: Mazin Nelson MD, PhD :1965 A ge:58 Y S ex:Female Date:04/21/2024 Phone: Address:[address] [place], [place] [phone] Pcp:Elina Galan Subjective: * Chief Complaints: * * Medical History: Objective: * Vitals: Assessment: Plan: * Treatment: * * Electronic signature of JANAE NELSON MD, PhD on 03/01/2025 at 04:47 PM EDT Sign off status: Pending * Provider: Mazin Nelson MD, PhD Date: 1 06/21/[address] man/Jorge Alberto/Gerardo on: 0 03/01/2025 04:47 PM EDT
--- OUTSIDE RECORDS SUMMARY | 2024-06-09 06:00 | XMS_ITS ---
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 Name Role Phone Elina Galan Primary Care Provider UnavailCHARLIE Carmona Unavailable [phone] Vik Brar MD Unavailable Unavailable Shelly Velasquez Unavailable [phone] Allergies Allergen (clinical drug ingredient) Drug/Non Drug Allergy documented on EMR Reaction Allergy Type Onset Date Status penicillin (uncoded) rash Allergy Active Substance with sulfonamide structure and antibacterial mechanism of action (substance) sulfonamide (uncoded) rash Allergy Active REASON FOR VISIT PT last seen PMD Elina Sanchez, ANALYTICAL SCIENTIST 05/2024, Fatigue 6/10, AMS 30 mins, pain 6- 7/10 LT hip, hands, ankles, feet, wrists, Lab 05/18/2024, R3A HS=6.0 Medications Medication SIG (Take, Route, Frequency, Duration) Notes Start Date End Date Status Mometasone Furoate 50 MCG/ACT SPRAY 2 SP RAYS BY NASAL ROUTE DAILY Nasal; Duration: 90 Days Active Famotidine 20 MG 1 tablet at bedtime Orally Once a day; Duration: 90 days Active Erythromycin 2 % APPLY TO FACIAL RASH UNDER NOSE TWICE A DAY FOR 6 WEEKS External; Duration: 30 Days Active metroNIDAZOLE 1 % APPLY TO ROSACEA ONC E DAILY. External; Duration: 30 Days Active predniSONE 5 MG 1 tablet Oral as needed; Duration: 30 days Active Hydroxychloroquine Sulfate 2 00 MG 1 TABLET Orally twice a day; Duration: 90 days Active Albuterol Sulfate HFA 108 (9 0 Base) MCG/ACT 2 puffs as needed Inhalation every 6-8 hrs; Duration: 30 days 04/19/2024 Active Ipratropium Reading 0.03 % 2 SPRAYS BY N TRAY ROUTE EVERY 12 (TWELVE) HOURS. 2 SPRAYS PER NOSTRIL EVERY 12 HOURS. 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 ; Rash and other nonspecific skin eruption R21 ; Abnormal results of kidney function studies R94.4 ; Systemic involvement of connective tissue, unspecified M35.9 ; Celiac disease K90.0 ; Lichen sclerosus of female genitalia N90.4 ; Spondylosis without myelopathy or radiculopathy, cervical region M47.812 ; Effusion, left ankle M25.472 ; Disorder of bone density and structure, unspecified M85.9 ; Menopausal and female climacteric states N95.1 ; Pain in left ankle and joints of left foot M25.572 and Fatigue, unspecified type R53.83 Assessments Encounter Date Diagnosis (ICD Code) Assessment Notes Treatment Notes Treatment Clinical Notes Section Notes 06/09/2024 Rheumatoid arthritis without rheumatoid factor, multiple sites (ICD-10 - M06.09) - OV 1.: Pt. on Plaquenil 400mg/day, on going pain and fatigue but pt. defers starting any DMARd at this time. OV 10.: On going arthralgia and fatigue on Plaquenil since 2018 400mg/ day. Pt. defers adding anything else to the treatment plan at this time due to her drug sensitivity history. 58 WF, suspected celiac sprue, asthma, Cardozo's esophagitis, skin rashes w/biopsies x 2 suggestive of Connective Tissue Disease (2016 or so) , lichen sclerosus dx 1998; dx w/seronegative RA 2018 and CTD 2018, on Hydroxychloroquine 400 mg/d since 2019 w/meaningful but insufficient response. Presented to us 01.25.2024 with (B) hand pain, (B) wrist swelling, mildly limited ROM in finger flexion and wrist extension, enthesitis - (B) Achilles enthesitis. H/o Rt plantar fasciitis since 2019, costochondral tenderness, prolonged morning stiffness 45 min and fatigue. Autoimmune family history of Psoriasis (brother). RTC in 3 months. - May consider BDMARD - Pt. defers for nowFollow up with Employment Assistant for elevated Cr - 06.27.2023Labs a week prior to OV Hydroxychloroquine eye exam every 12 months per ophthalmology - 10.2023. 06/09/2024 Cardozo's esophagus (ICD-10 - K22.70) 06/09/2024 Rash and other nonspecific skin eruption (ICD-10 - R21) Skin rash red painful itchy over arms, hand, last 1 week, heals without scar, was accompanied by high fever, recurrent - treated w/Prednisone in 2019 - helped. Overall better since on Hydroxychloroquine. She did see improvement in rashes that she as since teens when evaluation back then showed celiac and she went gluten free. 06/09/2024 Abnormal results of kidney function studies (ICD-10 - R94.4) 06/09/2024 Systemic involvement of connective tissue, unspecified (ICD-10 - M35.9) per Dr. Fortune, [facility] . H/o recurrent rashes w/skin bx suggestive of CTD; H/o fevers, MSK Sx. Never Lupus nephritis. Severe endometriosis, never . Has abnl Se Cr w/low GFR since per pt. 06/09/2024 Celiac disease (ICD-10 - K90.0) She did see improvement in rashes that she as since teens when evaluation back then showed celiac and she went gluten free. Glute free diet helped her low grade fevers and to a lesser degree with MSK pain. 06/09/2024 Lichen sclerosus of female genitalia (ICD-10 - N90.4) 06/09/2024 Spondylosis without myelopathy or radiculopathy , cervical region (ICD-10 - M47.812) 06/09/2024 Effusion, left ankle (ICD-10 - M25.472) 06/09/2024 Disorder of bone density and structure, unspecified (ICD-10 - M85.9) 06/09/2024 Menopausal and female climacteric states (ICD-10 - N95.1) 06/09/2024 Pain in left ankle and joints of left foot (ICD-10 - M25.572) 06/09/2024 Fatigue, unspecified type (ICD-10 - R53.83) Plan Of Treatment Medication Medication Name Sig Start Date Stop Date Notes Hydroxychloroquine Sulfate 200 MG 1 TABL ET Orally twice a day; Duration: 90 days Treatment Notes Assessment Notes Rheumatoid arthritis without rheumatoid factor, multiple sites RTC in 3 months. - May consider BDMARD - Pt. defers for nowFollow up with Employment Assistant for elevated Cr - 06.27.2023Labs a week prior to OV Hydroxychloroquine eye exam every 12 months per ophthalmology - . Pending Test Test Name Order Date HEPATIC FUNCTION PANEL 06/09/2024 CREATININE 06/09/2024 CBC (INCLUDES DIFF/PLT) 06/09/2024 SED RATE BY MODIFIED GILDAERGREN 06/09/19 25 HS-CRP 06/09/2024 Next Appt Details Follow Up: 4 Weeks, Reason: Provider Name:GIULIANA NELSON, 04/17/2025 10:30:00 AM, [address] [place] [address], [phone], Provider Name:Lakia Quintana , 05/09/2025 10:20:00 AM, [address] [place] [address], [phone], Progress Notes * LEIGHTON YaimamoniqueDOB:[birth year] (59 yo F)Acc No.[id number]:06/09/2024 Progress Notes Patient: Mary CASAREZ Provider: Parker Velasquez APRN :1965 A ge:58 Y S ex:Female Date:06/09/2024 Phone: Address:[address] [place], [place] [id number] Pcp:Elina Galan Subjective: * Chief Complaints: * 1 . PT last seen PMD Elina Sanchez APRN 05/2024. 2. Fatigue 6/10, AMS 30 mins. 3. pain 6-7/10 LT hip, hands, ankles, feet, wrists. 4. Lab 05/18/2024. 5. R3A HS=6.0. * HPI: R heumatology, Other: Demographics 6 7 W, Psoriatic Arthritis, Seroneg RA/Non-Radiographic SpondyloArthritis '2018,[place] Dr. Mckee/[place]; Celiac S kin Biopsy - possible CTD, l ow +RF, Neg HLA B27 Ag negative, neg [id number], - 2023 E GD/colonoscopy gastritis, Cardozo's esophagus Dr Leroy 2.2023 P lantar fasciitis, Rt since 2019 A utoimmune FHx: Psoriasis, (Brother) . The patient presents with the following symptoms 1 .2.2024PT last seen PMD Elina Surekhahugo, ANALYTICAL SCIENTIST 05/2024, Fatigue 6/10, AMS 30 mins, pain 6-7/10 LT hip, hands, ankles, feet, wrists, Lab 05/18/2024, R3A HS=6.0. R A:Pt. on Plaquenil 200mg BID since 2019. Pt. states its helping and is working with PCP for weightloss. L abs 05.18.2024:OK CBC,Cr 1.17 (H),LFT, HS-CRP 1.2 1 0.1.2023 P t last saw PCP Dr. Brar , lab 824, fatigue 7/10 , AMS 1hr, pain 7/10 jaw, neck, shoulders, elbows, wrists, lower back, hands, ankles, feet, CXR needs to be scheduled, DEXA needs to be scheduled, Pt c/o migraine as of today, PLQ eye -ok, Biopsy Report?.R3A= 12. R A:Pt. on Plaquenil 200mg BID since 2019. Per pt. it seems to be helping, the fatigue is on going. C ONSULT 824 i n 2016 FUO 104F x 2 days, then LGF 100 F, tx at home, saw ; chronic rashes erythematoous, painful, itchy, lasted 1 week at the time, healed w/o a scar; Dr. Maier did 2 biopsies, came back as CTD, Tx w/Prednisone helped; HCQ helped '2018 - dx in [place] (Dr. Santos Derm/Rheum dx, on HCQ); , MSK pain, H/o skin rashes, sinus Fatigue 6/10, AMS 45 mins pain 6/10 neck, elbo ws, hands, hips, lower back, ankles, feet lab . PLQ eye exam OK No DEXA ; Had [id number] 2018 Ok per pt; Seronegative Rheumat oid Arthritis dx 2019, on PLQ since 2019 -helps+ Recurrent fevers;+ Photosensitive skin rashes + ALOPECIA - when passed aways - small patches, resolved hair regrew; Saw Darrion .Had a rash at the back of her scalp, tx w/Clindamycin; + Raynaud's Phenomenon; No fingertip ulcer, No toe tip ulcer + Dry eye, Sees Dr. Morales, + use of artificial tears;Yes off/on Dry mouth; + Need to sip on water while swallowing a dry cracker; N O Mouth ulcers;NO GENITAL ULCERS EVER;+Lichen sclerosus Vaginal 1998, c/w Biopsy - Dr. Maier - tx w/Clobetasol, having a flare-up as of , will see Derm + Ever skin biopsy (Dr. Maier) ; showed possible CTD pe Dr. Mani Fortune ([facility] at [place]) note. N O Swollen painful joints,NO Painful but not swollen joints AND morning stiffness 30 or more minutes;NO H/o pericarditis, N O H/o Pleurisy or Pleural effusions;NO DRY COUGH; + FREQUENT SINUSITIS; No polyps in nose or sinuses; +Sores in [place]-> uses steroid nasal spray - helps (Nasonex) N O H/o low WBC; +high WBC 2021 - saw Track Sweeper in [place] 2021 [place], no need for f/Ti H/o anemia;NO H/o low platelet count; N O Ever deep vein thrombosis, NO arterial thrombosis, NO stroke, NO AMI; + H/o Obstetric problems: Endometriosis severe since age 19, Never N O atraumatic onset of back pain;; + Back pain better with movement AND not relieved by rest - YOGA helps; N O Back pain preciptated by trauma, R t Buttock pain, w/scatica - saw Spinal surgeon years ago - has extra Lumbar vertebra; N O h/o tennis elbow;+Rt h/o plantar fasciitis, chronic since 2018; N O h/o frozen shoulder,NO Trigger finger, N O h/o uveitis, iritis; + GI problems -+ IBS, + food allergies; Suspected Celiac Sprue - felt much better w/gluten free 2020, rashes, brain fog, fatigue - all better, slight better in joint pain;NO personal h/o Inflammatory Bowel Disease; + h/o celiac Sprue, as above; + Autoimmune FHx - + psoriasis (Brother, tx w/topical agents), Q Psoriatic Arthritis, - brother; N O Autoimmune FHx : NO FHx Crohn's colitis, No FHx Ulcerative Colitis, No FHx Celiac Sprue N O Autoimmune FHx of NO Rheumatoid Arthritis, NO FHx lupus, No FX Multiple Sclerosis.Mom - of throat cancer d/t smoking; .?Medications Include?PLAQUENIL (Hydroxychloroquine) since 2019, OK eye exam ?predniSONE 5 MG Tablet 1 tablet Oral as needed..?Laboratory results include?*Labs 6.5.24 +Cr 1.23H (nl up to 1.20), EGFR 51L. hsC-RP 0.9 ok, OK LFT, Ca, ESR 2. ?Per pt up Se cr in , too.?Diagnostic Imaging Includes? +Lichen sclerosus Vaginal 1998, c/w Biopsy - Dr. Maier - tx w/Clobetasol, having a flare-up as of , will see Derm * ? * + Ever skin biopsy (Dr. Maier) 2016; showed possible CTD per Dr. Mani Varela ?EGD Cardozo's esoph; OK Colonoscopy per pt;? .? * ROS: R heumatology: Fatigue Y es. F ever N o. C hills N o. N ight Sweats N o. W eight Loss N o. H ands change color in the cold N o. D ry Eyes Y es. D ry Mouth N o. S tiffness in AM Y es. J aw pain or tired when chewing N o. H eadaches Y es. P ain in eyes N o. R edness in eyes N o. Blurred or Double Vision N o. F loaters Y es. F lashes N o. H air Loss that left bald patch behind N o. M outh ulcers N o. N tray Ulcers N o. F requent sore throat N o. L ymphadenopathy N o. C hest pain N o. S hortness of breath N o. C ough N o. C oughing up Blood N o. H eartburn Y es. C hest pain when taking in deep breath N o. W heezing Y es. A bdominal pain N o.?Diarrhea N o. N ausea N o. V omiting N o. C onstipation N o. D ysuria N o. I ncontinence N o. P rostate Troubles N o. M iscarriages N o.?Recurrent sinus infection Y es. R ecurrent ear infection N o. B leeding gums?No. P soriasis N o. S kin rash after sun exposure Y es. N odules/Bumps N o. M uscle weakness N o. T ingling Y es. N umbness N o. B urning N o.?Falls N o. A nxiety Y es. D epression N o. A nemia N o. B leeding Tendency N o. R inging in ears N o. L oss of hearing N o. H eight loss No. H eart murmur N o. B lood in stool N o. H eel pain Y es. F meet without infection N o. D iscomfort or pain in BUTTOCK N o. W eight GAIN N o.? * Medical History: M ultiple drug sensitivity, seronegative RA, Fibromyalgia, anxiety: Yes, eczema: Yes, osteoporosis: No, hypothyroidism: No, fatty liver: No, bowel disorders: Yes, ulcerative colitis: No, diverticulosis: No, hypertension: Yes, recurrent sinusitis: Yes, varicose veins: No, migraine headaches: Yes, cancer, colon: No, family history of colon cancer: from colon CA, Seronegative Rheumatoid Arthritis dx 2019, on PLQ since-helps. * Manager Cancer History: L ast pap smear date . L ast mammogram date 2 023. H ysterectomy N o. * OB History: T otal pregnancies 0 . T otal living children 0 . * Surgical History: E GD/colonoscopy gastritis, Cardozo's esophagus Dr Leroy 2.2023, Deviated septum , D&C d/t chronic bleeding 2020. * Family History: F ather: alive 93 yrs, High blood pressure High cholesterol kidney disease. S pouse: , Stomach and esophageal cancer. M other: alive 86 yrs, High blood pressure high cholesterol. Siblings: alive, 1 brother Kidney disease, high cholesterol and high blood pressure; 2 sisters high cholesterol. C ashwini: none. * Social History: T obacco Use: S moking: No. * Medications: T aking Hydroxychloroquine Sulfate 200 MG Tablet 1 TABLET Orally twice a day , Taking predniSONE 5 MG Tablet 1 tablet Oral as needed , Taking metroNIDAZOLE 1 % Gel APPLY TO ROSACEA ONCE DAILY. External , Taking Erythromycin 2 % Solution APPLY TO FACIAL RASH UNDER NOSE TWICE A DAY FOR 6 WEEKS External , Taking Famotidine 20 MG Tablet 1 tablet at bedtime Orally Once a day , Taking Mometasone Furoate 50 MCG/ACT Suspension SPRAY 2 SPRAYS BY NASAL ROUTE DAILY Nasal , Taking Ipratropium Reading 0.03 % Solution 2 SPRAYS BY NASAL ROUTE EVERY 12 (TWELVE) HOURS. 2 SPRAYS PER NOSTRIL EVERY 12 HOURS. Nasal , Taking Albuterol Sulfate HFA 108 (90 Base) MCG/ACT Aerosol Solution 2 puffs as needed Inhalation every 6-8 hrs , Medication List reviewed and reconciled with the patient * Allergies: P enicillin: Rash, Sulfonamide: Rash. Objective: * Vitals: B P:130/88mm Hg, HR:81/min, Temp:36.8C, Ht-cm: 160.8 cm. * Examination: a llergy: GENERAL APPEARANCE: i n no acute distress, well developed, well nourished. HEAD: n ormocephalic, atraumatic, Thyroid not palpable, not tender, no temporal artery tenderness (B), , temporal artery pulse 2+(B), parotid glands not enlarged, no maxillary sinus tenderness (B). EYES: p upils equal, round, reactive to light and accommodation. EARS: n ormal. ORAL CAVITY: m ucosa moist, no lesions. THROAT: c lear. NECK/THYROID: n o cervical lymphadenopathy, no palpable thyroid. LYMPH NODES: n o lymphadenopathy. SKIN: n o other suspicious lesions, warm and dry, No telangiectasia, no livedo reticularis , normal skin elasticity,. HEART: n o costochondral tenderness, regular rate and rhythm, S1, S2 normal. LUNGS: c lear to auscultation bilaterally. ABDOMEN: n ormal, bowel sounds present, no hepatosplenomegaly, no masses palpable, no rebound tenderness, soft, nontender, nondistended. EXTREMITIES: n o clubbing, cyanosis, or edema, no nail pitting. NEUROLOGIC: n onfocal, motor strength normal upper and lower extremities, sensory exam intact. R heumatology: CERVICAL SPINES: + vertebral tenderness, 2+ paravertebral muscle spasm (B), decreased range of motion in all planes with discomfort, restricted rotation on left side, restricted rotation on right side. LUMBAR SPINES: + vertebral tenderness, straight leg raise u+, normal forward and lateral bending, normal extension. SHOULDERS: n ormal range of motion with discomfort, No proximal muscle tenderness, (B)No proximal muscle weakness. ELBOWS: n o swelling, normal range of motion, tender over medial epicondyle. WRISTS: ( B)wrist 1+synovitis, tender, R>L restricted range of motion with discomfort, negative Tinel's sign. HANDS: ( B) II,III MCPJ 1+ synovitis, 2+ tenderness, 1+ tenderness of the flexor tendons, limited flexion with discomfort; (B) mild-moderate. HIPS: n ormal range of motion, (B)no trochanteric tenderness, (B)no inguinal tenderness, (B)No proximal muscle tenderness , (B)No proximal muscle weakness.? KNEES: ( B)2+tenderness, no effusion, , normal alignment and range of motion. ANKLES: ( B) + tenderness, + swelling, ankle joint tenderness, swelling, normal range of motion, 2+ (B)plantar fascia tenderness at the insertion into calcaneal bone, 2+ (B)Achilles enthesis tenderness. FEET: n ormal, no pain or swelling, full ROM. THORACIC SPINE: n o vertebral tenderness, full ROM. SACROILIAC: n o tenderness, sacroiliac stressing test negative, (B) Frank's test negative . FIBROMYALGIA TENDER POINTS: N o diffuse trigger point tenderness. Assessment: * Assessment: 1. R heumatoid arthritis without rheumatoid factor, multiple sites - M06.09 (Primary) ? S pecify :dx 2019, on HCQ; +FH PSORIASIS (Brother) N otes :- OV .: Pt. on Plaquenil 400mg/day, on going pain and fatigue but pt. defers starting any DMARd at this time. OV .: On going arthralgia and fatigue on Plaquenil since 2019 400mg/ day. Pt. defers adding anything else to the treatment plan at this time due to her drug sensitivity history. 58 WF, suspected celiac sprue, asthma, Cardozo's esophagitis, skin rashes w/biopsies x 2 suggestive of Connective Tissue Disease (2016 or so) , lichen sclerosus dx 1998; dx w/seronegative RA 2018 and CTD 2019, on Hydroxychloroquine 400 mg/d since 2019 w/meaningful but insufficient response. Presented to us 01.25.2024 with (B) hand pain, (B) wrist swelling, mildly limited ROM in finger flexion and wrist extension, enthesitis - (B) Achilles enthesitis. H/o Rt plantar fasciitis since 2019, costochondral tenderness, prolonged morning stiffness 45 min and fatigue. Autoimmune family history of Psoriasis (brother). 2 . B arrett's esophagus - K22.70 S pecify :EGD/colonoscopy gastritis, Cardozo's esophagus Dr Leroy 3 . R terri and other nonspecific skin eruption - R21 S pecify :possible CTD per skin biopsy x 2 in 2019 (Dr. Maier). Also h/o Lichen sclerosus per biopsy at age 19. N otes :Skin rash red painful itchy over arms, hand, last 1 week, heals without scar, was accompanied by high fever, recurrent - treated w/Prednisone in 2019 - helped. Overall better since on Hydroxychloroquine. She did see improvement in rashes that she as since teens when evaluation back then showed celiac and she went gluten free. 4 . A bnormal results of kidney function studies - R94.4 S pecify :Labs Se Cr 1.23 H, nl < 1.20, low GFR 51 L ; seen in , too. 5 . S ystemic involvement of connective tissue, unspecified - M35.9 N otes :per Dr. Fortune, [facility] . H/o recurrent rashes w/skin bx suggestive of CTD; H/o fevers, MSK Sx. Never Lupus nephritis. Severe endometriosis, never . Has abnl Se Cr w/low GFR since per pt. 6 . C eliac disease - K90.0 S pecify :dx in young adulthood. N otes :She did see improvement in rashes that she as since teens when evaluation back then showed celiac and she went gluten free. Glute free diet helped her low grade fevers and to a lesser degree with MSK pain. 7 . L ichen sclerosus of female genitalia - N90.4 S pecify :[id number] per biopsy (Dr. Maier), off/on flares. 8 . S pondylosis without myelopathy or radiculopathy, cervical region - M47.812 9 . E ffusion, left ankle - M25.472 1 0. D isorder of bone density and structure, unspecified - M85.9 1 1. M enopausal and female climacteric states - N95.1 1 2. P ain in left ankle and joints of left foot - M25.572? 13. F atigue, unspecified type - R53.83 Plan: * Treatment: ?LAB: CREATININE* Shelly Velasquez 06/09/2024 10 :19:50 AM EST > fasting, in 3 months, cc patient, PMD ?LAB: CBC (INCLUDES DIFF/PLT)* Shelly Velasquez 06/09/2024 10 :19:50 AM EST > fasting, in 3 months, cc patient, PMD ?LAB: SED RATE BY MODIFIED WESTERGREN* Shelly Velasquez 06/09/2024 10 :19:50 AM EST > fasting, in 3 months, cc patient, PMD ?LAB: HS-CRP* Shelly Velasquez 06/09/2024 10 :19:50 AM EST > fasting, in 3 months, cc patient, PMD Notes: RTC in 3 months. - May consider BDMARD - Pt. defers for now Follow up with Employment Assistant for elevated Cr - 06.27.2023 Labs a week prior to OV Hydroxychloroquine eye exam every 12 months per ophthalmology - . ?? * Follow Up: 4 Weeks * * Electronic signature of Bharti sonal Velasquez APRN on 03/01/2025 at 04:47 PM EDT Sign off status: Pending * Provider: Parker Velasquez APRN Date: 0 06/09/[address] man/Jorge Alberto/[employer] on: 0 03/01/2025 04:47 PM EDT History and Physical Notes * HPI (History of Present Illness) Category Sub-Category Detail Notes Category Not es Rheumatology, Other Demographics 58 W, Psoria tic Arthritis, Seroneg RA/Non-Radiographic SpondyloArthritis '2018,[place] Dr. Mckee/[place]; Celiac Skin Biopsy - possible CTD, low +RF, Neg HLA B27 Ag negative, neg [id number], - 2023 EGD/colonoscopy gastritis, Cardozo's esophagus Dr Leroy Plantar fasciitis, Rt since 2019 Autoimmune FHx: Psoriasis, (Brother) The patient presents with th e following symptoms . PT last seen PMD Annalisa Kan PRN 05/2024, Fatigue 6/10, AMS 30 mins, pain 6-7/10 LT hip, hands, ankles, feet, wrists, Lab 05/18/2024, R3A HS=6.0. RA: Pt. on Plaquenil 200mg BID since 2019. Pt. states its helping and is working with PCP for weightloss. Labs 05.18.2024: OK CBC,Cr 1.17 (H),LFT, HS-CRP 1.2 . Pt last saw PCP Dr. Brar , lab 8.29.24, fatigue 7/10 , AMS 1hr, pain 7/10 jaw, neck, shoulders, elbows, wrists, lower back, hands, ankles, feet, CXR needs to be scheduled, DEXA needs to be scheduled, Pt c/o migraine as of today, PLQ eye -ok, Biopsy Report?. R3A= 12. RA: Pt. on Plaquenil 200mg BID since 2019. Per pt. it seems to be helping, the fatigue is on going. CONSULT 01.25.24 in 2017 FUO 104F x 2 days, then LGF 100 F, tx at home, saw ; chronic rashes erythematoous, painful, itchy, lasted 1 week at the time, healed w/o a scar; Dr. Maier did 2 biopsies, came back as CTD, Tx w/Prednisone helped; HCQ helped '2018 - dx in [place] (Dr. Santos Derm/Rheum dx, on HCQ); , MSK pain, H/o skin rashes, sinus Pt last saw PCP florentin Brar; Has asthma; Fatigue 6/10, AMS 45mins pain 6/10 neck, elbows, hands, hips, lower back, ankles, feet lab . PLQ eye exam OK No DEXA ; Had [id number] 2018 Ok per pt; Seronegative Rheumatoid Arthritis dx 2018, on PLQ since 2018 -helps+ Recurrent fevers; + Photosensitive skin rashes + ALOPECIA - when passed aways - small patches, resolved hair regrew; Saw Darrion .Had a rash at the back of her scalp, tx w/Clindamycin; + Raynaud's Phenomenon; No fingertip ulcer, No toe tip ulcer + Dry eye, Sees Dr. Morales, + use of artificial tears;Yes off/on Dry mouth; + Need to sip on water while swallowing a dry cracker; NO Mouth ulcers; NO GENITAL ULCERS EVER; +Lichen sclerosus Vaginal 1998, c/w Biopsy - Dr. Maier - tx w/Clobetasol, having a flare-up as of , will see Derm + Ever skin biopsy (Dr. Maier) ; showed possible CTD pe Dr. Mani Fortune ([facility] at [facility]) note. NO Swollen painful joints, NO Painful but not swollen joints AND morning stiffness 30 or more minutes; NO H/o pericarditis, NO H/o Pleurisy or Pleural effusions; NO DRY COUGH; + FREQUENT SINUSITIS; No polyps in nose or sinuses; +Sores in [place]-> uses steroid nasal spray - helps (Nasonex) NO H/o low WBC; +high WBC 2021 - saw Track Sweeper in [place] 2021 [place], no need for f/Ti H/o anemia;NO H/o low platelet count; NO Ever deep vein thrombosis, NO arterial thrombosis, NO stroke, NO AMI; + H/o Obstetric problems: Endometriosis severe since age 19, Never NO atraumatic onset of back pain;; + Back pain better with movement AND not relieved by rest - YOGA helps; NO Back pain preciptated by trauma, Rt Buttock pain, w/scatica - saw Spinal surgeon years ago - has extra Lumbar vertebra; NO h/o tennis elbow;+Rt h/o plantar fasciitis, chronic since 2018; NO h/o frozen shoulder, NO Trigger finger, NO h/o uveitis, iritis; + GI problems -+ IBS, + food allergies; Suspected Celiac Sprue - felt much better w/gluten free 2020, rashes, brain fog, fatigue - all better, slight better in joint pain; NO personal h/o Inflammatory Bowel Disease; + h/o celiac Sprue, as above; + Autoimmune FHx - + psoriasis (Brother, tx w/topical agents), Q Psoriatic Arthritis, - brother; NO Autoimmune FHx : NO FHx Crohn's colitis, No FHx Ulcerative Colitis, No FHx Celiac Sprue NO Autoimmune FHx of NO Rheumatoid Arthritis, NO FHx lupus, No FX Multiple Sclerosis.Mom - of throat cancer d/t smoking; Medications Include PLAQUENIL (Hydroxych loroquine) since 2018, OK eye exam predniSONE 5 MG Tablet 1 tablet Oral as needed. Laboratory results include *Labs 6.5.24 +Cr 1.23H (nl up to 1.20), EGFR 51L. hsC-RP 0.9 ok, OK LFT, Ca, ESR 2. Per pt up Se cr in , too Diagnostic Imaging Includes *+Lichen scl erosus Vaginal 1998, c/w Biopsy - Dr. Maier - tx w/Clobetasol, having a flare-up as of , will see Derm + Ever skin biopsy (Dr. Maier) 2016; showed possible CTD per Dr. Mani Varela EGD Cardozo's esoph; OK Colonoscopy per pt; Examination Category Sub-Category Detail Notes Category Not es Rheumatology CERVICAL SPINES: + vertebral ten derness, 2+ paravertebral muscle spasm (B), decreased range of motion in all planes with discomfort, restricted rotation on left side, restricted rotation on right side LUMBAR SPINES: + vertebral tenderne ss, straight leg raise u+, normal forward and lateral bending, normal extension SHOULDERS: normal range of belgica on with discomfort, No proximal muscle tenderness, (B)No proximal muscle weakness ELBOWS: no swelling, normal range of motion, tender over medial epicondyle WRISTS: (B)wrist 1+synovitis , tender, R>L restricted range of motion with discomfort, negative Tinel's sign HANDS: (B) II,III MCPJ 1+ s ynovitis, 2+ tenderness, 1+ tenderness of the flexor tendons, limited flexion with discomfort; (B) mild-moderate HIPS: normal range of belgica on, (B)no trochanteric tenderness, (B)no inguinal tenderness, (B)No proximal muscle tenderness , (B)No proximal muscle weakness KNEES: (B)2+tenderness, no effusion, , normal alignment and range of motion ANKLES: (B) + tenderness, + swelling, ankle joint tenderness, swelling, normal range of motion, 2+ (B)plantar fascia tenderness at the insertion into calcaneal bone, 2+ (B)Achilles enthesis tenderness FEET: normal, no pain or s welling, full ROM THORACIC SPINE: no vertebral tendern ess, full ROM SACROILIAC: no tenderness, sacro iliac stressing test negative, (B) Frank's test negative FIBROMYALGIA TENDER POINTS: No diffuse t radio rigger point tenderness allergy GENERAL APPEARANCE: in no acute distress, well developed, well nourished HEAD: normocephalic, atrau matic, Thyroid not palpable, not tender, no temporal artery tenderness (B), , temporal artery pulse 2+(B), parotid glands not enlarged, no maxillary sinus tenderness (B) EYES: pupils equal, round, reactive to light and accommodation EARS: normal THROAT: clear NECK/THYROID: no cervical lymphade nopathy, no palpable thyroid HEART: no costochondral ten derness, regular rate and rhythm, S1, S2 normal LUNGS: clear to auscultatio n bilaterally ABDOMEN: normal, bowel sounds present, no hepatosplenomegaly, no masses palpable, no rebound tenderness, soft, nontender, nondistended NEUROLOGIC: nonfocal, motor stre ngth normal upper and lower extremities, sensory exam intact SKIN: no other suspicious lesions, warm and dry, No telangiectasia, no livedo reticularis , normal skin elasticity, EXTREMITIES: no clubbing, cyanosi s, or edema, no nail pitting LYMPH NODES: no lymphadenopathy ORAL CAVITY: mucosa moist, no les ions
--- OUTSIDE RECORDS SUMMARY | 2024-09-07 06:20 | XMS_ITS ---
Author Organization [facility] Address [address] [place], [place] [id number] Care Team Providers Care Wire Taper Name Role Phone Adama, Elina Primary Care Provider UnavailCHARLIE Carmona Unavailable [phone] Maykel DUNN, Vik Unavailable Unavailable Lakia Quintana Unavailable [phone] Allergies Allergen (clinical drug ingredient) Drug/Non Drug Allergy documented on EMR Reaction Allergy Type Onset Date Status penicillin (uncoded) rash Allergy Active Substance with sulfonamide structure and antibacterial mechanism of action (substance) sulfonamide (uncoded) rash Allergy Active Results Component Value Reference Range Notes URINALYSIS, COMPLETE W/REFLE X TO CULTURE Reviewed date:11/07/2024 11:22:42 AM Interpretation: Performing Lab:NL1, [facility], [address] [place] [address], [phone] Niels Chen M.D. Notes/Report: Received Date: FASTING; FASTING; FASTING; FASTING; FASTING; FASTING; FASTIN FASTING:YES FASTING: YES COLOR YELLOW YELLOW APPEARANCE CLEAR CLEAR SPECIFIC GRAVITY 1.022 1.001-1.035 PH 5.5 5.0-8.0 GLUCOSE NEGATIVE NEGATIVE BILIRUBIN NEGATIVE NEGATIVE KETONES TRACE NEGATIVE OCCULT BLOOD NEGATIVE NEGATIVE PROTEIN NEGATIVE NEGATIVE NITRITE NEGATIVE NEGATIVE LEUKOCYTE ESTERASE NEGATIVE NEGATIVE WBC NONE SEEN < OR = 5 /HPF RBC NONE SEEN < OR = 2 /HPF SQUAMOUS EPITHELIAL CELLS NONE SEEN < OR = 5 /HPF BACTERIA NONE SEEN NONE SEEN /HPF HYALINE CAST NONE SEEN NONE SEEN /LPF NOTE This urine was analyzed for the presence of WBC, RBC, bacteria, casts, and other formed elements. Only those elements seen were reported. REFLEXIVE URINE CULTURE NO C ULTURE INDICATED ANCA SCREEN WITH MPO AND PR3 WITH REFLEX TO ANCA TITER Reviewed date:11/07/2024 11:22:42 AM Interpretation: Performing Lab:NL1, [facility], [address] [place] [address], [phone] Niels Chen M.D. Notes/Report: Received Date: FASTING; FASTING; FASTING; FASTING; FASTING; FASTING; FASTIN FASTING:YES FASTING: YES ANCA SCREEN NEGATIVE NEGATIVE [...] = 1.0 Antibody Detected Autoantibodies to proteinase-3 (VT-3) are accepted as characteristic for granulomatosis with polyangiitis (GPA, Zafar's), and are detectable in 95% of the histologically proven cases. The cytoplasmic IFA pattern, (c-ANCA), is based largely on autoantibody to VT-3 which serves as the primary antigen. These autoantibodies are present in active disease. VITAMIN D, 25-HYDROXY, LC/MS /MS Reviewed date:11/07/2024 11:22:42 AM Interpretation: Performing Lab:NL1, [facility], [address] [place] [address], [phone] Niels Chen M.D. Notes/Report: Received Date: FASTING; FASTING; FASTING; FASTING; FASTING; FASTING; FASTIN FASTING:YES FASTING: YES VITAMIN D,25-OH,TOTAL,IA 62 30-100 ng/mL Vitamin D Status 25-OH Vitamin D: Deficiency: <20 ng/mL Insufficiency: 20 - 29 ng/mL Optimal: > or = 30 ng/mL For 25-OH Vitamin D testing on patients on D2-supplementation and patients for whom quantitation of D2 and D3 fractions is required, the QuestAssureD(TM) 25-OH VIT D, (D2,D3), LC/MS/MS is recommended: order code 53881 (patients >2yrs). See Note 1 Note 1 For additional information, please refer to http://education.Survela/faq/XOD414 (This link is being provided for informational/ educational purposes only.) CREATININE Reviewed date:11/07/2024 11:22:42 AM Interpretation: Performing Lab:NL1, [facility], [address] [place] [address], [phone] Niels Chen M.D. Notes/Report: Received Date: FASTING; FASTING; FASTING; FASTING; FASTING; FASTING; FASTIN FASTING:YES FASTING: YES CREATININE 1.20 0.50-1.03 mg/dL EGFR 52 > OR = 60 mL/min/1.73m2 CBC (INCLUDES DIFF/PLT) Reviewed date:11/07/2024 11:22:42 AM Interpretation: Performing Lab:NL1, [facility], [address] [place] [address], [phone] Niels Chen M.D. Notes/Report: Received Date: [id number] FASTING; FASTING; FASTING; FASTING; FASTING; FASTING; FASTIN FASTING:YES FASTING: YES WHITE BLOOD CELL COUNT 5.8 3.8-10.8 Thousand/ uL RED BLOOD CELL COUNT 5.42 3.80-5.10 Million/uL HEMOGLOBIN 15.3 11.7-15.5 g/dL HEMATOCRIT 46.9 35.0-45.0 % MCV 86.5 80.0-100.0 fL MCH 28.2 27.0-33.0 pg MCHC 32.6 32.0-36.0 g/dL For adults, a slight decrease in the calculated MCHC value (in the range of 30 to 32 g/dL) is most likely not clinically significant; however, it should be interpreted with caution in correlation with other red cell parameters and the patient's clinical condition. RDW 13.2 11.0-15.0 % PLATELET COUNT 248 140-400 Thousand/uL MPV 12.0 7.5-12.5 fL ABSOLUTE NEUTROPHILS 3695 4818-9599 cells/uL ABSOLUTE LYMPHOCYTES 0256 746-1045 cells/uL ABSOLUTE MONOCYTES 522 200-950 cells/uL ABSOLUTE EOSINOPHILS 110 15-500 cells/uL ABSOLUTE BASOPHILS 52 0-200 cells/uL NEUTROPHILS 63.7 LYMPHOCYTES 24.5 MONOCYTES 9.0 EOSINOPHILS 1.9 BASOPHILS 0.9 SED RATE BY MODIFIED WESTERG BEAU Reviewed date:11/07/2024 11:22:42 AM Interpretation: Performing Lab:NL1, [facility], [address] [place] [address], [phone] Niels Chen M.D. Notes/Report: Received Date: [id number] FASTING; FASTING; FASTING; FASTING; FASTING; FASTING; FASTIN FASTING:YES FASTING: YES SED RATE BY MODIFIED WESTERGREN 6 < OR = 30 mm/h HS-CRP Reviewed date:11/07/2024 11:22:42 AM Interpretation: Performing Lab:NL1, [facility], [address] [place] [address], [phone] Niels Chen M.D. Notes/Report: Received Date: [id number] FASTING; FASTING; FASTING; FASTING; FASTING; FASTING; FASTIN FASTING:YES FASTING: YES HS CRP 1.4 Reference Range Optimal <1.0 Jerosalia PS et al. Endocr Pract.2017;23(Suppl 2):1-87. For ages [...] for Disease Control and Prevention and the [employer]. Circulation 2003; 107(3): 499-511. REASON FOR VISIT Pt last saw PCP Elina Sanchez, CHIEF INSPECTOR , lab 3.08.30, fatigue 7/10 , AMS 45mins, pain 6/10 neck, elbows, wrists, L hip, ankles/feet, last PLQ eye exam- schedule exam on 09.08.24, R3A=4.3 Medications Medication SIG (Take, Route, Frequency, Duration) Notes Start Date End Date Status Hydroxychloroquine Sulfate 200 MG 1 TABLET Orally twice a day; Duration: 30 days Active Albuterol Sulfate HFA 108 (90 Base) MCG/ACT 2 puffs as needed Inhalation every 6-8 hrs; Duration: 30 days Active Medrol 4 MG 6 TABS FIRST DAY, TAPER BY 1 TAB A DAY UNTIL OFF Orally Once a day; Duration: 6 days 09/07/2024 Active Mometasone Furoate 50 MCG/ACT SPRAY 2 SPRAYS BY NASAL ROUTE DAILY Nasal; Duration: 90 Days Active Ipratropium Fairhope 0.03 % 2 SPRAYS BY N ERICA ROUTE EVERY 12 (TWELVE) HOURS. 2 SPRAYS PER NOSTRIL EVERY 12 HOURS. Nasal; Duration: 90 Days Active predniSONE 5 MG 1 tablet Oral as needed; Duration: 30 days Not-Taking metroNIDAZOLE 1 % APPLY TO ROSACEA ONCE DAILY. External; Duration: 30 Days Active Erythromycin 2 % APPLY TO FACIAL RASH UNDER NOSE TWICE A DAY FOR 6 WEEKS External; Duration: 30 Days Active Famotidine 20 MG 1 tablet at bedtime Orally Once a day; Duration: 90 days Active Problems Problem Type SNOMED Code ICD Code Onset Dates Problem Status W/U Status Risk Notes Problem Psoriatic spondylitis (435973479) Psoriatic spondylitis (L40.53) Active confirmed 09.07.2024 on HCQ. Presented to us for consultation on 01.25.2024 with (B) hand pain, (B) wrist swelling, mildly limited ROM in finger flexion and wrist extension, enthesitis - (B) Achilles enthesitis. H/o Rt plantar fasciitis since 2019, costochondral tenderness, prolonged morning stiffness 45 min and fatigue. 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 ; Systemic involvement of connective tissue, unspecified M35.9 ; Celiac disease K90.0 ; Lichen sclerosus of female genitalia N90.4 ; Disorder of bone density and structure, unspecified M85.9 ; Lateral epicondylitis of left elbow M77.12 ; Lateral epicondylitis, right elbow M77.11 ; Other shoulder lesions, right shoulder M75.81 ; Other shoulder lesions, left shoulder M75.82 ; Psoriatic spondylitis L40.53 and Chronic kidney disease, stage 3a N18.31 Assessments Encounter Date Diagnosis (ICD Code) Assessment Notes Treatment Notes Treatment Clinical Notes Section Notes 09/07/2024 Rheumatoid arthritis without rheumatoid factor, multiple sites (ICD-10 - M06.09) -As of 09/07/2024 she has increased polyarthralgia despite HLQ. Pt hesitant to trial DMARDs d/t RX sensitivity. Will treat flare and evaluate joint pain further. -OV .: Pt. on Plaquenil 400mg/day, on going [...] suggestive of Connective Tissue Disease (2016 or so), lichen sclerosus dx 1998; dx w/seronegative RA [...] fatigue. Autoimmune family history of Psoriasis (brother). Fasting labs 1 week before next apptXR of (B) shoulders and elbows todayMedrol dose amalia for joint flareFollow up with Heavy Forger as planedHydroxychloroquine eye exam every 12 months per ophthalmology RTC in 8 weeksLakia Quintana [facility]. Pt reviewed by Dr. 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 Fortune, [facility] . H/o recurrent rashes w/skin bx suggestive of CTD; H/o fevers, MSK Sx. Never Lupus nephritis. Severe endometriosis, never . Has abnl Se Cr w/low GFR since per pt. 09/07/2024 Celiac disease (ICD-10 - K90.0) She did see improvement in rashes that she as since teens when evaluation back then showed celiac and she went gluten free. Glute free diet helped her low grade fevers and to a lesser degree with MSK pain. 09/07/2024 Lichen sclerosus of female genitalia (ICD-10 - N90.4) 09/07/2024 Disorder of bone density and structure, unspecified (ICD-10 - M85.9) 09/07/2024 Lateral epicondylitis of left elbow (ICD-10 - M77.12) 09/07/2024 Lateral epicondylitis, right elbow (ICD-10 - M77.11) 09/07/2024 Other shoulder lesions, right shoulder (ICD-10 - M75.81) 09/07/2024 Other shoulder lesions, left shoulder (ICD-10 - M75.82) 09/07/2024 Psoriatic spondylitis (ICD-10 - L40.53) 4.2.2024 on HCQ. Presented to us for consultation on 01.25.2024 with (B) hand pain, (B) wrist swelling, mildly limited ROM in finger flexion and wrist extension, enthesitis - (B) Achilles enthesitis. H/o Rt plantar fasciitis since 2019, costochondral tenderness, prolonged morning stiffness 45 min and fatigue. 09/07/2024 Chronic kidney disease, stage 3a (ICD-10 - N18.31) Plan Of Treatment Medication Medication Name Sig Start Date Stop Date Notes Hydroxychloroquine Sulfate 200 MG 1 TABL ET Orally twice a day; Duration: 30 days Medrol 4 MG 6 TABS FIRST DAY, TA PER BY 1 TAB A DAY UNTIL OFF Orally Once a day; Duration: 6 days 09/07/2024 Treatment Notes Assessment Notes Rheumatoid arthritis without rheumatoid factor, multiple sites Fasting labs 1 week before next apptXR o f (B) shoulders and elbows todayMedrol dose amalia for joint flareFollow up with Heavy Forger as planedHydroxychloroquine eye exam every 12 months per ophthalmology RTC in 8 weeksDaraquel Quintana TELEPHONE CLAIMS REPRESENTATIVE-BC. Pt reviewed by Dr. Nelson Pending Test Test Name Order Date X ray : Elbow, right 09/07/2024 LUPUS ANTICOAGULANT EVALUATION WITH REFL EX 09/07/2024 VITAMIN B12/FOLATE, SERUM PANEL 09/08/19 25 ANAlyzeR RICHARD,IFA with Reflex Titer/Patte rn, Systemic Autoimmune Panel 1 09/07/2024 X ray : Elbow, left 09/07/2024 X ray : Shoulder, left 09/07/2024 X ray : Shoulder, right 09/07/2024 Next Appt Details Follow Up: 4 Weeks, Reason: Provider Name:GIULIANA NELSON, 04/17/2025 10:30:00 AM, [address] [place] [address], [phone], Provider Name:Lakia Quintana , 05/09/2025 10:20:00 AM, [address] [place] [address], [phone], Progress Notes * Mary JOHNSONDOB:[birth year] (59 yo F)Acc No.[id number]:09/07/2024 Progress Notes Patient: Mary CASAREZ Provider: Deniz Quintana APRN :1965 A ge:59 Y S ex:Female Date:09/07/2024 Phone: Address:[address] [place], [place] [id number] Pcp:Elina Galan Subjective: * Chief Complaints: * 1 . Pt last saw PCP Elina Sanchez APRN . 2. Lab 3.08.30. 3. fatigue 7/10 , AMS 45mins. 4. pain 6/10 neck, elbows, wrists, L hip, ankles/feet. 5. last PLQ eye exam- schedule exam on 09.08.24. 6. R3A=4.3. * HPI: R heumatology, Other: Demographics 5 7 W, Psoriatic Arthritis, Seroneg RA/Non-Radiographic SpondyloArthritis '2018,[place] Dr. Mckee/[place]; Celiac S kin Biopsy - possible CTD, l ow +RF, Neg HLA B27 Ag negative, neg [id number], - 2023 E GD/colonoscopy gastritis, Cardozo's esophagus Dr Leroy P lantar fasciitis, Rt since 2019 A utoimmune FHx: Psoriasis, (Brother) . The patient presents with the following symptoms 0 09/07/2024 Pt last saw PCP Elina Sanchez, CHIEF INSPECTOR , lab 3, fatigue 7/10 , AMS 45mins, pain 6/10 neck, elbows, wrists, L hip, ankles/feet, last PLQ eye exam- schedule exam on 09.08.24, R3A=4.3. R A: On Plaquenil 200mg BID since 2019. Tolerates HLQ. Last seen by Dr. Gonzalez Nephrology 08/31/2024. Completed kidney US, told she has CKD Stage III and her kidney function is stable.Pt to f/u in 6 months. A dvised pt to increase water intake.Notes increased joint pain over the past week. Denies recent injuries or illness. - Reviewed labs 08/08/2024: C reat 1:13 (H), HCT 47.5 (h), EGFR 57 L);Sed Rate, CRP, Hepatic, HGB-OK - Reviewed PLQ eye exam: appt 09/08/2024 1 .2.2024PT last seen PMD Elina Sanchez, MARGOT 05/2024, Fatigue 6/10, AMS 30 mins, pain 6-7/10 LT hip, hands, ankles, feet, wrists, Lab 05/18/2024, R3A HS=6.0. R A:Pt. on Plaquenil 200mg BID since 2019. Pt. states its helping and is working with PCP for weightloss. L abs .:OK CBC,Cr 1.17 (H),LFT, HS-CRP 1.2 1 0.1.2023 [...] the fatigue is on going. C ONSULT 01.25.24 i n 2016 FUO 104F x 2 days, then LGF 100 F, tx at home, saw MD; chronic rashes erythematoous, painful, itchy, lasted 1 week at the time, healed w/o a scar; Dr. 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 Santos Derm/Rheum dx, on HCQ); , MSK pain, H/o skin rashes, sinus Fatigue 6/10, AMS 45 mins pain 6/10 neck, elbo ws, hands, hips, lower back, ankles, feet lab 6. PLQ eye exam OK No DEXA ; Had [id number] 2018 Ok per pt; Seronegative Rheumat oid Arthritis dx 2018, on PLQ since 2019 -helps+ Recurrent fevers;+ [...] CTD pe Dr. Mani Fortune ([facility] [place]) note. N O Swollen painful joints,NO Painful but not swollen joints AND morning stiffness 30 or more minutes;NO H/o pericarditis, N O H/o Pleurisy or Pleural effusions;NO DRY COUGH; + FREQUENT SINUSITIS; No polyps in nose or sinuses; +Sores in [place]-> uses steroid nasal spray - helps (Nasonex) N O H/o low WBC; +high WBC 2021 - saw Activities Specialist in [place] 2021 OK, no need for f/Ti H/o [...] cancer d/t smoking; .?Medications Include?PLAQUENIL (Hydroxychloroquine) since 2018, OK eye exam ?predniSONE 5 MG Tablet [...] esoph; OK Colonoscopy per pt;? .? * Medical History: M ultiple drug sensitivity, seronegative RA, Fibromyalgia, anxiety: Yes, eczema: Yes, osteoporosis: No, hypothyroidism: No, fatty liver: No, bowel disorders: Yes, ulcerative colitis: No, diverticulosis: No, hypertension: Yes, recurrent sinusitis: Yes, varicose veins: No, migraine headaches: Yes, cancer, colon: No, family history of colon cancer: from colon CA, Seronegative Rheumatoid Arthritis dx 2019, on PLQ since-helps. * Funeral Home Assistant History: L ast pap smear date . L ast mammogram date ;. H ysterectomy N o. * OB History: T otal pregnancies 0 . T otal living children 0 . * Surgical History: E GD/colonoscopy gastritis, Cardozo's esophagus Dr Leroy , Deviated septum , D&C d/t chronic bleeding 2020. * Family History: F ather: alive 93 yrs, High blood pressure High cholesterol kidney disease. S pouse: , Stomach and esophageal cancer. M other: alive 86 yrs, High blood pressure high cholesterol. Siblings: alive, 1 brother Kidney disease, high cholesterol and high blood pressure; 2 sisters high cholesterol. C hilen: none. * Social History: T obacco Use: S moking: No. * Medications: T aking Hydroxychloroquine Sulfate 200 MG Tablet 1 TABLET Orally twice a day , Taking metroNIDAZOLE 1 % Gel APPLY TO ROSACEA ONCE DAILY. External , Taking Erythromycin 2 % Solution APPLY TO FACIAL RASH UNDER NOSE TWICE A DAY FOR 6 WEEKS External , Taking Famotidine 20 MG Tablet 1 tablet at bedtime Orally Once a day , Taking Mometasone Furoate 50 MCG/ACT Suspension SPRAY 2 SPRAYS BY NASAL ROUTE DAILY Nasal , Taking Ipratropium Fairhope 0.03 % Solution 2 SPRAYS BY NASAL ROUTE EVERY 12 (TWELVE) HOURS. 2 SPRAYS PER NOSTRIL EVERY 12 HOURS. Nasal , Taking Albuterol Sulfate HFA 108 (90 Base) MCG/ACT Aerosol Solution 2 puffs as needed Inhalation every 6-8 hrs , Not-Taking/PRN predniSONE 5 MG Tablet 1 tablet Oral as needed * Allergies: P enicillin: Rash, Sulfonamide: Rash. Objective: * Vitals: B P:129/85mm Hg, HR:76/min, Temp:37.1C, Ht-cm: 160.8 cm. * Examination: a llergy: [...] ? S pecify :dx 2019, on HCQ; PsA considered. CKD 3a, avoid MTX. Neg ACPA, RF. +Celiac. +FH PSORIASIS (Brother) N otes :-As of 09/07/2024 she has increased polyarthralgia despite HLQ. Pt hesitant to trial DMARDs d/t RX sensitivity. Will treat flare and evaluate joint pain further. -OV 06.09.2024: Pt. on Plaquenil 400mg/day, on going pain and fatigue but pt. defers starting any DMARd at this time.OV 03.08.2024: On going arthralgia and fatigue on Plaquenil since 2019 400mg/ day. Pt. defers adding anything else to the treatment plan at this time due to her drug sensitivity history. 58 WF, suspected celiac sprue, asthma, Cardozo's esophagitis, skin rashes w/biopsies x 2 suggestive of Connective Tissue Disease (2016 or so), lichen sclerosus dx 1998; dx w/seronegative RA [...] gastritis, Cardozo's esophagus Dr Leroy 3 . S ystemic involvement of connective tissue, unspecified - M35.9 N otes :per Dr. Fortune, [facility] . H/o recurrent rashes w/skin bx suggestive of CTD; H/o fevers, MSK Sx. Never Lupus nephritis. Severe endometriosis, never . Has abnl Se Cr w/low GFR since per pt. 4 . C eliac disease - K90.0 S pecify :dx in young adulthood. N otes :She did see improvement in rashes that she as since teens when evaluation back then showed celiac and she went gluten free. Glute free diet helped her low grade fevers and to a lesser degree with MSK pain. 5 . L ichen sclerosus of female genitalia - N90.4 S pecify :[id number] per biopsy (Dr. Maier), off/on flares. 6 . D isorder of bone density and structure, unspecified - M85.9 7. L ateral epicondylitis of left elbow - M77.12 8 . L ateral epicondylitis, right elbow - M77.11 9 . O ther shoulder lesions, right shoulder - M75.81? 10. O ther shoulder lesions, left shoulder - M75.82 1 1. P soriatic spondylitis - L40.53 S pecify :likely. HLA B27 neg. +FH Psoriasis (Brother). Notes :09.07.2024 on HCQ. Presented to us for consultation on 01.25.2024 with (B) hand pain, (B) wrist swelling, mildly limited ROM in finger flexion and wrist extension, enthesitis - (B) Achilles enthesitis. H/o Rt plantar fasciitis since 2019, costochondral tenderness, prolonged morning stiffness 45 min and fatigue. 1 2. C hronic kidney disease, stage 3a - N18.31 Plan: * Treatment: ?LAB: VITAMIN B12/FOLATE, SERUM PANEL* Richard Quintanaella 09/07/2024 1 0:51:31 AM EDT > Fasting, 1.5 weeks before next appt, cc patient, PMD ?LAB: ANAlyzeR RICHARD,IFA with Reflex Titer/Pattern, Systemic Autoimmune Panel 1* QuintanaRichard petersonella 09/07/2024 1 0:51:31 AM EDT > Fasting, 1.5 weeks before next appt, cc patient, PMD ?LAB: URINALYSIS, COMPLETE W/REFLEX TO CULTURE (Collection Date & Time - 11/01/2024 10:06 AM) ?LAB: ANCA SCREEN WITH MPO AND PR3 WITH REFLEX TO ANCA TITER (Collection Date & Time - 11/01/2024 10:06 AM) ?LAB: VITAMIN D, 25-HYDROXY, LC/MS/MS (Collection Date & Time - 11/01/2024 10:06 AM) ?LAB: CREATININE (Collection Date & Time - 11/01/2024 10:06 AM) ?LAB: CBC (INCLUDES DIFF/PLT) (Collection Date & Time - 11/01/2024 10:06 AM) ?LAB: SED RATE BY MODIFIED WESTERGREN (Collection Date & Time - 11/01/2024 10:06 AM) ?LAB: HS-CRP (Collection Date & Time - 11/01/2024 10:06 AM) Notes: Fasting labs 1 week before next appt XR of (B) shoulders and elbows today Medrol dose amalia for joint flare Follow up with Heavy Forger as planed Hydroxychloroquine eye exam every 12 months per ophthalmology RTC in 8 weeks Lakia Gunteruld TELEPHONE CLAIMS REPRESENTATIVE-BC. Pt reviewed by Dr. Nelson ??2.?Lateral epicondylitis of left elbow?Imaging: X ray : Elbow, left* Brandy Vasquez 09/07/2024 10: 59:45 AM EDT > 3.?Lateral epicondylitis, right elbow?Imaging: X ray : Elbow, right* Brandy Vasquez 09/07/2024 10: 59:47 AM EDT > 4.?Other shoulder lesions, right shoulder?Imaging: X ray : Shoulder, right* Brandy Vasquez 09/07/2024 10: 59:52 AM EDT > 5.?Other shoulder lesions, left shoulder?Imaging: X ray : Shoulder, left* Brandy Vasquez 09/07/2024 10: 59:49 AM EDT > * Labs: * L ab: VITAMIN D, 25-HYDROXY, LC/MS/MS (Collection Date & Time - 11/01/2024 10:06 AM) ?Lab: CBC (INCLUDES DIFF/PLT) (Collection Date & Time - 11/01/2024 10:06 AM) * Richard Quintanaella 09/07/2024 1 0:51:31 AM EDT > Fasting, 1.5 weeks before next appt, cc patient, PMD Lakia Quintana 11/07/2024 11:22:17 AM EDT > appt 11/08/2024 ?Lab: CREATININE (Collection Date & Time - 11/01/2024 10:06 AM)* Richard Quintanaella 09/07/2024 1 0:51:31 AM EDT > Fasting, 1.5 weeks before next appt, cc patient, PMD Lakia Quintana 11/07/2024 11:22:17 AM EDT > appt 11/08/2024 ?Lab: URINALYSIS, COMPLETE W/REFLEX TO CULTURE (Collection Date & Time - 11/01/2024 10:06 AM)* Richard Quintanaella 09/07/2024 1 0:51:31 AM EDT > Fasting, 1.5 weeks before next appt, cc patient, PMD Richard Quintanaella 11/07/2024 11:22:17 AM EDT > appt 11/08/2024 ?Lab: ANCA SCREEN WITH MPO AND PR3 WITH REFLEX TO ANCA TITER (Collection Date & Time - 11/01/2024 10:06 AM)* Lakia Quintana 09/07/2024 1 0:51:31 AM EDT > Fasting, 1.5 weeks before next appt, cc patient, PMD Lakia Quintana 11/07/2024 11:22:17 AM EDT > appt 11/08/2024 ?Lab: SED RATE BY MODIFIED WESTERGREN (Collection Date & Time - 11/01/2024 10:06 AM)* Richard Quintanaella 09/07/2024 1 0:51:31 AM EDT > Fasting, 1.5 weeks before next appt, cc patient, PMD Lakia Quintana 11/07/2024 11:22:17 AM EDT > appt 11/08/2024 ?Lab: HS-CRP (Collection Date & Time - 11/01/2024 10:06 AM)* Richard Quintanaella 09/07/2024 1 0:51:31 AM EDT > Fasting, 1.5 weeks before next appt, cc patient, PMD Lakia Quintana 11/07/2024 11:22:17 AM EDT > appt 11/08/2024 * Procedure Codes: 7 3080 ELBOW LEFT COMPLETE 3V, Modifiers: LT , 78034 ELBOW RIGHT COMPLETE 3V, Modifiers: RT , 01695 ShoulderLeft, Modifiers: LT , 78433 ShoulderRight, Modifiers: RT * Follow Up: 4 Weeks * * Electronic signature of Richard Quintana APRN on 03/01/2025 at 04:47 PM EDT Sign off status: Pending * Provider: Deniz Quintana APRN Date: 0 09/07/[address] man/Jorge Alberto/Gerardo on: 0 03/01/2025 04:47 PM EDT History and Physical Notes * HPI (History of Present Illness) Category Sub-Category Detail Notes Category Not es Rheumatology, Other Demographics 58 W, Psoria tic Arthritis, Seroneg RA/Non-Radiographic SpondyloArthritis '2018,[place] Dr. Mckee/[place]; Celiac Skin Biopsy - possible CTD, low +RF, Neg HLA B27 Ag negative, neg [id number], - 2023 EGD/colonoscopy gastritis, Cardozo's esophagus Dr Leroy Plantar fasciitis, Rt since 2019 Autoimmune FHx: Psoriasis, (Brother) The patient presents with th e following symptoms 09/07/2024 Pt last saw PCP Elina Sanchez APRN , lab 3.3.25, fatigue 7/10 , AMS 45mins, pain 6/10 neck, elbows, wrists, L hip, ankles/feet, last PLQ eye exam- schedule exam on 09.08.24, R3A=4.3. RA: On Plaquenil 200mg BID since 2019. Tolerates HLQ. Last seen by Dr. Gonzalez Nephrology 08/31/2024. Completed kidney US, told she has CKD Stage III and her kidney function is stable.Pt to f/u in 6 months. Advised pt to increase water intake.Notes increased joint pain over the past week. Denies recent injuries or illness. -Reviewed labs 08/08/2024: Creat 1:13 (H), HCT 47.5 (h), EGFR 57 L); Sed Rate, CRP, Hepatic, HGB-OK -Reviewed PLQ eye exam: appt 09/08/2024 1.2.2024 PT last seen PMD Elina Sanchez APRN 05/2024, Fatigue 6/10, AMS 30 mins, pain 6-7/10 LT hip, hands, ankles, feet, wrists, Lab 05/18/2024, R3A HS=6.0. RA: Pt. on Plaquenil 200mg BID since 2019. Pt. states its helping and is working with PCP for weightloss. Labs 05.18.2024: OK CBC,Cr 1.17 (H),LFT, HS-CRP 1.2 10. Pt last saw PCP Dr. Brar , [...] fatigue is on going. CONSULT 01.25.24 in 2016 FUO 104F x 2 days, then LGF 100 F, tx at home, saw MD; chronic rashes erythematoous, painful, itchy, lasted 1 week at the time, healed w/o a scar; Dr. 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 Santos Derm/Rheum dx, on HCQ); , MSK pain, H/o skin rashes, sinus Pt last saw PCP florentin Brar; Has asthma; Fatigue 6/10, AMS 45mins pain 6/10 neck, elbows, hands, hips, lower back, ankles, feet lab 6. PLQ eye exam OK No DEXA ; Had [id number] 2018 Ok per pt; Seronegative Rheumatoid Arthritis [...] CTD pe Dr. Mani Fortune ([facility] at [place]) note. 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
--- OUTSIDE RECORDS SUMMARY | 2024-11-08 06:20 | XMS_ITS ---
Author Organization [facility] Address [address], [place] [id number] Care Team Providers Care Inflated Pad Buffer Name Role Phone Elina Galan Primary Care Provider UnavailCHARLIE Carmona Unavailable [phone] Maykel DUNN, Vik Unavailable Unavailable Lakia Quintana Unavailable [phone] Allergies Allergen (clinical drug ingredient) Drug/Non Drug Allergy documented on EMR Reaction Allergy Type Onset Date Status penicillin (uncoded) rash Allergy Active Substance with sulfonamide structure and antibacterial mechanism of action (substance) sulfonamide (uncoded) rash Allergy Active Results Component Value Reference Range Notes HEPATIC FUNCTION PANEL Reviewed date:02/13/2025 03:36:51 PM Interpretation: Performing Lab:NL1, [facility], [address] [place] [address], [phone] Niels Chen M.D. Notes/Report: Received Date: [id number] FASTING; FASTING; FASTING; FASTING; FASTING FASTING:YES FASTING: YES PROTEIN, TOTAL 6.5 6.1-8.1 g/dL ALBUMIN 4.1 3.6-5.1 g/dL GLOBULIN 2.4 1.9-3.7 g/dL (calc) ALBUMIN/GLOBULIN RATIO 1.7 1.0-2.5 (calc) BILIRUBIN, TOTAL 0.8 0.2-1.2 mg/dL BILIRUBIN, DIRECT 0.2 < OR = 0.2 mg/dL BILIRUBIN, INDIRECT 0.6 0.2-1.2 mg/dL (calc) ALKALINE PHOSPHATASE 75 37-153 U/L AST 18 10-35 U/L ALT 12 6-29 U/L CREATININE Reviewed date:02/13/2025 03:36:52 PM Interpretation: Performing Lab:NL1, [facility] [employer], [address] [place] [address], [phone] Niels Chen M.D. Notes/Report: Received Date: [id number] FASTING; FASTING; FASTING; FASTING; FASTING FASTING:YES FASTING: YES CREATININE 1.16 0.50-1.03 mg/dL EGFR 55 > OR = 60 mL/min/1.73m2 CBC (INCLUDES DIFF/PLT) Reviewed date:02/13/2025 03:36:52 PM Interpretation: Performing Lab:NL1, [facility], [address] [place] [address], [phone] Niels Chen M.D. Notes/Report: Received Date: [id number] FASTING; FASTING; FASTING; FASTING; FASTING FASTING:YES FASTING: YES WHITE BLOOD CELL COUNT 5.0 3.8-10.8 Thousand/ uL RED BLOOD CELL COUNT 5.35 3.80-5.10 Million/uL HEMOGLOBIN 14.9 11.7-15.5 g/dL HEMATOCRIT 46.3 35.0-45.0 % MCV 86.5 80.0-100.0 fL MCH 27.9 27.0-33.0 pg MCHC 32.2 32.0-36.0 g/dL For adults, a slight decrease in the calculated MCHC value (in the range of 30 to 32 g/dL) is most likely not clinically significant; however, it should be interpreted with caution in correlation with other red cell parameters and the patient's clinical condition. RDW 13.1 11.0-15.0 % PLATELET COUNT 249 140-400 Thousand/uL MPV 11.5 7.5-12.5 fL ABSOLUTE NEUTROPHILS [phone] cells/uL ABSOLUTE LYMPHOCYTES 5342 718-6446 cells/uL ABSOLUTE MONOCYTES 435 200-950 cells/uL ABSOLUTE EOSINOPHILS 170 15-500 cells/uL ABSOLUTE BASOPHILS 40 0-200 cells/uL NEUTROPHILS 58.3 LYMPHOCYTES 28.8 MONOCYTES 8.7 EOSINOPHILS 3.4 BASOPHILS 0.8 SED RATE BY MODIFIED RAMONA YANEZ Reviewed date:02/13/2025 03:36:52 PM Interpretation: Performing Lab:NL1, [facility], [address] [place] [address], [phone] Niels Chen M.D. Notes/Report: Received Date: [id number] FASTING; FASTING; FASTING; FASTING; FASTING FASTING:YES FASTING: YES SED RATE BY MODIFIED WESTERGREN 2 < OR = 30 mm/h HS-CRP Reviewed date:02/13/2025 03:36:52 PM Interpretation: Performing Lab:NL1, [facility], [address] [place] [address], [phone] Niels Chen M.D. Notes/Report: Received Date: FASTING; FASTING; FASTING; FASTING; FASTING FASTING:YES FASTING: YES HS CRP 1.0 Centers for Disease Control and Prevention and the [place] [employer]. Circulation 2003; 107(3): 499-511. Reference Range Optimal <1.0 Jerosalia PS et [...] A statement for healthcare professionals from the REASON FOR VISIT PT last seen PMD Vik Brar MD 10.25.2024, Fatigue 7/10 , AMS 45 mins, pain 7/10 wrists, LT ankle, elbows, RT shoulder, Lab 11.01.2024 Medications Medication SIG (Take, Route, Frequency, Duration) Notes Start Date End Date Status Albuterol Sulfate HFA 108 (90 Base) MCG/ACT 2 puffs as needed Inhalation every 6-8 hrs; Duration: 30 days Active Hydroxychloroquine Sulfate 200 MG TAKE 1 TABLET BY MOUTH TWICE A DAY FOR 90 DAYS Active predniSONE 5 MG 1 tablet Oral as needed; Duration: 30 days Not-Taking Rybelsus 3 MG Oral; Duration: 30 Days Active Medrol 4 MG 6 TABS FIRST DAY, TAPER BY 1 TAB A DAY UNTIL OFF Orally Once a day; Duration: 6 days 09/07/2024 Not-Taking Mometasone Furoate 50 MCG/ACT SPRAY 2 SPRAYS BY NASAL ROUTE DAILY Nasal; Duration: 90 Days Active Ipratropium Ragland 0.03 % 2 SPRAYS BY N TRAY ROUTE EVERY 12 (TWELVE) HOURS. 2 SPRAYS PER NOSTRIL EVERY 12 HOURS. Nasal; Duration: 90 Days Active Erythromycin 2 % APPLY TO FACIAL RASH UNDER NOSE TWICE A DAY FOR 6 WEEKS External; Duration: 30 Days Active Famotidine 20 MG 1 tablet at bedtime Orally Once a day; Duration: 90 days Active metroNIDAZOLE 1 % APPLY TO ROSACEA ONCE DAILY. External; Duration: 30 Days Active Problems Problem Type SNOMED Code ICD Code Onset Dates Problem Status W/U Status Risk Notes Problem Chronic kidney disease stage 3A (disorder) (063278554) Chronic kidney disease, stage 3a (N18.31) Active confirmed -As of 11/08/2024 pt has f/u with Dr. Gonzalez in 02/2025. Vital Signs Blood pressure systolic 135 mm Hg 11/09/19 25 Blood pressure diastolic 75 mm Hg 025 Heart Rate 72 /min 11/08/2024 Temperature 36.9 C 11/08/2024 Height 160.8 cm 11/08/2024 Encounters Encounter Location Date Provider Diagnosis [facility] [address] [phone] 11/08/2024 Lakia Lilian Rheumatoid arthritis without rheumatoid factor, multiple sites M06.09 ; Systemic involvement of connective tissue, unspecified M35.9 ; Psoriatic spondylitis L40.53 ; Celiac disease K90.0 ; Lichen sclerosus of female genitalia N90.4 ; Disorder of bone density and structure, unspecified M85.9 and Chronic kidney disease, stage 3a N18.31 Assessments Encounter Date Diagnosis (ICD Code) Assessment Notes Treatment Notes Treatment Clinical Notes Section Notes 11/08/2024 Rheumatoid arthritis without rheumatoid factor, multiple sites (ICD-10 - M06.09) -As of 11/08/2024 overall pt doing well on HLQ 400 mg QD. Will continue to monitor. -As of 09/07/2024 she has increased polyarthralgia despite HLQ. Pt hesitant to trial DMARDs d/t RX sensitivity. Will treat flare and evaluate joint pain further. -OV 1.2.2024: Pt. on Plaquenil 400mg/day, ongoing pain and fatigue but pt. defers starting [...] of Connective Tissue Disease (2016 or so), skin biopsy LT hand 03.25.2019 subtle vacuolar interface changes, favor lupus.; lichen sclerosus dx 1998; dx w/seronegative RA 2018 and CTD 2018, on Hydroxychloroquine 400 mg/d since 2019 w/meaningful but insufficient response. Presented to us 01.25.2024 with (B) hand pain, (B) wrist swelling, mildly limited ROM in finger flexion and wrist extension, enthesitis - (B) Achilles enthesitis. H/o Rt plantar fasciitis since 2018, costochondral tenderness, prolonged morning stiffness 45 min and fatigue. Autoimmune family history of Psoriasis (brother). 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 Pt reviewed by Dr. Nelson 11/08/2024 Systemic involvement of connective tissue, unspecified (ICD-10 - M35.9) CTD per Dr. Fortune, [facility] . H/o recurrent rashes w/skin bx suggestive of CTD; H/o fevers, MSK Sx. Never Lupus nephritis. Severe endometriosis, never . Has abnl Se Cr w/low GFR since per pt. 11/08/2024 Psoriatic spondylitis (ICD-10 - L40.53) 4.2.2024 on HCQ. Presented to us for consultation on 01.25.2024 with (B) hand pain, (B) wrist swelling, mildly limited ROM in finger flexion and wrist extension, enthesitis - (B) Achilles enthesitis. H/o Rt plantar fasciitis since 2018, costochondral tenderness, prolonged morning stiffness 45 min and fatigue. 11/08/2024 Celiac disease (ICD-10 - K90.0) She did see improvement in rashes that she as since teens when evaluation back then showed celiac and she went gluten free. Glute free diet helped her low grade fevers and to a lesser degree with MSK pain. 11/08/2024 Lichen sclerosus of female genitalia (ICD-10 - N90.4) 11/08/2024 Disorder of bone density and structure, unspecified (ICD-10 - M85.9) 11/08/2024 Chronic kidney disease, stage 3a (ICD-10 - N18.31) -As of 11/08/2024 pt has f/u with Dr. Gonzalez in 02/2025. Plan Of Treatment Medication Medication Name Sig Start Date Stop Date Notes Hydroxychloroquine Sulfate 200 MG TAKE 1 TABLET BY MOUTH TWICE A DAY FOR 90 DAYS Treatment Notes Assessment Notes Rheumatoid arthritis without rheumatoid factor, multiple sites Fasting labs 1 week before next appt Follow up with Met[employer] Slitting Machine Operator as planed Hydroxychloroquine eye exam every 12 months per ophthalmology RTC in 12 weeks Lakia Quintana [facility]-. Pt reviewed by Dr. Nelson Next Appt Details Follow Up: 3 Months, Reason: Provider Name:GIULIANA NELSON, 04/17/2025 10:30:00 AM, [address] [place] [address], [phone], Provider Name:Lakia Quintana , 05/09/2025 10:20:00 AM, [address] [place] [address], [phone], Progress Notes * Mary JOHNSONDOB:[birth year] (59 yo F)Acc No.[id number]:11/08/2024 Progress Notes Patient: Mary CASAREZ Provider: Deniz Quintana APRN :1965 A ge:59 Y S ex:Female Date:11/08/2024 Phone: Address:[address] [place], [place] [id number] Pcp:Elina Galan Subjective: * Chief Complaints: * 1 . PT last seen PMD Vik Brar MD 10.25.2024. 2. Fatigue /10 , AMS 45 mins. 3. pain /10 wrists, LT ankle, elbows, RT shoulder. 4. Lab 11.01.2024. * HPI: R heumatology, Other: Demographics 5 7 W, Psoriatic Arthritis,(SpA '2019,[place] Dr. Mckee/[facility]); Celiac; S kin biopsy LT hand 03.25.2019 subtle vacuolar interface changes, favor lupus. l ow +RF, Neg HLA B27 Ag negative, neg [id number], - 2023 E GD/colonoscopy g astritis, Cardozo's esophagus Dr Leroy; P lantar fasciitis, Rt since 2019 A utoimmune FHx: Psoriasis, (Brother) . The patient presents with the following symptoms 0 11/08/2024 RA-On Plaquenil 200mg BID since 2019. Tolerates HLQ. Pt with ongoing moderate? wrists, LT ankle, elbows, RT shoulder pain. States her left ankle pain is the most bothersome. Having swelling in Lt ankle.?Last seen by Dr. Gonzalez Nephrology 08/31/2024. Completed kidney US, told she has CKD Stage III andher kidney function is stable.Pt to f/u in 6 months. Denies recent injuries or illness. Overall pt is doing well. Exercises daily with walking. Pt to start Rebelsys for weight loss.?-Reviewed XR (B) Elbow 09/07/2024:Noraml ?-Reviewed XR (B) Shoulder 09/07/2024:Normal ?-Reviewed labs 11/01/2024:?Creat 1:20 (H), HS CRP 1.4 (h), HCT 46.9 (h), RBC 5.42 (H), EGFR 52 (L);?Sed Rate, ANCA, Vit D 62, HGB-OK ?-Reviewed PLQ eye exam: appt 09/08/2024 ?-Reviewed DEXA 03/08/2024:Normal ?09/07/2024 ?Pt last saw PCP Elina Sanchez, MEDICAL TYPIST , lab 3.3.25, fatigue 7/10 , AMS 45mins, pain 6/10 neck, elbows, wrists, L hip, ankles/feet, last PLQ eye exam- schedule exam on 09.08.24, R3A=4.3. ?RA: On Plaquenil 200mg BID since 2019. Tolerates HLQ. Last seen by Dr. Gonzalez Nephrology 08/31/2024. Completed kidney US, told she has CKD Stage III and her kidney function is stable.Pt to f/u in 6 months.?Advised pt to increase water intake.Notes increased joint pain over the past week. Denies recent injuries or illness. ?-Reviewed labs 08/08/2024:?Creat 1:13 (H), HCT 47.5 (h), EGFR 57 L);Sed Rate, CRP, Hepatic, HGB-OK ?-Reviewed PLQ eye exam: appt 09/08/2024 ?1.2PT last seen PMD Elina Sanchez, MEDICAL TYPIST 05/2024, Fatigue 6/10, AMS 30 mins, pain 6-7/10 LT hip, hands, ankles, feet, wrists, Lab 05/18/2024, R3A HS=6.0. ?RA:Pt. on Plaquenil 200mg BID since 2019. Pt. states its helping and is working with PCP for weightloss. ?Labs 05.18.2024:OK CBC,Cr 1.17 (H),LFT, HS-CRP 1.2 ?10. ?Pt last saw PCP Dr. Brar , lab 8.29.24, fatigue 7/10 , AMS 1hr, pain 7/10 jaw, neck, shoulders, elbows, wrists, lower back, hands, ankles, feet, CXR needs to be scheduled, DEXA needs to be scheduled, Pt c/o migraine as of today, PLQ eye -ok, Biopsy Report?. R3A= 12. ?RA:Pt. on Plaquenil 200mg BID since 2019. Per pt. it seems to be helping, the fatigue is on going. ?CONSULT 01.25.24 ?in 2017 FUO 104F x 2 days, then LGF 100 F, txat home, saw MD; chronic rashes erythematoous, painful, itchy, lasted 1 week at the time, healed w/o a scar; Dr. Maier did 2 biopsies, came back as CTD, Tx w/Prednisone helped; HCQ helped '2018 - dx in [place] (Dr. Santos Derm/Rheum dx, on HCQ); , MSK pain, H/o skin rashes, sinus ? Pt last saw PCP florentin Reyes ey; Has asthma; Fatigue 11/15, AMS 45 mins pain 11/15 neck, elbo ws, hands, hips, lower back, ankles, feet lab . PLQ eye exam OK No DEXA ; Had [id number] 2018 Ok per pt; Seronegative Rheumat oid Arthritis dx 2018, on PLQ since 2018 -helps+ Recurrent fevers;+ Photosensitive skin rashes + [...] CTD pe Dr. Mani Fortune ([facility]) note. N O Swollen painful joints,NO Painful but not swollen joints AND morning stiffness 30 or more minutes;NO H/o pericarditis, N O H/o Pleurisy or Pleural effusions;NO DRY COUGH; + FREQUENT SINUSITIS; No polyps in nose or sinuses; +Sores in [place]-> uses steroid nasal spray - helps (Nasonex) N O H/o low WBC; +high WBC 2021 - saw Deicer Inspector Pneumatic in [place] 2021 [place], no need for f/Ti H/o [...] 2. ?Per pt up Se cr in 11.2023, too.?Diagnostic Imaging Includes? +Lichen sclerosus Vaginal 1998, c/w Biopsy - Dr. Maier - tx w/Clobetasol, having a flare-up as of , will see Derm * ? * + Ever skin biopsy (Dr. Maier) 2017; showed possible CTD per Dr. Mani Varela [...] or Double Vision N o. F loaters N o. F lashes N o. H air Loss [...] in deep breath N o. W heezing N o. A bdominal pain N o. D iarrhea N o. N ausea N o. V omiting N o. C onstipation N o. D ysuria N o. I ncontinence N o. P rostate Troubles N o. M iscarriages N o.?Recurrent sinus infection N o. R ecurrent ear infection N o. B leeding gums N o. P soriasis N o. S kin rash after sun exposure Y es. N odules/Bumps N o. Muscle weakness N o. T ingling Y es. N umbness N o. B urning N o.?Falls N o. A nxiety Y es. D epression N o. A nemia N o. B leeding Tendency N o. R inging in ears N o. L oss of hearing N o. H eight loss N o. H eart murmur N o. B lood in stool N o. H eel pain N o. F meet without infection N o. D iscomfort or pain in BUTTOCK N o. W eight GAIN N o. ? * Medical History: M ultiple drug sensitivity, seronegative RA, Fibromyalgia, anxiety: Yes, eczema: Yes, osteoporosis: No, hypothyroidism: No, fatty liver: No, bowel disorders: Yes, ulcerative colitis: No, diverticulosis: No, hypertension: Yes, recurrent sinusitis: Yes, varicose veins: No, migraine headaches: Yes, cancer, colon: No, family history of colon cancer: from colon CA, Seronegative Rheumatoid Arthritis dx 2019, on PLQ since-helps. 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 L ast mammogram date ;. H ysterectomy N o. * OB History: T otal pregnancies 0 . T otal living children 0 . * Medications: T aking metroNIDAZOLE 1 % Gel APPLY TO ROSACEA ONCE DAILY. External , Taking Erythromycin 2 % Solution APPLY TO FACIAL RASH UNDER NOSE TWICE A DAY FOR 6 WEEKS External , Taking Famotidine 20 MG Tablet 1 tablet at bedtime Orally Once a day , Taking Mometasone Furoate 50 MCG/ACT Suspension SPRAY 2 SPRAYS BY NASAL ROUTE DAILY Nasal , Taking Ipratropium Ragland 0.03 % Solution 2 SPRAYS BY NASAL ROUTE EVERY 12 (TWELVE) HOURS. 2 SPRAYS PER NOSTRIL EVERY 12 HOURS. Nasal , Taking Albuterol Sulfate HFA 108 (90 Base) MCG/ACT Aerosol Solution 2 puffs as needed Inhalation every 6- 8 hrs , Taking Hydroxychloroquine Sulfate 200 MG Tablet TAKE 1 TABLET BY MOUTH TWICE A DAY FOR 90 DAYS , Taking Rybelsus 3 MG Tablet Oral , Not-Taking/PRN Medrol 4 MG Tablet Therapy Pack 6 TABS FIRST DAY, TAPER BY 1 TAB A DAY UNTIL OFF Orally Once a day , Not-Taking/PRN predniSONE 5 MG Tablet 1 tablet Oral as needed , Medication List reviewed and reconciled with the patient * Allergies: P enicillin: Rash, Sulfonamide: Rash. Objective: * Vitals: B P:135/75mm Hg, HR:72/min, Temp:36.9C, Ht-cm: 160.8 cm. * Examination: a llergy: [...] R heumatology: CERVICAL SPINES: + vertebral tenderness, no p aravertebral muscle spasm (B), decreased range of motion [...] HANDS: ( B) II,III MCPJ 1+ synovitis, 1+ tenderness of the flexor tendons, limited flexion with discomfort; (B) mild-moderate. HIPS: n ormal range of motion, (B)no trochanteric tenderness, (B)no inguinal tenderness, (B)No proximal muscle tenderness , (B)No proximal muscle weakness.? KNEES: ( B)2+tenderness, no effusion, , normal alignment and range of motion. ANKLES: ( Lt) + tenderness, 1+ swelling, (B) n ormal range of motion, no ( B)plantar fascia tenderness at the insertion into calcaneal [...] ? S pecify :dx 2019, on HCQ; Overlap w/CTD/Lupus, also celiac sprue. +FH PSORIASIS (Brother) N otes :-As of 11/08/2024 overall pt doing well on HLQ 400 mg QD. Will continue to monitor. -As of 09/07/2024 she has increased polyarthralgia despite HLQ. Pt hesitant to trial DMARDs d/t RX sensitivity. Will treat flare and evaluate joint pain further. -OV .: Pt. on Plaquenil 400mg/day, ongoing pain and fatigue but pt. defers starting [...] of Connective Tissue Disease (2016 or so), skin biopsy LT hand 03.25.2019 subtle vacuolar interface changes, favor lupus.; lichen sclerosus dx 1998; dx w/seronegative RA [...] family history of Psoriasis (brother). 2 . S ystemic involvement of connective tissue, unspecified - M35.9 S pecify :skin biopsy LT hand 03.25.2019 subtle vacuolar interface changes, favor lupus. N otes :CTD per Dr. Fortune, [facility] . H/o recurrent rashes w/skin bx suggestive of CTD; H/o fevers, MSK Sx. Never Lupus nephritis. Severe endometriosis, never . Has abnl Se Cr w/low GFR since per pt. 3 . P soriatic spondylitis - L40.53 S pecify :likely. HLA B27 neg. +FH Psoriasis (Brother). N otes :4. on HCQ. Presented to us for consultation on 01.25.2024 with (B) hand pain, (B) wrist swelling, mildly limited ROM in finger flexion and wrist extension, enthesitis - (B) Achilles enthesitis. H/o Rt plantar fasciitis since 2018, costochondral tenderness, prolonged morning stiffness 45 min and fatigue. 4 . C eliac disease - K90.0 [...] of female genitalia - N90.4 S pecify :[id number] per biopsy (Dr. Maier), off/on flares. 6 . D isorder of bone density and structure, unspecified - M85.9 ?7. C hronic kidney disease, stage 3a - N18.31 N otes :-As of 11/08/2024 pt has f/u with Dr. Gonzalez in 02/2025. Plan: * Treatment: * Labs: * L ab: CBC (INCLUDES DIFF/PLT) (Collection Date & Time - 02/11/2025 10:29 AM) ?Lab: CREATININE (Collection Date & Time - 02/11/2025 10:29 AM)* Lakia Quintana 11/08/2024 1 1:00:43 AM EDT > Fasting, 1 week before next appt, cc patient, PMD Quintana, Lakia 02/13/2025 03:36:25 PM EDT > appt 02/14/2025 ?Lab: SED RATE BY MODIFIED ABDIRAHMAN (Collection Date & Time - 02/11/2025 10:29 AM)* Lakia Quintana 11/08/2024 1 1:00:43 AM EDT > Fasting, 1 week before next appt, cc patient, PMD Lakia Quintana 02/13/2025 03:36:25 PM EDT > appt 02/14/2025 ?Lab: HS-CRP (Collection Date & Time - 02/11/2025 10:29 AM)* Lakia Quintana 11/08/2024 1 1:00:43 AM EDT > Fasting, 1 week before next appt, cc patient, PMLakia Meneses 02/13/2025 03:36:25 PM EDT > appt 02/14/2025 ?Lab: HEPATIC FUNCTION PANEL (Collection Date & Time - 02/11/2025 10:29 AM) * Lakia Quintana 11/08/2024 1 1:00:43 AM EDT > Fasting, 1 week before next appt, cc patient, PMLakia Meneses 02/13/2025 03:36:25 PM EDT > appt 02/14/2025 * Follow Up: 3 Months * * Electronic signature of Richard bettiestanley Quintana APRN on 03/01/2025 at 04:46 PM EDT Sign off status: Pending * Provider: Deniz Quintana APRN Date: 0 11/08/[address] man/Jorge Alberto/[employer]Transmboy on: 0 03/01/2025 04:46 PM EDT History and Physical Notes * HPI (History of Present Illness) Category Sub-Category Detail Notes Category Not es Rheumatology, Other Demographics 58 W, Psoria tic Arthritis,(SpA '2018,[place] Dr. Mckee/[place]); Celiac; Skin biopsy LT hand 03.25.2019 subtle vacuolar interface changes, favor lupus. low +RF, Neg HLA B27 Ag negative, neg [id number], - 2023 EGD/colonoscopy gastritis, Cardozo's esophagus Dr Leroy; Plantar fasciitis, Rt since 2019 Autoimmune FHx: Psoriasis, (Brother) The patient presents with th e following symptoms 11/08/2024 PT last seen PMD Vik Brar MD 10.25.2024, Fatigue 7/10 , AMS 45 mins, pain 7/10 wrists, LT ankle, elbows, RT shoulder, Lab 5.27.2024.RA-On Plaquenil 200mg BID since 2019. Tolerates HLQ. Pt with ongoing moderate wrists, LT ankle, elbows, RT shoulder pain. States her left ankle pain is the most bothersome. Having swelling in Lt ankle. Last seen by Dr. Gonzalez Nephrology 08/31/2024. Completed kidney US, told she has CKD Stage III and her kidney function is stable.Pt to f/u in 6 months. Denies recent injuries or illness. Overall pt is doing well. Exercises daily with walking. Pt to start Rebelsys for weight loss. -Reviewed XR (B) Elbow 09/07/2024: Noraml -Reviewed XR (B) Shoulder 09/07/2024: Normal -Reviewed labs 11/01/2024: Creat 1:20 (H), HS CRP 1.4 (h), HCT 46.9 (h), RBC 5.42 (H), EGFR 52 (L); Sed Rate, ANCA, Vit D 62, HGB-OK -Reviewed PLQ eye exam: appt 09/08/2024 -Reviewed DEXA 03/08/2024: Normal 09/07/2024 Pt last saw PCP Elina Sanchez APRN , lab 3.3.25, fatigue 7/10 , AMS 45mins, pain 6/10 neck, elbows, wrists, L hip, ankles/feet, last PLQ eye exam- schedule exam on 4.3.25, R3A=4.3. RA: On Plaquenil 200mg BID since [...] 09/08/2024 1.2.2024 PT last seen PMD Elina Sanchez, MEDICAL TYPIST 05/2024, Fatigue 6/10, AMS 30 mins, pain [...] as CTD, Tx w/Prednisone helped; HCQ helped '2019 - dx in [place] (Dr. Santos Derm/Rheum dx, on HCQ); , MSK pain, H/o skin rashes, sinus Pt last saw PCP florentin Brar; Has asthma; Fatigue 6/10, AMS 45mins pain 6/10 neck, elbows, hands, hips, lower back, ankles, feet lab 6..2023 PLQ eye exam OK No DEXA ; Had [id number] 2018 Ok per pt; Seronegative Rheumatoid Arthritis dx 2019, on PLQ since 2019 -helps+ Recurrent fevers; + Photosensitive skin rashes [...] CTD pe Dr. Mani Fortune ([facility]) note. NO Swollen painful joints, NO Painful but not swollen joints AND morning stiffness 30 or more minutes; NO H/o pericarditis, NO H/o Pleurisy or Pleural effusions; NO DRY COUGH; + FREQUENT SINUSITIS; No polyps in nose or sinuses; +Sores in [place]-> uses steroid nasal spray - helps (Nasonex) NO H/o low WBC; +high WBC 2021 - saw Deicer Inspector Pneumatic in [place] 2021 [place], no need for f/Ti H/o [...] Rheumatology CERVICAL SPINES: + vertebral ten derness, no paravertebral muscle spasm (B), decreased range of [...] HANDS: (B) II,III MCPJ 1+ s ynovitis, 1+ tenderness of the flexor tendons, limited flexion with discomfort; (B) mild-moderate HIPS: normal range of belgica on, (B)no trochanteric tenderness, (B)no inguinal tenderness, (B)No proximal muscle tenderness , (B)No proximal muscle weakness KNEES: (B)2+tenderness, no effusion, , normal alignment and range of motion ANKLES: (Lt) + tenderness, 1 + swelling, (B) normal range of motion, no (B)plantar fascia tenderness at the insertion into calcaneal bone, 2+ (B)Achilles enthesis tenderness FEET: normal, no pain or s welling, full ROM THORACIC SPINE: no vertebral tendern ess, full ROM SACROILIAC: no tenderness, sacro iliac stressing test negative, (B) Frank's test negative FIBROMYALGIA TENDER POINTS: 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
--- OUTSIDE RECORDS SUMMARY | 2025-02-14 06:40 | XMS_ITS ---
Author Organization [facility] Address [address], [place] [id number] Care Team Providers Care Cnc Lathe Programmer Name Role Phone Elina Galan Primary Care Provider UnavailCHARLIE Carmona Unavailable [phone] Maykel DUNN, Vik Unavailable Unavailable Lakia Quintana Unavailable [phone] Allergies Allergen (clinical drug ingredient) Drug/Non Drug Allergy documented on EMR Reaction Allergy Type Onset Date Status penicillin (uncoded) rash Allergy Active Substance with sulfonamide structure and antibacterial mechanism of action (substance) sulfonamide (uncoded) rash Allergy Active REASON FOR VISIT PT last seen PMD Elina Galan , Fatigue 6/10 AMS 30 mins, pain 6/10 RT shoulder, RT elbow, LThip, LT ankle, Lab 9.6.2024, dapsa score-12 Medications Medication SIG (Take, Route, Frequency, Duration) Notes Start Date End Date Status Albuterol Sulfate HFA 108 (90 Base) MCG/ACT 2 puffs as needed Inhalation every 6-8 hrs; Duration: 30 days Active Rybelsus 3 MG Oral; Duration: 30 Days Active Hydroxychloroquine Sulfate 200 MG TAKE 1 TABLET BY MOUTH TWICE A DAY Active Medrol 4 MG 6 TABS FIRST DAY, TAPER BY 1 TAB A DAY UNTIL OFF Orally Once a day; Duration: 6 days 09/07/2024 Not-Taking predniSONE 5 MG 1 tablet Oral as needed; Duration: 30 days Not-Taking Mometasone Furoate 50 MCG/ACT SPRAY 2 SPRAYS BY NASAL ROUTE DAILY Nasal; Duration: 90 Days Active Ipratropium Lehigh 0.03 % 2 SPRAYS BY N TRAY [...] ONCE DAILY. External; Duration: 30 Days Active Vital Signs Blood pressure systolic 105 mm Hg 02/15/20 25 Blood pressure diastolic 70 mm Hg 025 Heart Rate 69 /min 02/14/2025 Temperature 37.1 C 02/14/2025 Height 160.8 cm 02/14/2025 Encounters Encounter Location Date Provider Diagnosis [facility] [address] [phone] 02/14/2025 Lakia Quintana Rheumatoid arthritis without rheumatoid factor, multiple sites M06.09 ; Systemic involvement of connective tissue, unspecified M35.9 ; Psoriatic spondylitis L40.53 ; Celiac disease K90.0 ; Disorder of bone density and structure, unspecified M85.9 ; Trochanteric bursitis, right hip M70.61 ; Trochanteric bursitis, left hip M70.62 and Sacroiliitis, not elsewhere classified M46.1 Assessments Encounter Date Diagnosis (ICD Code) Assessment Notes Treatment Notes Treatment Clinical Notes Section Notes 02/14/2025 Rheumatoid arthritis without rheumatoid factor, multiple sites (ICD-10 - M06.09) -As of 02/14/2025 has ongoing hip pain, otherwise doing well on HLQ 400 mg monotherapy. Pt declines trialing biologics at this time. Will resume HLQ and evaluate joint pain further. -As of 11/08/2024 overall pt doing well on HLQ 400 mg QD. Will continue to monitor. -As of 09/07/2024 she has increased polyarthralgia despite HLQ. Pt hesitant to trial DMARDs d/t RX sensitivity. Will treat flare and evaluate joint pain further. -OV 06.09.2024: Pt. on Plaquenil 400mg/day, ongoing pain and fatigue but pt. defers starting any DMARd at this time. OV 03.08.2024: Ongoing arthralgia and fatigue on Plaquenil since 2019 [...] week before next appt XR of (B) hips and SIJs today- consider PT if hip pain does not improve Consider trialing Hyrimoz if joint pain worsens Follow up with Machine Cloth Trimmer as planed Hydroxychloroquine eye exam every 12 months per ophthalmology RTC in 12 weeks Lakia Quintana ICE SKATING COACH-BC. Pt reviewed by Dr. Nelson 02/14/2025 Systemic involvement of connective tissue, unspecified (ICD-10 - M35.9) CTD per Dr. Fortune, [facility] . H/o recurrent rashes w/skin bx suggestive of CTD; H/o fevers, MSK Sx. Never Lupus nephritis. Severe endometriosis, never . Has abnl Se Cr w/low GFR since per pt. Neg RICHARD/RICHARD subserology . 02/14/2025 Psoriatic spondylitis (ICD-10 - L40.53) 4.2.2024 on HCQ. Presented to us for consultation on 01.25.2024 with (B) hand pain, (B) wrist swelling, mildly limited ROM in finger flexion and wrist extension, enthesitis - (B) Achilles enthesitis. H/o Rt plantar fasciitis since 2018, costochondral tenderness, prolonged morning stiffness 45 min and fatigue. 02/14/2025 Celiac disease (ICD-10 - K90.0) She did see improvement in rashes that she as since teens when evaluation back then showed celiac and she went gluten free. Glute free diet helped her low grade fevers and to a lesser degree with MSK pain. 02/14/2025 Disorder of bone density and structure, unspecified (ICD-10 - M85.9) 02/14/2025 Trochanteric bursitis, right hip (ICD-10 - M70.61) 02/14/2025 Trochanteric bursitis, left hip (ICD-10 - M70.62) 02/14/2025 Sacroiliitis, not elsewhere classified (ICD-10 - M46.1) Plan Of Treatment Medication Medication Name Sig Start Date Stop Date Notes Hydroxychloroquine Sulfate 200 MG TAKE 1 TABLET BY MOUTH TWICE A DAY Treatment Notes Assessment Notes Rheumatoid arthritis without rheumatoid factor, multiple sites Fasting labs 1 week before next appt XR of (B) hips and SIJs today- consider PT if hip pain does not improve Consider trialing Hyrimoz if joint pain worsens Follow up with Machine Cloth Trimmer as planed Hydroxychloroquine eye exam every 12 months per ophthalmology RTC in 12 weeks Lakia Quintana ICE SKATING COACH-. Pt reviewed by Dr. Nelson Pending Test Test Name Order Date QUANTIFERON(R)-TB GOLD 02/14/2025 HEPATIC FUNCTION PANEL 02/14/2025 CREATININE 02/14/2025 CBC (INCLUDES DIFF/PLT) 02/14/2025 SED RATE BY MODIFIED WESTERGREN 02/15/20 25 HS-CRP 02/14/2025 X ray : Hip, left 02/14/2025 X ray : Hip, right 02/14/2025 X ray : Sacroliliac Joints 02/14/2025 Next Appt Details Follow Up: 4 Weeks, Reason: Provider Name:GIULIANA NELSON, 04/17/2025 10:30:00 AM, [address] [place] [address], [phone], Provider Name:Lakia Quintana , 05/09/2025 10:20:00 AM, [address] [place] [address], [phone], Progress Notes * Mary JOHNSONDOB:[birth year] (59 yo F)Acc No.[id number]:02/14/2025 Progress Notes Patient: Mary CASAREZ Provider: Deniz Quintana APRN :1965 A ge:59 Y S ex:Female Date:02/14/2025 Phone: Address:[address] [place] [address] Pcp:Elina Adama Subjective: * Chief Complaints: * 1 . PT last seen PMD Elina Galan . 2. Fatigue 11/15 AMS 30 mins. 3. pain 6/10 RT shoulder, RT elbow, LT hip, LT ankle. 4. Lab 9.6. 5. Dapsa score-12. * HPI: R heumatology, Other: Demographics 5 7 W, Psoriatic Arthritis,(SpA '2019,[place] Dr. Mckee/[place]); Celiac; S kin biopsy LT hand 03.25.2019 subtle vacuolar interface changes, favor lupus. l ow +RF, Neg HLA B27 Ag negative, neg [id number], - 2023 E GD/colonoscopy g astritis, Cardozo's esophagus Dr Leroy; P lantar fasciitis, Rt since 2018 A utoimmune FHx: Psoriasis, (Brother) . The patient presents with the following symptoms 0 02/14/2025 RA-On Plaquenil 200mg BID since 2019. Tolerates HLQ. Pt with ongoing moderate RT shoulder, RT elbow, LThip, LT ankle?pain. Her left ankle pain and swelling did improve. Pt has been walking alot more and feels her pain maybe related to that. Last seen by Dr. Gonzalez [facility] 08/31/2024. Completed kidney US, told she has CKD Stage III and her kidney function is stable. Pt to f/u 03/01/2025 Denies recent injuries or illness. Overall pt is doing well. Pt? started Rebelsys for weight loss on 12/05/2024. Has since last 15lbs. Pt declines trialing biologics at this time as she feels loosingweight will help her joint pain.?-Reviewed labs 02/11/2025: Creat 1.16 (H), EGFR 55 (L), RBC 5.35 (H), HCT 46.3 (H);HCT, Hepatic, Sed Rate, HS CRP-OK ?-Reviewed labs 11/01/2024:?Creat 1:20 (H),?EGFR 52 (L),?HS CRP 1.4 (h), HCT 46.9 (h), RBC 5.42 (H);?Sed Rate, ANCA, Vit D 62, HGB-OK ?-Reviewed PLQ eye exam: appt 09/08/2024 ?-Reviewed DEXA 03/08/2024:?Normal ?11/08/2024? PT last seen PMD Vik broderick MD 10.25.2024, Fatigue 7/10 , AMS 45 mins, pain 7/10 wrists, LT ankle, elbows, RT shoulder, Lab 5. RA-On Plaquenil 200mg BID since 2019. Tolerates [...] 03/08/2024:Normal ?09/07/2024 ?Pt last saw PCP Elina Sanchez APRN , [...] 09/08/2024 ?1.2PT last seen PMD Elina Sanchez, TRAILER ASSEMBLER 05/2024, Fatigue 6/10, AMS 30 mins, pain [...] then LGF 100 F, txat home, saw ; chronic rashes erythematoous, painful, itchy, lasted 1 week at the time, healed w/o a scar; Dr. Maier did 2 biopsies, came back as CTD, Tx w/Prednisone helped; HCQ helped '2018 - dx in [place] (Dr. Santos Derm/Rheum dx, on HCQ); , MSK pain, H/o skin rashes, sinus ? Pt last saw PCP florentin Reyes ey; Has asthma; Fatigue 11/15, AMS 45 mins pain 11/15 neck, elbo ws, hands, hips, lower back, ankles, feet lab 6. PLQ eye exam OK No DEXA ; Had [id number] 2018 Ok per pt; Seronegative Rheumat oid [...] CTD pe Dr. Mani Fortune ([facility] [place]) note. N O Swollen painful joints,NO Painful but not swollen joints AND morning stiffness 30 or more minutes;NO H/o pericarditis, N O H/o Pleurisy or Pleural effusions;NO DRY COUGH; + FREQUENT SINUSITIS; No polyps in nose or sinuses; +Sores in Nore-> uses steroid nasal spray - helps (Nasonex) N O H/o low WBC; +high WBC 2021 - saw Manager Production in [place] 2021 OK, no need for f/Ti H/o [...] d/t smoking; .?Medications Include?[place]QUENIL ([place] [facility] [place]predniSONE 5 MG Tablet 1 tablet [...] ight Sweats N o. W eight Loss Y es. H ands change color in the cold N o. D ry Eyes Y es. D ry Mouth Y es. S tiffness in AM Y es. J aw pain or tired when chewing N o. H eadaches Y es. P ain in eyes N o. R edness in eyes N o. B lurred or Double Vision N o. F loaters [...] oughing up Blood N o. H eartburn N o. C hest pain when taking in deep [...] o. Muscle weakness N o. T ingling N o. N umbness N o. B urning N [...] Arthritis dx 2019, on PLQ since-helps. * Consulting Senior Practice Director History: L ast pap smear date . L ast mammogram date ;. H ysterectomy N o. * OB History: T otal pregnancies 0 . T otal living children 0 . * Surgical History: E GD/colonoscopy gastritis, Cardozo's esophagus Dr Leroy .2023, Deviated septum , D&C d/t chronic bleeding 2020. * Hospitalization/Major Diagno stic Procedure: D enies Past Hospitalization. * Family History: F ather: alive 93 yrs, High blood pressure High cholesterol kidney disease. S pouse: , Stomach and esophageal cancer. M other: alive 86 yrs, High blood pressure high cholesterol. Siblings: alive, 1 brother Kidney disease, high cholesterol and high blood pressure; 2 sisters high cholesterol. C hilen: none. * Medications: T aking metroNIDAZOLE 1 % [...] NASAL ROUTE DAILY Nasal , Taking Ipratropium Lehigh 0.03 % Solution 2 SPRAYS BY NASAL ROUTE EVERY 12 (TWELVE) HOURS. 2 SPRAYS PER NOSTRIL EVERY 12 HOURS. Nasal , Taking Albuterol Sulfate HFA 108 (90 Base) MCG/ACT Aerosol Solution 2 puffs as needed Inhalation every 6- 8 hrs , Taking Rybelsus 3 MG Tablet Oral , Taking Hydroxychloroquine Sulfate 200 MG Tablet TAKE 1 TABLET BY MOUTH TWICE A DAY , Not-Taking/PRN Medrol 4 MG Tablet Therapy Pack 6 TABS FIRST DAY, TAPER BY 1 TAB A DAY UNTIL OFF Orally Once a day , Not- Taking/PRN predniSONE 5 MG Tablet 1 tablet Oral as needed , Medication List reviewed and reconciled with the patient * Allergies: P enicillin: Rash, Sulfonamide: Rash. Objective: * Vitals: B P:105/70mm Hg, HR:69/min, Temp:37.1C, Ht-cm: 160.8 cm. * Examination: a [...] sensory exam intact. R heumatology: CERVICAL SPINES: , no vertebral tenderness, normal flexion and extension. LUMBAR SPINES: n o vertebral tenderness, normal extension, normal forward bending and normal lateral bending. SHOULDERS: n ormal range of motion with discomfort, No proximal muscle tenderness, (B)No proximal muscle weakness. ELBOWS: n o swelling, normal range of motion, tender over medial epicondyle. WRISTS: ( B)wrist 1+synovitis, tender, R>L restricted range of motion with discomfort, negative Tinel's sign. HANDS: , no synovitis, no tenderness, normal range of motion. HIPS: n ormal range of motion, (B) + trochanteric tenderness, (B)no inguinal tenderness, (B)No proximal [...] +FH PSORIASIS (Brother) N otes :-As of 02/14/2025 has ongoing hip pain, otherwise doing well on HLQ 400 mg monotherapy. Pt declines trialing biologics at this time. Will resume HLQ and evaluate joint pain further. -As of 11/08/2024 overall pt doing well on HLQ 400 mg QD. Will continue to monitor. -As of 09/07/2024 she has increased polyarthralgia despite HLQ. Pt hesitant to trial DMARDs d/t RX sensitivity. Will treat flare and evaluate joint pain further. -OV .: Pt. on Plaquenil 400mg/day, ongoing pain and fatigue but pt. defers starting any DMARd at this time. OV .: Ongoing arthralgia and fatigue on Plaquenil since 2019 [...] CTD 2018, on Hydroxychloroquine 400 mg/d since 2018 w/meaningful but insufficient response. Presented to us [...] lupus. N otes :CTD per Dr. Fortune, [facility] . H/o recurrent rashes w/skin bx suggestive of CTD; H/o fevers, MSK Sx. Never Lupus nephritis. Severe endometriosis, never . Has abnl Se Cr w/low GFR since per pt. Neg RICHARD/RICHARD subserology . 3 . P soriatic spondylitis - L40.53 [...] lesser degree with MSK pain. 5 . D isorder of bone density and structure, unspecified - M85.9 ?6. T rochanteric bursitis, right hip - M70.61 7 . T rochanteric bursitis, left hip - M70.62 8 . S acroiliitis, not elsewhere classified - M46.1 ? Plan: * Treatment: ?LAB: HEPATIC FUNCTION PANEL* Lakia Quintana 02/14/2025 1 0:54:32 AM EDT > Fasting, 1 week before next appt, cc patient, PMD ?LAB: CREATININE* Lakia Quintana 02/14/2025 1 0:54:32 AM EDT > Fasting, 1 week before next appt, cc patient, PMD ?LAB: CBC (INCLUDES DIFF/PLT)* Lakia Quintana 02/14/2025 1 0:54:32 AM EDT > Fasting, 1 week before next appt, cc patient, PMD ?LAB: SED RATE BY MODIFIED WESTERGREN* Lakia Quintana 02/14/2025 1 0:54:33 AM EDT > Fasting, 1 week before next appt, cc patient, PMD ?LAB: HS-CRP* Lakia Quintana 02/14/2025 1 0:54:32 AM EDT > Fasting, 1 week before next appt, cc patient, PMD Notes: Fasting labs 1 week before next appt XR of (B) hips and SIJs today- consider PT if hip pain does not improve Consider trialing Hyrimoz if joint pain worsens Follow up with Machine Cloth Trimmer as planed Hydroxychloroquine eye exam every 12 months per ophthalmology RTC in 12 weeks Lakia Quintana ICE SKATING COACH-BC. Pt reviewed by Dr. Nelson??2.?Trochanteric bursitis, right hip?Imaging: X ray : Hip, right3.?Trochanteric bursitis, left hip?Imaging: X ray : Hip, left4.?Sacroiliitis, not elsewhere classified?Imaging: X ray : Sacroliliac Joints* Brandy Vasquez 02/14/2025 11: 28:36 AM EDT > * Procedure Codes: 7 3502 Hip X Ray Left, Modifiers: LT , 98575 Hip X Ray Right, Modifiers: RT , 11545 SACRO ILIAC JOINTS 3V * Follow Up: 4 Weeks * * Electronic signature of Richard Quintana , TRAILER ASSEMBLER on 03/01/2025 at 04:46 PM EDT Sign off status: Pending * Provider: Deniz Quintana, MARGOT Date: 0 02/14/[address] man/Jorge Alberto/Gerardo on: 0 03/01/2025 04:46 PM EDT History and Physical Notes * HPI (History of Present Illness) Category Sub-Category Detail Notes Category Not es Rheumatology, Other Demographics 58 W, Psoria tic Arthritis,(SpA '2019,[place] Dr[facility] Mckee/[place]); Celiac; Skin biopsy LT hand 03.25.2019 subtle vacuolar interface changes, favor lupus. low +RF, Neg HLA B27 Ag negative, neg [id number], - 2023 EGD/colonoscopy gastritis, Cardozo's esophagus Dr Leroy; Plantar fasciitis, Rt since 2018 Autoimmune FHx: Psoriasis, (Brother) The patient presents with th e following symptoms 02/14/2025 PT last seen PMD Elina Galan , Fatigue 6/10 AMS 30 mins, pain 6/10 RT shoulder, RT elbow, LT hip, LT ankle, Lab 9.6.2024, dapsa score-12.RA-On Plaquenil 200mg BID since 2019. Tolerates HLQ. Pt with ongoing moderate RT shoulder, RT elbow, LT hip, LT ankle pain. Her left ankle pain and swelling did improve. Pt has been walking alot more and feels her pain maybe related to that. Last seen by Dr. Gonzalez Nephrology 08/31/2024. Completed kidney US, told she has CKD Stage III and her kidney function is stable. Pt to f/u 03/01/2025 Denies recent injuries or illness. Overall pt is doing well. Pt started Rebelsys for weight loss on 12/05/2024. Has since last 15lbs. Pt declines trialing biologics at this time as she feels loosing weight will help her joint pain. -Reviewed labs 02/11/2025: Creat 1.16 (H), EGFR 55 (L), RBC 5.35 (H), HCT 46.3 (H); HCT, Hepatic, Sed Rate, HS CRP-OK -Reviewed labs 11/01/2024: Creat 1:20 (H), EGFR 52 (L), HS CRP 1.4 (h), HCT 46.9 (h), RBC 5.42 (H); Sed Rate, ANCA, Vit D 62, HGB-OK -Reviewed PLQ eye exam: appt 09/08/2024 -Reviewed DEXA 03/08/2024: Normal 11/08/2024 PT last seen PMD Vik Brar [...] 1.2.2024 PT last seen PMD Elina Sanchez, TRAILER ASSEMBLER 05/2024, Fatigue 6/10, AMS 30 mins, pain 6-7/10 LT hip, hands, ankles, feet, wrists, Lab 05/18/2024, R3A HS=6.0. RA: Pt. on Plaquenil 200mg BID since 2019. Pt. states its helping and is working with PCP for weightloss. Labs 05.18.2024: OK CBC,Cr 1.17 (H),LFT, HS-CRP 1.2 10. Pt last saw PCP Dr. Brar , lab 02.04.24, fatigue 7/10 , AMS 1hr, pain 7/10 [...] helped; HCQ helped '2019 - dx in [place] (Dr. Santos Derm/Rheum dx, on HCQ); , MSK pain, H/o skin rashes, sinus Pt last saw PCP florentin Brar; Has asthma; Fatigue 6/10, AMS 45mins pain 6/10 neck, elbows, hands, hips, lower back, ankles, feet lab 6..2023 PLQ eye exam OK No DEXA ; Had [id number] [place] 2019 Ok per pt; Seronegative Rheumatoid Arthritis dx [...] CTD pe Dr. Mani Fortune ([facility] [place]) note. NO Swollen painful joints, NO Painful but not swollen joints AND morning stiffness 30 or more minutes; NO H/o pericarditis, NO H/o Pleurisy or Pleural effusions; NO DRY COUGH; + FREQUENT SINUSITIS; No polyps in nose or sinuses; +Sores in Nore-> uses steroid nasal spray - helps (Nasonex) NO H/o low WBC; +high WBC 2021 - saw Manager Production in [place] 2021 OK, no need for f/Ti H/o [...] Notes Category Not es Rheumatology CERVICAL SPINES: , no vertebral tenderness, normal flexion and extension LUMBAR SPINES: no vertebral tendern ess, normal extension, normal forward bending and normal lateral bending SHOULDERS: normal range of belgica on with discomfort, No proximal muscle tenderness, (B)No proximal muscle weakness ELBOWS: no swelling, normal range of motion, tender over medial epicondyle WRISTS: (B)wrist 1+synovitis , tender, R>L restricted range of motion with discomfort, negative Tinel's sign HANDS: , no synovitis, no t enderness, normal range of motion HIPS: normal range of belgica on, (B) + trochanteric tenderness, (B)no inguinal tenderness, (B)No proximal [...] negative FIBROMYALGIA TENDER POINTS: No diffuse t recreation director point tenderness allergy GENERAL APPEARANCE: in no [...]
[2025-03-01 14:08] VITALS: BP 122/68; PULSE 88; O2SAT 95; BMI 35.5
--- NOTE | 2025-03-01 14:08 | HO.NEPHOV_ITS ---
Vital Signs 03/01/25 14:08 Height 5 ft 4 in Weight 207 lb BMI 35.5 BP 122/68 Blood Pressure Location Rt brachial Position Sitting Pulse 88 Pulse Source Pulse Oximeter Pulse Oximetry (%) 95 Intake Visit Reasons: 6mon follow-up w/labs-Conf Cfd Engineer Required: No Accompanied by: Self / Same As Patient Allergies morphine Allergy (Unknown, Verified 03/01/25 14:09) Unknown pantoprazole (From Protonix) Allergy (Unknown, Verified 03/01/25 14:09) Unknown Quinolones Allergy (Unknown, Verified 03/01/25 14:09) Unknown acifex Allergy (Unknown, Uncoded 06/29/24 14:57) Unknown sulfa drugs Allergy (Unknown, Uncoded 06/29/24 14:57) Unknown Medication List - Last Reconciled 03/01/25 by Gerardo Gonzalez MD albuterol sulfate 90 mcg/actuation inhalation cholecalciferol (vitamin D3) 250 mcg PO QWEEK clobetasol 0.05% topical famotidine 20 mg PO DAILY fexofenadine (Isabella Allergy) 180 mg PO BID hydroxychloroquine (Plaquenil) 200 mg PO BID ipratropium bromide intranasal mecobalamin (vitamin B12) 1,000 mcg PO DAILY mometasone 50 mcg/actuation intranasal DAILY semaglutide (Rybelsus) 3 mg PO DAILY HPI Comments Details: Mary is a pleasant 59-year-old woman with connective tissue disease. She has seronegative rheumatoid arthritis. She is on Plaquenil. Does not take any NSAIDs. She has had multiple episodes of eczema has and has undergone skin biopsies. She takes tacrolimus p.r.n.. She has been referred for evaluation of CKD. January 2024 serum creatinine was 1.26. May 2024 serum creatinine was 1.19. He has had no renal issues in the past. No gross hematuria. No polyuria polydipsia. No petechiae. She has generalized joint pains. She is not on any systemic steroids. She has undergone extensive serological workup in and C ANCA p-ANCA MPO PR3 were negative. No monoclonal proteins were seen. No history of smoking or alcohol abuse. She takes medical marijuana. 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 No children no family history of any currently tissue disease. 03/01/2025. - The patient is a 59-year-old female presenting with connective tissue disease and seronegative rheumatoid arthritis. - Diagnosed with seronegative rheumatoid arthritis, considering biologic therapy. - History of migraines, managed with magnesium infusions and considering nasal spray for acute relief. - Allergic rhinitis managed with Isabella. - Reports reduced fluid intake, affecting urination frequency. - Recent weight loss of 23 pounds with Rybelsus. - Blood pressure and kidney function stable. Patient was informed and verbally consented to the use of an ambient scribe for clinic note documentation during this visit. [facility] Family History Father Hypertension Hypercholesterolemia Kidney disease Mother Hypertension Hypercholesterolemia Brother Kidney disease Hypercholesterolemia Hypertension Sister Hypercholesterolemia Physical Exam Vital Signs: Last Vital Signs Pulse 88 03/01/25 14:08 BP 122/68 03/01/25 14:08 Pulse Ox 95 03/01/25 14:08 BMI result Body Mass Index 35.5 Comfortable obese Neck supple no JVD. Lungs entry equal no rales. Heart S1-S2 heard no gallop or rub. Abdomen soft nontender. Neuro alert awake oriented. No asterixis. Extremities trace edema. Results Reviewed Results Reviewed: Urine albumin creatinine ratio normal Serum creatinine 1.17 Assessment & Plan Assessment & Plan (1) CKD (chronic kidney disease): Code(s): N18.9 - Chronic kidney disease, unspecified Category: Medical Plan 58-year-old woman with obesity and currently tissue disease with CKD. History of acute kidney injury in the past. At present creatinine is down to 1.17 This is probably her baseline. She had no significant proteinuria in the urine protein creatinine ratio was 0.053. Renal ultrasonogram was normal From renal standpoint there is no absolute contraindication for using biologics to treat rheumatoid arthritis She will continue to monitor renal function closely. I have encouraged her to stay on low-sodium diet Increase p.o. fluid intake and continue to avoid NSAIDs. Orders: Orders Basic Metabolic Panel 6 Months N18.9 - Chronic kidney disease, unspecified Creatinine Urine 6 Months N18.9 - Chronic kidney disease, unspecified Total Protein Urine Random 6 Months N18.9 - Chronic kidney disease, unspecified UA and rflx microscopic 6 Months N18.9 - Chronic kidney disease, unspecified Coding Level of Care Code Est Pt Level 4 (15477) Diagnoses CKD (chronic kidney disease) N18.9
--- OUTSIDE RECORDS SUMMARY | 2025-03-01 16:46 | XMS_ITS | Clinical Summary ---
Author Organization [address] [address] Care Team Providers Care Heart Doctor Name Role Phone Unavailable Primary Care Provider [...] cancer screening, Colonoscopy 08/20/2011 Diabetes screening 08/20/2011 Pneumococcal Vaccine (50+ ye ars) (1 of 1 - PCV) 2016 Shingles vaccine (Shingrix) (1 of 2 - Shingrix (RZV) 2 Dose Standard Series) 2016 Influenza vaccine 01/06/2025 Covid-19 vaccine series ( - season) 2025 RSV Immunization (1 - 1-dose 75+ series) 2041 Meningococcal B Vaccine Aged Out No l onger eligible based on patient's age to complete this topic Meningococcal Vaccine Aged Out No jazmin janes eligible based on patient's age to complete this topic Insurance [employer] CIG CIG CIG
--- OUTSIDE RECORDS SUMMARY | 2025-03-01 16:46 | XMS_ITS | Clinical Summary ---
Author Organization [facility] Address [address] [place] [address] Phone Care Team Providers Care Meals On Wheels Driver Name Role Phone Vik Brar MD Primary Care Provider + Allergies Active Allergy Reactions Criticality Noted Date Comments Rabeprazole Rash Low 10/29/1999 Burning of skin Adhesive Itching Low 10/28/2017 Can tolerate bandaids for short periods of time but says that in the past when they used tape after phlebotomy would have swelling and itching under where the tape was Amoxicillin-Pot Clavulanate Rash Low 04/08/2017 Prior allergy to penicillin, but allergy evaluation found skin test negaitve and tolerated amoxicillin. Took amoxacillin-clavula usama acid and developed skin burning after 7d treatment. Bacitracin Rash Low 10/28/2014 Applied after ear piercing and 24 hours later developed itchy rash with small blisters. Fluticasone 10/28/2017 [place] difficulty swallowing. Nonimmediate. Can take nasonex. Morphine Anaphylaxis,Shortnes s Of Breath,Rash,Hypotensio n,Nausea and/or Vomiting High 10/28/2017 1) first exposure had vomiting 2) second exposure had itchy rash, thinks she had low blood pressure, shortness of breath (called anaphylactic) *Per patient oral opiates have been tolerated in the past just with nausea but not this same severe reaction. Nitrofurantoin Rash Low 10/28/2017 Original reaction: Slight chest discomfort and rash 3d into treatment. She was rechallenged on 06/23/2018 in the allergy clinic. About 15 minutes after her test dose of 10 mg she complained of subjective throat swelling, itching over her chest and burning on the right side of her face, neck, and forearm. She did not have any objective rash or swelling of her throat that could be appreciated on exam. Recommended avoidance at this time. Pantoprazole Rash Low 10/29/1999 Burning skin on face, chest, and hands. Tolerates ranitidine and famotidine. Beclomethasone Dipropionate 10/28/2017 Patient reports possible association with tightness chest and rash. Can take nasonex. Sulfa (Sulfonamide Antibiotics) Other (See Comments) Low 10/29/1979 Subjective skin burning sensation of face/chest/extremit ites WITHOUT RASH, no SOB, no swelling. Skin testing negative 02/17/18 test dose x2 with same reaction. If this medication is indicated and there is no suitable alternative can be given with Guido 180-360mg BID. Tetracycline Photosensitivity 10/28/1989 Within 1 hour of taking the first dose, she developed mild subjective facial burning without rash or other systemic symptoms. She can receive tetracyclines with concurrent high dose guido 360mg BID. Medications metroNIDAZOLE (METROGEL) 1 % gel Apply topically daily. Active clobetasol 0.025 % Crea by Topical (Top) route 2 (two) times a day. Active desoximetasone (TOPICORT) 0.25 % cream Apply topically 2 (two) times a day. Active Saccharomyces boulardii (FLORASTOR) 250 mg capsule Take 250 mg by mouth 2 (two) times a day. Active cholecalciferol (VITAMIN D3) 2,000 unit capsule Take by mouth daily. Active cyanocobalamin (VIT B-12) 1000 MCG tablet Take 100 mcg by mouth daily. Active fexofenadine (GUIDO) 60 MG tablet Take 180 mg by mouth 2 (two) times a day. Active famotidine (PEPCID) 20 MG tablet Take 20 mg by mouth 2 (two) times a day. Active cannabidiol, CBD, (CANNABIDIOL ORAL) Take 0.75 mL by mouth every evening. Active predniSONE (DELTASONE) 10 MG tablet Take 1 pill daily x 1 week 0.5 pill daily x 1-2 weeks 30 tablet 3 Active Additional Information Patient not taking.Reported on 01/22/2023 albuterol 90 mcg/actuation inhalerIndicatio ns:Chest tightness Inhale 2 puffs into the lungs every 6 (six) hours as needed for wheezing. 54 g 3 3 Active lidocaine HCl/PF (LIDOCAINE, PF, INJ) Inject as directed. Active hydroxychloroqui ne (PLAQUENIL) 200 mg tabletIndication s:Arthritis Take 1 tablet (200 mg total) by mouth 2 (two) times a day. 180 tablet 1 4 Active mometasone (NASONEX) 50 mcg/actuation nasal sprayIndications :Rhinitis, unspecified type SPRAY 2 SPRAYS BY NASAL ROUTE DAILY 51 g 3 4 Active ipratropium (ATROVENT) 21 mcg (0.03 %) nasal sprayIndications :Vasomotor rhinitis 2 SPRAYS BY NASAL ROUTE EVERY 12 (TWELVE) HOURS. 2 SPRAYS PER NOSTRIL EVERY 12 HOURS. 90 mL 3 4 Active Active Problems Problem Noted Date Diagnosed Date Hypertension 10/28/2017 Gastroesophageal reflux disease without esophagi tis 10/28/2017 Other chronic sinusitis 10/28/2017 Overview (10/28/2017): History of sinus surgery (1990s) Fibromyalgia 10/28/2017 Other atopic dermatitis 10/28/2017 Endometriosis 10/28/2017 Lichen sclerosus 10/28/2017 Irritable bowel syndrome 10/28/2017 Vocal cord dysfunction 10/28/2017 Rosacea 10/28/2017 Immunizations Immunization Administration Dates Next Due [id number] FORMULATION 10/21/2021 Influenza, Unspecified Formulation 04/21/2018 Family History Medical History Relation Comments Allergic rhinitis Brother Eczema Brother Allergic rhinitis Father Angioedema Mother Eczema Mother Relation Status Comments Brother Father Mother Social History Tobacco Use Types Packs/Day Years Used Date Smoking Tobacco: Never Smokeless Tobacco: Never Tobacco Cessation:Counseling Given: Not Answered Education Answer Date Recorded Are you interested in more education? Not on heather e 10/03/2022 Are you concerned about learning? Not on file 10/03/2022 No 10/03/2022 No 10/03/2022 Digital Access Answer Date Recorded No 11/04/2022 No 11/04/2022 Reliable internet access at home? Not on file 11/04/2022 Device with a working camera? Not on file Comments Unknown Sex and Gender Information Value Date Recorded Sex Assigned at Not on file Legal Sex Female 1:34 PM EDT Gender Identity Not on file Sexual Orientation Not on file Last Filed Vital Signs Vital Sign Reading Time Taken Comments Blood Pressure 126/60 11/11/2023 1:27 PM EDT Pulse 87 11/11/2023 1:27 PM EDT Temperature 36.5 C (97.7 F) 11/11/2023 1:27 PM EDT Respiratory Rate 20 06/23/2018 9:33 AM EST Oxygen Saturation 98% 11/11/2023 1:27 PM EDT Inhaled Oxygen Concentration - - Weight 95.7 kg (211 lb) 11/11/2023 1:27 PM EDT Height 162.6 cm (5' 4 ) 11/11/2023 1:27 PM EDT Body Mass Index 36.22 11/11/2023 1:27 PM EDT Plan of Treatment Health Maintenance Due Date Last Done Comments LIPID PANEL 1966 DEPRESSION SCREENING 1978 HEPATITIS C SCREENING 1984 HIV ONE-TIME SCREENING (18-6 5 YEARS) 1984 PAP SMEAR 08/20/1987 COLOGUARD 08/20/2011 COLONOSCOPY 08/20/2011 COLORECTAL CANCER SCREENING 08/20/2011 FIT TEST 08/20/2011 FOBT 08/20/2011 SIGMOIDOSCOPY 08/20/2011 VIRTUAL COLONOSCOPY 08/20/2011 PNEUMOCOCCAL VACCINES (50+ years) (1 of 1 - PCV) 2016 ZOSTER VACCINES (1 of 2) 2016 BLOOD PRESSURE 05/12/2024 11/11/2023 MAMMOGRAM 11/13/2024 11/13/2022, 03/30/2021, 02/15/2019 INFLUENZA VACCINE (#1) 2025 2, 03/16/2019, 04/21/2018 COVID-19 VACCINE (1 - 2023-2 5 season) 2025 SCREENING FOR DIABETES 11/10/2026 4, 07/02/2023 Adult Td,Tdap Booster 04/11/2030 04/11/2020 , 03/21/2009 SMOKING STATUS SCREENING (On ce After 26 Yrs) Completed 11/11/2023 HEPATITIS A VACCINES Aged Out No long er eligible based on patient's age to complete this topic HIB VACCINES Aged Out No longer eligi ble based on patient's age to complete this topic MENINGOCOCCAL VACCINES (ACWY) Aged Out No longer eligible based on patient's age to complete this topic MENINGOCOCCAL VACCINES (B) Aged Out N o longer eligible based on patient's age to complete this topic Medical Devices Not on file Insurance [facility] [employer] [facility] BLUE CROSS OUT OF STATE O BLUE CROSS OUT OF STATE HMO BLUE CROSS OUT OF STATE O BLUE CROSS OUT OF STATE O BLUE CROSS OUT OF STATE HMO BLUE CROSS OUT OF STATE HMO Care Teams Meals On Wheels Driver Relationship Specialty Start Date End Date Vik Brar MD [address] [place] [address] [place] [address] PCP - General Internal Medicine 09/11/17 Additional Source Comments The information contained in this document represents components of the legal health record. It is not the complete legal health record.[facility]
--- OUTSIDE RECORDS SUMMARY | 2025-03-01 16:46 | XMS_ITS ---
Author Name [facility] Organization Unknown History of Medication Use Medication Directions Dispensed Refills Start Date End Date Stat us Nerve Stimulator (Nerivio) Device USE ONE 45 MINUTE TREATMENT EVERY OTHER DAY FOR PREVENTION OR AT ONSET OF MIGRAINE DIRECTED 10/11/2024 active EPINEPHrine 0.3 mg/0.3 mL IJ auto-injection Inject 0.3 mL (0.3 mg total) into the thigh once as needed for allergic reaction. 05/24/2024 active sodium chloride 0.9% (NS) infusion 75 mL/hr, Intravenous, Continuous, Starting on Thu10/06/23 at 0830, Pre-Procedure (GI) 10/06/2023 active erythromycin with ethanol (THERAMYCIN) 2 % external solution APPLY TO FACIAL RASH UNDER NOSE TWICE A DAY FOR 6 WEEKS 03/17/2023 active famotidine (PEPCID) 20 MG tablet Take 1 tablet (20 mg total) by mouth nightly as needed for heartburn. 11/26/2021 active ipratropium (ATROVENT) 0.03 % nasal spray into each nostril. 11/18/2021 active albuterol (PROVENTIL HFA; VENTOLIN HFA) 108 (90 Base) MCG/ACT inhaler Inhale 2 puffs 4 times daily (every 6 hours) as needed. 10/21/2021 active hydroxychloroquine (PLAQUENIL) 200 MG tablet Take 200 mg by mouth. 08/24/2019 active hydroxychloroquine (PLAQUENIL) 200 MG tablet Take 1 tablet by mouth 2 (two) times a day. 10/22/2018 active diclofenac (VOLTAREN) 1 % gel APPLY 4 GRAMS TO THE LATERAL RIGHT FOOT UP TO FOUR TIMES A DAY NEEDED FOR PAIN 07/02/2016 active fexofenadine (ED) 180 MG tablet Take by mouth. 02/05/2012 active methylprednisolone 4 mg tablets in a dose pack TAKE 6 TABLETS ON DAY 1 DIRECTED ON PACKAGE AND DECREASE BY 1 TAB EACH DAY FOR A TOTAL OF 6 DAYS 5 completed topiramate 25 mg tablet TAKE 1 TABLET DAILY 5 completed erythromycin with ethanol 2 % topical solution APPLY TO FACIAL RASH UNDER NOSE TWICE A DAY FOR 6 WEEKS 4 completed sodium,potassium,mag sulfates 17.5 gram-3.13 gram-1.6 gram oral soln FOLLOW DIRECTIONS PROVIDED BY PHYSICIAN'S OFFICE. 4 completed prednisone 5 mg tablet TAKE 2 TABS ONCE DAILY FOR 1-2 WEEKS, THEN 1 TAB ONCE DAILY FOR 2 WEEKS 4 completed albuterol sulfate HFA 90 mcg/actuation aerosol inhaler 2 PUFFS NEEDED INHALATION EVERY 6-8 HRS 30 DAYS active clobetasol 0.05 % topical cream APPLY SPARINGLY ONCE OR TWICE A DAY NEEDED active desoximetasone 0.05 % topical cream APPLY SPARINGLY TO AFFECTED AREA TWICE A DAY NEEDED active epinephrine 0.3 mg/0.3 mL injection, auto-injector INJECT 0.3 ML (0.3 MG TOTAL) INTO THE THIGH ONCE NEEDED FOR ALLERGIC REACTION. active famotidine 20 mg tablet TAKE 1 TABLET BY MOUTH NIGHTLY NEEDED FOR HEARTBURN. active hydroxychloroquine 200 mg tablet TAKE 1 TABLET BY MOUTH TWICE A DAY FOR 90 DAYS active ipratropium bromide 21 mcg (0.03 %) nasal spray 2 SPRAYS BY NASAL ROUTE EVERY 12 (TWELVE) HOURS. 2 SPRAYS PER NOSTRIL EVERY 12 HOURS. active metronidazole 1 % topical gel APPLY TO ROSACEA ONCE DAILY. active mometasone 50 mcg/actuation nasal spray SPRAY 2 SPRAYS BY NASAL ROUTE DAILY active Rybelsus 3 mg tablet PLEASE SEE ATTACHED FOR DETAILED DIRECTIONS active tretinoin 0.025 % topical cream APPLY TO FACE AT BEDTIME DIRECTED. SUN PROTECTION ADVISED active cholecalciferol (VITAMIN D3) 1000 units capsule Take 1 capsule by mouth daily. active desoximetasone (TOPICORT) 0.25 % cream Apply topically. active saccharomyces boulardii (FLORASTOR) 250 MG capsule Take 250 mg by mouth daily. active vitamin B-12 (CYANOCOBALAMIN) 100 MCG tablet Take 50 mcg by mouth daily. active vitamin B-12 (CYANOCOBALAMIN) 100 MCG tablet Take 1 tablet by mouth daily. active Allergies Allergen Reaction Severity Comment Documented Date Source Status MISC. SULFONAMIDE CONTAINING COMPOUNDS RASH/DERMATITIS 02/15/2024 [facility] active QUINOLONES SWELLING 08/11/2022 [facility] active TETRACYCLINE UNKNOWN/PATIENT AND FAMILY UNABLE TO DEFINE 08/11/2016 [facility] active BACITRACIN RASH/DERMATITIS Applied afte r ear piercing and 24 hours later developed itchy rash with small blisters. 10/28/2014 [facility] active ADHESIVES/TAPE ITCHINGRASH/ANT MATITIS Can tolerate bandaids for short periods of time but says that in the past when they used tape after phlebotomy would have swelling and itching under where the tape was 05/27/2013 [facility] active AMOXICILLIN-POT CLAVULANATE ITCHING [facility] CODEINE ANAPHYLAXIS [facility] MORPHINE SHORTNESS OF BREATHUNKNOWN/P ATIENT AND FAMILY UNABLE TO DEFINE 2) second exposure had itchy rash, thinks she had low blood pressure, shortness of breath (called anaphylactic), 1) first exposure had vomiting , ,Rash, low BP,*Per patient oral opiates have been tolerated in the past just with nausea but not this same severe reaction. [facility] NITROFURANTOIN MONOHYD MACRO UNKNOWN/PATIENT AND FAMILY UNABLE TO DEFINE [facility] PANTOPRAZOLE ITCHING [facility] PENICILLINS HIVES [facility] QUININE DERIVATIVES UNKNOWN/PATIENT AND FAMILY UNABLE TO DEFINE [facility] RABEPRAZOLE UNKNOWN/PATIENT AND FAMILY UNABLE TO DEFINE [facility] SULFA ANTIBIOTICS SWELLING [facility] SULFA (SULFONAMIDE ANTIBIOTICS) [facility] Problems Problem Status Onset Date Problem Type Date of Resolution Source Allergic rhinitis active 2022-08-11 ProblemAct [facility] Morbid obesity active 2023-10-13 ProblemAct [facility] Gastroesophageal reflux disease with esophagitis without hemorrhage active 2024-01-28 ProblemAct [facility] Endometriosis active 2010-02-18 ProblemAct [facility] Vitamin D deficiency active 2022-08-11 ProblemAct [facility] Rheumatoid arteritis active 2022-08-11 ProblemAct [facility] Elevated LDL cholesterol level active 2024-02-15 ProblemAct [facility] Disorder of vocal cord active 2022-08-11 ProblemAct [facility] Tarsal tunnel syndrome of right side active 2016-08-17 ProblemAct [facility] Neuropraxia of right lower extremity active 2016-08-17 ProblemAct [facility] Primary insomnia active 2023-05-19 ProblemAct [facility] Celiac disease active 2024-02-[address] Foot pain, bilateral active 2016-08-17 ProblemAct [facility] Unresolved grief active 2022-08-11 ProblemAct [facility] Lower back pain active 2022-08-11 ProblemAct [facility] Hematuria active 2005-11-27 ProblemAct [facility] Class 2 obesity active 2024-11-02 ProblemAct [facility] Mild depressive episode active 2022-08-11 ProblemAct [facility] Metrorrhagia active 2022-08-11 ProblemAct [facility] Elevated hemoglobin active 2022-08-11 ProblemAct [facility] Joint pain active 2022-08-11 ProblemAct [facility] Pruritic rash active 2022-08-11 ProblemAct [facility] T Stage 3a chronic kidney disease active 2024-02-15 ProblemAct [facility] Rosacea active 2017-10-28 ProblemAct [facility] Atypical endometrial cells on Pap smear active 2020-12-05 ProblemAct [facility] Tachycardia active 2022-08-11 ProblemAct [facility] Migraine headache active 2022-08-11 ProblemAct [facility] Snoring active 2022-08-11 ProblemAct [facility] Gastroesophageal reflux disease without esophagitis active 2020-03-16 ProblemAct [facility] Anxiety active 2010-02-18 ProblemAct [facility] Bilateral plantar fasciitis active 2020-04-16 ProblemAct [facility] 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 2010-02-18 ProblemAct [facility] Fibromyalgia active 2017-10-28 ProblemAct [facility] Non-restorative sleep active 2022-08-11 ProblemAct [facility] Other chronic sinusitis active 2017-10-28 ProblemAct [facility] Irritable bowel syndrome with both constipation and diarrhea active 2022-01-10 ProblemAct [facility] Nonintractable headache active 2022-08-11 ProblemAct [facility] Atopic dermatitis active 2017-10-28 ProblemAct [facility] Dysphagia active 2023-05-07 ProblemAct [facility] Essential familial hypercholesterolemia active 2022-08-11 ProblemAct [facility] Weight gain active 2022-08-11 ProblemAct [facility] Hyperlipidemia active 2023-09-[address] [facility] Essential hypertension active 2023-09-[address] [facility] [facility] Migraine active 2023-09-[address] [facility] [facility] Endocrine/metabolic screening active 2024-07-30 ProblemAct [facility] Morbid obesity active 2024-11-03 ProblemAct [facility] Rheumatoid arthritis active 2023-09-01 ProblemAct [facility] Obesity active 2023-08-17 ProblemAct [facility] Snoring active 2023-09-01 [facility] Chronic kidney disease stage 3A active 2024-06-28 ProblemAct [facility] Anxiety active 2023-09-01 [facility] Gastroesophageal reflux disease without esophagitis active 2023-09-01 ProblemAct [facility] Immunizations Vaccine Date Source Lot Number Status Influenza, Trivalent (FLUARI X, AFLURIA, FLULAVAL, FLUZONE) Preservative Free IM 03/29/2024 [facility] [id number] completed Influenza, Quadrivalent (FLU ARIX, AFLURIA, FLULAVAL, FLUZONE) Preservative Free IM 05/12/2023 [facility] [id number] completed Influenza, Quadrivalent (FLU ARIX, AFLURIA, FLULAVAL, FLUZONE) Preservative Free IM 03/27/2022 [facility] [id number] completed Covid-19 mRNA Primary Series Vaccine - Moderna 0.5 mL Full Dose 10/22/2021 [facility] completed H1N1 All Forms 10/21/2021 [facility] completed Tdap 04/11/2020 [facility] completed Influenza, Unspecified 03/14/2020 [facility] co mpleted Influenza, Unspecified 04/21/2018 [facility] co mpleted Influenza (AFLURIA/FLUZONE) Inactivated/Split Quadrivalent with Preservative IM 04/23/2016 [facility] completed Influenza Inactivated/Split Preservative Free IM 05/11/2013 [facility] completed Tdap 03/21/2009 [facility] [id number] completed Encounters Encounter Type Encounter Reason Primary Diagnosis Location Date Ambulatory [facility] 02/07/2025 Ambulatory Encounter for gynecological examination (general) (routine) without abnormal findings Encounter for gynecological examination (general) (routine) without abnormal findings [facility] 11/15/2024 Ambulatory [facility] 10/27/2024 Ambulatory [facility] 10/27/2024 Ambulatory Other diseases of vocal cords Other diseases of vocal cords [facility] 10/25/2024 Ambulatory [facility] 06/28/2024 Ambulatory Chronic kidney disease, stage 3a Chronic kidney disease, stage 3a [facility] 05/24/2024 Ambulatory Encounter for immunization Encounter for immunization [facility] 03/29/2024 Ambulatory Chronic kidney disease, stage 3a Chronic kidney disease, stage 3a [facility] 02/15/2024 Ambulatory Follow-up Follow-up [facility] 01/28/2024 Ambulatory Encounter for gynecological examination (general) (routine) without abnormal findings Encounter for gynecological examination (general) (routine) without abnormal findings [facility] 11/09/2023 Ambulatory Follow-up Follow-up [facility] 10/13/2023 Ambulatory Encounter for screening for malignant neoplasm of colon Encounter for screening for malignant neoplasm of colon [facility] 10/06/2023 Ambulatory Encounter for genera l adult medical examination without abnormal findings Encounter for general adult medical examination without abnormal findings [facility] 05/12/2023 Ambulatory Gastro-esophageal reflux disease without esophagitis Gastro-esophageal reflux disease without esophagitis [facility] 05/07/2023 Ambulatory Migraine, unspecified, not intractable, without status migrainosus [facility] 10/09/2022 Ambulatory Migraine, unspecified, not intractable, without status migrainosus [facility] 08/11/2022 Ambulatory Gastro-esophagea l reflux disease without esophagitis [facility] 01/10/2022 Care Team Organization Name Specialty Phone Email Start Date End Da te [facility] 10/25/2024 12/14/2024 [facility] FELIZ MEDEROS Primary Care 09/06/2024 Pete Castillo PNathalia [phone] Primary Care 04/28/2024 07/28/2024 [facility] the Manager Shift ([facility]) 04/22/2024 Ivon Tapia Primary Care 11/26/2023 07/28/2024 Ivon Tapia Primary Care 09/02/2023 07/28/2024 [facility] FELIZ [facility]EROS Primary Care 07/13/2023 [facility] 04/10/2023 [facility] Vik Brar Primary Care 01/10/2022 [facility] VIK BRAR, Primary Care 01/10/2022 01/11/20 22
--- OUTSIDE RECORDS SUMMARY | 2025-03-01 16:46 | XMS_ITS | Encounter Summary ---
Author Organization [facility] Address [address] [place] [id number] Care Team Providers Care Clinical Provider Trainer Name Role Phone Unavailable Primary Care Provider Unavailabl e Encounter Details Date Type Department Care Team (Late st Contact Info) Description 09/02/2017 Scanned Document [facility] [address] [place] [phone] Bhavani Muir MD [address] [place] [phone] Social History Tobacco Use Types Packs/Day [...]
--- OUTSIDE RECORDS SUMMARY | 2025-03-01 16:46 | XMS_ITS | Encounter Summary ---
Author Organization [facility] Address [address] [place] [phone] Care Team Providers Care Car Whacker Name Role Phone Unavailable Primary Care Provider Unavailabl e Encounter Details Date Type Department Care Team (Late st Contact Info) Description 02/16/2018 Scanned Document [facility] [address] [place] [phone] Bhavani Muir MD [address] [place] [phone] Social History Tobacco Use Types Packs/Day [...]
--- OUTSIDE RECORDS SUMMARY | 2025-03-01 16:47 | XMS_ITS | Encounter Summary ---
Author Organization [facility] Address [address] [place] [id number] Care Team Providers Care Fried Cake Maker Name Role Phone Vik Brar MD Primary Care Provider Unavail able Julien Mckeon JIG BOX OPERATOR Unavailable Shari Maier MD Unavailable Wm Cantu MD Unavailable Elina Sanchez JIG BOX OPERATOR Unavailable Elina Sanchez JIG BOX OPERATOR Primary Care Provider Lexus Chen MD Unavailable [phone] Gerardo Gonzalez MD Unavailable [phone] Reason for Visit * Reason Onset Date Comments Medication Refill 11/19/2021 Encounter Details Date Type Department Care Team (Late st Contact Info) Description 11/19/2021 Refill [facility] [address] [place] [phone] Nneka Sultana MD [address] [place] [phone] Gastroesophageal reflux disease Social History Tobacco Use Types Packs/Day Years Used Date Smoking Tobacco: Never Smokeless Tobacco: Never Alcohol Use Standard Drinks/Week Comments Yes 1 (1 standard drink = 0.6 oz pur e alcohol) Comments Unknown Sex and Gender Information Value Date Recorded Sex Assigned at Female 05/06/2023 1:41 PM EST Legal Sex Female 2:49 PM EDT Gender Identity Female 01/07/2022 3:23 PM EDT Sexual Orientation Heterosexual (straight) 01/07 3:23 PM EDT documented as of this encounter Plan of Treatment Upcoming Encounters Date Type Department Care Team (Late st Contact Info) Description 03/16/2025 1:30 PM EDT Office Visit [facility] [address] [facility] [address] [place] [phone] Mercedes Bicrh, LIA [address] [facility] [address] [place], [place] [id number] 04/21/2025 9:10 AM EST Office Visit [facility] Department of Internal Medicine [place] [address] [facility] [address] [place] [phone] Elina Sanchez, JIG BOX OPERATOR [address] [place] [address] documented as of this encounter Visit Diagnoses Diagnosis Gastroesophageal reflux disease Esophageal reflux documented in this encounter Care Teams Fried Cake Maker Relationship Specialty Start Date End Date Vik Brar MD PCP - General Internal Medicine 08/11/16 07/04/23 Elina Sanchez, JIG BOX OPERATOR [address] [place] [address] PCP - General Internal Medicine 07/06/23 Julien Mckeon, JIG BOX OPERATOR [address] [place] [phone] Nurse Practitioner Neurology 05/12/23 Shari Maier MD [address] [place] [phone] Consulting Provider Dermatology 05/12/23 Wm Cantu MD [address] [place] [address] Obstetrics and Gynecology 05/12/23 Elina Sanchez APRN [address] [place] [address] Nurse Practitioner Internal Medicine 07/05/23 07/05/23 Lexus Chen MD [address] [place] [address] Rheumatology 05/24/24 Gerardo Gonzalez MD [address] [phone] Internal Medicine 10/25/24 documented as of this encounter
--- OUTSIDE RECORDS SUMMARY | 2025-03-01 16:47 | XMS_ITS | Encounter Summary ---
Author Organization [facility] Address [address] [place] [address] Care Team Providers Care Rn Staff Name Role Phone Julien Mckeon APRN Unavailable Shari Maier MD Unavailable Wm Cantu MD Unavailable [phone] Elina Sanchez ETHNOARCHAEOLOGY PROFESSOR Primary Care Provider Lexus Chen MD Unavailable [phone] Gerardo Gonzalez MD Unavailable [phone] Encounter Details Date Type Department Care Team (Late st Contact Info) Description 09/24/2023 Scanned Document Pete [facility] Department of Internal Medicine [address] [phone] Elina Sanchez, ETHNOARCHAEOLOGY PROFESSOR [address] [place] [address] Social History Tobacco Use Types Packs/Day Years Used Date Smoking Tobacco: Never Smokeless Tobacco: Never Alcohol Use Standard Drinks/Week Comments Yes 1 (1 standard drink = 0.6 oz pur e alcohol) PHQ-2 Answer Date Recorded PHQ-2 Total Score 2 05/12/2023 Comments No Sex and Gender Information Value Date Recorded Sex Assigned at Female 05/06/2023 1:41 PM EST Legal Sex Female 2:49 PM EDT Gender Identity Female 01/07/2022 3:23 PM EDT Sexual Orientation Heterosexual (straight) 01/07 3:23 PM EDT documented as of this encounter Plan of Treatment Upcoming Encounters Date Type Department Care Team (Late st Contact Info) Description 03/16/2025 1:30 PM EDT Office Visit [facility] 113 [facility] 303 [place] [phone] Mercedes Birch PA 113 [facility] 301 [place], [place] [address] 04/21/2025 9:10 AM EST Office Visit [facility] Department of Internal Medicine [place] 160 [facility] 100 [place] [phone] Elina Sanchez APRN 160 [place] [address] documented as of this encounter Visit Diagnoses Not on filedocumented in this encounter Care Teams Rn Staff Relationship Specialty Start Date End Date Elina Sanchez APRN 160 [place], [place] [id number] PCP - General Internal Medicine 07/06/23 Julien Mckeon APRN [address] [place] [address] Nurse Practitioner Neurology 05/12/23 Shari Maier MD [address] [place] [address] Consulting Provider Dermatology 05/12/23 Wm Cantu MD 9 [facility] 2nd [place] [address] Obstetrics and Gynecology 05/12/23 Lexus Chen MD [address] [place] [address] Rheumatology 05/24/24 Gerardo Gonzalez MD 100 [facility] 200 [place] [address] Internal Medicine 10/25/24 documented as of this encounter
--- OUTSIDE RECORDS SUMMARY | 2025-03-01 16:47 | XMS_ITS | Encounter Summary ---
Author Organization [facility] Address [address] [place] [address] Care Team Providers Care Transition Specialist Name Role Phone Vik Brar MD Primary Care Provider Unavail able Julien Mckeon FRAMING MACHINE TENDER Unavailable Shari Maier MD Unavailable [phone] Wm Cantu MD Unavailable Elina Sanchez FRAMING MACHINE TENDER Unavailable Elina Sanchez APRN Primary Care Provider [phone] Lexus Chen MD Unavailable [phone] Gerardo Gonzalez MD Unavailable [phone] Reason for Visit * Reason Comments Medication Refill Encounter Details Date Type Department Care Team (Late st Contact Info) Description 05/27/2022 Refill [facility] [address] [place] [address] Mercedes Birch PA [address] 301 [place] [address] Gastroesophageal reflux disease Social History Tobacco Use [...] Description 03/16/2025 1:30 PM EDT Office Visit [facility] 113 [facility] [address] [place] [address] Mercedes Birch, PA 113 [facility] 301 [place] [address] 04/21/2025 9:10 AM EST Office Visit [facility] Department of Internal Medicine [address] [place] [address] Elina Sanchez APRN 160 [place] [address] documented as of this encounter Visit Diagnoses Diagnosis Gastroesophageal reflux disease Esophageal reflux documented in this encounter Care Teams Transition Specialist Relationship Specialty Start Date End Date Vik Brar MD PCP - General Internal Medicine 08/11/16 07/04/23 Elina Sanchez APRN 160 [place] [address] PCP - General Internal Medicine 07/06/23 Julien Mckeon APRN [address] [place] [address] Nurse Practitioner Neurology 05/12/23 Shari Maier MD [address] [place] [address], [place] [address] Consulting Provider Dermatology 05/12/23 Wm Cantu MD 9 [facility] 2nd [place] [address] Obstetrics and Gynecology 05/12/23 Elina Sanchez, FRAMING MACHINE TENDER [address] [place] [address] Nurse Practitioner Internal Medicine 07/05/23 07/05/23 Lexus Chen MD [address] [place] [address] Rheumatology 05/24/24 Gerardo Gonzalez MD 100 [facility] 200 [place] [address] Internal Medicine 10/25/24 documented as of this encounter
--- OUTSIDE RECORDS SUMMARY | 2025-03-01 16:47 | XMS_ITS | Encounter Summary ---
Author Organization [facility] Address [address] [place] [address] Care Team Providers Care Lay Out Carpenter Name Role Phone Julien Mckeon APRN Unavailable Shari Maier MD Unavailable [phone] Wm Cantu MD Unavailable Elina Sanchez OPHTHALMIC ASST Primary Care Provider Lexus Chen MD Unavailable [phone] Gerardo Gonzalez MD Unavailable [phone] Encounter Details Date Type Department Care Team (Late st Contact Info) Description 07/25/2024 Scanned Document Pete [facility] Department of Internal Medicine [address] [phone] Elina Sanchez, OPHTHALMIC ASST [address] [place] [address] Social History Tobacco Use Types Packs/Day Years Used Date Smoking Tobacco: Never Smokeless Tobacco: Never Alcohol Use Standard Drinks/Week Comments Yes 1 (1 standard drink = 0.6 oz pur e alcohol) Occasonal/Social PHQ-2 Answer Date Recorded PHQ-2 Total Score 1 05/24/2024 Comments No Sex and Gender Information Value [...] 03/16/2025 1:30 PM EDT Office Visit [facility] 113 [facility] 303 [place] [address] Mercedes Birch, LIA 113 [facility] 301 [place] [address] 04/21/2025 9:10 AM EST Office Visit [facility] Department of Internal Medicine [place] 160 [facility] 100 [place] [phone] Elina Sanchez APRN 160 [place] [address] documented as of this encounter Visit Diagnoses Not on filedocumented in this encounter Care Teams Lay Out Carpenter Relationship Specialty Start Date End Date Elina Sanchez, MARGOT 160 [place] [address] PCP - General Internal Medicine 07/06/23 Julien Mckeon APRN [address] [place] [address] Nurse Practitioner Neurology 05/12/23 Shari Maier MD [address] [place] [address] Consulting Provider Dermatology 05/12/23 Wm Canut MD 9 [facility] 2nd [place] [address] Obstetrics and Gynecology 05/12/23 Lexus Chen MD [address] [place] [address] Rheumatology 05/24/24 Gerardo Gonzalez MD 100 [facility] 200 [place] [address] Internal Medicine 10/25/24 documented as of this encounter
--- OUTSIDE RECORDS SUMMARY | 2025-03-01 16:47 | XMS_ITS | Encounter Summary ---
Author Organization [facility] Address [address] [place] [address] Care Team Providers Care Manager Developmental Name Role Phone Vik Brar MD Primary Care Provider Unavail able Julien Mckeon MONKEY KEEPER Unavailable [phone] Shari Maier MD Unavailable [phone] Wm Cantu MD Unavailable Elina Sanchez MONKEY KEEPER Unavailable Elina Sanchez MONKEY KEEPER Primary Care Provider Lexus Chen MD Unavailable [phone] Gerardo Gonzalez MD Unavailable [phone] Reason for Visit * Reason Comments Medication Refill Encounter Details Date Type Department Care Team (Late st Contact Info) Description 11/28/[address] [facility] 85 [facility] [address] [place] [address] Griselda Lea PA Gastroesophageal reflux disease Social History Tobacco Use [...] Description 03/16/2025 1:30 PM EDT Office Visit [facility] 113 [facility] [address] [place] [address] Mercedes Birch, LIA 113 [facility] 301 [place], [place] [address] 04/21/2025 9:10 AM EST Office Visit [facility] Department of Internal Medicine [place] 160 [facility] [address] [place] [address] Elina Sanchez, MONKEY KEEPER 160 [place], [place] [address] documented as of this encounter Visit Diagnoses Diagnosis Gastroesophageal reflux disease Esophageal reflux documented in this encounter Care Teams Manager Developmental Relationship Specialty Start Date End Date Vik Brar MD PCP - General Internal Medicine 08/11/16 07/04/23 Elina Sanchez, MONKEY KEEPER 160 [place] [address] PCP - General Internal Medicine 07/06/23 Julien Mckeon APRN [address] [place] [address] Nurse Practitioner Neurology 05/12/23 Shari Maier MD [address] [place] [address] Consulting Provider Dermatology 05/12/23 Wm Cantu MD 9 [facility] 2nd [place] [address] Obstetrics and Gynecology 05/12/23 Elina Sanchez APRN 160 [place] [address] Nurse Practitioner Internal Medicine 07/05/23 07/05/23 Lexus Chen MD [address] [place] [address] Rheumatology 05/24/24 Gerardo Gonzalez MD 100 [facility] 200 [place] [address] Internal Medicine 10/25/24 documented as of this encounter
--- OUTSIDE RECORDS SUMMARY | 2025-03-01 16:47 | XMS_ITS | Encounter Summary ---
Author Organization [facility] Address [address] [place] [address] Care Team Providers Care Sign Out Clerk Name Role Phone Julien Mckeon APRN Unavailable Shari Maier MD Unavailable Wm Cantu MD Unavailable Elina Sanchez DIANETICIST Primary Care Provider Lexus Chen MD Unavailable [phone] Gerardo Gonzalez MD Unavailable [phone] Encounter Details Date Type Department Care Team (Late st Contact Info) Description 09/01/2024 Scanned Document Pete [facility] Department of Internal Medicine [address] [phone] Elina Sanchez, DIANETICIST [address] [place] [address] Social History Tobacco Use Types Packs/Day Years [...] 03/16/2025 1:30 PM EDT Office Visit [facility] 113 [facility] 303 [place] [address] Mercedes Birch, LIA 113 [facility] 301 [place] [address] 04/21/2025 9:10 AM EST Office Visit [facility] Department of Internal Medicine [place] 160 [facility] 100 [place] [phone] Elina Sanchez APRN 160 [place] [address] documented as of this encounter Visit Diagnoses Not on filedocumented in this encounter Care Teams Sign Out Clerk Relationship Specialty Start Date End Date Elina Sanchez, MARGOT 160 [place] [address] PCP - General Internal Medicine 07/06/23 Julien Mckeon APRN [address] [place] [address] Nurse Practitioner Neurology 05/12/23 Shari Maier MD [address] [place] [address] Consulting Provider Dermatology 05/12/23 Wm Cantu MD 9 [facility] 2nd [place] [address] Obstetrics and Gynecology 05/12/23 Lexus Chen MD [address] [place] [address] Rheumatology 05/24/24 Gerardo Gonzalez MD 100 [facility] 200 [place] [address] Internal Medicine 10/25/24 documented as of this encounter
--- OUTSIDE RECORDS SUMMARY | 2025-03-01 16:47 | XMS_ITS | Encounter Summary ---
Author Organization [facility] Address [address] [place] [address] Care Team Providers Care Change Management Facilitator Name Role Phone Julien Mckeon APRN Unavailable Shari Maier MD Unavailable [phone] Wm Cantu MD Unavailable Elina Sanchez APRN Primary Care Provider Lexus Chen MD Unavailable [phone] Gerardo Gonzalez MD Unavailable [phone] Encounter Details Date Type Department Care Team (Late st Contact Info) Description 10/06/[address] [facility] 10 [facility] [address] [place] [address] Yashira Leroy MD [address] [place] [address] 100 [place] [address] Social History Tobacco Use Types Packs/Day Years [...] Description 03/16/2025 1:30 PM EDT Office Visit [facility] 113 [facility] [address] [place] [address] Mercedes Birch, LIA 113 [facility] 301 [place], [place] [address] 04/21/2025 9:10 AM EST Office Visit [facility] Department of Internal Medicine [place] 160 [facility] [address] [place] [phone] Elina Sanchez, MARGOT 160 [place], [place] [address] documented as of this encounter Procedures Procedure Name Priority Date/Time Associated Diagnosis Comments PATHOLOGY REPORT 10/06/2023 12:0 0 AM EDT documented in this encounter Results * PATHOLOGY REPORT (10/06/2023 12:00 AM EDT) us Yashira Izquierdo MD PATHOLOGY/CYTOLOGY ORDERA BLES Final Result documented in this encounter Visit Diagnoses Not on filedocumented in this encounter Care Teams Change Management Facilitator Relationship Specialty Start Date End Date Elina Sanchez, SENIOR LINUX ENGINEER 160 [place] [address] PCP - General Internal Medicine 07/06/23 Julien Mckeon, SENIOR LINUX ENGINEER [address] [place] [address] Nurse Practitioner Neurology 05/12/23 Shari Maier MD [address] [place] [address] Consulting Provider Dermatology 05/12/23 Wm Cantu MD 9 [facility] 2nd [place] [address] Obstetrics and Gynecology 05/12/23 Lexus Chen MD [address] [place] [address] Rheumatology 05/24/24 Gerardo Gonzalez MD 100 [facility] 200 [place] [address] Internal Medicine 10/25/24 documented as of this encounter
--- OUTSIDE RECORDS SUMMARY | 2025-03-01 16:47 | XMS_ITS | Encounter Summary ---
Author Organization [facility] Address [address] [place] [address] Care Team Providers Care Soda Fountain Manager Name Role Phone Julien Mckeon APRN Unavailable [phone] Shari Maier MD Unavailable [phone] Wm Cantu MD Unavailable [phone] Elina Sanchez APRN Primary Care Provider [phone] Lexus Chen MD Unavailable [phone] Gerardo Gonzalez MD Unavailable [phone] Encounter Details Date Type Department Care Team (Late st Contact Info) Description 01/13/2024 Scanned Document [facility] Department of Internal Medicine [address] [place] [phone] Provider, Generic Social History Tobacco Use Types [...] 03/16/2025 1:30 PM EDT Office Visit [facility] 113 [facility] 303 [place] [address] Mercedes Birch PA 113 [facility] 301 [place], [place] [address] 04/21/2025 9:10 AM EST Office Visit [facility] Department of Internal Medicine [place] 160 [facility] 100 [place] [phone] Elina Sanchez, HOT MOLDER 160 [place], [place] [phone] documented as of this encounter Visit Diagnoses Not on filedocumented in this encounter Care Teams Soda Fountain Manager Relationship Specialty Start Date End Date Elina Sanchez, HOT MOLDER 160 [place] [address] PCP - General Internal Medicine 07/06/23 Julien Mckeon, HOT MOLDER [address] [place] [address] Nurse Practitioner Neurology 05/12/23 Shari Maier MD [address] [place] [address] Consulting Provider Dermatology 05/12/23 Wm Cantu MD 9 [facility] 2nd Floor [place], [place] [address] Obstetrics and Gynecology 05/12/23 Lexus Chen MD [address] [place] [address] Rheumatology 05/24/24 Gerardo Gonzalez MD 100 [facility] 200 [place] [address] Internal Medicine 10/25/24 documented as of this encounter
--- OUTSIDE RECORDS SUMMARY | 2025-03-01 16:47 | XMS_ITS | Clinical Summary ---
Author Organization [facility] Address [address] [place] [address] Care Team Providers Care Catering Truck Operator Name Role Phone Julien Mckeon APRN Unavailable Shari Maier MD Unavailable [phone] Wm Cantu MD Unavailable [phone] Elina Sanchez APRN Primary Care Provider [phone] Lexus Chen MD Unavailable [phone] Gerardo Gonzalez MD Unavailable [phone] Allergies Active Allergy Reactions Criticality Noted Date [...] Define,Anaphylaxis, Other (See Comments),Nausea And Vomiting,GI Intolerance/Nausea/ Vomiting,Rash/Rayne titis,Shortness Of Breath High 08/11/2016 Rash, low [...] 08/11/2016 Sulfa Antibiotics Swelling,Itching Medium 08/11/2016 Tetracycline Swelling,Rash/Rayne titis Medium 08/11/2016 Medications metroNIDAZOLE (METROGEL) 1 % gel apply to affected area once daily 0 7 Active clobetasol (TEMOVATE) 0.05 % cream Apply topically 2 (two) times a day. Apply to affected area 0 7 Active saccharomyces boulardii (FLORASTOR) 250 MG capsule Take 250 mg by mouth daily. Active hydroxychloroqui ne (PLAQUENIL) 200 MG tablet Take 200 mg by mouth. 0 Active desoximetasone (TOPICORT) 0.25 % cream Apply topically. Active vitamin B-12 (CYANOCOBALAMIN) 100 MCG tablet Take 1 tablet by mouth daily. Active albuterol (PROVENTIL HFA; VENTOLIN HFA) 108 (90 Base) MCG/ACT inhaler Inhale 2 puffs 4 times daily (every 6 hours) as needed. 2 Active cholecalciferol (VITAMIN D3) 1000 units capsule Take 1 capsule by mouth daily. Active fexofenadine (ED) 180 MG tablet Take by mouth. 2 Active ipratropium (ATROVENT) 0.03 % nasal spray into each nostril. 2 Active CANNABIDIOL PO Take 0.75 mL by mouth. Active mometasone (NASONEX) 50 MCG/ACT nasal spray 2 sprays into each nostril daily. Active erythromycin with ethanol (THERAMYCIN) 2 % external solution APPLY TO FACIAL RASH UNDER NOSE TWICE A DAY FOR 6 WEEKS 3 Active EPINEPHrine 0.3 mg/0.3 mL IJ auto-injectionIn dications:Histor y of anaphylaxis Inject 0.3 mL (0.3 mg total) into the thigh once as needed for allergic reaction. 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 90 tablet 3 5 Active Active Problems Problem Noted Date Diagnosed Date Class 2 obesity 11/02/2024 Assessment & Plan (11/02/2024 9:03 AM EDT): Dietary counseling reviewed in detail. Recommend avoidance of processed food, fast foods and excessive carbs. Avoid concentrated sugars and sugary beverages. Maintain adequate hydration with water Intermittent fasting techniques reviewed . AHA recommends at least 150 min of aerobic activity weekly (30 min daily) Recommend portion control. 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 Managed by rheumatology, Dr. Chen. Continues on hydroxycholoroquine 300mg daily. Will monitor Assessment & Plan (02/25/2024 1:10 PM EDT): Established care with local knuckler, Dr. Chen, stopped going to [place]. Will remain on hydroxychloroquine 200,mg daily Assessment & Plan (10/16/2023 8:42 PM EDT): Stable. Managed by [facility]ology [facility] on hydroxychloroquine.. No recent flares. Will continue [...] this time. She wants clearance from her connie cleaner. Pt told to call us when ready [...] Problem Noted Date Diagnosed Date Resolved Date Rheumatoid arthritis 02/15/2024 025 Colon cancer screening 01/28/202402/28 Decreased glomerular filtration rate (GFR) 08/11/2022 05/24/2024 Hypertension 10/28/2017 10/16/2023 Encounters Date Type Department Care Team Description 03/01/2025 Scanned Document [facility] Department of Internal Medicine [place] [address] [phone] Elina Sanchez, JEWELRY SALES COORDINATOR 02/14/2025 Scanned Document [facility] of Internal Medicine [place] [address] [phone] Elina Sanchez, JEWELRY SALES COORDINATOR 01/15/2025 [address] [facility] [address] [place] [phone] Mercedes Birch PA 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; Gastro-esophageal reflux disease with esophagitis, without bleeding 12/27/2024 Scanned Document [facility] Internal Medicine [address] [phone] Elina Sanchez, JEWELRY SALES COORDINATOR from Last 3 Months Immunizations Immunization Administration Dates Next Due Covid-19 mRNA Primary [...] Comments Hyperlipidemia Brother Kelechi Hypertension Brother Kelechi Arthritis Father Edaletha Cancer Father Edaletha Dementia Father Edaletha Heart attack Father Edaletha Hyperlipidemia Father Edaletha Hypertension Father Edaletha Anxiety disorder Mother Sherry Arthritis Mother Sherry Cancer Mother Sherry Cancer, other Mother Sherry Mouth and Thro at cancer Depression Mother Sherry Diabetes Mother Sherry Hyperlipidemia Mother Sherry Hypertension Mother Sherry Stomach cancer Paternal Grandfather Edaletha Autoimmune disease Sister Alyssa Relation Name Status Comments Brother Kelechi Father Edaletha Mother Sherry Paternal Grandfather Edaletha Sister Alyssa Social History Tobacco Use Types Packs/Day Years Used Date Smoking Tobacco: Never Smokeless Tobacco: Never Tobacco Cessation:Counseling Given: Not Answered Alcohol Use Standard Drinks/Week Comments Yes 1 [...] Sign Reading Time Taken Comments Blood Pressure 124/80 11/15/2024 9:19 AM EDT Pulse 83 10/25/2024 9:22 AM EDT Temperature 36.7 C (98 F) 11/09/2023 11:01 AM EDT Respiratory Rate 16 10/06/2023 9:32 AM EDT Oxygen Saturation 97% 10/25/2024 9:22 AM EDT Inhaled Oxygen Concentration - - Weight 101 kg (222 lb) 10/25/2024 9:22 AM EDT Height 160 cm (5' 3 ) 02/15/2024 8:27 AM EDT Body Mass Index 39.33 02/15/2024 8:27 AM EDT Plan of Treatment Upcoming Encounters Date Type Department Care Team (Late st Contact Info) Description 03/16/2025 1:30 PM EDT Office Visit [facility] [address] [facility] [address] [place] [phone] Mercedes Birch, LIA 113 [facility] 301 [place], [place] [address] 04/21/2025 9:10 AM EST Office Visit [facility] Department of Internal Medicine [place] [address] [facility] [address] [place] [phone] Elina Sanchez, JEWELRY SALES COORDINATOR 160 [place] [address] Health Maintenance Due Date Last Done Comments Pneumococcal Vaccines 50+ (1 of 2 - PCV) 1985 Zoster (Shingles) Vaccine (1 of 2) 1984 Mammogram 11/13/2024 11/13/2022, 03/09, 03/14/2021, Additional history exists Influenza Vaccine 01/06/2025 03/29/2024, , 03/27/2022, Additional history exists Pap Smear (Ages 21-65) 11/16/2027 , 11/09/2023, 11/08/2020 DTaP/Tdap/Td Vaccines (3 - T d or Tdap) 04/11/2030 04/11/2020, 03/21/2009 Colonoscopy 10/05/2033 10/06/2023 COVID-19 Vaccine Discontinued 10/22/2021, , 09/21/2020, Additional history exists HIV Screening Discontinued Hepatitis B Vaccines Discontinued Hepatitis C Virus Screening Discontinued Procedures Procedure Name Priority Date/Time Associated Diagnosis Comments THINPREP PAP TEST (WRITING CENTER DIRECTOR) Routine 11/15/2024 9:03 AM EDT Papanicolaou smear MG SCREENING DIGITAL BREAST NATHALIA- BILATERAL Routine 11/13/2022 9:25 AM EDT from Last 3 Months or Most Recently Relevant to Health Maintenance Results * ThinPrep Pap Test (Acoustical Tile Drill Press Operator) (11/15/2024 9:03 AM EDT) 11/15/2024 9:03 AM EDT Narrative [facility] - 11/30/2024 8:55 AM EDT To view the final report click the scan hyperlink below. us Wm Cantu MD LAB AMB PATH/CYTO ORDERABLE S Final Result Performing Organization Address City/State/[facility] Co de Phone Number [facility] [address] [place] [address], [place] * MG SCREENING DIGITAL BREAST NATHALIA- [...] your patient to us, India Rivera MD [id number] (Electronically Signed - 11/13/2022 09:25) Narrative 11/13/2022 [...] other abnormalities are seen in either breast. There are no significant changes from [...] patients personal breast tissue composition as required bystate law. BIRADS Category 1: Negative Thank you for referring your patient to us, India Rivera MD [id number] (Electronically Signed - 11/13/2022 09:25) Wm Cantu MD IMG LEGACY PROCEDURES Final Result from Last 3 Months or Most Recently Relevant to Health Maintenance Insurance [facility] HMO Care Teams Catering Truck Operator Relationship Specialty Start Date End Date Elina Sanchez APRN [address] [place] [address] PCP - General Internal Medicine 07/06/23 Julien Mckeon, JEWELRY SALES COORDINATOR [address] [address] Nurse Practitioner Neurology 05/12/23 Shari Maier MD [address] [place] [phone] Consulting Provider Dermatology 05/12/23 Wm Cantu MD 9 [facility] 2nd Floor [place] [phone] Obstetrics and Gynecology 05/12/23 Lexus Chen MD [address] [place] [address] Rheumatology 05/24/24 Gerardo Gonzalez MD [address] [place] [address] 200 [place] [phone] Internal Medicine 10/25/24
--- OUTSIDE RECORDS SUMMARY | 2025-03-01 16:47 | XMS_ITS | Encounter Summary ---
Author Organization [facility] Address [address] [place] [address] Care Team Providers Care Security Representative Name Role Phone Julien Mckeon APRN Unavailable [phone] Shari Maier MD Unavailable Wm Cantu MD Unavailable [phone] Elina Sanchez WRAPPER STITCHER Primary Care Provider [phone] Lexus Chen MD Unavailable [phone] Gerardo Gonzalez MD Unavailable [phone] Encounter Details Date Type Department Care Team (Late st Contact Info) Description 06/29/2024 Scanned Document [facility] Department of Internal Medicine [address] [phone] Elina Sanchez, WRAPPER STITCHER [address] [place] [address] Social History Tobacco Use Types Packs/Day Years [...] 03/16/2025 1:30 PM EDT Office Visit [facility] [address] [facility] 303 [place] [phone] Mercedes Birch, LIA 113 [facility] 301 [place] [address] 04/21/2025 9:10 AM EST Office Visit [facility] Department of Internal Medicine [place] 160 [facility] 100 [place] [phone] Elina Sanchez APRN 160 [place] [address] documented as of this encounter Visit Diagnoses Not on filedocumented in this encounter Care Teams Security Representative Relationship Specialty Start Date End Date Elina Sanchez, MARGOT 160 [place] [address] PCP - General Internal Medicine 07/06/23 Julien Mckeon APRN [address] [place] [address] Nurse Practitioner Neurology 05/12/23 Shari Maier MD [address] [place] [address] Consulting Provider Dermatology 05/12/23 Wm Cantu MD 9 [facility] 2nd [place] [address] Obstetrics and Gynecology 05/12/23 Lexus Chen MD [address] [place] [address] Rheumatology 05/24/24 Gerardo Gonzalez MD 100 [facility] 200 [place] [address] Internal Medicine 10/25/24 documented as of this encounter
--- OUTSIDE RECORDS SUMMARY | 2025-03-01 16:47 | XMS_ITS | Patient Health Record ---
Author Organization [facility] Address [address], [place] [id number] Care Team Providers Care Software Security Architect Name Role Phone Elina Galan Primary Care Provider UnavailCHARLIE Carmona Unavailable [phone] Maykel DUNN, Vik Unavailable Unavailable GIULIANA NELSON Unavailable [phone] Lakia Quintana Unavailable [phone] Shelly Velasquez Unavailable [phone] Allergies Allergen (clinical drug ingredient) Drug/Non Drug Allergy documented on EMR Reaction Allergy Type Onset Date Status penicillin (uncoded) rash Allergy Active Substance with sulfonamide structure and antibacterial mechanism of action (substance) sulfonamide (uncoded) rash Allergy Active Results Component Value Reference Range Notes VITAMIN D, 25-HYDROXY, LC/MS /MS Reviewed date:11/07/2024 11:22:42 AM Interpretation: Performing Lab:NL1, [facility], [address] [place] [address], [phone] Niels Chen M.D. Notes/Report: Received Date: FASTING; [...] D, (D2,D3), LC/MS/MS is recommended: order code [id number] (patients >2yrs). See Note 1 Note 1 For additional information, please refer to http://education.Desktone.com/faq/OAG918 (This link is being provided for informational/ educational purposes only.) CBC (INCLUDES DIFF/PLT) Reviewed date:11/07/2024 11:22:42 AM Interpretation: Performing Lab:NL1, [facility], [address] [place] [address], [phone] Niels Chen M.D. Notes/Report: Received Date: FASTING; [...] MPV 12.0 7.5-12.5 fL ABSOLUTE NEUTROPHILS 3695 8164-1395 cells/uL ABSOLUTE LYMPHOCYTES 6254 216-9120 cells/uL ABSOLUTE MONOCYTES 522 200-950 cells/uL ABSOLUTE EOSINOPHILS 110 15-500 cells/uL ABSOLUTE BASOPHILS 52 0-200 cells/uL NEUTROPHILS 63.7 LYMPHOCYTES 24.5 MONOCYTES 9.0 EOSINOPHILS 1.9 BASOPHILS 0.9 SED RATE BY MODIFIED WESTERG BEAU Reviewed date:11/07/2024 11:22:42 AM Interpretation: Performing Lab:NL1, [facility], [address] [place] [address], [phone] Niels Chen M.D. Notes/Report: Received Date: [id number] FASTING; FASTING; FASTING; FASTING; FASTING; FASTING; FASTIN FASTING:YES FASTING: YES SED RATE BY MODIFIED GILDAERGREN 6 < OR = 30 mm/h HS-CRP Reviewed date:11/07/2024 11:22:42 AM Interpretation: Performing Lab:NL1, [facility], [address] [place] [address], [phone] Niels Chen M.D. Notes/Report: Received Date: [id number] FASTING; FASTING; FASTING; FASTING; FASTING; FASTING; FASTIN [...] for Disease Control and Prevention and the [place] [employer]. Circulation 2003; 107(3): 499-511. HEPATIC FUNCTION PANEL Reviewed date:02/13/2025 03:36:51 PM Interpretation: Performing Lab:NL1, [facility], [address] [place] [address], [phone] Niels Chen M.D. Notes/Report: Received Date: [id number] FASTING; FASTING; FASTING; FASTING; FASTING FASTING:YES FASTING: [...] Reviewed date:02/13/2025 03:36:52 PM Interpretation: Performing Lab:NL1, [facility], [address] [place] [address], [phone] Niels Chen M.D. Notes/Report: Received Date: [id number] FASTING; FASTING; FASTING; FASTING; FASTING FASTING:YES FASTING: YES CREATININE 1.16 0.50-1.03 mg/dL EGFR 55 > OR = 60 mL/min/1.73m2 CBC (INCLUDES DIFF/PLT) Reviewed date:02/13/2025 03:36:52 PM Interpretation: Performing Lab:[facility], [facility], [address] [place] [address], [phone] Niels Chen M.D. Notes/Report: Received Date: [id number] FASTING; FASTING; FASTING; FASTING; FASTING FASTING:YES FASTING: [...] MPV 11.5 7.5-12.5 fL ABSOLUTE NEUTROPHILS 2915 5772-5615 cells/uL ABSOLUTE LYMPHOCYTES 3801 522-2978 cells/uL ABSOLUTE MONOCYTES 435 200-950 cells/uL ABSOLUTE EOSINOPHILS 170 15-500 cells/uL ABSOLUTE BASOPHILS 40 0-200 cells/uL NEUTROPHILS 58.3 LYMPHOCYTES 28.8 MONOCYTES 8.7 EOSINOPHILS 3.4 BASOPHILS 0.8 SED RATE BY MODIFIED WESTERG BEAU Reviewed date:02/13/2025 03:36:52 PM Interpretation: Performing Lab:[facility], [facility], [address] [place] [address], [phone] Niels Chen M.D. Notes/Report: Received Date: [id number] FASTING; FASTING; FASTING; FASTING; FASTING FASTING:YES FASTING: YES SED RATE BY MODIFIED WESTERGREN 2 < OR = 30 mm/h HS-CRP Reviewed date:02/13/2025 03:36:52 PM Interpretation: Performing Lab:[facility], [facility], [address] [place] [address], [phone] Niels Chen M.D. Notes/Report: Received Date: [id number] FASTING; FASTING; FASTING; FASTING; FASTING FASTING:YES FASTING: YES HS CRP 1.0 Reference Range Optimal <1.0 Jerosalia PS et [...] for Disease Control and Prevention and the [employer]. Circulation 2003; 107(3): 499-511. CREATININE Reviewed date:11/07/2024 11:22:42 AM Interpretation: Performing Lab:NL1, [facility], [address] [place] [address], [phone] Niels Chen M.D. Notes/Report: Received Date: [id number] FASTING; FASTING; FASTING; FASTING; FASTING; FASTING; FASTIN FASTING:YES FASTING: YES CREATININE 1.20 0.50-1.03 mg/dL EGFR 52 > OR = 60 mL/min/1.73m2 ANCA SCREEN WITH MPO AND PR3 WITH REFLEX TO ANCA TITER Reviewed date:11/07/2024 11:22:42 AM Interpretation: Performing Lab:NL1, [facility], [address] [place] [address], [phone] Niels Chen M.D. Notes/Report: Received Date: FASTING; [...] = 1.0 Antibody Detected Autoantibodies to proteinase-3 (SD-3) are accepted as characteristic for granulomatosis with polyangiitis (GPA, Zafar's), and are detectable in 95% of the histologically proven cases. The cytoplasmic IFA pattern, (c-ANCA), is based largely on autoantibody to SD-3 which serves as the primary antigen. These autoantibodies are present in active disease. URINALYSIS, COMPLETE W/REFLE X TO CULTURE Reviewed date:11/07/2024 11:22:42 AM Interpretation: Performing Lab:NL1, [facility], [address] [place] [address], [phone] Niels Chen M.D. Notes/Report: Received Date: FASTING; [...] REFLEXIVE URINE CULTURE NO C ULTURE INDICATED HS-CRP Reviewed date:05/20/2024 01:36:56 PM Interpretation: Performing Lab:NL1, [facility], [address] [place] [address], [phone] Niels Chen M.D. Notes/Report: Received Date: NON-FASTING; NON-FASTING; NON-FASTING; NON-FASTING; NON-FAST HS CRP 1.2 Reference Range Optimal <1.0 Agapito PS et al. Endocr Pract.2017;23(Suppl 2):1-87. For [...] for Disease Control and Prevention and the [place] [employer]. Circulation 2003; 107(3): 499-511. SED RATE BY MODIFIED RAMONA BEAU Reviewed date:05/20/2024 01:36:56 PM Interpretation: Performing Lab:NL1, [facility], [address] [place] [address], [phone] Niels Chen M.D. Notes/Report: Received Date: NON-FASTING; NON-FASTING; NON-FASTING; NON-FASTING; NON-FAST SED RATE BY MODIFIED WESTERGREN 6 < OR = 30 mm/h CBC (INCLUDES DIFF/PLT) Reviewed date:05/20/2024 01:36:56 PM Interpretation: Performing Lab:[facility], [facility], [address] [place] [address], [phone] Niels Chen M.D. Notes/Report: Received Date: NON-FASTING; NON-FASTING; NON-FASTING; NON-FASTING; NON-FAST WHITE BLOOD CELL COUNT 4.8 3.8-10.8 Thousand/ uL RED BLOOD CELL COUNT 5.45 3.80-5.10 Million/uL [...] MPV 12.0 7.5-12.5 fL ABSOLUTE NEUTROPHILS 2870 2145-0838 cells/uL ABSOLUTE LYMPHOCYTES 1682 750-9002 cells/uL ABSOLUTE MONOCYTES 413 200-950 cells/uL ABSOLUTE EOSINOPHILS 101 15-500 cells/uL ABSOLUTE BASOPHILS 48 0-200 cells/uL NEUTROPHILS 59.8 LYMPHOCYTES 28.5 MONOCYTES 8.6 EOSINOPHILS 2.1 BASOPHILS 1.0 CREATININE Reviewed date:05/20/2024 01:36:56 PM Interpretation: Performing Lab:[facility], [facility], [address] [place] [address], [phone] Niels Chen M.D. Notes/Report: Received Date: [id number] NON-FASTING; NON-FASTING; NON-FASTING; NON-FASTING; NON-FAST CREATININE 1.17 0.50-1.03 mg/dL EGFR 54 > OR = 60 mL/min/1.73m2 HEPATIC FUNCTION PANEL Reviewed date:05/20/2024 01:36:56 PM Interpretation: Performing Lab:NL1, [facility], [address] [place] [address], [phone] Niels Chen M.D. Notes/Report: Received Date: NON-FASTING; NON-FASTING; NON-FASTING; NON-FASTING; NON-FAST PROTEIN, TOTAL 6.8 6.1-8.1 g/dL ALBUMIN 4.1 3.6-5.1 g/dL GLOBULIN 2.7 1.9-3.7 g/dL (calc) ALBUMIN/GLOBULIN RATIO 1.5 1.0-2.5 (calc) BILIRUBIN, TOTAL 0.7 0.2-1.2 mg/dL BILIRUBIN, DIRECT 0.1 < OR = 0.2 mg/dL BILIRUBIN, INDIRECT 0.6 0.2-1.2 mg/dL (calc) ALKALINE PHOSPHATASE 92 37-153 U/L AST 19 10-35 U/L ALT 14 6-29 U/L QUANTIFERON(R)-TB GOLD Reviewed date:05/20/2024 01:36:56 PM Interpretation: Performing Lab:NL1, [facility], [address] [place] [address], [phone] Niels Chen M.D. Notes/Report: Received Date: [id number] NON-FASTING; NON-FASTING; NON-FASTING; NON-FASTING; NON-FAST QUANTIFERON(R)-TB GOLD [...] T-lymphocytes. For additional information, please refer to https://education.ActiveEon.The Bauhub/faq/GUB669 (This link is being provided for informational/ educational purposes only.) SED RATE BY MODIFIED RAMONA BEAU Reviewed date:08/16/2024 03:56:17 PM Interpretation: Performing Lab:NL1, [facility], [address] [place] [address], [phone] Niels Chen M.D. Notes/Report: Received Date: FASTING:YES FASTING: YES SED RATE BY MODIFIED ABDIRAHMAN 9 < OR = 30 mm/h CBC (INCLUDES DIFF/PLT) Reviewed date:08/16/2024 03:56:17 PM Interpretation: Performing Lab:NL1, [facility], [address] [place] [address], [phone] Niels Chen M.D. Notes/Report: Received Date: FASTING:YES FASTING: YES WHITE BLOOD CELL COUNT 5.8 3.8-10.8 Thousand/ uL RED BLOOD CELL COUNT 5.55 3.80-5.10 Million/uL [...] MPV 11.5 7.5-12.5 fL ABSOLUTE NEUTROPHILS 4141 7377-5637 cells/uL ABSOLUTE LYMPHOCYTES 8970 976-3083 cells/uL ABSOLUTE MONOCYTES 383 200-950 cells/uL ABSOLUTE EOSINOPHILS 41 15-500 cells/uL ABSOLUTE BASOPHILS 58 0-200 cells/uL NEUTROPHILS 71.4 LYMPHOCYTES 20.3 MONOCYTES 6.6 EOSINOPHILS 0.7 BASOPHILS 1.0 CREATININE Reviewed date:08/16/2024 03:56:17 PM Interpretation: Performing Lab:NL1, [facility], [address] [place] [address], [phone] Niels Chen M.D. Notes/Report: Received Date: FASTING:YES FASTING: YES CREATININE 1.13 0.50-1.03 mg/dL EGFR 57 > OR = 60 mL/min/1.73m2 HEPATIC FUNCTION PANEL Reviewed date:08/16/2024 03:56:17 PM Interpretation: Performing Lab:NL1, [facility], [address] [place] [address], [phone] Niels Chen M.D. Notes/Report: Received Date: FASTING:YES FASTING: YES PROTEIN, TOTAL 6.8 6.1-8.1 g/dL ALBUMIN 4.2 3.6-5.1 g/dL GLOBULIN 2.6 1.9-3.7 g/dL (calc) ALBUMIN/GLOBULIN RATIO 1.6 1.0-2.5 (calc) BILIRUBIN, TOTAL 0.8 0.2-1.2 mg/dL BILIRUBIN, DIRECT 0.2 < OR = 0.2 mg/dL BILIRUBIN, INDIRECT 0.6 0.2-1.2 mg/dL (calc) ALKALINE PHOSPHATASE 87 37-153 U/L AST 19 10-35 U/L ALT 13 6-29 U/L C-REACTIVE PROTEIN Reviewed date:08/16/2024 03:56:17 PM Interpretation: Performing Lab:NL1, [facility], [address] [place] [address], [phone] Niels Chen M.D. Notes/Report: Received Date: FASTING:YES FASTING: YES C-REACTIVE PROTEIN 3.6 <8.0 mg/L Reason For Referral Reason Labs Se Cr 1. 23 H, nl < 1.20, low GFR 51 L ; seen in Diagnosis 1 Abnormal results of kidney function studies (R94.4) Referral Organization [facility] Referring Provider First Name CHARLIE Referring Provider Last Name LESLIE Referring Provider Speciality Rheumatolo gy Referred Provider Specialty Nephrology Referral Priority Routine Medications Medication SIG (Take, Route, Frequency, Duration) Notes Start Date End Date Status Albuterol Sulfate HFA 108 (90 Base) MCG/ACT 2 puffs as needed Inhalation every 6-8 hrs; Duration: 30 days Active Rybelsus 3 MG Oral; Duration: 30 Days Active Mometasone Furoate 50 MCG/ACT SPRAY 2 SPRAYS BY NASAL ROUTE DAILY Nasal; Duration: 90 Days Active Ipratropium [place] 0.03 % 2 SPRAYS BY N ERICA [...] ONCE DAILY. External; Duration: 30 Days Active Medrol 4 MG 6 TABS FIRST DAY, TAPER BY 1 TAB A DAY UNTIL OFF Orally Once a day; Duration: 6 days 09/07/2024 Not-Taking Hydroxychloroquine Sulfate 200 MG TAKE 1 TABLET BY MOUTH TWICE A DAY FOR 30 DAYS; Duration: 30 Active predniSONE 5 MG 1 tablet Oral as needed; Duration: 30 days Not-Taking Problems Problem Type SNOMED Code ICD Code Onset Dates Problem Status W/U Status Risk Notes Problem Allergic rhinitis (90296698) Allergic rhinitis, unspecified (J30.9) Active confirmed Problem Mild intermittent asthma (205287995) Mild intermittent asthma, uncomplicated (J45.20) Active confirmed Problem Celiac disease (529165141) Celiac disease (K90.0) Active confirmed She did see improvement in rashes that she as since teens when evaluation back then showed celiac and she went gluten free. Glute free diet helped her low grade fevers and to a lesser degree with MSK pain. Problem Pruritus (223273207) Pruritus, unspecified (L29.9) Active confirmed Problem Psoriatic spondylitis (243521825) Psoriatic spondylitis (L40.53) Active confirmed 09.07.2024 on HCQ . Presented to us for consultation on 01.25.2024 with (B) hand pain, (B) wrist swelling, mildly limited ROM in finger flexion and wrist extension, enthesitis - (B) Achilles enthesitis. H/o Rt plantar fasciitis since 2019, costochondral tenderness, prolonged morning stiffness 45 min and fatigue. Problem Rheumatoid arthritis (82226477) Rheumatoid arthritis without rheumatoid factor, multiple sites (M06.09) Active confirmed -As of 02/14/2025 has ongoing hip pain, [...] Psoriasis (brother). Problem Disorder of connective tissue (258524237) Systemic involvement of connective tissue, unspecified (M35.9) Active confirmed CTD per Dr. Mccollum rks, [facility] . H/o recurrent rashes w/skin bx suggestive of CTD; H/o fevers, MSK Sx. Never Lupus nephritis. Severe endometriosis, never . Has abnl Se Cr w/low GFR since per pt. Neg RICHARD/RICHARD subserology . Problem Solitary sacroiliitis (196787332) Sacroiliitis, not elsewhere classified (M46.1) Active confirmed Problem Cervical spondylosis without myelopathy (491184193) Spondylosis without myelopathy or radiculopathy, cervical region (M47.812) Active confirmed Problem Menopause (980506796) Menopausal and female climacteric states (N95.1) Active confirmed Problem Eruption of skin (961184080) Rash and other nonspecific skin eruption (R21) [...] celiac and she went gluten free. Problem Chronic kidney disease stage 3A (disorder) (003585795) Chronic kidney disease, stage 3a (N18.31) Active confirmed -As of 11/09/19 25 pt has f/u with Dr. Gonzalez in 02/2025. 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 Vital Signs Heart Rate 69 /min 02/14/2025 Temperature 37.1 C 02/14/2025 Blood pressure diastolic 70 mm Hg 02/14/2025 Height 160.8 cm 02/14/2025 Blood pressure systolic 105 mm Hg 02/14/2025 Weight 100.7 kg 03/08/2024 BMI 38.94 kg/m2 03/08/2024 Encounters Encounter Location Date Provider Diagnosis [facility] [address] [id number] 03/08/2024 Shelly Velasquez Rheumatoid arthritis without rheumatoid [...] joints of left foot M25.572 [facility] [address] [id number] 04/19/2024 GIULIANA NELSON Allergic rhinitis, unspecified J30.9 ; Allergy status to other drugs, medicaments and biological substances Z88.8 ; Pruritus, unspecified L29.9 and Mild intermittent asthma, uncomplicated J45.20 [facility] [address] [id number] 06/09/2024 Shelly Velasquez Rheumatoid arthritis without rheumatoid [...] and Fatigue, unspecified type R53.83 [facility] [address] [id number] 09/07/2024 Lakia Quintana Rheumatoid arthritis without rheumatoid [...] and Chronic kidney disease, stage 3a N18.31 [facility] [address] [id number] 11/08/2024 Lakia Quintana Rheumatoid arthritis without rheumatoid factor, multiple sites M06.09 ; Systemic involvement of connective tissue, unspecified M35.9 ; Psoriatic spondylitis L40.53 ; Celiac disease K90.0 ; Lichen sclerosus of female genitalia N90.4 ; Disorder of bone density and structure, unspecified M85.9 and Chronic kidney disease, stage 3a N18.31 [facility] [address] [id number] 02/14/2025 Lakia Gunteruld Rheumatoid arthritis without rheumatoid factor, multiple sites M06.09 ; Systemic involvement of connective tissue, unspecified M35.9 ; Psoriatic spondylitis L40.53 ; Celiac disease K90.0 ; Disorder of bone density and structure, unspecified M85.9 ; Trochanteric bursitis, right hip M70.61 ; Trochanteric bursitis, left hip M70.62 and Sacroiliitis, not elsewhere classified M46.1 [facility] [address] [id number] 03/08/2024 [facility] [address] [id number] 04/18/2024 [facility] [address] [id number] 09/07/2024 Lakia Quintana Assessments Encounter Date Diagnosis (ICD Code) Assessment Notes Treatment Notes Treatment Clinical Notes Section Notes 03/08/2024 Rheumatoid arthritis without rheumatoid factor, multiple sites (ICD-10 - M06.09) OV 10: On going arthralgia and fatigue on Plaquenil [...] . 03/08/2024 Cardozo's esophagus (ICD-10 - K22.70) 04/19/2024 Allergic rhinitis, unspecified (ICD-10 - J30.9) 1. Rhinitis - vasomotor vs allergic - on mometasone and ipatropium nasal spray 2. Rash - unclear diagnosis but as per patient autoimmune 3. Seronegative RA as per patient - no records available - has rheumatology appt 4. Reactions to antibiotics - challenge in [place] not clearly showing IgE mediated reactions 06/09/2024 Rheumatoid arthritis without rheumatoid factor, multiple sites (ICD-10 - M06.09) - OV 06.09.2024: Pt. on Plaquenil 400mg/day, [...] - Pt. defers for nowFollow up with Infrastructure Design Engineer for elevated Cr - 06.27.2023Labs a week prior to OV Hydroxychloroquine eye exam every 12 months per ophthalmology - . 06/09/2024 Cardozo's esophagus (ICD-10 - K22.70) 09/07/2024 Rheumatoid arthritis without rheumatoid factor, multiple [...] dose amalia for joint flareFollow up with Infrastructure Design Engineer as Junito scott eye exam every 12 months per ophthalmology RTC in 8 weeksLakia Quintana [facility]. Pt reviewed by Dr. Nelson 09/07/2024 Cardozo's esophagus (ICD-10 - K22.70) 11/08/2024 Rheumatoid arthritis without rheumatoid factor, multiple [...] week before next appt Follow up with Infrastructure Design Engineer as planed Hydroxychloroquine eye exam every 12 months per ophthalmology RTC in 12 weeks Lakia Quintana [facility]. Pt reviewed by Dr. Nelson 11/08/2024 Systemic involvement of connective tissue, unspecified (ICD-10 - M35.9) CTD per Dr. Fortune, [place] [facility] . H/o recurrent rashes w/skin bx suggestive of CTD; H/o fevers, MSK Sx. Never Lupus nephritis. Severe endometriosis, never . Has abnl Se Cr w/low GFR since per pt. 02/14/2025 Rheumatoid arthritis without rheumatoid factor, multiple [...] flare and evaluate joint pain further. -OV 1.2.5: Pt. on Plaquenil 400mg/day, ongoing pain and [...] if joint pain worsens Follow up with Infrastructure Design Engineer as planed Hydroxychloroquine eye exam every 12 months per ophthalmology RTC in 12 weeks Lakia Quintana [facility] Pt reviewed by Dr. Nelson 02/14/2025 Systemic involvement of connective tissue, unspecified (ICD-10 - M35.9) CTD per Dr. Fortune, [place] [facility] . H/o recurrent rashes w/skin bx suggestive of CTD; H/o fevers, MSK Sx. Never Lupus nephritis. Severe endometriosis, never . Has abnl Se Cr w/low GFR since per pt. Neg RICHARD/RICHARD subserology . 02/14/2025 Psoriatic spondylitis (ICD-10 - L40.53) . on HCQ. Presented to us for consultation on 01.25.2024 with (B) hand pain, (B) wrist swelling, mildly limited ROM in finger flexion and wrist extension, enthesitis - (B) Achilles enthesitis. H/o Rt plantar fasciitis since 2019, costochondral tenderness, prolonged morning stiffness 45 min and fatigue. 11/08/2024 Psoriatic spondylitis (ICD-10 - L40.53) 4.2.2024 on HCQ. Presented to us for consultation on 01.25.2024 with (B) hand pain, (B) wrist swelling, mildly limited ROM in finger flexion and wrist extension, enthesitis - (B) Achilles enthesitis. H/o Rt plantar fasciitis since 2019, costochondral tenderness, prolonged morning stiffness 45 min and fatigue. 09/07/2024 Systemic involvement of connective tissue, unspecified (ICD-10 - M35.9) per Dr. Fortune, [place] [facility] . H/o recurrent rashes w/skin bx suggestive of CTD; H/o fevers, MSK Sx. Never Lupus nephritis. Severe endometriosis, never . Has abnl Se Cr w/low GFR since per pt. 06/09/2024 Rash and other nonspecific skin eruption [...] showed celiac and she went gluten free. 03/08/2024 Rash and other nonspecific skin eruption [...] showed celiac and she went gluten free. 04/19/2024 Allergy status to other drugs, medicaments and biological substances (ICD-10 - Z88.8) 1. Rhinitis - vasomotor vs allergic - on mometasone and ipatropium nasal spray 2. Rash - unclear diagnosis but as per patient autoimmune 3. Seronegative RA as per patient - no records available - has rheumatology appt 4. Reactions to antibiotics - challenge in [place] not clearly showing IgE mediated reactions 04/19/2024 Pruritus, unspecified (ICD-10 - L29.9) 1. Rhinitis - vasomotor vs allergic - on mometasone and ipatropium nasal spray 2. Rash - unclear diagnosis but as per patient autoimmune 3. Seronegative RA as per patient - no records available - has rheumatology appt 4. Reactions to antibiotics - challenge in [place] not clearly showing IgE mediated reactions 03/08/2024 Abnormal results of kidney function studies (ICD-10 - R94.4) 06/09/2024 Abnormal results of kidney function studies (ICD-10 - R94.4) 09/07/2024 Celiac disease (ICD-10 - K90.0) She did see improvement in rashes that she as since teens when evaluation back then showed celiac and she went gluten free. Glute free diet helped her low grade fevers and to a lesser degree with MSK pain. 11/08/2024 Celiac disease (ICD-10 - K90.0) She did see improvement in rashes that she as since teens when evaluation back then showed celiac and she went gluten free. Glute free diet helped her low grade fevers and to a lesser degree with MSK pain. 02/14/2025 Celiac disease (ICD-10 - K90.0) She did see improvement in rashes that she as since teens when evaluation back then showed celiac and she went gluten free. Glute free diet helped her low grade fevers and to a lesser degree with MSK pain. 02/14/2025 Disorder of bone density and structure, unspecified (ICD-10 - M85.9) 11/08/2024 Lichen sclerosus of female genitalia (ICD-10 - N90.4) 09/07/2024 Lichen sclerosus of female genitalia (ICD-10 - N90.4) 04/19/2024 Mild intermittent asthma, uncomplicated (ICD-10 - J45.20) 1. Rhinitis - vasomotor vs allergic - on mometasone and ipatropium nasal spray 2. Rash - unclear diagnosis but as per patient autoimmune 3. Seronegative RA as per patient - no records available - has rheumatology appt 4. Reactions to antibiotics - challenge in [place] not clearly showing IgE mediated reactions 06/09/2024 Systemic involvement of connective tissue, unspecified (ICD-10 - M35.9) per Dr. Fortune, [place] [facility] . H/o recurrent rashes w/skin bx suggestive of CTD; H/o fevers, MSK Sx. Never Lupus nephritis. Severe endometriosis, never . Has abnl Se Cr w/low GFR since per pt. 03/08/2024 Systemic involvement of connective tissue, unspecified (ICD-10 - M35.9) per Dr. Fortune, [place] [facility] . H/o recurrent rashes w/skin bx suggestive of CTD; H/o fevers, MSK Sx. Never Lupus nephritis. Severe endometriosis, never . Has abnl Se Cr w/low GFR since per pt. 03/08/2024 Celiac disease (ICD-10 - K90.0) She [...] a lesser degree with MSK pain. 09/07/2024 Disorder of bone density and structure, unspecified (ICD-10 - M85.9) 11/08/2024 Disorder of bone density and structure, unspecified (ICD-10 - M85.9) 02/14/2025 Trochanteric bursitis, right hip (ICD-10 - M70.61) 02/14/2025 Trochanteric bursitis, left hip (ICD-10 - M70.62) 11/08/2024 Chronic kidney disease, stage 3a (ICD-10 - N18.31) -As of 11/08/2024 pt has f/u with Dr. Gonzalez in 02/2025. 09/07/2024 Lateral epicondylitis of left elbow (ICD-10 - M77.12) 06/09/2024 Lichen sclerosus of female genitalia (ICD-10 - N90.4) 03/08/2024 Lichen sclerosus of female genitalia (ICD-10 - N90.4) 03/08/2024 Spondylosis without myelopathy or radiculopathy, cervical region (ICD-10 - M47.812) 06/09/2024 Spondylosis without myelopathy or radiculopathy, cervical region (ICD-10 - M47.812) 09/07/2024 Lateral epicondylitis, right elbow (ICD-10 - M77.11) 02/14/2025 Sacroiliitis, not elsewhere classified (ICD-10 - M46.1) 06/09/2024 Effusion, left ankle (ICD-10 - M25.472) 09/07/2024 Other shoulder lesions, right shoulder (ICD-10 - M75.81) 03/08/2024 Effusion, left ankle (ICD-10 - M25.472) 06/09/2024 Disorder of bone density and structure, unspecified (ICD-10 - M85.9) 03/08/2024 Disorder of bone density and structure, unspecified (ICD-10 - M85.9) 09/07/2024 Other shoulder lesions, left shoulder (ICD-10 - M75.82) 09/07/2024 Psoriatic spondylitis (ICD-10 - L40.53) 4.2.2024 on HCQ. Presented to us for consultation on 01.25.2024 with (B) hand pain, (B) wrist swelling, mildly limited ROM in finger flexion and wrist extension, enthesitis - (B) Achilles enthesitis. H/o Rt plantar fasciitis since 2019, costochondral tenderness, prolonged morning stiffness 45 min and fatigue. 03/08/2024 Menopausal and female climacteric states (ICD-10 - N95.1) 06/09/2024 Menopausal and female climacteric states (ICD-10 - N95.1) 03/08/2024 Pain in left ankle and joints of left foot (ICD-10 - M25.572) 06/09/2024 Pain in left ankle and joints of left foot (ICD-10 - M25.572) 09/07/2024 Chronic kidney disease, stage 3a (ICD-10 - N18.31) 06/09/2024 Fatigue, unspecified type (ICD-10 - R53.83) Plan Of Treatment Pending Test Test Name Order Date X ray : Ankle, left 03/08/2024 X ray : Elbow, right 09/07/2024 DEXA Hip and Spine 03/08/2024 X ray : Cervical Spine Flex/Ext 03/08/20 24 LUPUS ANTICOAGULANT EVALUATION WITH REFL EX 09/07/2024 LUPUS ANTICOAGULANT EVALUATION WITH REFL EX 01/25/2024 URINALYSIS, COMPLETE W/REFLEX TO CULTURE 01/25/2024 HLA-B27 ANTIGEN 01/25/2024 QUANTIFERON(R)-TB GOLD 02/14/2025 PROTEIN, TOTAL W/CREAT, RANDOM URINE HEPATITIS B CORE ANTIBODY (IGM) 01/25/20 24 HEPATITIS B SURFACE ANTIGEN W/REFL CONFI RM 01/25/2024 VITAMIN B12/FOLATE, SERUM PANEL 09/08/19 25 FERRITIN 01/25/2024 TSH, 3RD GENERATION 01/25/2024 IMMUNOFIXATION IGA,IGG,IGM QT.IMMUNOFIXA TION SERUM IMMUNOGLOBULIN 01/25/2024 PROTEIN, TOTAL AND PROTEIN ELECTROPHORES IS 01/25/2024 ANCA SCREEN WITH MPO AND PR3 WITH REFLEX TO ANCA TITER 01/25/2024 ANGIOTENSIN CONVERTING ENZYME (CRISTIANA) 01/06 URIC ACID 01/25/2024 IRON TOTAL, TIBC, SATURATION 01/25/2024 CREATINE KINASE, TOTAL 01/25/2024 HEPATIC FUNCTION PANEL 01/25/2024 HEPATIC FUNCTION PANEL 06/09/2024 HEPATIC FUNCTION PANEL 02/14/2025 CREATININE 02/14/2025 CREATININE 06/09/2024 CREATININE 01/25/2024 CBC (INCLUDES DIFF/PLT) 01/25/2024 CBC (INCLUDES DIFF/PLT) 06/09/2024 CBC (INCLUDES DIFF/PLT) 02/14/2025 SED RATE BY MODIFIED WESTERGREN 06/09/19 25 SED RATE BY MODIFIED WESTERGREN 01/25/20 24 SED RATE BY MODIFIED WESTERGREN 02/15/20 25 Hep C Ab w Rfx to HCV RNA 01/25/2024 HS-CRP 06/09/2024 HS-CRP 02/14/2025 ANAlyzeR RICHARD,IFA with Reflex Titer/Patte rn, Systemic Autoimmune Panel 1 09/07/2024 ANAlyzeR RICHARD,IFA with Reflex Titer/Patte rn, Systemic Autoimmune Panel 1 01/25/2024 X ray : Elbow, left 09/07/2024 X ray : Shoulder, left 09/07/2024 X ray : Shoulder, right 09/07/2024 X ray : Hip, left 02/14/2025 X ray : Hip, right 02/14/2025 X ray : Sacroliliac Joints 02/14/2025 Next Appt Details Provider Name:GIULIANA NELSON, 04/17/2025 10:30:00 AM, [address] [place] [address], [id number], Provider Name:Lakia Quintana , 05/09/2025 10:20:00 AM, [address] [place] [address], [id number], Insurance Providers Payer Name Payer Address Payer Phone Subscriber Number Group Number Insured Name Patient Relationship to Insured Coverage Start Date Coverage End Date KEITH COTTO [address] [place], [place] [id number] ElizabethMary cervantes Self - patient is the insured Medical [...] on PLQ since-helps Surgical History Surgery Date(Month/Year) EGD/colonoscopy gastritis, Cardozo's eso phagus Dr Leroy .2023 Deviated septum D&C d/t chronic bleeding 2020
--- OUTSIDE RECORDS SUMMARY | 2025-03-01 16:47 | XMS_ITS | Encounter Summary ---
Author Organization [facility] Address [address] [place] [address] Care Team Providers Care Farm Management Adviser Name Role Phone Vik Brar MD Primary Care Provider Unavail able Julien Mckeon INFORMATION TECHNOLOGY ACCOUNT MANAGER Unavailable Shari Maier MD Unavailable Wm Cantu MD Unavailable Elina Sanchez INFORMATION TECHNOLOGY ACCOUNT MANAGER Unavailable Elina Sanchez INFORMATION TECHNOLOGY ACCOUNT MANAGER Primary Care Provider Lexus Chen MD Unavailable [phone] Gerardo Gonzalez MD Unavailable [phone] Encounter Details Date Type Department Care Team (Late st Contact Info) Description 10/15/2022 Scanned Document [facility] Department of Internal Medicine [place] [address] [place] [address] Vik Brar MD Social History Tobacco Use Types Packs/Day Years Used Date Smoking Tobacco: Never Smokeless Tobacco: Never Alcohol Use Standard Drinks/Week Comments Yes 1 (1 standard drink = 0.6 oz pur e alcohol) Comments No Sex and Gender Information Value Date Recorded Sex Assigned at Female 05/06/2023 1:41 PM EST Legal Sex Female 2:49 PM EDT Gender Identity Female 01/07/2022 3:23 PM EDT Sexual Orientation Heterosexual (straight) 01/07 3:23 PM EDT COVID-19 Exposure Response Date Recorded In the last 10 days, have anabela u been in contact with someone who was confirmed or suspected to have Coronavirus/COVID-19? No / Unsure 10/07/2022 11:22 AM EDT documented as of this encounter Plan of Treatment Upcoming Encounters Date Type Department Care Team (Late st Contact Info) Description 03/16/2025 1:30 PM EDT Office Visit [facility] 113 [facility] [address] [place] [phone] Mercedes Birch, LIA 113 [facility] 301 [place], [place] [id number] 04/21/2025 9:10 AM EST Office Visit [facility] Department of Internal Medicine [place] 160 [facility] 100 [place] [phone] Elina Sanchez, INFORMATION TECHNOLOGY ACCOUNT MANAGER 160 [place] [address] documented as of this encounter Visit Diagnoses Not on filedocumented in this encounter Care Teams Farm Management Adviser Relationship Specialty Start Date End Date Vik Brar MD PCP - General Internal Medicine 08/11/16 07/04/23 Elina Sanchez, INFORMATION TECHNOLOGY ACCOUNT MANAGER 160 [place] [address] PCP - General Internal Medicine 07/06/23 Julien Mckeon, INFORMATION TECHNOLOGY ACCOUNT MANAGER [address] [place] [address] Nurse Practitioner Neurology 05/12/23 Shari Maier MD [address] [place] [address] Consulting Provider Dermatology 05/12/23 Wm Cantu MD [address] [facility] 2nd Floor [place] [id number] Obstetrics and Gynecology 05/12/23 Elina Sanchez APRN [address] [place] [address] Nurse Practitioner Internal Medicine 07/05/23 07/05/23 Lexus Chen MD [address] [place] [address] Rheumatology 05/24/24 Gerardo Gonzalez MD [address] [address] Internal Medicine 10/25/24 documented as of this encounter
--- OUTSIDE RECORDS SUMMARY | 2025-03-01 16:48 | XMS_ITS | Encounter Summary ---
Author Organization [facility] Address [address] [place] [address] Phone Care Team Providers Care Manager Inspection Name Role Phone Vik Brar MD Primary Care Provider + Reason for Visit * Reason Comments Medication Refill Encounter Details Date Type Department Care Team (Late st Contact Info) Description 02/19/[address] [facility] [place] [address] [place] [address] Johnson Santos MD [email or web address] [email or web address] Refill Social History Tobacco Use Types Packs/Day Years Used Date Smoking Tobacco: Never Smokeless Tobacco: Never Education Answer Date Recorded Are you interested [...] on filedocumented in this encounter Care Teams Manager Inspection Relationship Specialty Start Date End Date Vik Brar MD [address] [place] [address] PCP - General Internal Medicine 09/11/17 documented as of this encounter Additional Source Comments The information contained in this document represents components of the legal health record. It is not the complete legal health record.[facility]
--- OUTSIDE RECORDS SUMMARY | 2025-03-01 16:48 | XMS_ITS | Encounter Summary ---
Author Organization [facility] Address [address] [place] [address] Care Team Providers Care Oracle Distribution Consultant Name Role Phone Julien Mckeon APRN Unavailable Shari Maier MD Unavailable Wm Cantu MD Unavailable Elina Sanchez DEVELOPMENT ADMINISTRATOR Primary Care Provider Lexus Chen MD Unavailable [phone] Gerardo Gonzalez MD Unavailable Encounter Details Date Type Department Care Team (Late st Contact Info) Description 02/14/2025 Scanned Document [facility] Department of Internal Medicine [address] [phone] Elina Sanchez, DEVELOPMENT ADMINISTRATOR [address] [place] [address] Social History Tobacco Use Types Packs/Day Years [...] 03/16/2025 1:30 PM EDT Office Visit [facility] 113 [facility] 303 [place] [address] Mercedes Birch, LIA 113 [facility] 301 [place] [address] 04/21/2025 9:10 AM EST Office Visit [facility] Department of Internal Medicine [place] 160 [facility] 100 [place] [phone] Elina Sanchez APRN 160 [place] [address] documented as of this encounter Visit Diagnoses Not on filedocumented in this encounter Care Teams Oracle Distribution Consultant Relationship Specialty Start Date End Date Elina Sanchez, MARGOT 160 [place] [address] PCP - General Internal Medicine 07/06/23 Julien Mckeon APRN [address] [place] [address] Nurse Practitioner Neurology 05/12/23 Shari Maier MD [address] [place] [address] Consulting Provider Dermatology 05/12/23 Wm Cantu MD 9 [facility] 2nd [place] [address] Obstetrics and Gynecology 05/12/23 Lexus Chen MD [address] [place] [address] Rheumatology 05/24/24 Gerardo Gonzalez MD 100 [facility] 200 [place] [address] Internal Medicine 10/25/24 documented as of this encounter
--- OUTSIDE RECORDS SUMMARY | 2025-03-01 16:48 | XMS_ITS | Clinical Summary ---
Author Organization [facility] Address 114 [place] [address] Care Team Providers Care Asset Protection Greeter Name Role Phone Vik Brar MD Primary [...] 61 12/07/2020 10:24 AM EDT Temperature 36 C (96.8 F) 12/07/2020 9:24 AM EDT Respiratory Rate 18 [...] or Tdap) 03/21/2019 009 Influenza Vaccine (#1) 2025 Pneumococcal Vaccine Aged Out No long er eligible based on patient's age to complete this topic RSV Ped < 20 months Aged Out No longe r eligible based on patient's age to complete this topic Advance Directives For more information, please contact: [phone] Documents on File Type Date Recorded Patient Sole Painter Expl anation Advance Directive and Living Will 03/10/2016 No advanced Directiv es Latest Code Status on File Code Status Date Activated Date Inactivated Comments Full Code 12/07/2020 7:46 AM 12/07/2020 4:49 PM This co de status was ascertained in the following way: discussion with patient . Care Teams Asset Protection Greeter Relationship Specialty Start Date End Date Vik Brar MD PCP - General Internal Medicine 03/08/16
--- OUTSIDE RECORDS SUMMARY | 2025-03-01 16:48 | XMS_ITS | Encounter Summary ---
Author Organization [facility] Address [address] [place] [address] Care Team Providers Care Edge Molder Name Role Phone Julien Mckeon APRN Unavailable Shari Maier MD Unavailable Wm Cantu MD Unavailable [phone] Elina Sanchez RPG DEVELOPER Primary Care Provider Lexus Chen MD Unavailable [phone] Gerardo Gonzalez MD Unavailable [phone] Encounter Details Date Type Department Care Team (Late st Contact Info) Description 11/08/2024 Scanned Document [facility] Department of Internal Medicine [address] [phone] Elina Sanchez, RPG DEVELOPER [address] [place] [address] Social History Tobacco Use Types Packs/Day Years [...] 1:30 PM EDT Office Visit [facility] 113 [facility] 303 [place] [address] Mercedes Birch, LIA 113 [facility] 301 [place] [address] 04/21/2025 9:10 AM EST Office Visit [facility] Department of Internal Medicine [place] 160 [facility] 100 [place] [phone] Elina Sanchez APRN 160 [place] [address] documented as of this encounter Visit Diagnoses Not on filedocumented in this encounter Care Teams Edge Molder Relationship Specialty Start Date End Date Elina Sanchez, MARGOT 160 [place] [address] PCP - General Internal Medicine 07/06/23 Julien Mckeon APRN [address] [place] [address] Nurse Practitioner Neurology 05/12/23 Shari Maier MD [address] [place] [address] Consulting Provider Dermatology 05/12/23 Wm Cantu MD 9 [facility] 2nd [place] [address] Obstetrics and Gynecology 05/12/23 Lexus Chen MD [address] [place] [address] Rheumatology 05/24/24 Gerardo Gonzalez MD 100 [facility] 200 [place] [address] Internal Medicine 10/25/24 documented as of this encounter
--- OUTSIDE RECORDS SUMMARY | 2025-03-01 16:48 | XMS_ITS | Patient Health Record ---
Author Organization [facility] Address [address] [place] [id number] Support Name Relationship Address Phone Mary Lafleur Guarantor Unknown [phone] Allergies Allergen (clinical drug ingredient) Drug/Non Drug Allergy documented on EMR Reaction Allergy Type Onset Date Status Protonix, Floxin, Quinolones (uncoded) Unknown Allergy Active Sulfa, Tetracycline, Morphine, Macrobid (uncoded) Unknown Allergy Active Reason For Referral No Information Medications Medication SIG (Take, Route, Fr equency, Duration) Notes Start Date End Date Status Zantac 150 MG Active Desoximetasone TOPICAL PRN Act toña Gildess 1.11/04 OCP Activ e Elidel TOPICAL QD Active Metrogel TOPICAL QD Active Problems Problem Type SNOMED Code ICD Code Onset Dates Problem Status W/U Status Risk Notes Problem Overweight (427208390) Overweight (E66.3) Active confirmed Problem Irritable bowel syndrome (79530005) Irritable bowel syndrome without diarrhea (K58.9) Active confirmed Problem Atopic dermatitis (07676116) Atopic dermatitis, unspecified (L20.9) Active confirmed Plan Of Treatment No Information Insurance Providers Payer Name Payer Address Payer Phone Subscriber Number Group Number Insured Name Patient Relationship to Insured Coverage Start Date Coverage End Date [employer] [address] [place], [place] [id number] Mary Lafleur Self - patient is the insured Medical (General) History Medical History History ICD Code Teenage eating disorder Endometriosis Cholecystectomy Nasal Surgery
--- OUTSIDE RECORDS SUMMARY | 2025-03-01 16:48 | XMS_ITS | Encounter Summary ---
Author Organization [facility] Address [address] [place] [address] Care Team Providers Care Software Program Manager Name Role Phone Julien Mckeon APRN Unavailable [phone] Shari Maier MD Unavailable Wm Cantu MD Unavailable [phone] Elina Sanchez CORRECTIONAL MAINTENANCE TECHNICIAN Primary Care Provider Lexus Chen MD Unavailable [phone] Gerardo Gonzalez MD Unavailable [phone] Encounter Details Date Type Department Care Team (Late st Contact Info) Description 10/27/[address] [facility] Department of Internal Medicine [address] [phone] Elina Sanchez, CORRECTIONAL MAINTENANCE TECHNICIAN [address] [place] [address] Social History Tobacco Use Types Packs/Day Years [...] 1:30 PM EDT Office Visit [facility] 113 [facility] 303 [place] [phone] Mercedes Birch, LIA 113 [facility] 301 [place] [address] 04/21/2025 9:10 AM EST Office Visit [facility] Department of Internal Medicine [place] 160 [facility] 100 [place] [phone] Elina Sanchez APRN 160 [place] [address] documented as of this encounter Visit Diagnoses Not on filedocumented in this encounter Care Teams Software Program Manager Relationship Specialty Start Date End Date Elina Sanchez, MARGOT 160 [place] [address] PCP - General Internal Medicine 07/06/23 Julien Mckeon APRN [address] [place] [address] Nurse Practitioner Neurology 05/12/23 Shari Maier MD [address] [place] [address] Consulting Provider Dermatology 05/12/23 Wm Cantu MD 9 [facility] 2nd [place] [address] Obstetrics and Gynecology 05/12/23 Lexus Chen MD [address] [place] [address] Rheumatology 05/24/24 Gerardo Gonzalez MD 100 [facility] 200 [place] [address] Internal Medicine 10/25/24 documented as of this encounter
--- OUTSIDE RECORDS SUMMARY | 2025-03-01 16:48 | XMS_ITS | Encounter Summary ---
Author Organization [facility] Address [address] [place] [address] Care Team Providers Care Customer Service Manager Name Role Phone Julien Mckeon APRN Unavailable Shari Maier MD Unavailable Wm Cantu MD Unavailable [phone] Elina Sanchez TUB OPERATOR Primary Care Provider Lexus Chen MD Unavailable [phone] Gerardo Gonzalez MD Unavailable [phone] Encounter Details Date Type Department Care Team (Late st Contact Info) Description 11/08/2024 Scanned Document [facility] Department of Internal Medicine [address] [phone] Elina Sanchez, TUB OPERATOR [address] [place] [address] Social History Tobacco Use Types Packs/Day Years [...] 03/16/2025 1:30 PM EDT Office Visit [facility] 113 [facility] 303 [place] [phone] Mercedes Birch, LIA 113 [facility] 301 [place] [address] 04/21/2025 9:10 AM EST Office Visit [facility] Department of Internal Medicine [place] 160 [facility] 100 [place] [phone] Elina Sanchez APRN 160 [place] [address] documented as of this encounter Visit Diagnoses Not on filedocumented in this encounter Care Teams Customer Service Manager Relationship Specialty Start Date End Date Elina Sanchez, MARGOT 160 [place] [address] PCP - General Internal Medicine 07/06/23 Julien Mckeon APRN [address] [place] [address] Nurse Practitioner Neurology 05/12/23 Shari Maier MD [address] [place] [address] Consulting Provider Dermatology 05/12/23 Wm Cantu MD 9 [facility] 2nd [place] [address] Obstetrics and Gynecology 05/12/23 Lexus Chen MD [address] [place] [address] Rheumatology 05/24/24 Gerardo Gonzalez MD 100 [facility] 200 [place] [address] Internal Medicine 10/25/24 documented as of this encounter
--- OUTSIDE RECORDS SUMMARY | 2025-03-01 16:48 | XMS_ITS | Encounter Summary ---
Author Organization [facility] Address [address] [place] [address] Care Team Providers Care Transit Survey Worker Name Role Phone Vik Brar MD Primary Care Provider Unavail able Julien Mckeon EMULSIFICATION OPERATOR Unavailable Shari Maier MD Unavailable Wm Cantu MD Unavailable Elina Sanchez EMULSIFICATION OPERATOR Unavailable Elina Sanchez EMULSIFICATION OPERATOR Primary Care Provider Lexus Chen MD Unavailable [phone] Gerardo Gonzalez MD Unavailable [phone] Encounter Details Date Type Department Care Team (Late st Contact Info) Description 05/26/2023 Scanned Document [facility] Department of Internal Medicine [place] [address] [place] [phone] Vik Brar MD Social History Tobacco Use [...] 03/16/2025 1:30 PM EDT Office Visit [facility] 113 [facility] [address] [place] [address] Mercedes Birch, LIA 113 [facility] 301 [place], [place] [address] 04/21/2025 9:10 AM EST Office Visit [facility] Department of Internal Medicine [place] 160 [facility] 100 [place] [phone] Elina Sanchez, EMULSIFICATION OPERATOR 160 [place], [place] [address] documented as of this encounter Visit Diagnoses Not on filedocumented in this encounter Care Teams Transit Survey Worker Relationship Specialty Start Date End Date Vik Brar MD PCP - General Internal Medicine 08/11/16 07/04/23 Elina Sanchez, EMULSIFICATION OPERATOR 160 [place] [address] PCP - General Internal Medicine 07/06/23 Jluien Mckeon, EMULSIFICATION OPERATOR [address] [place] [address] Nurse Practitioner Neurology 05/12/23 Shari Maier MD [address] [place] [address] Consulting Provider Dermatology 05/12/23 Wm Cantu MD 9 [facility] [place] 2nd [place] [address] Obstetrics and Gynecology 05/12/23 Elina Sanchez APRN [address] [place] [address] Nurse Practitioner Internal Medicine 07/05/23 07/05/23 Lexus Chen MD [address] [place] [address] Rheumatology 05/24/24 Gerardo Gonzalez MD 100 [facility] 200 [place] [address] Internal Medicine 10/25/24 documented as of this encounter
--- OUTSIDE RECORDS SUMMARY | 2025-03-01 16:48 | XMS_ITS | Encounter Summary ---
Author Organization [facility] Address [address] [place] [address] Care Team Providers Care Casing Sewer Name Role Phone Julien Mckeon APRN Unavailable [phone] Shari Maier MD Unavailable [phone] Wm Cantu MD Unavailable [phone] Elina Sanchez APRN Primary Care Provider [phone] Lexus Chen MD Unavailable [phone] Gerardo Gonzalez MD Unavailable [phone] Encounter Details Date Type Department Care Team (Late st Contact Info) Description 07/13/[address] [phone] Johnson Mosley MD [address] [place] [address] Social History Tobacco Use Types Packs/Day Years [...] Description 03/16/2025 1:30 PM EDT Office Visit [facility] 113 [facility] [address] [place] [address] Mercedes Birch PA 113 [facility] 301 [place], [place] [address] 04/21/2025 9:10 AM EST Office Visit [facility] Department of Internal Medicine [address] [place] [address] Elina Sanchez APRN 160 [place] [address] documented as of this encounter Visit Diagnoses Not on filedocumented in this encounter Care Teams Casing Sewer Relationship Specialty Start Date End Date Elina Sanchez, RN UROLOGY 160 [place] [address] PCP - General Internal Medicine 07/06/23 Julien Mckeon, RN UROLOGY [address] [place] [address] Nurse Practitioner Neurology 05/12/23 Shari Maier MD [address] [place] [address] Consulting Provider Dermatology 05/12/23 Wm Cantu MD 9 [facility] 2nd [place] [address] Obstetrics and Gynecology 05/12/23 Lexus Chen MD [address] [place] [address] Rheumatology 05/24/24 Gerardo Gonzalez MD 100 [facility] 200 [place] [address] Internal Medicine 10/25/24 documented as of this encounter
--- OUTSIDE RECORDS SUMMARY | 2025-03-01 16:48 | XMS_ITS | Encounter Summary ---
Author Organization [facility] Address [address] [place] [address] Care Team Providers Care Drafter Geophysical Name Role Phone Julien Mckeon APRN Unavailable Shari Maier MD Unavailable [phone] Wm Cantu MD Unavailable Elina Sanchez EMERGENCY DEPARTMENT PHYSICIAN Primary Care Provider Lexus Chen MD Unavailable [phone] Gerardo Gonzalez MD Unavailable [phone] Encounter Details Date Type Department Care Team (Late st Contact Info) Description 12/27/[address] [facility] Department of Internal Medicine [address] [phone] Elina Sanchez, EMERGENCY DEPARTMENT PHYSICIAN [address] [place] [address] Social History Tobacco Use Types Packs/Day Years [...] 03/16/2025 1:30 PM EDT Office Visit [facility] 113 [facility] 303 [place] [phone] Mercedes Birch, LIA 113 [facility] 301 [place] [address] 04/21/2025 9:10 AM EST Office Visit [facility] Department of Internal Medicine [place] 160 [facility] 100 [place] [phone] Elina Sanchez APRN 160 [place] [address] documented as of this encounter Visit Diagnoses Not on filedocumented in this encounter Care Teams Drafter Geophysical Relationship Specialty Start Date End Date Elina Sanchez, MARGOT 160 [place] [address] PCP - General Internal Medicine 07/06/23 Julien Mckeon APRN [address] [place] [address] Nurse Practitioner Neurology 05/12/23 Shari Maier MD [address] [place] [address] Consulting Provider Dermatology 05/12/23 Wm Cantu MD 9 [facility] 2nd [place] [address] Obstetrics and Gynecology 05/12/23 Lexus Chen MD [address] [place] [address] Rheumatology 05/24/24 Gerardo Gonzalez MD 100 [facility] 200 [place] [address] Internal Medicine 10/25/24 documented as of this encounter
--- OUTSIDE RECORDS SUMMARY | 2025-03-01 16:48 | XMS_ITS | Encounter Summary ---
Author Organization [facility] Address [address] [place] [address] Care Team Providers Care Clerical Warehouse Worker Name Role Phone Julien Mckeon APRN Unavailable Shari Maier MD Unavailable Wm Cantu MD Unavailable [phone] Elina Sanchez DIE CUTTING MACHINE OPERATOR Primary Care Provider [phone] Lexus Chen MD Unavailable [phone] Gerardo Gonzalez MD Unavailable [phone] Encounter Details Date Type Department Care Team (Late st Contact Info) Description 09/07/2024 Scanned Document Pete [facility] Department of Internal Medicine [address] [phone] Elina Sanchez, DIE CUTTING MACHINE OPERATOR [address] [place] [address] Social History Tobacco Use Types Packs/Day Years [...] 1:30 PM EDT Office Visit [facility] 113 [facility] 303 [place] [phone] Mercedes Birch, LIA 113 [facility] 301 [place] [address] 04/21/2025 9:10 AM EST Office Visit [facility] Department of Internal Medicine [place] 160 [facility] 100 [place] [phone] Elina Sanchez APRN 160 [place] [address] documented as of this encounter Visit Diagnoses Not on filedocumented in this encounter Care Teams Clerical Warehouse Worker Relationship Specialty Start Date End Date Elina Sanchez, MARGOT 160 [place] [address] PCP - General Internal Medicine 07/06/23 Julien Mckeon APRN [address] [place] [address] Nurse Practitioner Neurology 05/12/23 Shari Maier MD [address] [place] [facility] [address] Consulting Provider Dermatology 05/12/23 Wm Cantu MD 9 [facility] 2nd [place] [address] Obstetrics and Gynecology 05/12/23 Lexus Chen MD [address] [place] [address] Rheumatology 05/24/24 Gerardo Gonzalez MD 100 [facility] 200 [place] [address] Internal Medicine 10/25/24 documented as of this encounter
--- OUTSIDE RECORDS SUMMARY | 2025-03-01 16:48 | XMS_ITS | Encounter Summary ---
Author Organization [facility] Address [address] [place] [address] Phone Care Team Providers Care Bore Miner Operator Name Role Phone Vik Brar MD Primary Care Provider + Reason for Visit * Reason Comments Medication Refill Encounter Details Date Type Department Care Team (Late st Contact Info) Description 08/22/2022 Refill [facility] Main [place] [address] [place] [address] Johnson Santos MD [email or web address] Refill Social History Tobacco Use Types Packs/Day Years Used Date Smoking Tobacco: Never Smokeless Tobacco: Never Comments Unknown Sex and Gender Information Value Date Recorded Sex Assigned at Not on file Legal Sex Female 1:34 PM EDT Gender Identity Not on file Sexual Orientation Not on file documented as of this encounter Plan of Treatment Not on file documented as of this encounter Visit Diagnoses Not on filedocumented in this encounter Care Teams Bore Miner Operator Relationship Specialty Start Date End Date Vik Brar MD [address] [place] [address] [place] [address] PCP - General Internal Medicine 09/11/17 documented as of this encounter Additional Source Comments The information contained in this document represents components of the legal health record. It is not the complete legal health record.[facility]
--- OUTSIDE RECORDS SUMMARY | 2025-03-01 16:48 | XMS_ITS | Encounter Summary ---
Author Organization [facility] Address [address] [place] [address] Care Team Providers Care Measurement Specialist Name Role Phone Julien Mckeon APRN Unavailable Shari Maier MD Unavailable Wm Cantu MD Unavailable [phone] Elina Sanchez NUTRITION WORKER Primary Care Provider [phone] Lexus Chen MD Unavailable [phone] Gerardo Gonzalez MD Unavailable [phone] Encounter Details Date Type Department Care Team (Late st Contact Info) Description 03/01/2025 Scanned Document Pete [facility] Department of Internal Medicine [address] [phone] Elina Sanchez, NUTRITION WORKER [address] [place] [address] Social History Tobacco Use Types Packs/Day Years [...] Visit [facility] 113 [facility] 303 [place] [phone] Mercedes Birch, LIA [address] [facility] 301 [place] [address] 04/21/2025 9:10 AM EST Office Visit [facility] Department of Internal Medicine [place] 160 [facility] 100 [place] [phone] Elina Sanchez APRN 160 [place] [address] documented as of this encounter Visit Diagnoses Not on filedocumented in this encounter Care Teams Measurement Specialist Relationship Specialty Start Date End Date Elina Sanchez, MARGOT 160 [place] [address] PCP - General Internal Medicine 07/06/23 Julien Mckeon APRN [address] [place] [address] Nurse Practitioner Neurology 05/12/23 Shari Maier MD [address] [place] [address] Consulting Provider Dermatology 05/12/23 Wm Cantu MD 9 [facility] 2nd [place] [address] Obstetrics and Gynecology 05/12/23 Lexus Chen MD [address] [place] [address] Rheumatology 05/24/24 Gerardo Gonzalez MD 100 [facility] 200 [place] [address] Internal Medicine 10/25/24 documented as of this encounter
--- OUTSIDE RECORDS SUMMARY | 2025-03-01 16:48 | XMS_ITS | Encounter Summary ---
Author Organization [facility] Address [address] [place] [address] Care Team Providers Care Outdoor Adventure Leader Name Role Phone Julien Mckeon APRN Unavailable Shari Maier MD Unavailable Wm Cantu MD Unavailable Elina Sanchez COOK HELPER VEGETABLE Primary Care Provider [phone] Lexus Chen MD Unavailable [phone] Gerardo Gonzalez MD Unavailable [phone] Encounter Details Date Type Department Care Team (Late st Contact Info) Description 01/25/2024 Scanned Document Pete [facility] Department of Internal Medicine [address] [phone] Elina Sanchez, COOK HELPER VEGETABLE [address] [place] [address] Social History Tobacco Use Types Packs/Day Years [...] 03/16/2025 1:30 PM EDT Office Visit [facility] 113 [facility] 303 [place] [address] Mercedes Birch PA 113 [facility] 301 [place], [place] [address] 04/21/2025 9:10 AM EST Office Visit [facility] Department of Internal Medicine [place] 160 [facility] 100 [place] [phone] Elina Sanchez APRN 160 [place] [address] documented as of this encounter Visit Diagnoses Not on filedocumented in this encounter Care Teams Outdoor Adventure Leader Relationship Specialty Start Date End Date Elina Sanchez APRN 160 [place], [place] [phone] PCP - General Internal Medicine 07/06/23 Julien Mckeon APRN [address] [place] [address] Nurse Practitioner Neurology 05/12/23 Shari Maier MD [address] [place] [address] Consulting Provider Dermatology 05/12/23 Wm Cantu MD 9 [facility] 2nd [place] [address] Obstetrics and Gynecology 05/12/23 Lexus Chen MD [address] [place] [address] Rheumatology 05/24/24 Gerardo Gonzalez MD 100 [facility] 200 [place] [address] Internal Medicine 10/25/24 documented as of this encounter
--- OUTSIDE RECORDS SUMMARY | 2025-03-01 16:48 | XMS_ITS | Encounter Summary ---
Author Organization [facility] Address [address] [place] [address] Care Team Providers Care Dewatering Filtering Supervisor Name Role Phone Julien Mckeon APRN Unavailable Shari Maier MD Unavailable Wm Cantu MD Unavailable Elina Sanchez EARLY HEAD START TEACHER Primary Care Provider [phone] Lexus Chen MD Unavailable [phone] Gerardo Gonzalez MD Unavailable [phone] Encounter Details Date Type Department Care Team (Late st Contact Info) Description 09/01/2023 Scanned Document Pete [facility] Department of Internal Medicine [address] [phone] Elina Sanchez, EARLY HEAD START TEACHER [address] [place] [address] Social History Tobacco Use Types Packs/Day Years [...] Visit [facility] 113 [facility] 303 [place] [phone] Mercedes Birch PA 113 [facility] 301 [place], [place] [address] 04/21/2025 9:10 AM EST Office Visit [facility] Department of Internal Medicine [place] 160 [facility] 100 [place] [phone] Elina Sanchez APRN 160 [place] [address] documented as of this encounter Visit Diagnoses Not on filedocumented in this encounter Care Teams Dewatering Filtering Supervisor Relationship Specialty Start Date End Date Elina Sanchez APRN 160 [place], [place] [phone] PCP - General Internal Medicine 07/06/23 Julien Mckeon APRN [address] [place] [address] Nurse Practitioner Neurology 05/12/23 Shari Maier MD [address] [place] [address] Consulting Provider Dermatology 05/12/23 Wm Cantu MD 9 [facility] 2nd [place] [address] Obstetrics and Gynecology 05/12/23 Lexus Chen MD [address] [place] [address] Rheumatology 05/24/24 Gerardo Gonzalez MD 100 [facility] 200 [place] [address] Internal Medicine 10/25/24 documented as of this encounter
--- OUTSIDE RECORDS SUMMARY | 2025-03-01 16:48 | XMS_ITS | Encounter Summary ---
Author Organization [facility] Address [address] [place] [address] Care Team Providers Care Marine Scientist Name Role Phone Julien Mckeon APRN Unavailable Shari Maire MD Unavailable Wm Cantu MD Unavailable Elina Sanchez PSYCHIATRY RESIDENT Primary Care Provider Lexus Chen MD Unavailable [phone] Gerardo Gonzalez MD Unavailable [phone] Encounter Details Date Type Department Care Team (Late st Contact Info) Description 06/10/2024 Scanned Document [facility] Department of Internal Medicine [address] [phone] Elina Sanchez, PSYCHIATRY RESIDENT [address] [place] [address] Social History Tobacco Use Types Packs/Day Years [...] 03/16/2025 1:30 PM EDT Office Visit [facility] 113 [facility] 303 [place] [phone] Mercedes Birch, LIA 113 [facility] 301 [place] [address] 04/21/2025 9:10 AM EST Office Visit [facility] Department of Internal Medicine [place] 160 [facility] 100 [place] [phone] Elina Sanchez APRN 160 [place] [address] documented as of this encounter Visit Diagnoses Not on filedocumented in this encounter Care Teams Marine Scientist Relationship Specialty Start Date End Date Elina Sanchez, MARGOT 160 [place] [address] PCP - General Internal Medicine 07/06/23 Julien Mckeon APRN [address] [place] [address] 266[address] Nurse Practitioner Neurology 05/12/23 Shari Maier MD [address] [place] [address]70 Consulting Provider Dermatology 05/12/23 Wm Cantu MD 9 [facility] 2nd [place] [address] Obstetrics and Gynecology 05/12/23 Lexus Chen MD [address] [place] [address] Rheumatology 05/24/24 Gerardo Gonzalez MD 100 [facility] 200 [place] [address] Internal Medicine 10/25/24 documented as of this encounter
--- OUTSIDE RECORDS SUMMARY | 2025-03-01 16:48 | XMS_ITS | Encounter Summary ---
Author Organization [facility] Address [address] [place] [address] Phone Care Team Providers Care Technology Assistant Name Role Phone Vik Brar MD Primary Care Provider + Encounter Details Date Type Department Care Team (Late st Contact Info) Description 07/24/2022 Ancillary Orders [facility] Ar[facility]ritis Center Main [place] [address] [place] [address] Johnson Santos MD [email or web address] Social History Tobacco Use Types Packs/Day Years Used Date Smoking Tobacco: Never Smokeless Tobacco: Never Comments Unknown Sex and Gender Information Value Date Recorded Sex Assigned at Not on file Legal Sex Female 1:34 PM EDT Gender Identity Not on file Sexual Orientation Not on file documented as of this encounter Plan of Treatment Not on file documented as of this encounter Results * XR HAND 3 OR MORE VIEWS (LEFT) (07/24/2022 2:16 PM EST) Anatomical Region Laterality Modality Hand Left Computed Radiogr aphy 07/24/2022 4:09 PM EST Impressions 07/24/2022 4:10 PM EST No radiographic evidence of an inflammatory arthropathy. Narrative 07/24/2022 4:10 PM EST XR HAND 3 OR MORE VIEWS (LEFT), XR HAND 3 OR MORE VIEWS (RIGHT) COMPARISON: Bilateral hand radiographs 09/23/2018 FINDINGS: Left hand: No bony erosions. No fracture. Normal alignment. Mild degenerative changes of the first carpometacarpal and STT joints. No soft tissue swelling. Right hand: No bone erosion. Mild degenerative changes of the STT and interphalangeal joints. No acute fracture or dislocation. No soft tissue swelling. Procedure Note Arina Rangel MD - 07/24/2022 XR HAND 3 OR MORE VIEWS (LEFT), XR HAND 3 OR MORE VIEWS (RIGHT) COMPARISON: Bilateral hand radiographs 09/23/2018 FINDINGS: Left hand: No bony erosions. No fracture. Normal alignment. Milddegenerative changes of the first carpometacarpal and STT joints. No softtissue swelling. Right hand: No bone erosion. Mild degenerative changes of the STT andinterphalangeal joints. No acute fracture or dislocation. No soft tissueswelling. IMPRESSION: No radiographic evidence of an inflammatory arthropathy. Johnson Santos MD IMG XR UPPER EXTREMITY Fi nal Result documented in this encounter Visit Diagnoses Diagnosis Arthritis Unspecified arthropathy, site unspecified Arthritis Unspecified arthropathy, site unspecified documented in this encounter Care Teams Technology Assistant Relationship Specialty Start Date End Date Vik Brar MD 136 [place] [address] PCP - General Internal Medicine 09/11/17 documented as of this encounter Additional Source Comments The information contained in this document represents components of the legal health record. It is not the complete legal health record.[facility]
== END 2025-03-01 14:28 | disposition home or self-care (01) ==
LOC: HO.HKAE 14:07
PROVIDERS: PCP Internal Medicine; Visit Provider Internal Medicine Hypertension Specialist
DX: N18.9 Chronic kidney disease, unspecified (principal)
CPT/HCPCS: 99214